=== PATIENT | female | born 1960 | race Caucasian/White ===

== ENCOUNTER 2018-06-07 20:14 | Emergency (ER) | payer SELFPAY ==
[~2018-06-07] VITALS: Ht 157.5 cm; Wt 56.7 kg
[~2018-06-07 20:14] MED LIST: BUTALB-CAFF-AC1 EACH PO; CARAFATE1 GM/10 ML PO; CODIENE PO; DARVOCET PO; DEPRESSION PILL; DONNATAL E16.2 MG/5 PO; DONNATAL PO; HYDROCODONE-AP1 EA23 PO; LIDOCAINE; MACROBID 100 M100 MG PO; NEXIUM40 MG; NORCO 10-325 T1 EACH PO; PANTOPRAZOLE SO40 MG PO; PHENERGAN25 M3 PO; PREMARIN1.25 MG PO; REGLAN10 MG PO; REQUIP5 MG PO; SOMA350 MG PO; Z PRILOSEC PO; Z.0.METOCLOPRAMIDE10 MT; Z.0.NEXIUM40 M1 PO; Z.0.ONGLYZA5 MG PO; Z.0.PROMETHAZINE HC2 MT; Z.0.SUCRALFATE1 GM PO; ZYRTEC10 MG PO
[2018-06-07] MEDS ORDERED: SODIUM CHLORIDE 0.9% 1000ML 1,000 ML IV STA (21:38)
[2018-06-07 21:44] LABS: BACTERIA,URINE FEW /HPF; BILIRUBIN,URINE NEGATIVE (NEGATIVE); CLARITY,URINE HAZY (CLEAR); COLOR,URINE YELLOW (YELLOW); EPITHELIAL CELLS,URINE FEW /LPF; KETONES,URINE NEGATIVE (NEGATIVE); LEUKOCYTE ESTERASE ,URINE NEGATIVE (NEGATIVE); NITRITE,URINE NEGATIVE (NEGATIVE); PROTEIN,URINE DIPSTICK NEGATIVE (NEGATIVE); RBC,URINE 0-5 /HPF (0-5); URINE UROBILINOGEN 0.2 mg/dL (0.2 - 1); WBC,URINE (MAN) 0-5 /HPF (0-5)
[2018-06-07] MEDS ORDERED: DICYCLOMINE HCL 20 MG/2 ML VIAL IM ONE (21:45)
[2018-06-07] MEDS ORDERED: ONDANSETRON HCL INJ 2MG/ML 2ML 2 MG/ML VIAL IV ONE (21:45)
[2018-06-07 22:29] LABS: BASOPHILS % 0.4 % (0.0-1.0); EOSINOPHILS % 0.8 % (0.0-6.0); HEMATOCRIT 37.1 % (34.2-44.1); HEMOGLOBIN 12.2 g/dL (12.0-16.0); LYMPHOCYTES # (AUTO) 1.7 (1.0-3.2); LYMPHOCYTES % 33.9 % (18.0-39.1); MEAN CORPUSCULAR HEMOGLOBIN 32.2 pg (28-32); MEAN CORPUSCULAR HGB CONC 32.9 g/dL (31-35); MEAN CORPUSCULAR VOLUME 97.9 fL (81-99); MONOCYTES # (AUTO) 0.4 (0.2-0.8); MONOCYTES % 8.4 % (4.4-11.3); NEUTROPHILS # (AUTO) 2.8 (2.1-6.9); NEUTROPHILS % 56.1 % (38.7-80.0); PLATELET COUNT 207 x10e3/uL (140-360); RED BLOOD COUNT 3.79 x10e6/uL (3.6-5.1); RED CELL DISTRIBUTION WIDTH 13.5 % (11.7-14.4)
[2018-06-07 23:00] LABS: ALANINE AMINOTRANSFERASE 13 IU/L (0-55); ALKALINE PHOSPHATASE 99 IU/L (40-150); ANION GAP 15.2 mmol/L (8-16); BLOOD UREA NITROGEN 10 mg/dL (7-26); BUN/CREATININE RATIO 11 (6-25); CALCIUM 9.6 mg/dL (8.4-10.2); CARBON DIOXIDE 23 mmol/L (22-29); CHLORIDE 99 mmol/L (98-107); CREATININE, SERUM 0.88 mg/dL (0.57-1.11); EST GLOMERULAR FILTRATION RATE > 60 ML/MIN (60-); GLUCOSE 110 mg/dL (74-118); POTASSIUM 4.2 mmol/L (3.5-5.1); SODIUM 133 mmol/L (136-145)
== END 2018-06-08 00:41 | disposition home or self-care (01) ==
LOC: ER 20:14
DX: R11.2 Nausea with vomiting, unspecified (principal)
CPT/HCPCS: 36415; 80053; 81001; 82150; 82550; 82553; 83690; 84484; 85025; 93005; 96374; 96375; 99284; J0500; J2405

== ENCOUNTER 2018-07-03 13:01 | Emergency (ER) | payer MEDICARE ==
[~2018-07-03] VITALS: Ht 157.5 cm; Wt 56.7 kg
[2018-07-03 14:19] LABS: AMPHETAMINES SCREEN,URINE NEGATIVE (NEGATIVE); BENZODIAZEPINES SCREEN,URINE POSITIVE (NEGATIVE); PHENCYCLIDINE SCREEN,URINE NEGATIVE (NEGATIVE)
[2018-07-03 14:21] LABS: CLARITY,URINE CLEAR (CLEAR); COLOR,URINE YELLOW (YELLOW); LEUKOCYTE ESTERASE ,URINE NEGATIVE (NEGATIVE); NITRITE,URINE NEGATIVE (NEGATIVE)
[2018-07-03 14:22] LABS: BILIRUBIN,URINE NEGATIVE (NEGATIVE); KETONES,URINE NEGATIVE (NEGATIVE); PROTEIN,URINE DIPSTICK TRACE (NEGATIVE); URINE UROBILINOGEN 0.2 mg/dL (0.2 - 1)
[2018-07-03 14:46] LABS: BACTERIA,URINE MANY /HPF; EPITHELIAL CELLS,URINE MANY /LPF; HYALINE CASTS 0-1 (0-1)
[2018-07-03 14:47] LABS: AMORPHOUS SEDIMENT,URINE FEW (FEW)
[2018-07-03 15:10] LABS: BASOPHILS % 0.4 % (0.0-1.0); EOSINOPHILS # (AUTO) 0.1 (0.0-0.4); EOSINOPHILS % 0.7 % (0.0-6.0); HEMATOCRIT 36.5 % (34.2-44.1); HEMOGLOBIN 12.3 g/dL (12.0-16.0); LYMPHOCYTES # (AUTO) 1.3 (1.0-3.2); LYMPHOCYTES % 16.9 % (18.0-39.1); MEAN CORPUSCULAR HEMOGLOBIN 32.6 pg (28-32); MEAN CORPUSCULAR HGB CONC 33.7 g/dL (31-35); MEAN CORPUSCULAR VOLUME 96.8 fL (81-99); MONOCYTES # (AUTO) 0.5 (0.2-0.8); MONOCYTES % 6.9 % (4.4-11.3); NEUTROPHILS # (AUTO) 5.5 (2.1-6.9); NEUTROPHILS % 74.2 % (38.7-80.0); PLATELET COUNT 215 x10e3/uL (140-360); RED BLOOD COUNT 3.77 x10e6/uL (3.6-5.1); RED CELL DISTRIBUTION WIDTH 13.1 % (11.7-14.4)
[2018-07-03] MEDS ORDERED: KETOROLAC TROMETHAMINE 30 MG/ML VIAL ONE (15:16)
[2018-07-03] MEDS ORDERED: MORPHINE SULFATE INJ 4 MG/ML INJ 1ML ONE (15:17)
[2018-07-03] MEDS ORDERED: KETOROLAC TROMETHAMINE 30 MG/ML VIAL IV STA (15:20)
[2018-07-03] MEDS ORDERED: MORPHINE SULFATE 2 MG/ML SYR 1ML IV STA (15:20)
--- NOTE | 2018-07-03 15:20 | NUR ---
PT REQUEST PAIN MEDICATION OF TORADOL AND MORPHINE MULTIPLE TIMES. MD NOTIFIED AND VERBAL ORDERS GIVEN AND PT MEDICATED. PT STATES 10 PAIN AND STATES SHE IS NOW RELIEF.
[2018-07-03 15:35] LABS: ALANINE AMINOTRANSFERASE 11 IU/L (0-55); ALBUMIN 3.5 g/dL (3.5-5.0); ALBUMIN/GLOBULIN RATIO 0.9 (0.8-2.0); ALKALINE PHOSPHATASE 132 IU/L (40-150); ANION GAP 16.1 mmol/L (8-16); BLOOD UREA NITROGEN 11 mg/dL (7-26); BUN/CREATININE RATIO 14 (6-25); CALCIUM 9.5 mg/dL (8.4-10.2); CARBON DIOXIDE 24 mmol/L (22-29); CHLORIDE 100 mmol/L (98-107); EST GLOMERULAR FILTRATION RATE > 60 ML/MIN (60-); GLUCOSE 98 mg/dL (74-118); POTASSIUM 4.1 mmol/L (3.5-5.1); SODIUM 136 mmol/L (136-145)
--- NOTE | 2018-07-03 16:30 | Diagnostic Imaging Report ---
History:Dizziness, falls Comparison studies: None Technique: Axial images were obtained from the skull base to the vertex. Coronal and sagittal images reconstructed from the axial data. Dose modulation, iterative reconstruction, and/or weight based adjustment of the mA/kV was utilized to reduce the radiation dose to as low as reasonably achievable. Intravenous contrast: None Findings: Scalp/skull: An acute right parietal scalp hematoma is not associated with subcutaneous emphysema or with hyperdense foreign bodies. No underlying fractures. Extra-axial spaces: No masses. No fluid collections. Brain sulci: Appropriate for age. Ventricles: Normal in size and configuration. No hydrocephalus. Parenchyma: No abnormal densities. No masses, hemorrhage, acute or chronic cortical vascular insults. Sellar/suprasellar region: No abnormalities. Craniocervical junction: Patent foramen magnum. No Chiari one malformation. Impression: 1. Acute right parietal scalp hematoma. No fractures. 2. No intracranial abnormalities. Signed by: Dr. John Rico M.D. on 07/03/2018 4:27 PM
[2018-07-03] MEDS ORDERED: ZOFRAN4 MG SL (16:53)
[2018-07-03] MEDS ORDERED: BACITRACIN ZINC 0.9GM TP ONE (17:16)
== END 2018-07-03 17:20 | disposition home or self-care (01) ==
LOC: ER 13:01
DX: S00.03XA Contusion of scalp, initial encounter (principal); S20.212A Contusion of left front wall of thorax, initial encounter; S80.02XA Contusion of left knee, initial encounter; S80.01XA Contusion of right knee, initial encounter; X58.XXXA Exposure to other specified factors, initial encounter; R11.2 Nausea with vomiting, unspecified; Z87.11 Personal history of peptic ulcer disease; M54.9 Dorsalgia, unspecified; G89.29 Other chronic pain; E11.9 Type 2 diabetes mellitus without complications; K74.60 Unspecified cirrhosis of liver; Z88.2 Allergy status to sulfonamides
CPT/HCPCS: 36415; 70450; 80053; 80307; 81001; 85025; 99284; J1885; J2270

== ENCOUNTER 2018-08-05 15:26 | Emergency (ER) | payer MEDICARE, OTHER ==
[~2018-08-05] VITALS: Ht 157.5 cm; Wt 54.4 kg
[~2018-08-05 15:26] MED LIST changes: +ZOFRAN4 MG SL
--- OUTSIDE RECORDS SUMMARY | 2018-08-05 15:30 | XMS REPORT ---
Author Author [facility] Address Unknown Phone Unavailable Care Team Providers Care Furniture Shampooer Name Role Phone ARMINDA Al BARBI Unavailable Unavailable Problems This patient has no known problems. Allergies, Adverse Reactions, Alerts This patient has no known allergies or adverse reactions. Medications This patient has no known medications. Results Test Description Test Time Test Comments Text Results Atomic Results Result Comments CT BRAIN WO 2018-07-03 16:25:00 [place] [id number] [place] [id number] Patient Name: CHIKA HEATON MR #: [id number] : 1960 Age/Sex: 57/F Req #: [id number] Adm Physician: Ordered by: GRACIA OSBORN SWITCH MAKER Report #: [id number] Location: ER Room/Bed: Procedure: [id number] CT/CT BRAIN WO Exam Date: 07/03/18 Exam Time: 1609 REPORT STATUS: Signed History:Dizziness, falls Comparison studies: None Technique: Axial images were obtained from the skull base to the vertex. Coronal and sagittal images reconstructed from the axial data. Dose modulation, iterative reconstruction, and/or weight based adjustment of the mA/kV was utilized to reduce the radiation dose to as low as reasonably achievable. Intravenous contrast: None Findings: Scalp/skull: An acute right parietal scalp hematoma is not associated with subcutaneous emphysema or with hyperdense foreign bodies. No underlying fractures. Extra-axial spaces: No masses. No fluid collections. Brain sulci: Appropriate for age. Ventricles: Normal in size and configuration. No hydrocephalus. Parenchyma: No abnormal densities. No masses, hemorrhage, acute or chronic cortical vascular insults. Sellar/suprasellar region: No abnormalities. Craniocervical junction: Patent foramen magnum. No Chiari one malformation. Impression: 1. Acute right parietal scalp hematoma. No fractures. 2. No intracranial abnormalities. Signed by: Dr. John Rico M.D. on 07/03/2018 4:27 PM Dictated By: JOHN DRISCOLL MD, MD [id number] Transcribed By: AILYN on 07/03/18 0362 COPY TO: GRACIA OSBORN NP
[2018-08-05] MEDS ORDERED: KETOROLAC TROMETHAMINE 60 MG/2 ML VIAL IM NR (15:45)
--- NOTE | 2018-08-05 17:45 | Diagnostic Imaging Report ---
CT BRAIN WO HISTORY: Trauma COMPARISON: Head CT 07/03/2018 Technique: Noncontrast axial scans were obtained from skull base to the vertex. Coronal and sagittal reconstructions obtained from the axial data. One or more of the following dose reduction techniques were used: Automated exposure control, adjustment of the mA and/or kV according to patient size, and/or utilization of iterative reconstruction technique. DISCUSSION: Scalp/Skull: Unremarkable. Brain sulci: Age-appropriate. Ventricles: Normal in size and configuration. Extra-axial spaces: No masses or fluid collections. Carotid siphon calcifications are present. Parenchyma: Mild bilateral deep white matter hypodensity is likely chronic microvascular ischemic change. Otherwise, no masses, hemorrhage, or large vascular territory acute infarct. Dural sinuses: No abnormal densities. Sellar/Suprasellar region: Intact. Skull base: Intact. Incidental findings: None. IMPRESSION: 1. No acute intracranial abnormalities. 2. Mild supratentorial chronic microvascular ischemic change. Signed by: Dr. Mason Ortiz M.D. on 08/05/2018 5:42 PM
--- NOTE | 2018-08-05 17:54 | Diagnostic Imaging Report ---
PELVIS X-RAY - 1 VIEW HISTORY: ^fall ^[id number] ^[id number] COMPARISON: CT abdomen and pelvis 07/31/2011 FINDINGS: Bones: No acute displaced fracture. Sclerotic lesion within the right iliac bone is unchanged since 2011 and likely representing a bone island. Osseous alignment is within normal limits. Joints: Mild to moderate degenerative changes of both hips. Mild degenerative changes of both sacroiliac joints. Soft tissues: Multiple phleboliths overlying the pelvis. IMPRESSION: No acute radiographic abnormality. Signed by: Dr. Jaquelin Michaud M.D. on 08/05/2018 5:50 PM
[2018-08-05] MEDS ORDERED: ROBAXIN-750750 MG PO (17:59)
== END 2018-08-05 18:30 | disposition home or self-care (01) ==
LOC: ER 15:26
DX: S06.0X0A Concussion without loss of consciousness, initial encounter (principal); W01.0XXA Fall on same level from slipping, tripping and stumbling without subsequent striking against object, initial encounter; Y92.238 Other place in hospital as the place of occurrence of the external cause
CPT/HCPCS: 70450; 72170; 99284; J1885

== ENCOUNTER 2018-08-30 20:35 | Emergency (ER) | payer MEDICARE ==
[~2018-08-30] VITALS: Ht 157.5 cm; Wt 54.4 kg
[~2018-08-30 20:35] MED LIST changes: +ROBAXIN-750750 MG PO
--- NOTE | 2018-08-30 21:04 | NUR ---
PATIENT IN RADILOGY DEPARTMENT
--- NOTE | 2018-08-30 21:55 | Diagnostic Imaging Report ---
History: Fall, hit the head. Head and neck pain Comparison studies:None Technique: Axial images were obtained from the brain and cervical spine. Coronal and sagittal images reconstructed from the axial data. Intravenous contrast: None Dose modulation, iterative reconstruction, and/or weight based adjustment of the mA/kV was utilized to reduce the radiation dose to as low as reasonably achievable. Findings: Head CT: Scalp/skull: No abnormalities. No fractures, blastic or lytic lesions. Brain sulci: Appropriate for age. Ventricles: Normal in size and configuration. No hydrocephalus. Extra-axial spaces: No masses. No fluid collections. Parenchyma: No abnormal densities. No masses, hemorrhage, acute or chronic cortical vascular insults. Sellar/suprasellar region: No abnormalities. Craniocervical junction: Patent foramen magnum. No Chiari one malformation. Cervical spine CT: Fractures: None. Soft tissues: No gross abnormalities. Atlantoaxial articulation: Degenerative changes without acute abnormality. Alignment: Normal lordosis. No scoliosis. Cervicomedullary junction: No abnormalities. Patent foramen magnum. Vertebrae: No infection or neoplasm. Degenerative changes: Patent canal and foramina. Incidental findings: None. Impression: Head CT: 1. Normal examination. Cervical spine CT: 1. No acute abnormalities. 2. Cannot exclude ligament, spinal cord and or vascular abnormalities on the basis of this examination. Signed by: DR Merlin Jay M.D. on 08/30/2018 9:51 PM
--- NOTE | 2018-08-30 21:55 | Diagnostic Imaging Report ---
Thoracic Spine - 3 view(s) HISTORY: Pain status post fall. COMPARISON: None FINDINGS: Superimposed structures and attenuation partially limit bone detail particularly on the swimmer's view.. The alignment is normal. No displaced fracture or compression deformity is identified. Minimal multilevel thoracic spondylosis. Cholecystectomy clips IMPRESSION: No acute compression fracture. Signed by: Dr. Ai Cabello M.D. on 08/30/2018 9:52 PM
--- NOTE | 2018-08-30 21:59 | Diagnostic Imaging Report ---
Lumbar Spine Radiographs: 3 views HISTORY: Pain COMPARISON: None available in PACS at this time. DISCUSSION: There are five non-rib bearing lumbar vertebral bodies. The alignment of the spine is within normal limits. Mild wedge deformity of the L4 vertebral body with deformity of the superior endplate suggestive of mild compression injury. Mild multilevel spondylosis. Facet arthrosis at L4-L5 and L5-S1. Sclerotic lesion in the right acetabulum may represent a bone island. Multiple phleboliths scattered throughout the pelvis. Degenerative changes of the bilateral hip and thigh joints. IMPRESSION: Findings suggestive of mild compression fracture deformity of L4. Signed by: Dr. Ai Cabello M.D. on 08/30/2018 9:55 PM
--- NOTE | 2018-08-30 22:27 | NUR ---
PATIENT STATES SHE HAS HAD TORADOL BEFORE, MD AWARE OF ASPIRIN ALLERGY, OK TO GIVE TORADOL
[2018-08-30] MEDS ORDERED: KETOROLAC TROMETHAMINE 60 MG/2 ML VIAL IM ONE (22:30)
--- NOTE | 2018-08-30 23:26 | Diagnostic Imaging Report ---
History: Fall, back pain Comparison studies: None Technique: Axial images were obtained from T12 through the sacrum. Coronal and sagittal images reconstructed from the axial data. Intravenous contrast: None Dose modulation, iterative reconstruction, and/or weight based adjustment of the mA/kV was utilized to reduce the radiation dose to as low as reasonably achievable. Findings: Number of non-rib bearing vertebral bodies: 5 Alignment: Normal lordosis. No scoliosis. Soft tissues: No paraspinal abnormalities. Small subcentimeter stones on the right collecting systems without hydronephrosis. Paraspinal muscles: Unremarkable. Vertebrae: No fractures or infection. Nondeforming hemangioma at L3 and L5 vertebral bodies. Degenerative changes: L1-L2: Patent canal and foramina L2-L3: Asymmetric left disc bulge results in mild canal stenosis and mild left foraminal narrowing L3-L4: Diffuse disc bulge and mild facet hypertrophy with patent canal and mild bilateral foraminal. L4-L5: Diffuse disc bulge, mild facet hypertrophy and ligamentum flavum thickening results in mild canal stenosis and mild bilateral foraminal narrowing L5-S1: Mild facet hypertrophy with patent canal and mild bilateral foraminal narrowing Sacroiliac joints: Mild degenerative changes without acute abnormality. IMPRESSION: 1. No acute lumbar abnormality. 2. Degenerative changes as described above. 3. Nonobstructing right nephrolithiasis. Signed by: DR Merlin Jay M.D. on 08/30/2018 11:22 PM
[2018-08-30 23:56] VITALS: BP 110/74
[2018-09-14] MEDS ORDERED: VALIUM10 MG (14:42)
[2018-09-14] MEDS ORDERED: IRON PO (14:42)
[2018-09-14] MEDS ORDERED: MECLIZINE HCL12.5 MG PO (14:42)
[2018-09-14] MEDS ORDERED: [UNRECOGNIZED DRUG - OTHER] PO (14:42)
== END 2018-08-31 00:07 | disposition home or self-care (01) ==
LOC: ER 20:35
DX: S06.0X0A Concussion without loss of consciousness, initial encounter (principal); S00.83XA Contusion of other part of head, initial encounter; S10.83XA Contusion of other specified part of neck, initial encounter; S30.0XXA Contusion of lower back and pelvis, initial encounter; W06.XXXA Fall from bed, initial encounter; Y93.84 Activity, sleeping; Y92.003 Bedroom of unspecified non-institutional (private) residence as the place of occurrence of the external cause; Z98.84 Bariatric surgery status
CPT/HCPCS: 70450; 72070; 72100; 72125; 72131; 99284; J1885

== ENCOUNTER 2018-09-05 14:12 | Emergency (ER) | payer MEDICARE ==
[~2018-09-05] VITALS: Ht 157.5 cm; Wt 54.4 kg
[2018-09-05] MEDS ORDERED: SODIUM CHLORIDE 0.9% 1000ML 1,000 ML IV STA (15:11)
[2018-09-05] MEDS ORDERED: DICYCLOMINE HCL 20 MG/2 ML VIAL IM ONE (15:15)
[2018-09-05] MEDS ORDERED: ONDANSETRON HCL INJ 2MG/ML 2ML 2 MG/ML VIAL IV ONE (15:30)
[2018-09-05 15:40] LABS: BASOPHILS % 0.2 % (0.0-1.0); EOSINOPHILS % 0.1 % (0.0-6.0); HEMOGLOBIN 9.3 g/dL (12.0-16.0); MEAN CORPUSCULAR HEMOGLOBIN 30.2 pg (28-32); MEAN CORPUSCULAR HGB CONC 34.4 g/dL (31-35); MEAN CORPUSCULAR VOLUME 87.7 fL (81-99); MONOCYTES # (AUTO) 0.6 (0.2-0.8); NEUTROPHILS # (AUTO) 6.8 (2.1-6.9); NEUTROPHILS % 79.7 % (38.7-80.0); PLATELET COUNT 244 x10e3/uL (140-360); RED BLOOD COUNT 3.08 x10e6/uL (3.6-5.1); RED CELL DISTRIBUTION WIDTH 11.9 % (11.7-14.4)
[2018-09-05 15:44] LABS: BILIRUBIN,URINE MODERATE (NEGATIVE); CLARITY,URINE SL CLOUDY (CLEAR); COLOR,URINE STRAW (YELLOW); KETONES,URINE 1+ (NEGATIVE); LEUKOCYTE ESTERASE ,URINE MODERATE (NEGATIVE); NITRITE,URINE NEGATIVE (NEGATIVE); PROTEIN,URINE DIPSTICK 2+ (NEGATIVE); URINE UROBILINOGEN 1 mg/dL (0.2 - 1)
[2018-09-05 15:47] LABS: AMPHETAMINES SCREEN,URINE NEGATIVE (NEGATIVE); BENZODIAZEPINES SCREEN,URINE POSITIVE (NEGATIVE); PHENCYCLIDINE SCREEN,URINE NEGATIVE (NEGATIVE)
[2018-09-05 16:01] LABS: BACTERIA,URINE MANY /HPF; WBC,URINE (MAN) >50 /HPF (0-5)
[2018-09-05 16:03] LABS: INR 0.96; PROTHROMBIN TIME 13.3 seconds (11.9-14.5)
[2018-09-05 16:04] LABS: PARTIAL THROMBOPLASTIN TIME 26.4 seconds (23.8-35.5)
[2018-09-05 16:04] LABS: ALANINE AMINOTRANSFERASE 25 IU/L (0-55); ALBUMIN 2.9 g/dL (3.5-5.0); ALBUMIN/GLOBULIN RATIO 0.7 (0.8-2.0); ALKALINE PHOSPHATASE 173 IU/L (40-150); ANION GAP 16.4 mmol/L (8-16); BLOOD UREA NITROGEN 11 mg/dL (7-26); BUN/CREATININE RATIO 13 (6-25); CALCIUM 9.4 mg/dL (8.4-10.2); CARBON DIOXIDE 21 mmol/L (22-29); CHLORIDE 101 mmol/L (98-107); CREATINE KINASE 15 IU/L (29-168); CREATININE, SERUM 0.85 mg/dL (0.57-1.11); EST GLOMERULAR FILTRATION RATE > 60 ML/MIN (60-); GLUCOSE 103 mg/dL (74-118); POTASSIUM 3.4 mmol/L (3.5-5.1); SODIUM 135 mmol/L (136-145)
[2018-09-05] MEDS ORDERED: CEFTRIAXONE SOD 1 GM VIAL IV ONE (16:15)
[2018-09-05] MEDS ORDERED: CEFTRIAXONE SOD 1 GM/NS 50 ML 50 ML IV ONE (16:15)
== END 2018-09-05 17:30 | disposition home or self-care (01) ==
LOC: ER 14:12
DX: R42 Dizziness and giddiness (principal); S06.0X0A Concussion without loss of consciousness, initial encounter; R51 Headache; R11.2 Nausea with vomiting, unspecified; W18.30XA Fall on same level, unspecified, initial encounter; N39.0 Urinary tract infection, site not specified; Z98.84 Bariatric surgery status
CPT/HCPCS: 36415; 80053; 80307; 81001; 82550; 82553; 84484; 85025; 85610; 85730; 87086; 87186; 93005; 99284; J0500; J0696; J2405; J7030

== ENCOUNTER → 2018-09-17 | Day surgery (SDC) | payer MEDICARE ==
[2018-09-14 16:00] LABS: BASOPHILS % 0.6 % (0.0-1.0); EOSINOPHILS # (AUTO) 0.2 (0.0-0.4); EOSINOPHILS % 3.9 % (0.0-6.0); HEMATOCRIT 27.8 % (34.2-44.1); HEMOGLOBIN 9.1 g/dL (12.0-16.0); LYMPHOCYTES # (AUTO) 1.8 (1.0-3.2); MEAN CORPUSCULAR HEMOGLOBIN 29.4 pg (28-32); MEAN CORPUSCULAR HGB CONC 32.7 g/dL (31-35); MONOCYTES # (AUTO) 0.6 (0.2-0.8); MONOCYTES % 11.2 % (4.4-11.3); NEUTROPHILS # (AUTO) 2.7 (2.1-6.9); NEUTROPHILS % 49.7 % (38.7-80.0); PLATELET COUNT 225 x10e3/uL (140-360); RED BLOOD COUNT 3.09 x10e6/uL (3.6-5.1); RED CELL DISTRIBUTION WIDTH 12.4 % (11.7-14.4)
[2018-09-14 16:10] LABS: PROTHROMBIN TIME 13.7 seconds (11.9-14.5)
[2018-09-14 16:11] LABS: PARTIAL THROMBOPLASTIN TIME 26.5 seconds (23.8-35.5)
[2018-09-14 16:20] LABS: ALANINE AMINOTRANSFERASE 13 IU/L (0-55); ALBUMIN 3.2 g/dL (3.5-5.0); ALBUMIN/GLOBULIN RATIO 0.9 (0.8-2.0); ANION GAP 12.8 mmol/L (8-16); BLOOD UREA NITROGEN 16 mg/dL (7-26); BUN/CREATININE RATIO 19 (6-25); CALCIUM 9.3 mg/dL (8.4-10.2); CARBON DIOXIDE 29 mmol/L (22-29); CHLORIDE 105 mmol/L (98-107); CREATININE, SERUM 0.84 mg/dL (0.57-1.11); EST GLOMERULAR FILTRATION RATE > 60 ML/MIN (60-); GLUCOSE 90 mg/dL (74-118); POTASSIUM 3.8 mmol/L (3.5-5.1); SODIUM 143 mmol/L (136-145)
[2018-09-14 22:54] LABS: ALKALINE PHOSPHATASE 97 IU/L (40-150)
[~2018-09-17] MED LIST changes: +IRON PO; +LIDOCAINE HCL 2% LOCAL INJ 5 ML SDV VIAL INJ ONE; +MECLIZINE HCL12.5 MG PO; +MIDAZOLAM HCL 2 MG/2 ML VIAL ONE; +ONDANSETRON HCL INJ 2MG/ML 2ML 2 MG/ML VIAL ONE; +PANTOPRAZOLE 40 MG 10ML VIAL ONE; +PROPOFOL IV EMULSION 10 MG/ML 20 ML VIAL ONE; +VALIUM10 MG; +VALIUM10 MG PO; +VANCOMYCIN HCL500 MG PO; +[UNRECOGNIZED DRUG - OTHER] PO
[2018-09-17 15:56] VITALS: BP 169/84
--- NOTE | 2018-09-17 16:04 | Operative Report ---
DATE OF PROCEDURE: 09/17/2018 SURGEON: Kyle Patrick MD PROCEDURE: Esophagogastroduodenoscopy with esophageal dilatation and biopsies. INDICATIONS FOR EGD: Dysphagia, epigastric pain, nausea. MEDICATIONS: The patient was done under MAC, please see anesthesiologist's note. PROCEDURE IN DETAIL: With the patient in left lateral decubitus position, a flexible fiberoptic Olympus gastroscope was introduced into the esophagus under direct visualization without any difficulty. There was some patchy erythema noted in the distal esophagus. There was a mild stricture noted at the GE junction that was dilated to size 52-Yemeni Bonilla. The scope was then advanced with ease into the stomach and the patient is status post Shanon-en-Y anastomosis appeared intact and the enteric loop was patent. There was no evidence of marginal ulcers. Biopsies were obtained from the gastric stump. The scope was subsequently withdrawn. The patient tolerated the procedure well. IMPRESSION: 1. Distal esophagitis, mild. 2. Mild stricture at gastroesophageal junction, dilated to size 52-Yemeni Bonilla. 3. Status post Shanon-en-Y. Anastomosis intact. Efferent loop patent. No evidence of marginal ulcers. PLAN: Follow up histology. Initiate Protonix 40 mg one p.o. q.a.m. a.c. and Carafate 1 g p.o. a.c. t.i.d. and at bedtime. Kyle Patrick MD [facility] [place]/[facility] /[id number] cc: Filemon Palacios
== END | disposition home or self-care (01) ==
LOC: OR 11:48
PROVIDERS: ATTEND Internal Medicine Gastroenterology
DX: K22.2 Esophageal obstruction (principal); K20.9 Esophagitis, unspecified; R10.10 Upper abdominal pain, unspecified; R11.2 Nausea with vomiting, unspecified; R03.0 Elevated blood-pressure reading, without diagnosis of hypertension; R42 Dizziness and giddiness; E11.9 Type 2 diabetes mellitus without complications; N20.0 Calculus of kidney; F41.9 Anxiety disorder, unspecified; Z88.6 Allergy status to analgesic agent; Z88.2 Allergy status to sulfonamides; Z01.812 Encounter for preprocedural laboratory examination; Z98.84 Bariatric surgery status; Z87.01 Personal history of pneumonia (recurrent)
CPT/HCPCS: 36415; 43239; 43450; 80053; 85025; 85610; 85730; 88305; 88312; C9113; J2001; J2250; J2405; J2704

== ENCOUNTER 2018-10-16 09:17 | Inpatient (IN) | payer MEDICARE ==
[~2018-10-16] VITALS: Ht 157.5 cm; Wt 54.4 kg
[~2018-10-16 09:17] MED LIST changes: -LIDOCAINE HCL 2% LOCAL INJ 5 ML SDV VIAL INJ ONE; -MIDAZOLAM HCL 2 MG/2 ML VIAL ONE; -ONDANSETRON HCL INJ 2MG/ML 2ML 2 MG/ML VIAL ONE; -PANTOPRAZOLE 40 MG 10ML VIAL ONE; -PROPOFOL IV EMULSION 10 MG/ML 20 ML VIAL ONE; -VALIUM10 MG PO; -VANCOMYCIN HCL500 MG PO
[2018-10-16] MEDS ORDERED: MORPHINE SULFATE INJ 4 MG/ML INJ 1ML IV STA (09:20)
[2018-10-16] MEDS ORDERED: ONDANSETRON HCL INJ 2MG/ML 2ML 2 MG/ML VIAL IV STA (09:20)
[2018-10-16] MEDS ORDERED: FAMOTIDINE 20 MG/2 ML VIAL IV STA (09:20)
[2018-10-16] MEDS ORDERED: SODIUM CHLORIDE 0.9% 1000ML 1,000 ML IV STA ×2 (09:20→10:51)
--- OUTSIDE RECORDS SUMMARY | 2018-10-16 09:21 | XMS REPORT | Continuity of Care Document ---
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 Problem 09/05/2018 [facility] Atrial fibrillation with rapid ventricular response Active 01/18/2014 Problem 09/05/2018 [facility] GI bleed Active 01/18/2014 Problem 09/05/2018 [facility] Medications Medication Details Route Status Patient Instructions Ordering Provider Order Date Source Methocarbamol (Robaxin-750) 750 Mg Tablet Three Times A Day as needed for Muscle Spasms Active Ramesh 08/05/2018 [facility] Ondansetron Hcl (Zofran*) 4 Mg Tablet Every 6 Hours as needed for Nausea Active Osborn 07/03/2018 [facility] Butalbit/Acetamin/Caff/Codeine (Ngcttg-Zwvw-Yyeepxeozqx-Codein) 1 Each Capsule, 1 Each Oral Every 6 Hours Active 09/16/2016 [facility] Carisoprodol (Soma) 350 Mg Tablet, 350 Mg Oral Four Times Daily Active 09/16/2016 [facility] Cetirizine Hcl (Zyrtec) 10 Mg Tablet, 10 Mg Oral Daily Active 09/16/2016 [facility] Metoclopramide Hcl (Reglan) 10 Mg Tablet, 10 Mg Oral Daily as needed for Nausea Active 09/16/2016 [facility] Nitrofurantoin Monohyd/M-Cryst (Macrobid 100 Mg Capsule) 100 Mg Capsule, 100 Mg Oral Twice A Day Active 09/16/2016 [facility] Sucralfate (Carafate) 1 Gm/10 Ml Oral.susp, 2 Tsp Oral Every 6 Hours as needed for Abdominal Pain Active 09/16/2016 [facility] Esomeprazole Magnesium (Nexium) 40 Mg Capsule., Active 12/29/2014 [facility] Carisoprodol (Soma) 350 Mg Tablet, 350 Mg Oral Daily Active 01/18/2014 [facility] Hydrocodone Bit/Acetaminophen (Slater 10-325 Tablet) 1 Each Tablet, Oral Every 6 Hours Active 01/18/2014 [facility] , 0.1037 Mg Oral Every 4 Hours Active 06/28/2013 [facility] Hydrocodone Bit/Acetaminophen (Hydrocodone-Apap 7.5-500 Tab) 1 Each Tablet, 17.5 - 500 Mg Oral Prn 4-6 Hr Active 06/28/2013 [facility] Lidocaine , Every 4 Hours Active 06/28/2013 [facility] Pantoprazole Sodium (Protonix) 40 Mg Tablet., 40 Mg Oral Daily Active 06/28/2013 [facility] Promethazine Hcl (Phenergan) 25 Mg Tablet, 25 Mg Oral Four Times Daily Active 06/28/2013 [facility] Sucralfate 1 Gm Tablet, 1 G Oral Before Meal Tid; Hs Active 06/28/2013 [facility] Esomeprazole Mag Trihydrate (Nexium) 40 Mg Suspdr.pkt, 40 Mg Oral Daily Active 08/02/2012 [facility] Omeprazole Magnesium (Prilosec) 10 Mg Suspdr.pkt, 10 Mg Oral Active 08/05/2010 [facility] Darvocet W/Codiene Every 6 Hours Active [facility] Depression Pill Active [facility] Estrogens, Conjugated (Premarin) 1.25 Mg Tablet Daily Active [facility] Pantoprazole Sodium (Protonix) 40 Mg Tablet. Daily Active [facility] Ropinirole Hcl (Requip) 5 Mg Tablet Bedtime Active [facility] Allergies, Adverse Reactions, Alerts Substance Category Reaction Severity Reaction type Status Date Reported Comments Source Sulfa (Sulfonamide Antibiotics) Unknown Allergy to Substance Active 09/05/2018 [facility] Codeine Unknown Allergy to Substance Active 09/05/2018 [facility] Aspirin Unknown Allergy to Substance Active 09/05/2018 [facility] Meperidine Unknown Allergy to Substance Active 09/05/2018 [facility] Hydromorphone Itching Mild Allergy to Substance Active 09/05/2018 [facility] Immunizations No Data Provided for This Section Results Order Name Results Value Reference Range Date Interpretation Comments Source Prothrombin time (PT) in platelet poor plasma by coagulation assay 13.3 11.9 - 14.5 09/05/2018 [facility] INR in Platelet poor plasma by Coagulation assay 0.96 09/05/2018 [facility] Activated partial thromboplastin time (aPTT) in platelet poor plasma bycoagulation assay 26.4 23.8 - 35.5 09/05/2018 [facility] Blood leukocytes automated count (number/volume) 8.58 4.8 - 10.8 09/05/2018 [facility] Blood erythrocytes automated count (number/volume) 3.08 3.6 - 5.1 09/05/2018 [facility] Blood hemoglobin measurement (moles/volume) 9.3 12.0 - 16.0 09/05/2018 [facility] Automated blood hematocrit (volume fraction) 27.0 34.2 - 44.1 09/05/2018 [facility] Automated erythrocyte mean corpuscular volume 87.7 81 - 99 09/05/2018 [facility] Automated erythrocyte mean corpuscular hemoglobin (mass per erythrocyte) 30.2 28 - 32 09/05/2018 [facility] Automated erythrocyte mean corpuscular hemoglobin concentration measurement (mass/volume) 34.4 31 - 35 09/05/2018 [facility] RDW BldCo-Rto 11.9 11.7 - 14.4 09/05/2018 [facility] Automated blood platelet count (count/volume) 244 140 - 360 09/05/2018 [facility] Automated blood segmented neutrophil count as percentage of total leukocytes 79.7 38.7 - 80.0 09/05/2018 [facility] Automated blood lymphocyte count as percentage ot total leukocytes 12.0 18.0 - 39.1 09/05/2018 [facility] Automated blood monocyte count as percentage of total leukocytes 7.0 4.4 - 11.3 09/05/2018 [facility] Automated blood eosinophil count as percentage of total leukocytes 0.1 0.0 - 6.0 09/05/2018 [facility] Automated blood basophil count as percentage of total leukocytes 0.2 0.0 - 1.0 09/05/2018 [facility] IM GRANULOCYTES % 1.0 0.0 - 1.0 09/05/2018 [facility] Automated blood neutrophil count 6.8 2.1 - 6.9 09/05/2018 [facility] Blood lymphocytes count (number/volume) 1.0 1.0 - 3.2 09/05/2018 [facility] Blood monocytes automated count (number/volume) 0.6 0.2 - 0.8 09/05/2018 [facility] Automated blood eosinophil count 0.0 0.0 - 0.4 09/05/2018 [facility] Automated blood basophil count (count/volume) 0.0 0.0 - 0.1 09/05/2018 [facility] Absolute Immature Granulocyte (auto 0.09 0 - 0.1 09/05/2018 [facility] Urine color determination STRAW YELLOW 09/05/2018 [facility] Urine clarity SL CLOUDY CLEAR 09/05/2018 [facility] Specific gravity of Urine by Test strip 1.025 1.010 - 1.025 09/05/2018 [facility] Urine pH measurement by automated test strip 6 5 - 7 09/05/2018 [facility] Urine leukocyte esterase detection by automated test strip MODERATE NEGATIVE 09/05/2018 [facility] Urine nitrite detection by automated test strip NEGATIVE NEGATIVE 09/05/2018 [facility] Urine protein detection by automated test strip 2+ NEGATIVE 09/05/2018 [facility] Urine glucose detection by automated test strip NEGATIVE NEGATIVE 09/05/2018 [facility] Urine ketones detection by automated test strip 1+ NEGATIVE 09/05/2018 [facility] Urine opiates screening test POSITIVE NEGATIVE 09/05/2018 [facility] Barbiturates screen, urine POSITIVE NEGATIVE 09/05/2018 [facility] Urine phencyclidine detection by screening method NEGATIVE NEGATIVE 09/05/2018 [facility] Urine amphetamines detection by screen method > 1000 ng/mL NEGATIVE NEGATIVE 09/05/2018 [facility] Urine Methamphetamines Screen NEGATIVE NEGATIVE 09/05/2018 [facility] Urine benzodiazepines detection by screening method POSITIVE NEGATIVE 09/05/2018 [facility] Urine cocaine measurement (mass/volume) NEGATIVE NEGATIVE 09/05/2018 [facility] Urine cannabinoids detection by screening method NEGATIVE NEGATIVE 09/05/2018 [facility] Urine methadone screen NEGATIVE NEGATIVE 09/05/2018 [facility] Urine urobilinogen measurement by test strip (mass/volume) 1 0.2 - 1 09/05/2018 [facility] Urine total bilirubin detection MODERATE NEGATIVE 09/05/2018 [facility] Urine erythrocytes detection 1+ NEGATIVE 09/05/2018 [facility] Automated urine sediment leukocyte count by microscopy (number/high power field) >50 0 - 5 09/05/2018 [facility] Erythrocytes detection in urine sediment by light microscopy 11-20 0 - 5 09/05/2018 [facility] Bacteria detection in urine sediment by light microscopy MANY NONE 09/05/2018 [facility] Epithelial cells detection in urine sediment by light microscopy NONE NONE 09/05/2018 [facility] Serum or plasma sodium measurement (moles/volume) 135 136 - 145 09/05/2018 [facility] Serum or plasma potassium measurement (moles/volume) 3.4 3.5 - 5.1 09/05/2018 [facility] Serum or plasma chloride measurement (moles/volume) 101 98 - 107 09/05/2018 [facility] Serum or plasma carbon dioxide, total measurement (moles/volume) 21 22 - 29 09/05/2018 [facility] Serum or plasma anion gap 16.4 8 - 16 09/05/2018 [facility] Serum or plasma urea nitrogen measurement (mass/volume) 11 7 - 26 09/05/2018 [facility] Serum or plasma creatinine measurement (mass/volume) 0.85 0.57 - 1.11 09/05/2018 [facility] Serum or plasma urea nitrogen/creatinine mass ratio 13 6 - 25 09/05/2018 [facility] Estimated glomerular filtration rate (GFR) determination > 60 60 09/05/2018 [facility] Glucose measurement 103 74 - 118 09/05/2018 [facility] Serum or plasma calcium measurement (mass/volume) 9.4 8.4 - 10.2 09/05/2018 [facility] Serum or plasma total bilirubin measurement (mass/volume) 0.6 0.2 - 1.2 09/05/2018 [facility] Aspartate Amino Transf (AST/SGOT) 39 5 - 34 09/05/2018 [facility] Serum or plasma alanine aminotransferase measurement (enzymatic activity/volume) 25 0 - 55 09/05/2018 [facility] Serum or plasma protein measurement (mass/volume) 7.3 6.5 - 8.1 09/05/2018 [facility] Serum or plasma albumin measurement (mass/volume) 2.9 3.5 - 5.0 09/05/2018 [facility] Plasma globulin measurement (mass/volume) 4.4 2.3 - 3.5 09/05/2018 [facility] Serum or plasma albumin/globulin mass ratio 0.7 0.8 - 2.0 09/05/2018 [facility] Serum or plasma alkaline phosphatase measurement (enzymatic activity/volume) 173 40 - 150 09/05/2018 [facility] Serum or plasma creatine kinase measurement (enzymatic activity/volume) 15 29 - 168 09/05/2018 [facility] Serum or plasma creatine kinase MB measurement (mass/volume) 0.60 0 - 5.0 09/05/2018 [facility] Troponin I measurement by highly sensitive enzyme immunoassay < 0.001 0 - 0.300 09/05/2018 [facility] Amorphous sediment detection in urine sediment by light microscopy FEW FEW 07/03/2018 [facility] Hyaline casts detection in urine sediment by light microscopy 0-1 0 - 1 07/03/2018 [facility] Coarse granular casts detection in urine sediment by light microscopy 1-5 0 07/03/2018 [facility] WBC casts detection in urine sediment by light microscopy 1-5 0 07/03/2018 [facility] Serum or plasma amylase measurement (enzymatic activity/volume) 67 25 - 125 06/07/2018 [facility] Serum or plasma lipase measurement (enzymatic activity/volume) 32 8 - 78 06/07/2018 [facility] Pathology Reports No Data Provided for This Section Diagnostic Reports No Data Provided for This Section Consultation Notes No Data Provided for This Section Discharge Summaries No Data Provided for This Section History and Physicals No Data Provided for This Section Vital Signs No Data Provided for This Section Encounters Location Location Details Encounter Type Encounter Number Reason For Visit Attending Provider ADM Date DC Date Status Source Departed Emergency Room [id number] YODIT PORTILLO MD 06/07/2018 06/08/2018 [facility] Departed Emergency Room [id number] BARBI HILLIARD MD 07/03/2018 07/03/2018 [facility] Departed Emergency Room [id number] YODIT PORTILLO MD 08/05/2018 08/05/2018 [facility] Departed Emergency Room [id number] RONI LARA MD 08/30/2018 08/31/2018 [facility] Departed Emergency Room [id number] BARBI HILLIARD MD 09/05/2018 09/05/2018 [facility] Procedures Procedure Code Date Perfomer Comments Source Computed tomography of brain without radiopaque contrast [id number] 08/30/2018 [facility] Computed tomography of cervical spine without contrast [id number] 08/30/2018 [facility] Computed tomography of lumbar spine without contrast [id number] 08/30/2018 [facility] Computed tomography of brain without radiopaque contrast [id number] 08/05/2018 [facility] Computed tomography of brain without radiopaque contrast [id number] 07/03/2018 [facility] Assessment and Plan No Data Provided for This Section Plan of Care Plan of Care Date Source Discharge Date 09/05/18 5:30pm Disposition HOME, SELF-CARE Condition at Discharge Stable Instructions/Education Provided Concussion/Head Injury - Adult Dizziness Urinary Tract Infection - Women Vomiting - Adult Forms Provided Work/School Excuse Prescriptions See Medication Section Referrals GERI PIEDRA Address: [address] [place] [id number] KULDEEP MATUTE MD Address: [address] [place] [id number] Additional Instructions/Education 1. follow up with your doctor / neurologist in 1-2 days without fail 2. return to ed as needed 3. tylenol and motrin as needed 4. increase oral fluids 5. bland diet 09/05/2018 [facility] Social History Social History Date Source Social History Problem Response Recorded Date/Time Onset Date Status Hx Psychiatric Problems No 12/29/2014 11:28am Not Applicable Not Applicable Hx Eating Disorder No 12/29/2014 11:28am Not Applicable Not Applicable Hx Substance Use Disorder No 12/29/2014 11:28am Not Applicable Not Applicable Hx Depression No 12/29/2014 11:28am Not Applicable Not Applicable Hx Alcohol Use No 12/29/2014 11:28am Not Applicable Not Applicable Hx Substance Use Treatment No 12/29/2014 11:28am Not Applicable Not Applicable Hx Physical Abuse No 12/29/2014 11:28am Not Applicable Not Applicable 09/05/2018 [facility] Family History No Data Provided for This Section Advance Directives Order Name Results Value Date Source Advance Directives Advance Directives Directive Response Recorded Date/Time Does the patient have an advance directive? No 12/29/14 11:28am If yes, is advance directive on file with [facility]? No 07/03/18 3:53pm If not on file with [facility] will patient provide a copy? No 07/03/18 3:53pm Do you have a Directive to Physician? No 09/05/18 2:45pm Do you have a Medical Power of Internal Security Manager? No 09/05/18 2:45pm Do you have an out of hospital Do Not Resuscitate Order? No 09/05/18 2:45pm Do you have any special needs we should be aware of? No 09/05/18 2:45pm Do you have a support person here with you today? No 09/05/18 2:45pm Did patient receive Notice of Privacy Practices? Yes 09/05/18 2:45pm Did patient receive patient rights and responsibilities? Yes 09/05/18 2:45pm 09/05/2018 [facility] Functional Status No Data Provided for This Section
[2018-10-16] MEDS ORDERED: DICYCLOMINE HCL 20 MG/2 ML VIAL IM ONE (09:30)
[2018-10-16] MEDS ORDERED: ASPIRIN 81 MG CHEW TAB PO ONE (09:30)
--- NOTE | 2018-10-16 10:03 | NUR ---
straight cath inserted via aseptic technique per md orders for ua; urine output approx 40 cc; urine collected and sent to lab
[2018-10-16 10:08] LABS: BILIRUBIN,URINE MODERATE (NEGATIVE); CLARITY,URINE CLEAR (CLEAR); COLOR,URINE ORANGE (YELLOW); LEUKOCYTE ESTERASE ,URINE TRACE (NEGATIVE); NITRITE,URINE NEGATIVE (NEGATIVE); PROTEIN,URINE DIPSTICK 1+ (NEGATIVE); URINE UROBILINOGEN 0.2 mg/dL (0.2 - 1)
[2018-10-16 10:08] LABS: BASOPHILS % 0.3 % (0.0-1.0); HEMATOCRIT 37.8 % (34.2-44.1); HEMOGLOBIN 12.5 g/dL (12.0-16.0); LYMPHOCYTES # (AUTO) 1.2 (1.0-3.2); MEAN CORPUSCULAR HEMOGLOBIN 29.3 pg (28-32); MEAN CORPUSCULAR HGB CONC 33.1 g/dL (31-35); MEAN CORPUSCULAR VOLUME 88.7 fL (81-99); MONOCYTES # (AUTO) 0.3 (0.2-0.8); MONOCYTES % 2.4 % (4.4-11.3); NEUTROPHILS % 86.7 % (38.7-80.0); PLATELET COUNT 468 x10e3/uL (140-360); RED BLOOD COUNT 4.26 x10e6/uL (3.6-5.1)
[2018-10-16 10:09] LABS: KETONES,URINE 3+ (NEGATIVE)
[2018-10-16 10:12] LABS: AMPHETAMINES SCREEN,URINE NEGATIVE (NEGATIVE); BENZODIAZEPINES SCREEN,URINE POSITIVE (NEGATIVE); PHENCYCLIDINE SCREEN,URINE NEGATIVE (NEGATIVE)
[2018-10-16 10:27] LABS: AMORPHOUS SEDIMENT,URINE FEW (FEW); BACTERIA,URINE MANY /HPF; EPITHELIAL CELLS,URINE MODERATE /LPF; RBC,URINE 0-5 /HPF (0-5)
[2018-10-16 10:30] LABS: PROTHROMBIN TIME 13.7 seconds (11.9-14.5)
[2018-10-16 10:31] LABS: PARTIAL THROMBOPLASTIN TIME 23.3 seconds (23.8-35.5)
[2018-10-16 10:38] LABS: ALANINE AMINOTRANSFERASE 50 IU/L (0-55); ALBUMIN 3.1 g/dL (3.5-5.0); ALBUMIN/GLOBULIN RATIO 0.7 (0.8-2.0); ALKALINE PHOSPHATASE 180 IU/L (40-150); ANION GAP 29.7 mmol/L (8-16); BLOOD UREA NITROGEN 8 mg/dL (7-26); BUN/CREATININE RATIO 8 (6-25); CALCIUM 9.3 mg/dL (8.4-10.2); CARBON DIOXIDE 14 mmol/L (22-29); CHLORIDE 100 mmol/L (98-107); CREATINE KINASE 45 IU/L (29-168); CREATININE, SERUM 0.99 mg/dL (0.57-1.11); EST GLOMERULAR FILTRATION RATE 57 ML/MIN (60-); GLUCOSE 180 mg/dL (74-118); LIPASE 111 U/L (8-78); SODIUM 141 mmol/L (136-145)
[2018-10-16] MEDS ORDERED: CEFTRIAXONE SOD 1 GM/NS 50 ML 50 ML IV STA (10:38)
--- NOTE | 2018-10-16 10:41 | Diagnostic Imaging Report ---
EXAMINATION: CHEST SINGLE (PORTABLE) INDICATION: Pain COMPARISON: None FINDINGS: LINES/TUBES:EKG leads overlie the chest. LUNGS:The lungs are moderately inflated. No focal consolidation or pulmonary edema. PLEURA:No pleural effusion or pneumothorax. MEDIASTINUM:The cardiomediastinal silhouette appears normal in size and shape. BONES/SOFT TISSUES:No acute osseous injury. ABDOMEN:No free air under the diaphragm. Status post cholecystectomy. IMPRESSION: No focal pneumonia or pulmonary edema. Signed by: Arthur Layton MD on 10/16/2018 10:38 AM
[2018-10-16 10:42] LABS: POTASSIUM 2.7 mmol/L (3.5-5.1)
[2018-10-16] MEDS ORDERED: POTASSIUM CHLORIDE 10MEQ/100ML 100 ML IV STA (10:42)
[2018-10-16] MEDS ORDERED: KCL 20MEQ/.9 SOD CHL 1,000 ML IV STA (10:42)
--- NOTE | 2018-10-16 10:43 | NUR ---
DR. OCASIO AND JERMAINE BYRD NOTIFIED AND AWARE OF CRITICAL LAB VALUE; K 2.7.
[2018-10-16] MEDS ORDERED: POTASSIUM CHLORIDE 10MEQ/100ML 100 ML IV ONE ×2 (10:45→12:00)
[2018-10-16 10:49] LABS: B-TYPE NATRIURETIC PEPTIDE2 51.2 pg/mL (0-100)
[2018-10-16] MEDS ORDERED: D5.45%NS/KCL 20MEQ 1,000 ML IV SCH (11:00)
[2018-10-16 11:01] LABS: ACETAMINOPHEN < 3 ug/mL (10-30); SALICYLATE < 5.0 mg/dL (0-30)
--- OUTSIDE RECORDS SUMMARY | 2018-10-16 11:09 | XMS REPORT | Continuity of Care Document ---
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 Problem 09/05/2018 [facility] Atrial fibrillation with rapid ventricular response Active 01/18/2014 Problem 09/05/2018 [facility] GI bleed Active 01/18/2014 Problem 09/05/2018 [facility] Medications Medication Details Route Status Patient Instructions Ordering Provider Order Date Source Methocarbamol (Robaxin-750) 750 Mg Tablet Three Times A Day as needed for Muscle Spasms Active Ramesh 08/05/2018 [facility] Ondansetron Hcl (Zofran*) 4 Mg Tablet Every 6 Hours as needed for Nausea Active Osborn 07/03/2018 [facility] Butalbit/Acetamin/Caff/Codeine (Tcsuii-Oedu-Aiaztojwtpv-Codein) 1 Each Capsule, 1 Each Oral Every 6 Hours Active 09/16/2016 [facility] Carisoprodol (Soma) 350 Mg Tablet, 350 Mg Oral Four Times Daily Active 09/16/2016 [facility] Cetirizine Hcl (Zyrtec) 10 Mg Tablet, 10 Mg Oral Daily Active 09/16/2016 [facility] Metoclopramide Hcl (Reglan) 10 Mg Tablet, 10 Mg Oral Daily as needed for Nausea Active 09/16/2016 [facility] Nitrofurantoin Monohyd/M-Cryst (Macrobid 100 Mg Capsule) 100 Mg Capsule, 100 Mg Oral Twice A Day Active 09/16/2016 [facility] Sucralfate (Carafate) 1 Gm/10 Ml Oral.susp, 2 Tsp Oral Every 6 Hours as needed for Abdominal Pain Active 09/16/2016 [facility] Esomeprazole Magnesium (Nexium) 40 Mg Capsule., Active 12/29/2014 [facility] Carisoprodol (Soma) 350 Mg Tablet, 350 Mg Oral Daily Active 01/18/2014 [facility] Hydrocodone Bit/Acetaminophen ([place] 10-325 Tablet) 1 Each Tablet, Oral Every 6 Hours Active 01/18/2014 [facility] , 0.1037 Mg Oral Every 4 Hours Active 06/28/2013 [facility] Hydrocodone Bit/Acetaminophen (Hydrocodone-Apap 7.5-500 Tab) 1 Each Tablet, 17.5 - 500 Mg Oral Prn 4-6 Hr Active 06/28/2013 [facility] Lidocaine , Every 4 Hours Active 06/28/2013 [facility] Pantoprazole Sodium (Protonix) 40 Mg Tablet., 40 Mg Oral Daily Active 06/28/2013 [facility] Promethazine Hcl (Phenergan) 25 Mg Tablet, 25 Mg Oral Four Times Daily Active 06/28/2013 [facility] Sucralfate 1 Gm Tablet, 1 G Oral Before Meal Tid; Hs Active 06/28/2013 [facility] Esomeprazole Mag Trihydrate (Nexium) 40 Mg Suspdr.pkt, 40 Mg Oral Daily Active 08/02/2012 [facility] Omeprazole Magnesium (Prilosec) 10 Mg Suspdr.pkt, 10 Mg Oral Active 08/05/2010 [facility] Darvocet W/Codiene Every 6 Hours Active [facility] Depression Pill Active [facility] Estrogens, Conjugated (Premarin) 1.25 Mg Tablet Daily Active [facility] Pantoprazole Sodium (Protonix) 40 Mg Tablet. Daily Active [facility] Ropinirole Hcl (Requip) 5 Mg Tablet Bedtime Active [facility] Allergies, Adverse Reactions, Alerts Substance Category Reaction Severity Reaction type Status Date Reported Comments Source Sulfa (Sulfonamide Antibiotics) Unknown Allergy to Substance Active 09/05/2018 [facility] Codeine Unknown Allergy to Substance Active 09/05/2018 [facility] Aspirin Unknown Allergy to Substance Active 09/05/2018 [facility] Meperidine Unknown Allergy to Substance Active 09/05/2018 [facility] Hydromorphone Itching Mild Allergy to Substance Active 09/05/2018 [facility] Immunizations No Data Provided for This Section Results Order Name Results Value Reference Range Date Interpretation Comments Source Prothrombin time (PT) in platelet poor plasma by coagulation assay 13.3 11.9 - 14.5 09/05/2018 [facility] INR in Platelet poor plasma by Coagulation assay 0.96 09/05/2018 [facility] Activated partial thromboplastin time (aPTT) in platelet poor plasma bycoagulation assay 26.4 23.8 - 35.5 09/05/2018 [facility] Blood leukocytes automated count (number/volume) 8.58 4.8 - 10.8 09/05/2018 [facility] Blood erythrocytes automated count (number/volume) 3.08 3.6 - 5.1 09/05/2018 [facility] Blood hemoglobin measurement (moles/volume) 9.3 12.0 - 16.0 09/05/2018 [facility] Automated blood hematocrit (volume fraction) 27.0 34.2 - 44.1 09/05/2018 [facility] Automated erythrocyte mean corpuscular volume 87.7 81 - 99 09/05/2018 [facility] Automated erythrocyte mean corpuscular hemoglobin (mass per erythrocyte) 30.2 28 - 32 09/05/2018 [facility] Automated erythrocyte mean corpuscular hemoglobin concentration measurement (mass/volume) 34.4 31 - 35 09/05/2018 [facility] RDW BldCo-Rto 11.9 11.7 - 14.4 09/05/2018 [facility] Automated blood platelet count (count/volume) 244 140 - 360 09/05/2018 [facility] Automated blood segmented neutrophil count as percentage of total leukocytes 79.7 38.7 - 80.0 09/05/2018 [facility] Automated blood lymphocyte count as percentage ot total leukocytes 12.0 18.0 - 39.1 09/05/2018 [facility] Automated blood monocyte count as percentage of total leukocytes 7.0 4.4 - 11.3 09/05/2018 [facility] Automated blood eosinophil count as percentage of total leukocytes 0.1 0.0 - 6.0 09/05/2018 [facility] Automated blood basophil count as percentage of total leukocytes 0.2 0.0 - 1.0 09/05/2018 [facility] IM GRANULOCYTES % 1.0 0.0 - 1.0 09/05/2018 [facility] Automated blood neutrophil count 6.8 2.1 - 6.9 09/05/2018 [facility] Blood lymphocytes count (number/volume) 1.0 1.0 - 3.2 09/05/2018 [facility] Blood monocytes automated count (number/volume) 0.6 0.2 - 0.8 09/05/2018 [facility] Automated blood eosinophil count 0.0 0.0 - 0.4 09/05/2018 [facility] Automated blood basophil count (count/volume) 0.0 0.0 - 0.1 09/05/2018 [facility] Absolute Immature Granulocyte (auto 0.09 0 - 0.1 09/05/2018 [facility] Urine color determination STRAW YELLOW 09/05/2018 [facility] Urine clarity SL CLOUDY CLEAR 09/05/2018 [facility] Specific gravity of Urine by Test strip 1.025 1.010 - 1.025 09/05/2018 [facility] Urine pH measurement by automated test strip 6 5 - 7 09/05/2018 [facility] Urine leukocyte esterase detection by automated test strip MODERATE NEGATIVE 09/05/2018 [facility] Urine nitrite detection by automated test strip NEGATIVE NEGATIVE 09/05/2018 [facility] Urine protein detection by automated test strip 2+ NEGATIVE 09/05/2018 [facility] Urine glucose detection by automated test strip NEGATIVE NEGATIVE 09/05/2018 [facility] Urine ketones detection by automated test strip 1+ NEGATIVE 09/05/2018 [facility] Urine opiates screening test POSITIVE NEGATIVE 09/05/2018 [facility] Barbiturates screen, urine POSITIVE NEGATIVE 09/05/2018 [facility] Urine phencyclidine detection by screening method NEGATIVE NEGATIVE 09/05/2018 [facility] Urine amphetamines detection by screen method > 1000 ng/mL NEGATIVE NEGATIVE 09/05/2018 [facility] Urine Methamphetamines Screen NEGATIVE NEGATIVE 09/05/2018 [facility] Urine benzodiazepines detection by screening method POSITIVE NEGATIVE 09/05/2018 [facility] Urine cocaine measurement (mass/volume) NEGATIVE NEGATIVE 09/05/2018 [facility] Urine cannabinoids detection by screening method NEGATIVE NEGATIVE 09/05/2018 [facility] Urine methadone screen NEGATIVE NEGATIVE 09/05/2018 [facility] Urine urobilinogen measurement by test strip (mass/volume) 1 0.2 - 1 09/05/2018 [facility] Urine total bilirubin detection MODERATE NEGATIVE 09/05/2018 [facility] Urine erythrocytes detection 1+ NEGATIVE 09/05/2018 [facility] Automated urine sediment leukocyte count by microscopy (number/high power field) >50 0 - 5 09/05/2018 [facility] Erythrocytes detection in urine sediment by light microscopy 11-20 0 - 5 09/05/2018 [facility] Bacteria detection in urine sediment by light microscopy MANY NONE 09/05/2018 [facility] Epithelial cells detection in urine sediment by light microscopy NONE NONE 09/05/2018 [facility] Serum or plasma sodium measurement (moles/volume) 135 136 - 145 09/05/2018 [facility] Serum or plasma potassium measurement (moles/volume) 3.4 3.5 - 5.1 09/05/2018 [facility] Serum or plasma chloride measurement (moles/volume) 101 98 - 107 09/05/2018 [facility] Serum or plasma carbon dioxide, total measurement (moles/volume) 21 22 - 29 09/05/2018 [facility] Serum or plasma anion gap 16.4 8 - 16 09/05/2018 [facility] Serum or plasma urea nitrogen measurement (mass/volume) 11 7 - 26 09/05/2018 [facility] Serum or plasma creatinine measurement (mass/volume) 0.85 0.57 - 1.11 09/05/2018 [facility] Serum or plasma urea nitrogen/creatinine mass ratio 13 6 - 25 09/05/2018 [facility] Estimated glomerular filtration rate (GFR) determination > 60 60 09/05/2018 [facility] Glucose measurement 103 74 - 118 09/05/2018 [facility] Serum or plasma calcium measurement (mass/volume) 9.4 8.4 - 10.2 09/05/2018 [facility] Serum or plasma total bilirubin measurement (mass/volume) 0.6 0.2 - 1.2 09/05/2018 [facility] Aspartate Amino Transf (AST/SGOT) 39 5 - 34 09/05/2018 [facility] Serum or plasma alanine aminotransferase measurement (enzymatic activity/volume) 25 0 - 55 09/05/2018 [facility] Serum or plasma protein measurement (mass/volume) 7.3 6.5 - 8.1 09/05/2018 [facility] Serum or plasma albumin measurement (mass/volume) 2.9 3.5 - 5.0 09/05/2018 [facility] Plasma globulin measurement (mass/volume) 4.4 2.3 - 3.5 09/05/2018 [facility] Serum or plasma albumin/globulin mass ratio 0.7 0.8 - 2.0 09/05/2018 [facility] Serum or plasma alkaline phosphatase measurement (enzymatic activity/volume) 173 40 - 150 09/05/2018 [facility] Serum or plasma creatine kinase measurement (enzymatic activity/volume) 15 29 - 168 09/05/2018 [facility] Serum or plasma creatine kinase MB measurement (mass/volume) 0.60 0 - 5.0 09/05/2018 [facility] Troponin I measurement by highly sensitive enzyme immunoassay < 0.001 0 - 0.300 09/05/2018 [facility] Amorphous sediment detection in urine sediment by light microscopy FEW FEW 07/03/2018 [facility] Hyaline casts detection in urine sediment by light microscopy 0-1 0 - 1 07/03/2018 [facility] Coarse granular casts detection in urine sediment by light microscopy 1-5 0 07/03/2018 [facility] WBC casts detection in urine sediment by light microscopy 1-5 0 07/03/2018 [facility] Serum or plasma amylase measurement (enzymatic activity/volume) 67 25 - 125 06/07/2018 [facility] Serum or plasma lipase measurement (enzymatic activity/volume) 32 8 - 78 06/07/2018 [facility] Pathology Reports No Data Provided for This [...] DC Date Status Source Departed Emergency Room [id number] YODIT PORTILLO MD 06/07/2018 06/08/2018 [facility] Departed Emergency Room [id number] BARBI HILLIARD MD 07/03/2018 07/03/2018 [facility] Departed Emergency Room [id number] YODIT PORTILLO MD 08/05/2018 08/05/2018 [facility] Departed Emergency Room [id number] RONI LARA MD 08/30/2018 08/31/2018 [facility] Departed Emergency Room [id number] BARBI HILLIARD MD 09/05/2018 09/05/2018 [facility] Procedures Procedure Code Date Perfomer Comments Source Computed tomography of brain without radiopaque contrast [id number] 08/30/2018 [facility] Computed tomography of cervical spine without contrast [id number] 08/30/2018 [facility] Computed tomography of lumbar spine without contrast [id number] 08/30/2018 [facility] Computed tomography of brain without radiopaque contrast [id number] 08/05/2018 [facility] Computed tomography of brain without radiopaque contrast [id number] 07/03/2018 [facility] Assessment and Plan No Data Provided for This Section Plan of Care Plan of Care Date Source Discharge Date 09/05/18 5:30pm Disposition HOME, SELF-CARE Condition at Discharge Stable Instructions/Education Provided Concussion/Head Injury - Adult Dizziness Urinary Tract Infection - Women Vomiting - Adult Forms Provided Work/School Excuse Prescriptions See Medication Section Referrals GERI PIEDRA Address: [address] [place] [id number] KULDEEP MATUTE MD Address: [address] [place] [id number] Additional Instructions/Education 1. follow up with your doctor / neurologist in 1-2 days without fail 2. return to ed as needed 3. tylenol and motrin as needed 4. increase oral fluids 5. bland diet 09/05/2018 [facility] Social History Social History Date Source Social [...] 12/29/2014 11:28am Not Applicable Not Applicable 09/05/2018 [facility] Family History No Data Provided for This Section Advance Directives Order Name Results Value Date Source Advance Directives Advance Directives Directive Response Recorded Date/Time Does the patient have an advance directive? No 12/29/14 11:28am If yes, is advance directive on file with [facility]? No 07/03/18 3:53pm If not on file with [facility] will patient provide a copy? No 07/03/18 3:53pm Do you have a Directive to Physician? No 09/05/18 2:45pm Do you have a Medical Power of Budget Record Clerk? No 09/05/18 2:45pm Do you have an [...] rights and responsibilities? Yes 09/05/18 2:45pm 09/05/2018 [facility] Functional Status No Data Provided for This Section
[2018-10-16 11:55] LABS: ABG HCO3 16 mmol/L (23-28); ABG PCO2 28 mmHg (41-51); ABG PH 7.37 (7.31-7.41); ABG PO2 107 mmHg (80-105)
--- NOTE | 2018-10-16 12:00 | Diagnostic Imaging Report ---
EXAM: CT Abdomen and Pelvis WITH intravenous contrast INDICATION: Abdominal pain, vomiting COMPARISON: CT abdomen pelvis of 07/31/2011 TECHNIQUE: Abdomen and pelvis were scanned utilizing a multidetector helical scanner from the lung base to the pubic symphysis after administration of IV contrast. Coronal and sagittal reformations were obtained. Routine protocol was performed. Scan was performed when during portal venous phase. IV CONTRAST: 100mL of Isovue 370 ORAL CONTRAST: Water COMPLICATIONS: None RADIATION DOSE: Total DLP: 237.8 mGy*cm Dose modulation, iterative reconstruction, and/or weight based adjustment of the mA/kV was utilized to reduce the radiation dose to as low as reasonably achievable. FINDINGS: LOWER THORAX: Normal. HEPATOBILIARY: Diffuse hepatic parenchymal hypoattenuation consistent with hepatic steatosis. Unchanged mildly nodular liver surface contour compatible with cirrhosis. No focal liver lesions. No biliary ductal dilatation. Status post cholecystectomy. SPLEEN: No splenomegaly. PANCREAS: No focal masses or ductal dilatation. ADRENALS: 11 mm right adrenal nodule is stable dating back to 2011 and almost certainly benign. There is thickening of the left adrenal gland without discrete nodule. KIDNEYS/URETERS: No hydronephrosis or solid mass lesions. 6 mm nonobstructing calculus in the right renal pelvis. 4 mm nonobstructing calculus at the left renal upper pole. PELVIC ORGANS/BLADDER: Status post hysterectomy. Decompressed bladder. PERITONEUM / RETROPERITONEUM: No free air or fluid. LYMPH NODES: No lymphadenopathy. VESSELS: Unremarkable. GI TRACT: There is wall thickening of the sigmoid colon. No other abnormal bowel wall thickening or evidence of obstruction. Status post gastric bypass surgery. The excluded stomach is fluid-filled and appears to contain a 1.9 cm pedunculated polyp which was not well seen on a prior abdomen and pelvis CT of 07/31/2011 BONES AND SOFT TISSUES: No acute osseous injury. Right acetabular roof sclerotic lesion likely represents a bone island. L3 and L5 vertebral body hemangiomas. Mild degenerative changes of the visualized spine. IMPRESSION: Wall thickening of the sigmoid colon can be seen in colitis. Status post gastric bypass. 1.9cm pedunculated nodule in the excluded stomach was not seen on prior studies and may represent a polyp. Hepatic steatosis and cirrhotic liver morphology. Nonobstructing bilateral renal calculi. Signed by: Arthur Layton MD on 10/16/2018 11:57 AM
[2018-10-16] MEDS: ONDANSETRON HCL INJ 2MG/ML 2ML 2 MG/ML VIAL IV PRN ×2 (12:17→21:48)
[2018-10-16] MEDS: MORPHINE SULFATE 2 MG/ML SYR 1ML IV PRN ×3 (12:17→20:51)
[2018-10-16 13:15] VITALS: BP 127/73
--- NOTE | 2018-10-16 13:30 | NUR ---
The pt. was received form the ER awake and alert. She arrived with foul odor and was found with stool on her legs. She was placed in bed and washed up. Adm procedures carried out an the pt. request's pain med and was advised that it is not time as she was medicated prior to arrival to the unit. She reports a one week history of diarrhea and nausea but no stool since arrival to the unit. There is currently and iv with potassium which is clamped and the basic fluid bag is empty. Ther are iv cath in bot arms with th fluid connected to the left ac.
[2018-10-16] MEDS ORDERED: PROMETHAZINE 12.5MG/ NACL 0.9% 12.5 MG/50 ML BAG IV PRN (14:15)
[2018-10-16] MEDS ORDERED: ACETAMINOPHEN 325 MG TAB PO PRN ×2 (14:30)
[2018-10-16] MEDS: CIPROFLOXACIN 400 MG/D5W 200ML 200 ML IV SCH (15:00)
[2018-10-16 15:30] VITALS: BP 127/73
[2018-10-16 15:43] VITALS: BP 127/73
[2018-10-16] MEDS: SUCRALFATE 1 GM/10 ML SUSP NG SCH ×2 (16:30→20:51)
[2018-10-16] MEDS: PANTOPRAZOLE 40 MG 10ML VIAL IV SCH (16:36)
[2018-10-16] MEDS ORDERED: FAMOTIDINE 20 MG/2 ML VIAL IV SCH (17:00)
--- NOTE | 2018-10-16 17:11 | History and Physical ---
CHIEF COMPLAINT: Abdominal pain, nausea, vomiting, decreased oral intake. HISTORY OF PRESENT ILLNESS: This is a 58-year-old female with past medical history of chronic dizziness in the past, who presents to the outside freestanding ER with complaints of nausea, vomiting, abdominal pain epigastric ongoing for the last one week. The patient reports she was recently here in the hospital and had a recent EGD performed by Dr. Patrick and was told that she had some gastric ulcers and was discharged to home. Her EGD did show some distal esophagitis. It showed some mild stricture at the GE junction, requiring dilatation with a 52-[place]. She does have a history of status post gastric bypass in the past. She denies any hematemesis or hemoptysis. Also reports having some diarrhea and loose watery stool. Denies any hematochezia or melena. The patient is seen and evaluated at bedside on the medical floor. She is currently doing well with no other complaints at this time. Clinically, vital signs were stable when I evaluated her. She was clinically dehydrated. REVIEW OF SYSTEMS: Pertinent positives: Abdominal pain, nausea, vomiting, decreased oral intake, dehydration. Pertinent negatives: Denies any chest pain, palpitation, dysuria, hematuria, frequency, urgency, lightheadedness, dizziness, cough, congestion, fever, or any other complaints. The rest of the 14-point review of systems have been reviewed and are negative. ALLERGIES: DARVOCET, SULFA DRUGS, ASPIRIN, CODEINE, MEPERIDINE. HOME MEDICATIONS: Meclizine, Valium, premarin, Fioricet, iron. PAST MEDICAL HISTORY: Chronic dizziness, recent diagnosis of esophagitis and distal esophageal stricture. PAST SURGICAL HISTORY: Recent EGD performed earlier this month 2019 in September. FAMILY HISTORY: Hypertension and diabetes. SOCIAL HISTORY: No drugs or alcohol. Does not smoke. Good social support. PHYSICAL EXAMINATION: VITAL SIGNS: Temperature 98.7, pulse is 108, respiratory rate 17, blood pressure is 127/73, pulse ox 98% on room air. GENERAL: Not in acute distress. Alert and oriented x3. Cooperative on examination. HEENT: Head is normocephalic and atraumatic. Eyes; pupils are equal, round, and reactive to light bilaterally. Extraocular muscles are intact bilaterally. Throat, no evidence of erythema or exudates in the posterior pharynx. Has poor dentition. NECK: Supple. Good range of motion. PULMONARY: Clear to auscultation bilaterally. No wheezing or rhonchi. No crackles appreciated. CARDIOVASCULAR: Positive S1, S2. No murmurs, rubs, or appreciated. ABDOMEN: Soft. Tender to palpation in epigastric region. Nausea, vomiting. MUSCULOSKELETAL: Strength is 5/5 throughout. No evidence of any muscle deficits on examination. No weakness appreciated. NEUROLOGICAL: Cranial nerves II through XII grossly intact. No evidence of any neurological deficits on exam. SKIN: Intact. Warm to touch. Good cap refill. PSYCHIATRIC: Normal affect and mood. EXTREMITIES: No edema. Good range of motion throughout. LAB FINDINGS: Show white count 7.5, hemoglobin 12.5, hematocrit 37, platelets of 468. Coagulation; PT 13, INR 1, PTT 23. Chemistry; sodium 141, potassium 2.7, chloride 100, bicarbonate is 14, anion gap of 29.7, BUN is 8, and creatinine is 0.99, glucose 180. Lactic acid was 30, which is normal in the hospital. Calcium 9.3, phosphorus 3.4. LFTs within normal range. Troponins were negative. Total protein 10.4, albumin is 3.1, lipase is 111. Urinalysis, 3+ ketones, 1+ protein. Toxicology screen; acetaminophen negative, salicylate negative, positive for benzos and positive for opioids. MICROBIOLOGY: Blood and urine cultures are pending. IMAGING STUDIES: Chest x-ray, no focal pneumonia, pulmonary edema. CT abdomen and pelvis shows wall thickening of the sigmoid colon, likely to be colitis. Status post gastric bypass 1.9 cm punctated nodule in the excluded stomach, which was not seen on prior studies and may represent a polyp. Hepatic steatosis . Nonobstructive bilateral renal calculi. IMPRESSION: 1. Sigmoid diverticulitis. 2. Abdominal pain with nausea, vomiting with underlying diarrhea. 3. Hypokalemia. 4. Recent diagnosis of esophagitis and distal esophageal stricture. PLAN: At this time, we will continue with IV Cipro and Flagyl. Get stool studies with C. difficile toxin. CT imaging reviewed and study. We will put her on Phenergan and Zofran for nausea. Continue with Protonix and Carafate. Repeat labs in the morning. Continue with IV fluids. We will give normal saline bolus x1 now. We are going to trend troponins as well. Consult with GI. Start on clear liquid diet. Lovenox for DVT prophylaxis. MD CARY Garcia/ROBERTA /[id number]
[2018-10-16 17:12] VITALS: BP 141/70
[2018-10-16] MEDS: METRONIDAZOLE 500MG/NS 100ML 100 ML IV SCH (18:00)
--- NOTE | 2018-10-16 19:28 | NUR ---
Patient received lying in bed. AAO x 3. Patient had no complaints of pain. Respirations even and non-labored. Fall precautions implemented. Patient instructed to call for assistance when needed. Call light within reach.
[2018-10-16 21:00] VITALS: BP 128/66
[2018-10-17] VITALS (7 sets, daily range): BP systolic 96–160; BP diastolic 53–87
[2018-10-17] MEDS: METRONIDAZOLE 500MG/NS 100ML 100 ML IV SCH ×4 (00:30→17:49)
--- NOTE | 2018-10-17 03:44 | NUR ---
Dr. Satnam Patrick here to see patient. Patient's diet advanced from Clear liquid to Full liquid diet.
[2018-10-17] MEDS: CIPROFLOXACIN 400 MG/D5W 200ML 200 ML IV SCH ×2 (03:50→14:59)
[2018-10-17 06:00] LABS: BASOPHILS % 0.2 % (0.0-1.0); EOSINOPHILS % 0.3 % (0.0-6.0); HEMATOCRIT 30.3 % (34.2-44.1); HEMOGLOBIN 10.1 g/dL (12.0-16.0); LYMPHOCYTES # (AUTO) 1.2 (1.0-3.2); LYMPHOCYTES % 10.9 % (18.0-39.1); MEAN CORPUSCULAR HEMOGLOBIN 29.9 pg (28-32); MEAN CORPUSCULAR HGB CONC 33.3 g/dL (31-35); MEAN CORPUSCULAR VOLUME 89.6 fL (81-99); MONOCYTES # (AUTO) 0.4 (0.2-0.8); MONOCYTES % 3.9 % (4.4-11.3); NEUTROPHILS # (AUTO) 9.5 (2.1-6.9); NEUTROPHILS % 83.8 % (38.7-80.0); PLATELET COUNT 226 x10e3/uL (140-360); RED BLOOD COUNT 3.38 x10e6/uL (3.6-5.1); RED CELL DISTRIBUTION WIDTH 15.2 % (11.7-14.4)
[2018-10-17 06:19] LABS: ALANINE AMINOTRANSFERASE 32 IU/L (0-55); ALBUMIN 2.5 g/dL (3.5-5.0); ALBUMIN/GLOBULIN RATIO 0.8 (0.8-2.0); ALKALINE PHOSPHATASE 131 IU/L (40-150); ANION GAP 18.2 mmol/L (8-16); BLOOD UREA NITROGEN 6 mg/dL (7-26); BUN/CREATININE RATIO 7 (6-25); CARBON DIOXIDE 19 mmol/L (22-29); CHLORIDE 103 mmol/L (98-107); CREATININE, SERUM 0.88 mg/dL (0.57-1.11); EST GLOMERULAR FILTRATION RATE > 60 ML/MIN (60-); GLUCOSE 110 mg/dL (74-118); MAGNESIUM 1.5 MG/DL (1.3-2.1); PHOSPHORUS 1.6 MG/DL (2.3-4.7); SODIUM 138 mmol/L (136-145)
[2018-10-17 06:22] LABS: POTASSIUM 2.2 mmol/L (3.5-5.1)
--- NOTE | 2018-10-17 06:29 | NUR ---
spoke to lab in regards to results. primary nurse notified.
[2018-10-17] MEDS ORDERED: POTASSIUM CHLORIDE 20 MEQ TAB CR PO NR ×2 (06:40→11:00)
--- NOTE | 2018-10-17 06:40 | NUR ---
Director Of Public Safety called with critical potassium results of 2.2. Dr. Rivera notified. New orders received.
[2018-10-17] MEDS: PANTOPRAZOLE 40 MG 10ML VIAL IV SCH ×2 (08:52→17:49)
[2018-10-17] MEDS: SUCRALFATE 1 GM/10 ML SUSP NG SCH ×4 (08:52→20:49)
[2018-10-17] MEDS: MORPHINE SULFATE 2 MG/ML SYR 1ML IV PRN (08:53)
[2018-10-17] MEDS ORDERED: POTASSIUM CHLORIDE 20 MEQ TAB CR PO SCH (09:00)
[2018-10-17] MEDS: ONDANSETRON HCL INJ 2MG/ML 2ML 2 MG/ML VIAL IV PRN ×2 (14:59→20:50)
[2018-10-17] MEDS ORDERED: POTASSIUM CHLORIDE 20 MEQ TAB CR PO ONE ×2 (15:00→21:00)
[2018-10-17] MEDS ORDERED: MORPHINE SULFATE 2 MG/ML SYR 1ML IV PRN (16:00)
--- NOTE | 2018-10-17 16:01 | NUR ---
Nutrition Screen Note RD Recommendation for Physician: -Rec advancing diet as tolerated to GI soft diet Plan of Care: RD following, monitoring for tolerance and adequacy Nutrition reason for involvement: Nutrition Risk Trigger MST Primary Diagnose(s): 1. Sigmoid diverticulitis. 2. Abdominal pain with nausea, vomiting with underlying diarrhea. 3. Hypokalemia. 4. Recent diagnosis of esophagitis and distal esophageal stricture. PMH: chronic dizziness, gastric ulcers, esophagitis, gastric bypass 10 years ago Ht: 62in Wt: 120lb BMI: 21.9kg/m2 IBW: 110lb +/- 10% RD Assessment: (10/17) Chart reviewed. Labs and meds reviewed. 58 yo F, who was admitted for complaints of nausea, vomiting and abdominal pain ongoing for a week. Visited pt in the room. Pt reported nausea and vomited after having full liquid for lunch. LBM 10/17. Pt denied any chewing or swallowing difficulty. Her weight has been stable with reported UBW ~[address] abd showed colitis, s/p gastric bypass, and 1.9cm pedunculated nodule in the excluded stomach. Pending stool culture. Pt reported not being able to tolerate acidic foods due to hx of gastric ulcers communicated with kitchen. K was repleted. Will continue to monitor and follow. Current Diet: full liquid diet Malnutrition Evaluation (10/17/2018) The patient does not meet criteria for a specified degree of malnutrition at this time. Will re-evaluate at follow-up as appropriate. Energy intake: <75% of estimated energy requirements for >7 days Weight loss: Stable Fat loss: None Muscle loss: None Supporting Evidence: Fluid accumulation: None Functional Status: no changes Diet Education Needs Assessment: Diet education not indicated. Nutrition Care Level: low Signed: Anu Martínez, MS, RD, LD
[2018-10-17] MEDS ORDERED: MORPHINE SULFATE 2 MG/ML SYR 1ML ONE (16:11)
[2018-10-17] MEDS: MORPHINE SULFATE INJ 4 MG/ML INJ 1ML IV PRN ×2 (16:34→20:50)
[2018-10-17] MEDS: PHOSPHORUS 250 MG TAB PO SCH (17:49)
[2018-10-17] MEDS: MULTIVITAMINS- 12 INJECTION 10 ML, FOLIC ACID MDV 5 MG, THIAMINE HCL INJ 100 MG in SODI... IV SCH (17:49)
[2018-10-17] MEDS: VANCOMYCIN 250MG/5ML ORAL SOLN PO SCH (18:00)
--- NOTE | 2018-10-17 19:50 | NUR ---
patient received awake, alert, lying quietly in bed. vss. no c/o pain noted. banana bag infusing at 100cc hr without difficulty. patient instructed to call for assistance when needed.
--- NOTE | 2018-10-17 20:23 | Progress Note ---
DATE: 10/17/2018 Medicine Progress Note SUBJECTIVE: The patient is doing well today, much improved. Still has diarrhea, decreased oral intake. She was positive for C difficile colitis. PHYSICAL EXAMINATION: VITAL SIGNS: She is afebrile, normotensive, and respiratory rate is good. GENERAL: In no acute distress, alert and oriented x3. Cooperative on examination. HEENT: Head is normocephalic and atraumatic. Eyes; pupils are equal, round, and reactive to light bilaterally. Extraocular movements are intact bilaterally. Throat, no evidence of erythema or exudates in the posterior pharynx. Has poor dentition. NECK: Supple. Good range of motion. PULMONARY: Clear to auscultation bilaterally. No wheezing, rales, or rhonchi. No crackles appreciated. CARDIOVASCULAR: Positive S1, S2. No murmurs, rubs, or gallops appreciated. ABDOMEN: Soft, nondistended, and nontender to palpation. Bowel sounds present. MUSCULOSKELETAL: Strength is 5/5 throughout. No evidence of muscle deficits on examination. No weakness appreciated. NEUROLOGICAL: Cranial nerves II through XII grossly intact. No evidence of neurological deficits on exam. SKIN: Intact. Warm to touch. Good cap refill. PSYCHIATRIC: Normal affect and mood. EXTREMITIES: No edema. Good range of motion throughout. LABORATORY DATA: Labs show white count 11.3, hemoglobin 10, hematocrit 30, and platelets of 326. Chemistry shows sodium 138, potassium 2.2, chloride 103, bicarbonate 19, anion gap of 18, BUN 6, creatinine is 0.88, calcium 8, and phosphorus 1.6. LFTs within normal range. Troponins were negative. Albumin 2.5, lipase 121. C difficile toxin positive. MICROBIOLOGY STUDIES: Blood and urine cultures were pending. IMPRESSION: 1. Clostridium difficile colitis. 2. Abdominal pain with nausea, vomiting, and diarrhea secondary to Clostridium difficile colitis. 3. Hypokalemia. 4. Hypophosphatemia. 5. Recent status post EGD shows esophagitis and distal esophageal stricture. PLAN: At this time, stop Cipro, add p.o. vancomycin and continue with IV Flagyl for now. She is positive for C diff. Continue with clear liquid diet, advance as tolerated. She is on Protonix and Carafate. Repeat labs in the morning. Aggressively could replace potassium. Continue with Lovenox for DVT prophylaxis. Continue with IV fluids. MD CARY Garcia/ROBERTA /[id number]
[2018-10-17] MEDS: LACTOBACILLUS ACIDOPHILUS CAPSULE PO SCH (20:49)
[2018-10-17] MEDS: CHOLESTYRAMINE 4 GM PACKET PO SCH (21:07)
[2018-10-18] VITALS (8 sets, daily range): BP systolic 126–148; BP diastolic 70–80
[2018-10-18] MEDS: VANCOMYCIN 250MG/5ML ORAL SOLN PO SCH ×5 (00:23→23:23)
[2018-10-18] MEDS: METRONIDAZOLE 500MG/NS 100ML 100 ML IV SCH ×5 (00:23→23:23)
[2018-10-18] MEDS: MORPHINE SULFATE INJ 4 MG/ML INJ 1ML IV PRN ×5 (00:39→23:34)
[2018-10-18] MEDS: MULTIVITAMINS- 12 INJECTION 10 ML, FOLIC ACID MDV 5 MG, THIAMINE HCL INJ 100 MG in SODI... IV SCH ×3 (03:44→21:32)
[2018-10-18 05:36] LABS: BASOPHILS % 0.4 % (0.0-1.0); EOSINOPHILS # (AUTO) 0.1 (0.0-0.4); EOSINOPHILS % 0.6 % (0.0-6.0); HEMATOCRIT 27.2 % (34.2-44.1); HEMOGLOBIN 9.1 g/dL (12.0-16.0); MEAN CORPUSCULAR HEMOGLOBIN 29.8 pg (28-32); MEAN CORPUSCULAR HGB CONC 33.5 g/dL (31-35); MEAN CORPUSCULAR VOLUME 89.2 fL (81-99); MONOCYTES # (AUTO) 0.5 (0.2-0.8); MONOCYTES % 6.1 % (4.4-11.3); NEUTROPHILS # (AUTO) 5.1 (2.1-6.9); NEUTROPHILS % 65.7 % (38.7-80.0); PLATELET COUNT 192 x10e3/uL (140-360); RED BLOOD COUNT 3.05 x10e6/uL (3.6-5.1); RED CELL DISTRIBUTION WIDTH 15.2 % (11.7-14.4)
[2018-10-18 05:56] LABS: ALANINE AMINOTRANSFERASE 25 IU/L (0-55); ALBUMIN 2.4 g/dL (3.5-5.0); ALBUMIN/GLOBULIN RATIO 0.8 (0.8-2.0); ALKALINE PHOSPHATASE 115 IU/L (40-150); ANION GAP 15.6 mmol/L (8-16); BLOOD UREA NITROGEN < 5 mg/dL (7-26); CALCIUM 8.1 mg/dL (8.4-10.2); CARBON DIOXIDE 19 mmol/L (22-29); CHLORIDE 104 mmol/L (98-107); CREATININE, SERUM 0.75 mg/dL (0.57-1.11); EST GLOMERULAR FILTRATION RATE > 60 ML/MIN (60-); GLUCOSE 88 mg/dL (74-118); SODIUM 135 mmol/L (136-145)
[2018-10-18 05:58] LABS: BUN/CREATININE RATIO 7 (6-25)
[2018-10-18 05:59] LABS: POTASSIUM 3.6 mmol/L (3.5-5.1)
--- NOTE | 2018-10-18 07:14 | NUR ---
The patient is awake, states the pain has decreased with the pain medication that was given to her earlier, but that she has not been able to rest as much. Denies any N/V at this time, Diarrhea continues to improve. Contact precautions for CDiff in place. Both IVs are patent. Tele in place. Bed is low, wheels are locked and call light is within reach.
[2018-10-18] MEDS: LACTOBACILLUS ACIDOPHILUS CAPSULE PO SCH ×3 (09:03→21:06)
[2018-10-18] MEDS: FOLIC ACID 1 MG TAB PO SCH (09:03)
[2018-10-18] MEDS: PHOSPHORUS 250 MG TAB PO SCH ×2 (09:03→15:56)
[2018-10-18] MEDS: PANTOPRAZOLE 40 MG 10ML VIAL IV SCH ×2 (09:03→15:55)
[2018-10-18] MEDS: SUCRALFATE 1 GM/10 ML SUSP NG SCH ×4 (09:03→21:06)
[2018-10-18] MEDS: DICYCLOMINE HCL 10 MG CAP PO SCH ×3 (09:03→21:06)
[2018-10-18] MEDS: THIAMINE HCL 100 MG TAB PO SCH (09:03)
[2018-10-18] MEDS: CHOLESTYRAMINE 4 GM PACKET PO SCH ×2 (10:20→21:06)
[2018-10-18] MEDS ORDERED: ONDANSETRON HCL 4 MG ORAL DISINTEGRATING TAB PO PRN (12:30)
--- NOTE | 2018-10-18 20:56 | Progress Note ---
DATE: 10/18/2018 Medicine Progress Note SUBJECTIVE: The patient's diarrhea is there, but has decreased and seems to have improved. No overnight events. ID was consulted. PHYSICAL EXAMINATION: VITAL SIGNS: Temperature is 97.7, pulse 114, respiratory rate is 20, blood pressure 135/76, and pulse ox 99% on room air. GENERAL: Not in acute distress. Alert and oriented x3. Cooperative on examination. HEENT: Head; normocephalic, atraumatic. Eyes; pupils are equal, round, and reactive to light bilaterally. Extraocular movements intact bilaterally. Throat; no evidence of erythema or exudates in the posterior pharynx. Has poor dentition. NECK: Supple. Good range of motion. PULMONARY: Clear to auscultation bilaterally. No wheezing, rhonchi, or crackles appreciated. CARDIOVASCULAR: Positive S1, S2. No murmurs, rubs, or gallops appreciated. ABDOMEN: Soft, nondistended, and nontender to palpation. Bowel sounds present. MUSCULOSKELETAL: Strength is 5/5 throughout. No evidence of any muscle deficits on examination. No weakness appreciated. NEUROLOGIC: Cranial nerves II through XII grossly intact. No evidence of any neurological deficits on exam. SKIN: Intact. Warm to touch. Good cap refill. PSYCHIATRIC: Normal affect and mood. EXTREMITIES: No edema. Good range of motion throughout. LABORATORY DATA: Show white count 7.7, hemoglobin 9.1, hematocrit is 27, and platelets of 192. Chemistry; sodium 135, potassium 3.6, chloride 104, bicarb 19, anion gap of 15, BUN is 5, creatinine , glucose 88, calcium is 8.1. Microbiology, urine culture shows gram-negative bacilli. Blood cultures, no growth. Stool cultures are pending. IMPRESSION: 1. Clostridium difficile colitis. 2. Abdominal pain with nausea, vomiting, and diarrhea secondary to Clostridium difficile colitis. 3. Hypokalemia, resolved. 4. Hypophosphatemia, improved. 5. Recent status post EGD did show esophagitis and did show esophageal stricture. 6. Probable urinary tract infection. PLAN: At this time, continue with Flagyl and oral vancomycin. GI is following closely. Advance diet as tolerated. We will also get Infectious Disease involved for further management and care. Continue with Protonix and Carafate. Get a.m. labs. Continue with IV fluids for now. Replace potassium accordingly. MD CARY Garcia/ROBERTA /[id number]
[2018-10-19] VITALS (7 sets, daily range): BP systolic 128–158; BP diastolic 71–94
[2018-10-19] MEDS: METRONIDAZOLE 500MG/NS 100ML 100 ML IV SCH ×3 (05:15→17:57)
[2018-10-19] MEDS: VANCOMYCIN 250MG/5ML ORAL SOLN PO SCH ×3 (05:15→17:57)
[2018-10-19] MEDS: MORPHINE SULFATE INJ 4 MG/ML INJ 1ML IV PRN ×4 (05:35→21:09)
[2018-10-19 05:42] LABS: BASOPHILS % 0.4 % (0.0-1.0); EOSINOPHILS # (AUTO) 0.1 (0.0-0.4); EOSINOPHILS % 1.2 % (0.0-6.0); HEMATOCRIT 27.9 % (34.2-44.1); HEMOGLOBIN 9.4 g/dL (12.0-16.0); LYMPHOCYTES # (AUTO) 1.4 (1.0-3.2); LYMPHOCYTES % 27.9 % (18.0-39.1); MEAN CORPUSCULAR HEMOGLOBIN 29.4 pg (28-32); MEAN CORPUSCULAR HGB CONC 33.7 g/dL (31-35); MEAN CORPUSCULAR VOLUME 87.2 fL (81-99); MONOCYTES # (AUTO) 0.4 (0.2-0.8); MONOCYTES % 7.4 % (4.4-11.3); NEUTROPHILS # (AUTO) 3.2 (2.1-6.9); NEUTROPHILS % 61.7 % (38.7-80.0); PLATELET COUNT 139 x10e3/uL (140-360); RED CELL DISTRIBUTION WIDTH 15.3 % (11.7-14.4)
[2018-10-19 06:15] LABS: ANION GAP 14.7 mmol/L (8-16); BLOOD UREA NITROGEN < 5 mg/dL (7-26); CALCIUM 7.9 mg/dL (8.4-10.2); CARBON DIOXIDE 19 mmol/L (22-29); CHLORIDE 104 mmol/L (98-107); CREATININE, SERUM 0.67 mg/dL (0.57-1.11); EST GLOMERULAR FILTRATION RATE > 60 ML/MIN (60-); GLUCOSE 96 mg/dL (74-118); SODIUM 135 mmol/L (136-145)
[2018-10-19 06:35] LABS: BUN/CREATININE RATIO 7 (6-25)
[2018-10-19 06:37] LABS: POTASSIUM 2.7 mmol/L (3.5-5.1)
--- NOTE | 2018-10-19 07:11 | NUR ---
received pt lying in bed with eyes open and TV on, Resp even and unlabored. call light within reach.
[2018-10-19] MEDS: THIAMINE HCL 100 MG TAB PO SCH (09:49)
[2018-10-19] MEDS: PHOSPHORUS 250 MG TAB PO SCH (09:49)
[2018-10-19] MEDS: CHOLESTYRAMINE 4 GM PACKET PO SCH ×2 (09:49→21:39)
[2018-10-19] MEDS: MULTIVITAMINS- 12 INJECTION 10 ML, FOLIC ACID MDV 5 MG, THIAMINE HCL INJ 100 MG in SODI... IV SCH (09:49)
[2018-10-19] MEDS: POTASSIUM CHLORIDE 20 MEQ TAB CR PO SCH ×2 (09:49→17:57)
[2018-10-19] MEDS: DICYCLOMINE HCL 10 MG CAP PO SCH ×3 (09:49→21:00)
[2018-10-19] MEDS: FOLIC ACID 1 MG TAB PO SCH (09:49)
[2018-10-19] MEDS: PANTOPRAZOLE 40 MG 10ML VIAL IV SCH ×2 (09:49→17:57)
[2018-10-19] MEDS: LACTOBACILLUS ACIDOPHILUS CAPSULE PO SCH ×3 (09:49→21:00)
[2018-10-19] MEDS: SUCRALFATE 1 GM/10 ML SUSP NG SCH ×4 (09:49→21:00)
[2018-10-19] MEDS: ARTIFICIAL TEARS (OPTH) 15 ML BTL OP SCH (17:57)
--- NOTE | 2018-10-19 19:10 | NUR ---
Patient visited in room during nursing rounds. Patient alert and oriented x3. On Contact Isolation for Clostridium difficile. Pt with intermittent abd pain and will be medicated accordingly. Receiving last dose of banana bag. On scheduled IV antibiotics. Pt ambulatory in room prn. Call frost within reach. Will monitor closely.
--- NOTE | 2018-10-19 19:21 | Consultation ---
DATE OF CONSULTATION: REASON FOR CONSULTATION: Fever and diarrhea. HISTORY OF PRESENT ILLNESS: Ms. Costa is a 58-year-old white female with history of dizziness, comes into the emergency room with nausea, vomiting, abdominal pain and diarrhea for a week. The patient was recently in the hospital, she had EGD by Dr. Patrick. She was also have a gastric ulcer. She was discharged. The patient also have esophagitis. The patient had very long history of gastric problem. She has had a gastric bypass in the past. The patient comes in with nausea, vomiting, and diarrhea and abdominal pain. The patient is being admitted. PAST MEDICAL HISTORY: Dizziness, esophagitis. PAST SURGICAL HISTORY: EGD and as above. ALLERGIES: NKA. SOCIAL HISTORY: There is no smoking, drug abuse, or alcohol abuse. FAMILY HISTORY: Noncontributory. REVIEW OF SYSTEMS: HEENT: There is no headache, visual changes or hearing changes. GI: There is still diarrhea. There is still some abdominal discomfort. LABORATORY DATA: Reviewed. Her white count is 5.12, when she first came was 11.56, hemoglobin 9.4. Her sodium 135, potassium 2.7, creatinine 0.67. Her urine was positive for opiate and benzodiazepine. Her C diff came back positive. The patient is currently on vancomycin 125 q.6h. She is on Carafate, metronidazole, Bentyl, multivitamin. PHYSICAL EXAMINATION: GENERAL: She is currently alert, oriented, does not seem to be in acute distress. VITAL SIGNS: Stable, currently afebrile. HEENT: She is normocephalic, not icteric. NECK: Supple. CHEST: Clear bilateral. HEART: S1, S2. No S3, S4 or murmur. ABDOMEN: Soft. Bowel sounds present. No tenderness. EXTREMITIES: No edema. SKIN: No rash. IMPRESSIONS: Sepsis, Clostridium difficile colitis. Continue with vancomycin and continue Pepto-Bismol. Recheck CBC and recheck Chem panel. We will follow with you clinically. Further recommendation depending on her clinical progress. MD SUSANNA Pedraza/ROBERTA /[id number]
--- NOTE | 2018-10-19 21:21 | Progress Note ---
DATE: 10/19/2018 Medicine Progress Note SUBJECTIVE: The patient reports that her diarrhea is improved tremendously. She has only had 1 bowel movement today where it was more firm. The patient is eating, tolerating diet well, eating her dinner. No nausea, no vomiting. LABORATORY DATA: White count 5.1, hemoglobin 9.4, hematocrit is 27, and platelets are 139. Chemistry reviewed; sodium 135, potassium 2.7, chloride 104, bicarbonate 19, anion gap of 14, BUN is 5, creatinine 0.67, glucose is 96, calcium is 7.9. MICROBIOLOGY: Urine culture positive for E coli. Blood cultures no growth to date. Stool culture are pending. IMAGING STUDIES: None. PHYSICAL EXAMINATION: VITAL SIGNS: Temperature is 96, pulse 87, respiratory rate is 17, blood pressure 150/94, pulse ox 95% on room air. GENERAL: Not in acute distress. Alert and oriented x3. Cooperative on examination. HEENT: Head is normocephalic, atraumatic. Eyes; pupils are equal, round, and reactive to light bilaterally. Extraocular movements intact bilaterally. NECK: Supple. Good range of motion. Throat; no evidence of erythema or exudates in the posterior pharynx. Has poor dentition. PULMONARY: Clear to auscultation bilaterally. No wheezing, rales, or rhonchi. No crackles appreciated. CARDIOVASCULAR: Positive S1, S2. No murmurs, rubs, or gallops. ABDOMEN: Soft, nondistended, and nontender to palpation. Bowel sounds present. MUSCULOSKELETAL: Strength is 5/5 throughout. No evidence of any muscle deficits on examination. No weakness appreciated. NEUROLOGIC: Cranial nerves II through XII grossly intact. No evidence of any neurological deficits on exam. SKIN: Intact. Warm to touch. Good cap refill. PSYCHIATRIC: Normal affect and mood. EXTREMITIES: No edema. Good range of motion throughout. IMPRESSION: 1. Clostridium difficile colitis, on treatment, now improving. 2. Abdominal pain, nausea, vomiting, diarrhea secondary to Clostridium difficile colitis, improved. 3. Hypokalemia, replaced. 4. Hypophosphatemia, improved. 5. Status post EGD with esophagitis and distal esophageal stricture recently performed. 6. Probable urinary tract infection. PLAN: 1. Continue with Flagyl and oral vancomycin. 2. Follow antibiotic regimen per Infectious Disease. GI is following as well. She is on regular diet now. If the patient continues to improve, we will likely discharge her home tomorrow cleared by all the consults. MD CARY Garcia/ROBERTA /[id number]
--- NOTE | 2018-10-19 21:52 | NUR ---
Called Dr. Rivera and obtained order to discontinue telemetry.
[2018-10-19] MEDS ORDERED: SODIUM CHLORIDE 0.9% 250ML 250 ML ONE (23:48)
[2018-10-20 00:16] VITALS: BP 156/92
[2018-10-20] MEDS: MORPHINE SULFATE INJ 4 MG/ML INJ 1ML IV PRN ×3 (01:41→12:41)
[2018-10-20] MEDS: VANCOMYCIN 250MG/5ML ORAL SOLN PO SCH ×3 (06:00→12:40)
[2018-10-20] MEDS: METRONIDAZOLE 500MG/NS 100ML 100 ML IV SCH ×3 (06:00→12:40)
[2018-10-20 06:21] LABS: BASOPHILS % 0.5 % (0.0-1.0); EOSINOPHILS # (AUTO) 0.1 (0.0-0.4); EOSINOPHILS % 1.6 % (0.0-6.0); HEMATOCRIT 25.6 % (34.2-44.1); HEMOGLOBIN 8.6 g/dL (12.0-16.0); LYMPHOCYTES % 32.4 % (18.0-39.1); MEAN CORPUSCULAR HEMOGLOBIN 29.6 pg (28-32); MEAN CORPUSCULAR HGB CONC 33.6 g/dL (31-35); MONOCYTES # (AUTO) 0.5 (0.2-0.8); NEUTROPHILS # (AUTO) 3.5 (2.1-6.9); NEUTROPHILS % 56.7 % (38.7-80.0); PLATELET COUNT 159 x10e3/uL (140-360); RED BLOOD COUNT 2.91 x10e6/uL (3.6-5.1); RED CELL DISTRIBUTION WIDTH 15.9 % (11.7-14.4)
[2018-10-20 06:32] LABS: ANION GAP 13.2 mmol/L (8-16); CALCIUM 7.7 mg/dL (8.4-10.2); CARBON DIOXIDE 23 mmol/L (22-29); CHLORIDE 104 mmol/L (98-107); EST GLOMERULAR FILTRATION RATE > 60 ML/MIN (60-); GLUCOSE 82 mg/dL (74-118); MAGNESIUM 1.3 MG/DL (1.3-2.1); POTASSIUM 3.2 mmol/L (3.5-5.1); SODIUM 137 mmol/L (136-145)
[2018-10-20 06:33] VITALS: BP 127/83
[2018-10-20] MEDS: SUCRALFATE 1 GM/10 ML SUSP NG SCH ×2 (06:35→13:21)
[2018-10-20 06:45] LABS: BLOOD UREA NITROGEN < 2 mg/dL (7-26); BUN/CREATININE RATIO 3 (6-25)
--- NOTE | 2018-10-20 07:08 | NUR ---
pt awake upon rounds pt alert resp even and unlabored at this time no distress noted, pt able to make needs known, call light in reach.
[2018-10-20] MEDS: ARTIFICIAL TEARS (OPTH) 15 ML BTL OP SCH (08:30)
[2018-10-20] MEDS: DICYCLOMINE HCL 10 MG CAP PO SCH (08:41)
[2018-10-20] MEDS: FOLIC ACID 1 MG TAB PO SCH (08:41)
[2018-10-20] MEDS: LACTOBACILLUS ACIDOPHILUS CAPSULE PO SCH (08:41)
[2018-10-20] MEDS: THIAMINE HCL 100 MG TAB PO SCH (08:41)
[2018-10-20] MEDS: CHOLESTYRAMINE 4 GM PACKET PO SCH (08:41)
[2018-10-20] MEDS: PANTOPRAZOLE 40 MG 10ML VIAL IV SCH (08:41)
[2018-10-20 08:56] VITALS: BP 125/72
[2018-10-20 10:00] VITALS: BP 125/72
[2018-10-20 13:32] VITALS: BP 132/79
--- NOTE | 2018-10-20 16:25 | NUR ---
Dr. Rivera here to see pt.
[2018-10-20 17:20] VITALS: BP 145/92
--- NOTE | 2018-10-20 18:40 | NUR ---
pt left AMA signed paperwork. Pt stated her landlord has evicted her while she is in the hospital, and she stated I cant stay here I have no where to stay. pt alert and oriented times 3 and showed no signs of confusion at this time, pt call her ride and left.
--- NOTE | 2018-10-20 19:50 | Progress Note ---
DATE: 10/20/2018 Medicine Progress Note SUBJECTIVE: The patient is doing well today, had no diarrhea at all. It seems she is a bit confused today as well. She was doing fine earlier in the morning, but later in the day according to the nursing staff, she seems to be more confused. She is alert and oriented. She was able to tell me the year. She knows where she is at, but she thinks that her siblings are here and that they did not want to talk to her. We are going to go ahead and consult with Psychiatry, Dr. Cerrato to comply with her. PHYSICAL EXAMINATION: VITAL SIGNS: Temperature is 96.9, pulse 100, respiratory rate is 20, blood pressure 132/79, and pulse ox 94% on room air. GENERAL: Not in acute distress. Alert and oriented x3. Cooperative on examination. HEENT: Head; normocephalic, atraumatic. Eyes; pupils are equal, round, and reactive to light bilaterally. Extraocular movements intact bilaterally. Throat; no evidence of erythema or exudates in the posterior pharynx. Has poor dentition. NECK: Supple. Good range of motion. PULMONARY: Clear to auscultation bilaterally. No wheezing, rales, rhonchi, or crackles appreciated. CARDIOVASCULAR: Positive S1 and S2. No murmurs, rubs, or gallops appreciated. ABDOMEN: Soft, nondistended, and nontender to palpation. Bowel sounds present. MUSCULOSKELETAL: Strength is 5/5 throughout. No evidence of any muscle deficits on examination. No weakness appreciated. NEUROLOGIC: Cranial nerves II through XII grossly intact. No evidence of any neurological deficits on exam. SKIN: Intact. Warm to touch. Good cap refill. PSYCHIATRIC: Normal affect and mood. EXTREMITIES: No edema. Good range of motion throughout. LABORATORY DATA: White count 6.2, hemoglobin 8.6, hematocrit 25, and platelets of 159. Chemistry; sodium 137, potassium 3.3, chloride 104, bicarbonate 23, anion gap of 13, BUN is 2, creatinine is 0.70, glucose is 82, and magnesium 1.3. IMPRESSION: 1. Clostridium difficile colitis, much improved. 2. Abdominal pain, nausea, vomiting, and diarrhea secondary to Clostridium difficile colitis. 3. Hypokalemia. 4. Hypophosphatemia, resolved. 5. Status post EGD with esophagitis and distal esophageal stricture recently performed today. 6. Probable urinary tract infection. PLAN: Continue with Flagyl and oral vancomycin and antibiotics per Infectious Disease. GI is following as well. She seemed a bit confused today on examination. I will go ahead and get a Psychiatry consultation. We are going to try and move the patient closer to the nursing station. Watch her very closely. Otherwise, we will continue the same plan of care and monitor closely. MD CARY Garcia/ROBERTA /[id number]
[2018-10-21] MEDS ORDERED: VALIUM10 MG PO (22:42)
--- NOTE | 2018-10-22 16:18 | Discharge Summary ---
FINAL DISCHARGE DIAGNOSES: 1. Clostridium difficile colitis. 2. Abdominal pain, nausea, vomiting, and diarrhea secondary to Clostridium difficile colitis. 3. Hypokalemia. 4. Hypophosphatemia, resolved. 5. Status post esophagogastroduodenoscopy with esophagitis, distal esophageal stricture recently performed about one month ago. 6. Probable urinary tract infection. 7. Left against medical advice. CONSULTANTS: We had GI and Infectious Disease. PHYSICAL EXAMINATION: VITAL SIGNS: Temperature 96.3, pulse 113, respiratory rate is 20, blood pressure 145/92, and pulse ox 97% on room air. LAB FINDINGS: Show white count 6.3, hemoglobin 8.6, hematocrit 25, and platelets of 159. Coagulation; PT 13, INR 1, and PTT 23. Chemistry; sodium 137, potassium 3.3, chloride 104, bicarbonate 23, anion gap 13, BUN is 2, creatinine is 0.7, and magnesium is 1.3. Clostridium difficile toxin was positive. MICROBIOLOGY: Blood cultures were negative. Urine cultures were positive for E coli. Stool cultures were negative. HOSPITAL COURSE: This is a 58-year-old female, who came into the ED with complaints of nausea, vomiting, and abdominal pain. CT of the abdomen and pelvis was consistent with sigmoid colon colitis and also shows a 1.9 cm punctated nodule in the excluded stomach, which was not seen on prior studies, which may represent a polyp. While here, the patient was on IV antibiotics. GI was consulted. Stool samples were consistent with C difficile colitis. ID was consulted and was treated accordingly. The patient's diarrhea improved throughout the hospital course. She was on IV fluids, pain control, and antibiotics. The patient is tolerating diet well prior to being discharged. The patient eventually left against medical advice on 10/20/2018. The patient somehow was doing well, but suddenly wanted to leave home. She signed appropriate documentation. We talked to the patient about staying longer as her diarrhea is just beginning to improve and she is beginning to eat much better now. She refused, instead left against medical advice. The patient left AMA on 10/20/2018, signed appropriate documentation and left in the chart. MEDICATIONS: Left AMA. DISPOSITION: AMA. CONDITION: AMA. In the event of any worsening symptoms, the patient was advised to come back to the ED for further evaluation. Discharge summary took greater than 35 minutes. MD CARY Garcia/ROBERTA /[id number]
== END 2018-10-20 18:40 | disposition left against medical advice (07) | DRG 372 ==
LOC: ER 09:17 → ERHOLD 10:59 → MED/SURG2 12:37
PROVIDERS: ADMIT Internal Medicine; ATTEND Internal Medicine
DX: A04.72 Enterocolitis due to Clostridium difficile, not specified as recurrent (principal); K57.92 Diverticulitis of intestine, part unspecified, without perforation or abscess without bleeding; N39.0 Urinary tract infection, site not specified; K57.32 Diverticulitis of large intestine without perforation or abscess without bleeding; E87.6 Hypokalemia; E83.39 Other disorders of phosphorus metabolism; R11.2 Nausea with vomiting, unspecified; R19.7 Diarrhea, unspecified; K20.9 Esophagitis, unspecified; Z98.84 Bariatric surgery status; K76.0 Fatty (change of) liver, not elsewhere classified
CPT/HCPCS: 36415; 36600; 71045; 74177; 80048; 80053; 80307; 80329; 81001; 82550; 82553; 82805; 82948; 83605; 83630; 83690; 83735; 83880; 84100; 84484; 85025; 85610; 85730; 87040; 87045; 87086; 87177; 87186; 87493; 93005; 96360; 99285; J0500; J0696; J2270; J2405; J2550; J3411; J3480; J7030; J7050

== ENCOUNTER 2018-10-21 09:58 | Inpatient (IN) | payer MEDICARE ==
[~2018-10-21] VITALS: Ht 309.9 cm; Wt 54.4 kg
--- OUTSIDE RECORDS SUMMARY | 2018-10-21 10:03 | XMS REPORT | Continuity of Care Document ---
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 Problem 09/05/2018 [facility] Atrial fibrillation with rapid ventricular response Active 01/18/2014 Problem 09/05/2018 [facility] GI bleed Active 01/18/2014 Problem 09/05/2018 [facility] Medications Medication Details Route Status Patient Instructions Ordering Provider Order Date Source Methocarbamol (Robaxin-750) 750 Mg Tablet Three Times A Day as needed for Muscle Spasms Active Ramesh 08/05/2018 [facility] Ondansetron Hcl (Zofran*) 4 Mg Tablet Every 6 Hours as needed for Nausea Active Osborn 07/03/2018 [facility] Butalbit/Acetamin/Caff/Codeine (Afzcjv-Wbzk-Mgvybjsptnf-Codein) 1 Each Capsule, 1 Each Oral Every 6 Hours Active 09/16/2016 [facility] Carisoprodol (Soma) 350 Mg Tablet, 350 Mg Oral Four Times Daily Active 09/16/2016 [facility] Cetirizine Hcl (Zyrtec) 10 Mg Tablet, 10 Mg Oral Daily Active 09/16/2016 [facility] Metoclopramide Hcl (Reglan) 10 Mg Tablet, 10 Mg Oral Daily as needed for Nausea Active 09/16/2016 [facility] Nitrofurantoin Monohyd/M-Cryst (Macrobid 100 Mg Capsule) 100 Mg Capsule, 100 Mg Oral Twice A Day Active 09/16/2016 [facility] Sucralfate (Carafate) 1 Gm/10 Ml Oral.susp, 2 Tsp Oral Every 6 Hours as needed for Abdominal Pain Active 09/16/2016 [facility] Esomeprazole Magnesium (Nexium) 40 Mg Capsule., Active 12/29/2014 [facility] Carisoprodol (Soma) 350 Mg Tablet, 350 Mg Oral Daily Active 01/18/2014 [facility] Hydrocodone Bit/Acetaminophen (Irons 10-325 Tablet) 1 Each Tablet, Oral Every 6 Hours Active 01/18/2014 [facility] , 0.1037 Mg Oral Every 4 Hours Active 06/28/2013 [facility] Hydrocodone Bit/Acetaminophen (Hydrocodone-Apap 7.5-500 Tab) 1 Each Tablet, 17.5 - 500 Mg Oral Prn 4-6 Hr Active 06/28/2013 [facility] Lidocaine , Every 4 Hours Active 06/28/2013 [facility] Pantoprazole Sodium (Protonix) 40 Mg Tablet., 40 Mg Oral Daily Active 06/28/2013 [facility] Promethazine Hcl (Phenergan) 25 Mg Tablet, 25 Mg Oral Four Times Daily Active 06/28/2013 [facility] Sucralfate 1 Gm Tablet, 1 G Oral Before Meal Tid; Hs Active 06/28/2013 [facility] Esomeprazole Mag Trihydrate (Nexium) 40 Mg Suspdr.pkt, 40 Mg Oral Daily Active 08/02/2012 [facility] Omeprazole Magnesium (Prilosec) 10 Mg Suspdr.pkt, 10 Mg Oral Active 08/05/2010 [facility] Darvocet W/Codiene Every 6 Hours Active [facility] Depression Pill Active [facility] Estrogens, Conjugated (Premarin) 1.25 Mg Tablet Daily Active [facility] Pantoprazole Sodium (Protonix) 40 Mg Tablet. Daily Active [facility] Ropinirole Hcl (Requip) 5 Mg Tablet Bedtime Active [facility] Allergies, Adverse Reactions, Alerts Substance Category Reaction Severity Reaction type Status Date Reported Comments Source Sulfa (Sulfonamide Antibiotics) Unknown Allergy to Substance Active 09/05/2018 [facility] Codeine Unknown Allergy to Substance Active 09/05/2018 [facility] Aspirin Unknown Allergy to Substance Active 09/05/2018 [facility] Meperidine Unknown Allergy to Substance Active 09/05/2018 [facility] Hydromorphone Itching Mild Allergy to Substance Active 09/05/2018 [facility] Immunizations No Data Provided for This Section Results Order Name Results Value Reference Range Date Interpretation Comments Source Prothrombin time (PT) in platelet poor plasma by coagulation assay 13.3 11.9 - 14.5 09/05/2018 [facility] INR in Platelet poor plasma by Coagulation assay 0.96 09/05/2018 [facility] Activated partial thromboplastin time (aPTT) in platelet poor plasma bycoagulation assay 26.4 23.8 - 35.5 09/05/2018 [facility] Blood leukocytes automated count (number/volume) 8.58 4.8 - 10.8 09/05/2018 [facility] Blood erythrocytes automated count (number/volume) 3.08 3.6 - 5.1 09/05/2018 [facility] Blood hemoglobin measurement (moles/volume) 9.3 12.0 - 16.0 09/05/2018 [facility] Automated blood hematocrit (volume fraction) 27.0 34.2 - 44.1 09/05/2018 [facility] Automated erythrocyte mean corpuscular volume 87.7 81 - 99 09/05/2018 [facility] Automated erythrocyte mean corpuscular hemoglobin (mass per erythrocyte) 30.2 28 - 32 09/05/2018 [facility] Automated erythrocyte mean corpuscular hemoglobin concentration measurement (mass/volume) 34.4 31 - 35 09/05/2018 [facility] RDW BldCo-Rto 11.9 11.7 - 14.4 09/05/2018 [facility] Automated blood platelet count (count/volume) 244 140 - 360 09/05/2018 [facility] Automated blood segmented neutrophil count as percentage of total leukocytes 79.7 38.7 - 80.0 09/05/2018 [facility] Automated blood lymphocyte count as percentage ot total leukocytes 12.0 18.0 - 39.1 09/05/2018 [facility] Automated blood monocyte count as percentage of total leukocytes 7.0 4.4 - 11.3 09/05/2018 [facility] Automated blood eosinophil count as percentage of total leukocytes 0.1 0.0 - 6.0 09/05/2018 [facility] Automated blood basophil count as percentage of total leukocytes 0.2 0.0 - 1.0 09/05/2018 [facility] IM GRANULOCYTES % 1.0 0.0 - 1.0 09/05/2018 [facility] Automated blood neutrophil count 6.8 2.1 - 6.9 09/05/2018 [facility] Blood lymphocytes count (number/volume) 1.0 1.0 - 3.2 09/05/2018 [facility] Blood monocytes automated count (number/volume) 0.6 0.2 - 0.8 09/05/2018 [facility] Automated blood eosinophil count 0.0 0.0 - 0.4 09/05/2018 [facility] Automated blood basophil count (count/volume) 0.0 0.0 - 0.1 09/05/2018 [facility] Absolute Immature Granulocyte (auto 0.09 0 - 0.1 09/05/2018 [facility] Urine color determination STRAW YELLOW 09/05/2018 [facility] Urine clarity SL CLOUDY CLEAR 09/05/2018 [facility] Specific gravity of Urine by Test strip 1.025 1.010 - 1.025 09/05/2018 [facility] Urine pH measurement by automated test strip 6 5 - 7 09/05/2018 [facility] Urine leukocyte esterase detection by automated test strip MODERATE NEGATIVE 09/05/2018 [facility] Urine nitrite detection by automated test strip NEGATIVE NEGATIVE 09/05/2018 [facility] Urine protein detection by automated test strip 2+ NEGATIVE 09/05/2018 [facility] Urine glucose detection by automated test strip NEGATIVE NEGATIVE 09/05/2018 [facility] Urine ketones detection by automated test strip 1+ NEGATIVE 09/05/2018 [facility] Urine opiates screening test POSITIVE NEGATIVE 09/05/2018 [facility] Barbiturates screen, urine POSITIVE NEGATIVE 09/05/2018 [facility] Urine phencyclidine detection by screening method NEGATIVE NEGATIVE 09/05/2018 [facility] Urine amphetamines detection by screen method > 1000 ng/mL NEGATIVE NEGATIVE 09/05/2018 [facility] Urine Methamphetamines Screen NEGATIVE NEGATIVE 09/05/2018 [facility] Urine benzodiazepines detection by screening method POSITIVE NEGATIVE 09/05/2018 [facility] Urine cocaine measurement (mass/volume) NEGATIVE NEGATIVE 09/05/2018 [facility] Urine cannabinoids detection by screening method NEGATIVE NEGATIVE 09/05/2018 [facility] Urine methadone screen NEGATIVE NEGATIVE 09/05/2018 [facility] Urine urobilinogen measurement by test strip (mass/volume) 1 0.2 - 1 09/05/2018 [facility] Urine total bilirubin detection MODERATE NEGATIVE 09/05/2018 [facility] Urine erythrocytes detection 1+ NEGATIVE 09/05/2018 [facility] Automated urine sediment leukocyte count by microscopy (number/high power field) >50 0 - 5 09/05/2018 [facility] Erythrocytes detection in urine sediment by light microscopy 11-20 0 - 5 09/05/2018 [facility] Bacteria detection in urine sediment by light microscopy MANY NONE 09/05/2018 [facility] Epithelial cells detection in urine sediment by light microscopy NONE NONE 09/05/2018 [facility] Serum or plasma sodium measurement (moles/volume) 135 136 - 145 09/05/2018 [facility] Serum or plasma potassium measurement (moles/volume) 3.4 3.5 - 5.1 09/05/2018 [facility] Serum or plasma chloride measurement (moles/volume) 101 98 - 107 09/05/2018 [facility] Serum or plasma carbon dioxide, total measurement (moles/volume) 21 22 - 29 09/05/2018 [facility] Serum or plasma anion gap 16.4 8 - 16 09/05/2018 [facility] Serum or plasma urea nitrogen measurement (mass/volume) 11 7 - 26 09/05/2018 [facility] Serum or plasma creatinine measurement (mass/volume) 0.85 0.57 - 1.11 09/05/2018 [facility] Serum or plasma urea nitrogen/creatinine mass ratio 13 6 - 25 09/05/2018 [facility] Estimated glomerular filtration rate (GFR) determination > 60 60 09/05/2018 [facility] Glucose measurement 103 74 - 118 09/05/2018 [facility] Serum or plasma calcium measurement (mass/volume) 9.4 8.4 - 10.2 09/05/2018 [facility] Serum or plasma total bilirubin measurement (mass/volume) 0.6 0.2 - 1.2 09/05/2018 [facility] Aspartate Amino Transf (AST/SGOT) 39 5 - 34 09/05/2018 [facility] Serum or plasma alanine aminotransferase measurement (enzymatic activity/volume) 25 0 - 55 09/05/2018 [facility] Serum or plasma protein measurement (mass/volume) 7.3 6.5 - 8.1 09/05/2018 [facility] Serum or plasma albumin measurement (mass/volume) 2.9 3.5 - 5.0 09/05/2018 [facility] Plasma globulin measurement (mass/volume) 4.4 2.3 - 3.5 09/05/2018 [facility] Serum or plasma albumin/globulin mass ratio 0.7 0.8 - 2.0 09/05/2018 [facility] Serum or plasma alkaline phosphatase measurement (enzymatic activity/volume) 173 40 - 150 09/05/2018 [facility] Serum or plasma creatine kinase measurement (enzymatic activity/volume) 15 29 - 168 09/05/2018 [facility] Serum or plasma creatine kinase MB measurement (mass/volume) 0.60 0 - 5.0 09/05/2018 [facility] Troponin I measurement by highly sensitive enzyme immunoassay < 0.001 0 - 0.300 09/05/2018 [facility] Amorphous sediment detection in urine sediment by light microscopy FEW FEW 07/03/2018 [facility] Hyaline casts detection in urine sediment by light microscopy 0-1 0 - 1 07/03/2018 [facility] Coarse granular casts detection in urine sediment by light microscopy 1-5 0 07/03/2018 [facility] WBC casts detection in urine sediment by light microscopy 1-5 0 07/03/2018 [facility] Serum or plasma amylase measurement (enzymatic activity/volume) 67 25 - 125 06/07/2018 [facility] Serum or plasma lipase measurement (enzymatic activity/volume) 32 8 - 78 06/07/2018 [facility] Pathology Reports No Data Provided for [...] DC Date Status Source Departed Emergency Room [id number] YODIT PORTILLO MD 06/07/2018 06/08/2018 [facility] Departed Emergency Room [id number] BARBI HILLIARD MD 07/03/2018 07/03/2018 [facility] Departed Emergency Room [id number] YODIT PORTILLO MD 08/05/2018 08/05/2018 [facility] Departed Emergency Room [id number] RONI LARA MD 08/30/2018 08/31/2018 [facility] Departed Emergency Room [id number] BARBI HILLIARD MD 09/05/2018 09/05/2018 [facility] Procedures Procedure Code Date Perfomer Comments Source Computed tomography of brain without radiopaque contrast [id number] 08/30/2018 [facility] Computed tomography of cervical spine without contrast [id number] 08/30/2018 [facility] Computed tomography of lumbar spine without contrast [id number] 08/30/2018 [facility] Computed tomography of brain without radiopaque contrast [id number] 08/05/2018 [facility] Computed tomography of brain without radiopaque contrast [id number] 07/03/2018 [facility] Assessment and Plan No Data Provided for This Section Plan of Care Plan of Care Date Source Discharge Date 09/05/18 5:30pm Disposition HOME, SELF-CARE Condition at Discharge Stable Instructions/Education Provided Concussion/Head Injury - Adult Dizziness Urinary Tract Infection - Women Vomiting - Adult Forms Provided Work/School Excuse Prescriptions See Medication Section Referrals GERI PIEDRA Address: [address] [place] [id number] KULDEEP MATUTE MD Address: [address] [place] [id number] Additional Instructions/Education 1. follow up with your doctor / neurologist in 1-2 days without fail 2. return to ed as needed 3. tylenol and motrin as needed 4. increase oral fluids 5. bland diet 09/05/2018 [facility] Social History Social History Date Source [...] 12/29/2014 11:28am Not Applicable Not Applicable 09/05/2018 [facility] Family History No Data Provided for This Section Advance Directives Order Name Results Value Date Source Advance Directives Advance Directives Directive Response Recorded Date/Time Does the patient have an advance directive? No 12/29/14 11:28am If yes, is advance directive on file with [facility]? No 07/03/18 3:53pm If not on file with [facility] will patient provide a copy? No 07/03/18 3:53pm Do you have a Directive to Physician? No 09/05/18 2:45pm Do you have a Medical Power of Repair Table Operator? No 09/05/18 2:45pm Do you have an [...] rights and responsibilities? Yes 09/05/18 2:45pm 09/05/2018 [facility] Functional Status No Data Provided for This Section
[2018-10-21] MEDS ORDERED: SODIUM CHLORIDE 0.9% 1000ML 1,000 ML IV STA (10:15)
[2018-10-21 10:52] LABS: BASOPHILS % 0.5 % (0.0-1.0); EOSINOPHILS # (AUTO) 0.1 (0.0-0.4); EOSINOPHILS % 1.1 % (0.0-6.0); HEMATOCRIT 33.3 % (34.2-44.1); HEMOGLOBIN 11.1 g/dL (12.0-16.0); LYMPHOCYTES # (AUTO) 1.1 (1.0-3.2); LYMPHOCYTES % 19.2 % (18.0-39.1); MEAN CORPUSCULAR HGB CONC 33.3 g/dL (31-35); MONOCYTES # (AUTO) 0.5 (0.2-0.8); MONOCYTES % 9.4 % (4.4-11.3); NEUTROPHILS # (AUTO) 3.9 (2.1-6.9); NEUTROPHILS % 69.4 % (38.7-80.0); PLATELET COUNT 172 x10e3/uL (140-360); RED CELL DISTRIBUTION WIDTH 16.4 % (11.7-14.4)
[2018-10-21 10:59] LABS: CLARITY,URINE HAZY (CLEAR); COLOR,URINE YELLOW (YELLOW); LEUKOCYTE ESTERASE ,URINE NEGATIVE (NEGATIVE)
[2018-10-21 11:00] LABS: BILIRUBIN,URINE NEGATIVE (NEGATIVE); KETONES,URINE NEGATIVE (NEGATIVE); NITRITE,URINE NEGATIVE (NEGATIVE); PROTEIN,URINE DIPSTICK TRACE (NEGATIVE); URINE UROBILINOGEN 0.2 mg/dL (0.2 - 1)
[2018-10-21 11:03] LABS: BACTERIA,URINE FEW /HPF; EPITHELIAL CELLS,URINE FEW /LPF; RBC,URINE 0-5 /HPF (0-5); WBC,URINE (MAN) 0-5 /HPF (0-5)
[2018-10-21 11:06] LABS: INR 0.94; PROTHROMBIN TIME 13.1 seconds (11.9-14.5)
[2018-10-21 11:07] LABS: PARTIAL THROMBOPLASTIN TIME 20.1 seconds (23.8-35.5)
[2018-10-21 11:17] LABS: ALANINE AMINOTRANSFERASE 25 IU/L (0-55); ALBUMIN 3.1 g/dL (3.5-5.0); ALBUMIN/GLOBULIN RATIO 0.9 (0.8-2.0); ALKALINE PHOSPHATASE 118 IU/L (40-150); ANION GAP 17.3 mmol/L (8-16); BLOOD UREA NITROGEN < 5 mg/dL (7-26); CALCIUM 8.7 mg/dL (8.4-10.2); CARBON DIOXIDE 22 mmol/L (22-29); CHLORIDE 104 mmol/L (98-107); CREATINE KINASE 126 IU/L (29-168); EST GLOMERULAR FILTRATION RATE > 60 ML/MIN (60-); GLUCOSE 99 mg/dL (74-118); LIPASE 227 U/L (8-78); MAGNESIUM 1.6 MG/DL (1.3-2.1); POTASSIUM 3.3 mmol/L (3.5-5.1); SODIUM 140 mmol/L (136-145)
[2018-10-21 11:27] LABS: BUN/CREATININE RATIO 6 (6-25)
--- OUTSIDE RECORDS SUMMARY | 2018-10-21 13:45 | XMS REPORT | Continuity of Care Document ---
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 Problem 09/05/2018 [facility] Atrial fibrillation with rapid ventricular response Active 01/18/2014 Problem 09/05/2018 [facility] GI bleed Active 01/18/2014 Problem 09/05/2018 [facility] Medications Medication Details Route Status Patient Instructions Ordering Provider Order Date Source Methocarbamol (Robaxin-750) 750 Mg Tablet Three Times A Day as needed for Muscle Spasms Active Ramesh 08/05/2018 [facility] Ondansetron Hcl (Zofran*) 4 Mg Tablet Every 6 Hours as needed for Nausea Active Osborn 07/03/2018 [facility] Butalbit/Acetamin/Caff/Codeine (Gnkusd-Rawg-Xqvogbfpnee-Codein) 1 Each Capsule, 1 Each Oral Every 6 Hours Active 09/16/2016 [facility] Carisoprodol (Soma) 350 Mg Tablet, 350 Mg Oral Four Times Daily Active 09/16/2016 [facility] Cetirizine Hcl (Zyrtec) 10 Mg Tablet, 10 Mg Oral Daily Active 09/16/2016 [facility] Metoclopramide Hcl (Reglan) 10 Mg Tablet, 10 Mg Oral Daily as needed for Nausea Active 09/16/2016 [facility] Nitrofurantoin Monohyd/M-Cryst (Macrobid 100 Mg Capsule) 100 Mg Capsule, 100 Mg Oral Twice A Day Active 09/16/2016 [facility] Sucralfate (Carafate) 1 Gm/10 Ml Oral.susp, 2 Tsp Oral Every 6 Hours as needed for Abdominal Pain Active 09/16/2016 [facility] Esomeprazole Magnesium (Nexium) 40 Mg Capsule., Active 12/29/2014 [facility] Carisoprodol (Soma) 350 Mg Tablet, 350 Mg Oral Daily Active 01/18/2014 [facility] Hydrocodone Bit/Acetaminophen ([place] 10-325 Tablet) 1 Each Tablet, Oral Every 6 Hours Active 01/18/2014 [facility] , 0.1037 Mg Oral Every 4 Hours Active 06/28/2013 [facility] Hydrocodone Bit/Acetaminophen (Hydrocodone-Apap 7.5-500 Tab) 1 Each Tablet, 17.5 - 500 Mg Oral Prn 4-6 Hr Active 06/28/2013 [facility] Lidocaine , Every 4 Hours Active 06/28/2013 [facility] Pantoprazole Sodium (Protonix) 40 Mg Tablet., 40 Mg Oral Daily Active 06/28/2013 [facility] Promethazine Hcl (Phenergan) 25 Mg Tablet, 25 Mg Oral Four Times Daily Active 06/28/2013 [facility] Sucralfate 1 Gm Tablet, 1 G Oral Before Meal Tid; Hs Active 06/28/2013 [facility] Esomeprazole Mag Trihydrate (Nexium) 40 Mg Suspdr.pkt, 40 Mg Oral Daily Active 08/02/2012 [facility] Omeprazole Magnesium (Prilosec) 10 Mg Suspdr.pkt, 10 Mg Oral Active 08/05/2010 [facility] Darvocet W/Codiene Every 6 Hours Active [facility] Depression Pill Active [facility] Estrogens, Conjugated (Premarin) 1.25 Mg Tablet Daily Active [facility] Pantoprazole Sodium (Protonix) 40 Mg Tablet. Daily Active [facility] Ropinirole Hcl (Requip) 5 Mg Tablet Bedtime Active [facility] Allergies, Adverse Reactions, Alerts Substance Category Reaction Severity Reaction type Status Date Reported Comments Source Sulfa (Sulfonamide Antibiotics) Unknown Allergy to Substance Active 09/05/2018 [facility] Codeine Unknown Allergy to Substance Active 09/05/2018 [facility] Aspirin Unknown Allergy to Substance Active 09/05/2018 [facility] Meperidine Unknown Allergy to Substance Active 09/05/2018 [facility] Hydromorphone Itching Mild Allergy to Substance Active 09/05/2018 [facility] Immunizations No Data Provided for This Section Results Order Name Results Value Reference Range Date Interpretation Comments Source Prothrombin time (PT) in platelet poor plasma by coagulation assay 13.3 11.9 - 14.5 09/05/2018 [facility] INR in Platelet poor plasma by Coagulation assay 0.96 09/05/2018 [facility] Activated partial thromboplastin time (aPTT) in platelet poor plasma bycoagulation assay 26.4 23.8 - 35.5 09/05/2018 [facility] Blood leukocytes automated count (number/volume) 8.58 4.8 - 10.8 09/05/2018 [facility] Blood erythrocytes automated count (number/volume) 3.08 3.6 - 5.1 09/05/2018 [facility] Blood hemoglobin measurement (moles/volume) 9.3 12.0 - 16.0 09/05/2018 [facility] Automated blood hematocrit (volume fraction) 27.0 34.2 - 44.1 09/05/2018 [facility] Automated erythrocyte mean corpuscular volume 87.7 81 - 99 09/05/2018 [facility] Automated erythrocyte mean corpuscular hemoglobin (mass per erythrocyte) 30.2 28 - 32 09/05/2018 [facility] Automated erythrocyte mean corpuscular hemoglobin concentration measurement (mass/volume) 34.4 31 - 35 09/05/2018 [facility] RDW BldCo-Rto 11.9 11.7 - 14.4 09/05/2018 [facility] Automated blood platelet count (count/volume) 244 140 - 360 09/05/2018 [facility] Automated blood segmented neutrophil count as percentage of total leukocytes 79.7 38.7 - 80.0 09/05/2018 [facility] Automated blood lymphocyte count as percentage ot total leukocytes 12.0 18.0 - 39.1 09/05/2018 [facility] Automated blood monocyte count as percentage of total leukocytes 7.0 4.4 - 11.3 09/05/2018 [facility] Automated blood eosinophil count as percentage of total leukocytes 0.1 0.0 - 6.0 09/05/2018 [facility] Automated blood basophil count as percentage of total leukocytes 0.2 0.0 - 1.0 09/05/2018 [facility] IM GRANULOCYTES % 1.0 0.0 - 1.0 09/05/2018 [facility] Automated blood neutrophil count 6.8 2.1 - 6.9 09/05/2018 [facility] Blood lymphocytes count (number/volume) 1.0 1.0 - 3.2 09/05/2018 [facility] Blood monocytes automated count (number/volume) 0.6 0.2 - 0.8 09/05/2018 [facility] Automated blood eosinophil count 0.0 0.0 - 0.4 09/05/2018 [facility] Automated blood basophil count (count/volume) 0.0 0.0 - 0.1 09/05/2018 [facility] Absolute Immature Granulocyte (auto 0.09 0 - 0.1 09/05/2018 [facility] Urine color determination STRAW YELLOW 09/05/2018 [facility] Urine clarity SL CLOUDY CLEAR 09/05/2018 [facility] Specific gravity of Urine by Test strip 1.025 1.010 - 1.025 09/05/2018 [facility] Urine pH measurement by automated test strip 6 5 - 7 09/05/2018 [facility] Urine leukocyte esterase detection by automated test strip MODERATE NEGATIVE 09/05/2018 [facility] Urine nitrite detection by automated test strip NEGATIVE NEGATIVE 09/05/2018 [facility] Urine protein detection by automated test strip 2+ NEGATIVE 09/05/2018 [facility] Urine glucose detection by automated test strip NEGATIVE NEGATIVE 09/05/2018 [facility] Urine ketones detection by automated test strip 1+ NEGATIVE 09/05/2018 [facility] Urine opiates screening test POSITIVE NEGATIVE 09/05/2018 [facility] Barbiturates screen, urine POSITIVE NEGATIVE 09/05/2018 [facility] Urine phencyclidine detection by screening method NEGATIVE NEGATIVE 09/05/2018 [facility] Urine amphetamines detection by screen method > 1000 ng/mL NEGATIVE NEGATIVE 09/05/2018 [facility] Urine Methamphetamines Screen NEGATIVE NEGATIVE 09/05/2018 [facility] Urine benzodiazepines detection by screening method POSITIVE NEGATIVE 09/05/2018 [facility] Urine cocaine measurement (mass/volume) NEGATIVE NEGATIVE 09/05/2018 [facility] Urine cannabinoids detection by screening method NEGATIVE NEGATIVE 09/05/2018 [facility] Urine methadone screen NEGATIVE NEGATIVE 09/05/2018 [facility] Urine urobilinogen measurement by test strip (mass/volume) 1 0.2 - 1 09/05/2018 [facility] Urine total bilirubin detection MODERATE NEGATIVE 09/05/2018 [facility] Urine erythrocytes detection 1+ NEGATIVE 09/05/2018 [facility] Automated urine sediment leukocyte count by microscopy (number/high power field) >50 0 - 5 09/05/2018 [facility] Erythrocytes detection in urine sediment by light microscopy 11-20 0 - 5 09/05/2018 [facility] Bacteria detection in urine sediment by light microscopy MANY NONE 09/05/2018 [facility] Epithelial cells detection in urine sediment by light microscopy NONE NONE 09/05/2018 [facility] Serum or plasma sodium measurement (moles/volume) 135 136 - 145 09/05/2018 [facility] Serum or plasma potassium measurement (moles/volume) 3.4 3.5 - 5.1 09/05/2018 [facility] Serum or plasma chloride measurement (moles/volume) 101 98 - 107 09/05/2018 [facility] Serum or plasma carbon dioxide, total measurement (moles/volume) 21 22 - 29 09/05/2018 [facility] Serum or plasma anion gap 16.4 8 - 16 09/05/2018 [facility] Serum or plasma urea nitrogen measurement (mass/volume) 11 7 - 26 09/05/2018 [facility] Serum or plasma creatinine measurement (mass/volume) 0.85 0.57 - 1.11 09/05/2018 [facility] Serum or plasma urea nitrogen/creatinine mass ratio 13 6 - 25 09/05/2018 [facility] Estimated glomerular filtration rate (GFR) determination > 60 60 09/05/2018 [facility] Glucose measurement 103 74 - 118 09/05/2018 [facility] Serum or plasma calcium measurement (mass/volume) 9.4 8.4 - 10.2 09/05/2018 [facility] Serum or plasma total bilirubin measurement (mass/volume) 0.6 0.2 - 1.2 09/05/2018 [facility] Aspartate Amino Transf (AST/SGOT) 39 5 - 34 09/05/2018 [facility] Serum or plasma alanine aminotransferase measurement (enzymatic activity/volume) 25 0 - 55 09/05/2018 [facility] Serum or plasma protein measurement (mass/volume) 7.3 6.5 - 8.1 09/05/2018 [facility] Serum or plasma albumin measurement (mass/volume) 2.9 3.5 - 5.0 09/05/2018 [facility] Plasma globulin measurement (mass/volume) 4.4 2.3 - 3.5 09/05/2018 [facility] Serum or plasma albumin/globulin mass ratio 0.7 0.8 - 2.0 09/05/2018 [facility] Serum or plasma alkaline phosphatase measurement (enzymatic activity/volume) 173 40 - 150 09/05/2018 [facility] Serum or plasma creatine kinase measurement (enzymatic activity/volume) 15 29 - 168 09/05/2018 [facility] Serum or plasma creatine kinase MB measurement (mass/volume) 0.60 0 - 5.0 09/05/2018 [facility] Troponin I measurement by highly sensitive enzyme immunoassay < 0.001 0 - 0.300 09/05/2018 [facility] Amorphous sediment detection in urine sediment by light microscopy FEW FEW 07/03/2018 [facility] Hyaline casts detection in urine sediment by light microscopy 0-1 0 - 1 07/03/2018 [facility] Coarse granular casts detection in urine sediment by light microscopy 1-5 0 07/03/2018 [facility] WBC casts detection in urine sediment by light microscopy 1-5 0 07/03/2018 [facility] Serum or plasma amylase measurement (enzymatic activity/volume) 67 25 - 125 06/07/2018 [facility] Serum or plasma lipase measurement (enzymatic activity/volume) 32 8 - 78 06/07/2018 [facility] Pathology Reports No Data Provided for [...] DC Date Status Source Departed Emergency Room [id number] YODIT PORTILLO MD 06/07/2018 06/08/2018 [facility] Departed Emergency Room [id number] BARBI HILLIARD MD 07/03/2018 07/03/2018 [facility] Departed Emergency Room [id number] YODIT PORTILLO MD 08/05/2018 08/05/2018 [facility] Departed Emergency Room [id number] RONI LARA MD 08/30/2018 08/31/2018 [facility] Departed Emergency Room [id number] BARBI HILLIARD MD 09/05/2018 09/05/2018 [facility] Procedures Procedure Code Date Perfomer Comments Source Computed tomography of brain without radiopaque contrast [id number] 08/30/2018 [facility] Computed tomography of cervical spine without contrast [id number] 08/30/2018 [facility] Computed tomography of lumbar spine without contrast [id number] 08/30/2018 [facility] Computed tomography of brain without radiopaque contrast [id number] 08/05/2018 [facility] Computed tomography of brain without radiopaque contrast [id number] 07/03/2018 [facility] Assessment and Plan No Data Provided for This Section Plan of Care Plan of Care Date Source Discharge Date 09/05/18 5:30pm Disposition HOME, SELF-CARE Condition at Discharge Stable Instructions/Education Provided Concussion/Head Injury - Adult Dizziness Urinary Tract Infection - Women Vomiting - Adult Forms Provided Work/School Excuse Prescriptions See Medication Section Referrals GERI PIEDRA Address: [address] [place] [id number] KULDEEP MATUTE MD Address: [address] [place] [id number] Additional Instructions/Education 1. follow up with your doctor / neurologist in 1-2 days without fail 2. return to ed as needed 3. tylenol and motrin as needed 4. increase oral fluids 5. bland diet 09/05/2018 [facility] Social History Social History Date Source [...] 12/29/2014 11:28am Not Applicable Not Applicable 09/05/2018 [facility] Family History No Data Provided for This Section Advance Directives Order Name Results Value Date Source Advance Directives Advance Directives Directive Response Recorded Date/Time Does the patient have an advance directive? No 12/29/14 11:28am If yes, is advance directive on file with [facility]? No 07/03/18 3:53pm If not on file with [facility] will patient provide a copy? No 07/03/18 3:53pm Do you have a Directive to Physician? No 09/05/18 2:45pm Do you have a Medical Power of Cylinder Inspector? No 09/05/18 2:45pm Do you have an [...] rights and responsibilities? Yes 09/05/18 2:45pm 09/05/2018 [facility] Functional Status No Data Provided for This Section
[2018-10-21] MEDS ORDERED: POTASSIUM PHOSPHATE 20 MM in SODIUM CHLORIDE 0.9% 250ML 250 ML IV ONE (14:00)
[2018-10-21] MEDS: VANCOMYCIN 250MG/5ML ORAL SOLN PO SCH ×3 (14:35→23:08)
[2018-10-21] MEDS: D5.45%NS/KCL 20MEQ 1,000 ML IV SCH ×2 (15:05→21:33)
[2018-10-21] MEDS: MORPHINE SULFATE INJ 4 MG/ML INJ 1ML IV PRN ×2 (15:20→21:31)
[2018-10-21] MEDS ORDERED: ACETAMINOPHEN 325 MG TAB PO PRN (17:00)
[2018-10-21] MEDS: ENOXAPARIN SOD INJ 40 MG/0.4 ML SYR SC SCH (19:15)
[2018-10-21] MEDS: LACTOBACILLUS ACIDOPHILUS CAPSULE PO SCH (21:00)
[2018-10-21 21:55] VITALS: BP 128/73
--- NOTE | 2018-10-21 21:55 | NUR ---
patient is a new admit that arrived via stretcher. patient is awake and talking. patient has been assisted into the bed. bed is in the lowest position and call frost is within reach. will continue to monitor patient.
[2018-10-21] MEDS ORDERED: VALIUM10 MG PO (22:42)
[2018-10-21] MEDS ORDERED: DIAZEPAM 5 MG TAB PO PRN (23:00)
[2018-10-22] VITALS (7 sets, daily range): BP systolic 101–133; BP diastolic 53–76
--- NOTE | 2018-10-22 00:46 | History and Physical ---
CHIEF COMPLAINT: Diarrhea. HISTORY OF PRESENT ILLNESS: This is a 58-year-old female, who was just here, treated for underlying C difficile colitis, left against medical advice on 10/20/2018, for unknown causes or reasons, presents back to the ER with complaints of diarrhea and decreased oral intake. The patient was just diagnosed with C difficile colitis and was treated accordingly. The patient left against medical advice. No prescriptions were given to the patient. She now reports with similar findings of abdominal pain, nausea, decreased oral intake, and increased diarrhea. The patient denies any chest pain, palpitation, or any fever at home. The patient is seen and evaluated at bedside on the medical floor. Currently, she is doing okay in the ER with no other issues. Vital signs were stable when I evaluated her. REVIEW OF SYSTEMS: Pertinent positives: Abdominal pain, decreased oral intake, and diarrhea. Pertinent negatives: Denies any chest pain, palpitation, nausea, vomiting, dysuria, hematuria, frequency, urgency, lightheadedness, dizziness, cough, congestion, fever, or any other complaints. The rest of 14-point review of systems have been reviewed with the patient and are negative. ALLERGIES: DARVOCET, SULFA, ASPIRIN, CODEINE, MEPERIDINE, AND PROPOXYPHENE. HOME MEDICATIONS: Meclizine 25 mg p.o. t.i.d., Valium 10 mg at bedtime, iron tablets, and Fioricet. PAST MEDICAL HISTORY: She has multiple psychiatric disorders and recent C difficile colitis diagnosis. PAST SURGICAL HISTORY: Recent EGD back in September 2018, diagnosed with esophagitis and the distal esophageal stricture. FAMILY HISTORY: Hypertension and diabetes . SOCIAL HISTORY: No drugs. No alcohol. Does not smoke. Good social support. PHYSICAL EXAMINATION: VITAL SIGNS: Temperature 97.2, pulse 87, respiratory rate is 16, blood pressure 129/93, and pulse ox 99% on room air. GENERAL: Not in acute distress. Alert and oriented x3. Cooperative on examination. HEENT: Head is normocephalic and atraumatic. Eyes; pupils are equal, round, and reactive to light bilaterally. Extraocular movements intact bilaterally. NECK: Supple. Good range of motion. Throat; no evidence of erythema or exudates in the posterior pharynx. Has poor dentition. PULMONARY: Clear to auscultation bilaterally. No wheezing, rales, or rhonchi. No crackles appreciated. CARDIOVASCULAR: Positive S1 and S2. No murmurs, rubs, or gallops appreciated. ABDOMEN soft, nontender, and nondistended to palpation. Bowel sounds present. MUSCULOSKELETAL: Strength is 5/5 throughout. No evidence of any muscle deficits on examination. No weakness appreciated. NEUROLOGICAL: Cranial nerves 2 through 12 grossly intact. No evidence of any neurological deficits on exam. SKIN: Intact. Warm to touch. Good cap refill. PSYCHIATRIC: Normal affect and mood. EXTREMITIES: No edema. Good range of motion throughout. LABORATORY FINDINGS: Show white count 5.5, hemoglobin 11, hematocrit 33, platelets 173. Coagulation; PT 13, INR 0.94, and PTT is 20. Sodium 140, potassium 3.3, chloride 104, bicarb 22, anion gap of 17, BUN 5, creatinine 0.9, glucose is 99, calcium 8.7, phosphorus is 2, and magnesium 1.6. LFTs: Total bilirubin is 0.6, AST 41, AST 25, and alkaline phosphatase 118. Troponins are negative. Albumin 3.1. Lipase is 227. Urinalysis was negative. Microbiology, urine cultures are pending. IMAGING STUDIES: None needed, just had recent imaging studies. IMPRESSION: 1. Clostridium difficile colitis with underlying diarrhea. 2. Abdominal pain with decreased oral intake. 3. Hypokalemia. 4. Recent diagnosis of esophagitis and distal esophageal stricture, status post esophagogastroduodenoscopy with dilatation. PLAN: At this time, continue with oral vancomycin for C difficile colitis. The patient left against medical advice on yesterday. She is now being readmitted for similar findings. We will continue with IV fluids. Consult with GI in which she was taking care of her while she was here. We will also put on Carafate and Protonix. Replace potassium accordingly. Continue with IV fluids, regular diet for now. Lovenox for DVT prophylaxis. MD CARY Garcia/ROBERTA /[id number]
[2018-10-22] MEDS: MORPHINE SULFATE INJ 4 MG/ML INJ 1ML IV PRN ×5 (02:35→20:27)
[2018-10-22] MEDS: ONDANSETRON HCL INJ 2MG/ML 2ML 2 MG/ML VIAL IV PRN ×4 (02:35→20:27)
[2018-10-22] MEDS: D5.45%NS/KCL 20MEQ 1,000 ML IV SCH ×3 (05:33→21:33)
[2018-10-22 05:42] LABS: BASOPHILS % 0.5 % (0.0-1.0); EOSINOPHILS # (AUTO) 0.1 (0.0-0.4); EOSINOPHILS % 1.6 % (0.0-6.0); HEMATOCRIT 29.9 % (34.2-44.1); HEMOGLOBIN 9.6 g/dL (12.0-16.0); LYMPHOCYTES # (AUTO) 2.6 (1.0-3.2); LYMPHOCYTES % 41.5 % (18.0-39.1); MEAN CORPUSCULAR HEMOGLOBIN 29.5 pg (28-32); MEAN CORPUSCULAR HGB CONC 32.1 g/dL (31-35); MONOCYTES # (AUTO) 0.8 (0.2-0.8); MONOCYTES % 12.9 % (4.4-11.3); NEUTROPHILS # (AUTO) 2.7 (2.1-6.9); NEUTROPHILS % 42.9 % (38.7-80.0); PLATELET COUNT 181 x10e3/uL (140-360); RED BLOOD COUNT 3.25 x10e6/uL (3.6-5.1); RED CELL DISTRIBUTION WIDTH 16.8 % (11.7-14.4)
[2018-10-22 06:02] LABS: ALANINE AMINOTRANSFERASE 22 IU/L (0-55); ALBUMIN 2.7 g/dL (3.5-5.0); ALBUMIN/GLOBULIN RATIO 0.8 (0.8-2.0); ALKALINE PHOSPHATASE 97 IU/L (40-150); ANION GAP 13.6 mmol/L (8-16); BLOOD UREA NITROGEN < 5 mg/dL (7-26); CALCIUM 8.1 mg/dL (8.4-10.2); CARBON DIOXIDE 25 mmol/L (22-29); CHLORIDE 106 mmol/L (98-107); CREATININE, SERUM 0.78 mg/dL (0.57-1.11); EST GLOMERULAR FILTRATION RATE > 60 ML/MIN (60-); GLUCOSE 91 mg/dL (74-118); LIPASE 113 U/L (8-78); POTASSIUM 3.6 mmol/L (3.5-5.1); SODIUM 141 mmol/L (136-145)
[2018-10-22 06:04] LABS: BUN/CREATININE RATIO 6 (6-25)
[2018-10-22] MEDS: VANCOMYCIN 250MG/5ML ORAL SOLN PO SCH ×3 (06:15→17:55)
--- NOTE | 2018-10-22 07:00 | NUR ---
BEDSIDE SHIFT REPORT RECEIVED FROM NIGHT RN. PT DENIES NEEDS AT THIS TIME.
--- NOTE | 2018-10-22 07:02 | NUR ---
report given to morning nurse. patient is resting comfortably in bed. bed is in lowest position and call frost is within reach.
[2018-10-22] MEDS: PANTOPRAZOLE 40 MG 10ML VIAL IV SCH (09:29)
[2018-10-22] MEDS: LACTOBACILLUS ACIDOPHILUS CAPSULE PO SCH ×3 (09:29→21:31)
[2018-10-22] MEDS: ENOXAPARIN SOD INJ 40 MG/0.4 ML SYR SC SCH (16:15)
[2018-10-22] MEDS ORDERED: SIMETHICONE 80 MG CHEW PO PRN (17:15)
--- NOTE | 2018-10-22 20:20 | Progress Note ---
DATE: 10/22/2018 Medicine Progress Note SUBJECTIVE: The patient is doing well today with no complaints. The patient is tolerating diet well with no complaints. OBJECTIVE: VITAL SIGNS: Temperature is 97.3, pulse 73, respiratory rate is 18, blood pressure 132/73, and pulse ox 99% on room air. GENERAL: Not in acute distress. Alert and oriented x3. Cooperative on examination. HEENT: Head; normocephalic and atraumatic. Eyes; pupils are equal, round, and reactive to light bilaterally. Extraocular movements intact bilaterally. Throat; no evidence of erythema or exudate in the posterior pharynx. Has poor dentition. NECK: Supple. Good range of motion. PULMONARY: Clear to auscultation bilaterally. No wheezing, rales, or rhonchi. No crackles appreciated. CARDIOVASCULAR: Positive S1 and S2. No murmurs, rubs, or gallops appreciated. ABDOMEN: Soft, nondistended, and nontender to palpation. Bowel sounds present. MUSCULOSKELETAL: Strength is 5/5 throughout. No evidence of any muscle deficits on examination. No weakness appreciated. NEUROLOGIC: Cranial nerve II through XII grossly intact. No evidence of any neurological deficits on exam. SKIN: Intact. Warm to touch. Good cap refill. PSYCHIATRIC: Normal affect and mood. EXTREMITIES: No edema. Good range of motion throughout. LAB FINDINGS: Show white count 6.3, hemoglobin 9.6, hematocrit is 29, and platelets of 181. Coagulation; PT 13, INR 0.94, and PTT 20. Chemistry; sodium 141, potassium 3.6, chloride 106, bicarb 25, anion gap of 13, BUN 5, creatinine 0.78, glucose 91, and calcium is 8.1. LFTs within normal range. Lipase is 113. Total protein 5.9 and albumin 2.7. Urinalysis negative. Microbiology, no growth to date. IMAGING STUDIES: None. IMPRESSION: 1. Recent diagnosis of Clostridium difficile colitis with underlying diarrhea, improving. 2. Abdominal pain with decreased oral intake, improving. 3. Hypokalemia, resolved. 4. Status post recent esophagogastroduodenoscopy with esophagitis and distal esophageal stricture with underlying dilatation performed last month. PLAN: At this time, we are going to go ahead and continue with oral vancomycin for C difficile colitis. Her labs are stable. Repeat labs in the morning. Continue with Carafate and Protonix as well. She is tolerating diet well and she only had one bowel movement that was more soft in nature, not liquidy. At this time, we will get a.m. labs. I discussed with her that she could be possibly discharged tomorrow and she has already warning me that she does not want to leave tomorrow despite she is improving tremendously. At this time, I will talk with her again tomorrow, I will talk with the nursing staff as well and possibly discharge home tomorrow. MD CARY Garcia/MODL /[id number]
[2018-10-23] MEDS: VANCOMYCIN 250MG/5ML ORAL SOLN PO SCH ×5 (01:00→23:51)
[2018-10-23] MEDS: ONDANSETRON HCL INJ 2MG/ML 2ML 2 MG/ML VIAL IV PRN ×2 (01:00→23:51)
[2018-10-23] MEDS: MORPHINE SULFATE INJ 4 MG/ML INJ 1ML IV PRN ×6 (01:00→23:51)
[2018-10-23] MEDS: D5.45%NS/KCL 20MEQ 1,000 ML IV SCH (05:17)
[2018-10-23 05:46] LABS: BASOPHILS % 0.3 % (0.0-1.0); EOSINOPHILS # (AUTO) 0.1 (0.0-0.4); EOSINOPHILS % 1.8 % (0.0-6.0); HEMATOCRIT 25.7 % (34.2-44.1); HEMOGLOBIN 8.2 g/dL (12.0-16.0); LYMPHOCYTES # (AUTO) 1.3 (1.0-3.2); LYMPHOCYTES % 32.1 % (18.0-39.1); MEAN CORPUSCULAR HEMOGLOBIN 29.6 pg (28-32); MEAN CORPUSCULAR HGB CONC 31.9 g/dL (31-35); MEAN CORPUSCULAR VOLUME 92.8 fL (81-99); MONOCYTES # (AUTO) 0.6 (0.2-0.8); MONOCYTES % 14.8 % (4.4-11.3); NEUTROPHILS % 50.7 % (38.7-80.0); PLATELET COUNT 119 x10e3/uL (140-360); RED BLOOD COUNT 2.77 x10e6/uL (3.6-5.1); RED CELL DISTRIBUTION WIDTH 16.8 % (11.7-14.4)
[2018-10-23 06:09] LABS: ALANINE AMINOTRANSFERASE 15 IU/L (0-55); ALBUMIN 2.3 g/dL (3.5-5.0); ALBUMIN/GLOBULIN RATIO 0.9 (0.8-2.0); ALKALINE PHOSPHATASE 74 IU/L (40-150); ANION GAP 11.6 mmol/L (8-16); CARBON DIOXIDE 25 mmol/L (22-29); CHLORIDE 109 mmol/L (98-107); CREATININE, SERUM 0.79 mg/dL (0.57-1.11); EST GLOMERULAR FILTRATION RATE > 60 ML/MIN (60-); GLUCOSE 100 mg/dL (74-118); POTASSIUM 3.6 mmol/L (3.5-5.1); SODIUM 142 mmol/L (136-145)
[2018-10-23 06:25] LABS: % IRON SATURATION 17 % (15-50); IRON 33 ug/dL (50-170); TOTAL IRON BINDING CAPACITY 195 ug/dL (261-478); TRANSFERRIN 139 mg/dL (180-382)
[2018-10-23 06:29] LABS: BLOOD UREA NITROGEN < 2 mg/dL (7-26); BUN/CREATININE RATIO 3 (6-25)
[2018-10-23 06:46] LABS: FOLATE 5.3 ng/mL (7.0-15.4)
--- NOTE | 2018-10-23 07:00 | NUR ---
BEDSIDE SHIFT REPORT RECEIVED FROM NIGHT RN. PT DENIES NEEDS AT THIS TIME.
[2018-10-23 08:16] VITALS: BP 141/64
[2018-10-23 09:00] VITALS: BP 141/64
[2018-10-23] MEDS: PANTOPRAZOLE 40 MG 10ML VIAL IV SCH (09:08)
[2018-10-23] MEDS: LACTOBACILLUS ACIDOPHILUS CAPSULE PO SCH ×3 (09:08→21:18)
[2018-10-23 12:00] VITALS: BP 120/60
--- NOTE | 2018-10-23 13:04 | Progress Note ---
DATE: 10/23/2018 Medicine Progress Note SUBJECTIVE: The patient is doing well today with no complaints. I did notice her hemoglobin dropped to 8.2 compared to admission, I want to monitor her overnight. PHYSICAL EXAMINATION: VITAL SIGNS: Temperature is 97.5, pulse 78, respiratory rate 17, blood pressure 141/64, pulse ox 99% on room air. GENERAL: Not in acute distress. Alert and oriented x3. Cooperative on examination. HEENT: Head; normocephalic and atraumatic. Eyes; pupils are equal, round, and reactive to light bilaterally. Extraocular movements are intact bilaterally. Throat; no evidence of erythema or exudate in the posterior pharynx. Has poor dentition. NECK: Supple. Good range of motion. PULMONARY: Clear to auscultation bilaterally. No wheezing, rales, or rhonchi. No crackles appreciated. CARDIOVASCULAR: Positive S1 and S2. No murmurs, rubs, or gallops appreciated. ABDOMEN: Soft, nondistended, and nontender to palpation. Bowel sounds present. MUSCULOSKELETAL: Strength is 5/5 throughout. No evidence of any muscle deficits on examination. No weakness appreciated. NEUROLOGIC: Cranial nerve II through XII grossly intact. No evidence of any neurological deficits on exam. SKIN: Intact. Warm to touch. Good cap refill. PSYCHIATRIC: Normal affect and mood. EXTREMITIES: No edema. Good range of motion throughout. LABORATORY DATA: Lab findings show CBC; pertinent positive with hemoglobin of 8.2, on admission 11.1. Chemistries reviewed and stable. IMPRESSION: 1. Recent diagnosis of Clostridium difficile colitis with underlying diarrhea. 2. Abdominal pain with decreased oral intake, improved. 3. Hypokalemia. 4. Anemia with recent status post esophagogastroduodenoscopy with esophagitis and distal esophageal stricture status post dilatation performed in September 2018. PLAN: At this time, she was in the process of being discharged today. Her hemoglobin dropped to 8.1. At this time, I would like to monitor her hemoglobin overnight and see if the hemoglobin drops further, which I will have to see if GI wants to repeat an EGD. She will continue with Carafate and Protonix for now. She is on a regular diet. She is tolerating it well. Her diarrhea resolved. She will continue with oral vancomycin. She will also go home with 2 weeks of vancomycin as well. . Discussed case with nursing staff. MD CARY Garcia/ROBERTA /[id number]
[2018-10-23 16:00] VITALS: BP 133/69
[2018-10-23] MEDS: ENOXAPARIN SOD INJ 40 MG/0.4 ML SYR SC SCH (18:10)
[2018-10-23 20:34] VITALS: BP 128/78
[2018-10-23 21:00] VITALS: BP 128/78
[2018-10-24 00:08] VITALS: BP 102/64
[2018-10-24] MEDS: ONDANSETRON HCL INJ 2MG/ML 2ML 2 MG/ML VIAL IV PRN ×2 (04:00→08:20)
[2018-10-24] MEDS: MORPHINE SULFATE INJ 4 MG/ML INJ 1ML IV PRN ×2 (04:00→08:20)
[2018-10-24 04:32] VITALS: BP 104/64
[2018-10-24] MEDS: VANCOMYCIN 250MG/5ML ORAL SOLN PO SCH ×2 (05:36→12:42)
[2018-10-24 05:41] LABS: BASOPHILS % 0.2 % (0.0-1.0); EOSINOPHILS # (AUTO) 0.1 (0.0-0.4); EOSINOPHILS % 1.6 % (0.0-6.0); HEMATOCRIT 25.3 % (34.2-44.1); HEMOGLOBIN 8.1 g/dL (12.0-16.0); LYMPHOCYTES # (AUTO) 1.4 (1.0-3.2); LYMPHOCYTES % 29.2 % (18.0-39.1); MEAN CORPUSCULAR HEMOGLOBIN 29.5 pg (28-32); MONOCYTES # (AUTO) 0.6 (0.2-0.8); MONOCYTES % 11.3 % (4.4-11.3); NEUTROPHILS # (AUTO) 2.8 (2.1-6.9); NEUTROPHILS % 57.3 % (38.7-80.0); PLATELET COUNT 106 x10e3/uL (140-360); RED BLOOD COUNT 2.75 x10e6/uL (3.6-5.1); RED CELL DISTRIBUTION WIDTH 16.9 % (11.7-14.4)
[2018-10-24 06:07] LABS: ANION GAP 13.6 mmol/L (8-16); BLOOD UREA NITROGEN < 5 mg/dL (7-26); BUN/CREATININE RATIO 6 (6-25); CALCIUM 8.2 mg/dL (8.4-10.2); CARBON DIOXIDE 25 mmol/L (22-29); CHLORIDE 106 mmol/L (98-107); CREATININE, SERUM 0.84 mg/dL (0.57-1.11); EST GLOMERULAR FILTRATION RATE > 60 ML/MIN (60-); GLUCOSE 122 mg/dL (74-118); POTASSIUM 3.6 mmol/L (3.5-5.1); SODIUM 141 mmol/L (136-145)
[2018-10-24] MEDS ORDERED: IRON SUCROSE 100 MG in SODIUM CHLORIDE 0.9% 100 ML 100 ML IV SCH (07:00)
[2018-10-24 07:21] VITALS: BP 119/77
--- NOTE | 2018-10-24 07:31 | NUR ---
Report given to oncoming nurse,walking round done.
[2018-10-24] MEDS: PANTOPRAZOLE 40 MG 10ML VIAL IV SCH (08:17)
[2018-10-24] MEDS: LACTOBACILLUS ACIDOPHILUS CAPSULE PO SCH (08:19)
[2018-10-24 08:33] VITALS: BP 119/77
[2018-10-24] MEDS ORDERED: FOLIC ACID 1 MG TAB PO SCH (09:00)
[2018-10-24 11:22] VITALS: BP 125/76
[2018-10-24] MEDS ORDERED: CODEINE SULFATE 15 MG TAB PO PRN ×2 (11:45→12:15)
[2018-10-24] MEDS ORDERED: ACETAMIN/BUTALBITAL/CAFFEINE TAB PO PRN (11:45)
[2018-10-24] MEDS ORDERED: VANCOMYCIN HCL500 MG PO (11:49)
[2018-10-24] MEDS ORDERED: CODEINE SULFATE 30 MG TAB PO PRN (12:30)
--- NOTE | 2018-10-25 02:17 | Discharge Summary ---
FINAL DISCHARGE DIAGNOSES: 1. Clostridium difficile colitis. 2. Abdominal pain with decreased oral intake, resolved. 3. Hypokalemia, resolved. 4. Anemia, status post EGD with esophagitis and distal esophageal stricture, status post dilatation performed in September 2018. CONSULTANTS: None. VITAL SIGNS: Temperature is 98.4, pulse 91, respiratory rate 19, blood pressure , pulse ox 98% on room air. LABORATORY FINDINGS: Show white count 4.8, hemoglobin 8.1, hematocrit 25, and platelets of 106. Coagulation; PT 13, INR 0.94, PTT 20. Sodium 141, potassium 3.6, chloride 106, bicarb 25, anion gap of 13, BUN is 5, creatinine 0.84, calcium is 8.2. Iron saturation 23%. Troponins were all negative. Lipase was 79. Vitamin B12 is 89, folic acid 5.3. Urinalysis was negative. MICROBIOLOGY: Urine cultures were negative. IMAGING STUDIES: None. HOSPITAL COURSE: This is a 58-year-old female, who was recently diagnosed with C diff colitis, in which she left against medical advice, presented back to the ER for readmission and to reach here back for C diff colitis. While here, her lipase was slightly elevated, but improved with IV fluid hydration. Her abdominal pain and decreased oral intake resolved. She was restarted back on oral vancomycin. She also continued on Carafate and Protonix. The patient did well with no complaints. She improved throughout the hospital course. She had a recent EGD back in September 2018, that showed esophagitis and distal esophageal stricture and she had a dilatation at that time. Her hemoglobin is stable with no other issues. Electrolytes were replaced accordingly. On discharge, she was tolerating diet well with no complaints. On the day of discharge, vital signs stable, labs reviewed and stable. The patient is seen, evaluated, examined thoroughly on the day of discharge. No other complaints. The patient verbalized understanding and agreed with plan of care to follow up accordingly as an outpatient with primary care physician in 1 week and GI in 2 weeks' time. MEDICATIONS: See med reconciliation form including oral vancomycin for 10 days. DISPOSITION: Home. CONDITION: Stable. DIET: Heart healthy. In the event of any worsening symptoms, the patient was advised to come back to the ED for further evaluation. Discharge summary took greater than 35 minutes. MD CARY Garcia/ROBERTA /[id number]
== END 2018-10-24 13:20 | disposition home or self-care (01) | DRG 371 ==
LOC: ER 09:58 → ERHOLD 13:33 → IMCU 21:57 → OBSVTOIN 10-23 12:33
PROVIDERS: ADMIT Internal Medicine; ATTEND Internal Medicine
DX: A04.72 Enterocolitis due to Clostridium difficile, not specified as recurrent (principal); K85.00 Idiopathic acute pancreatitis without necrosis or infection; E87.6 Hypokalemia; D64.9 Anemia, unspecified; K20.9 Esophagitis, unspecified
CPT/HCPCS: 36415; 80048; 80053; 81001; 82550; 82553; 82607; 82746; 83540; 83690; 83735; 84100; 84466; 84484; 85025; 85045; 85610; 85730; 87086; 99284; G0378; J1650; J1756; J2270; J2405; J7030; J7050

== ENCOUNTER 2018-11-28 16:10 | Emergency (ER) | payer MEDICARE ==
[~2018-11-28] VITALS: Ht 157.5 cm; Wt 54.4 kg
[~2018-11-28 16:10] MED LIST changes: +VALIUM10 MG PO; +VANCOMYCIN HCL500 MG PO
--- OUTSIDE RECORDS SUMMARY | 2018-11-28 16:15 | XMS REPORT | Continuity of Care Document ---
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 Problem 09/05/2018 [facility] Atrial fibrillation with rapid ventricular response Active 01/18/2014 Problem 09/05/2018 [facility] GI bleed Active 01/18/2014 Problem 09/05/2018 [facility] Medications Medication Details Route Status Patient Instructions Ordering Provider Order Date Source Methocarbamol (Robaxin-750) 750 Mg Tablet Three Times A Day as needed for Muscle Spasms Active Ramesh 08/05/2018 [facility] Ondansetron Hcl (Zofran*) 4 Mg Tablet Every 6 Hours as needed for Nausea Active Montiel 07/03/2018 [facility] Butalbit/Acetamin/Caff/Codeine (Kytdyb-Dxbv-Vawledvxiat-Codein) 1 Each Capsule, 1 Each Oral Every 6 Hours Active 09/16/2016 [facility] Carisoprodol (Soma) 350 Mg Tablet, 350 Mg Oral Four Times Daily Active 09/16/2016 [facility] Cetirizine Hcl (Zyrtec) 10 Mg Tablet, 10 Mg Oral Daily Active 09/16/2016 [facility] Metoclopramide Hcl (Reglan) 10 Mg Tablet, 10 Mg Oral Daily as needed for Nausea Active 09/16/2016 [facility] Nitrofurantoin Monohyd/M-Cryst (Macrobid 100 Mg Capsule) 100 Mg Capsule, 100 Mg Oral Twice A Day Active 09/16/2016 [facility] Sucralfate (Carafate) 1 Gm/10 Ml Oral.susp, 2 Tsp Oral Every 6 Hours as needed for Abdominal Pain Active 09/16/2016 [facility] Esomeprazole Magnesium (Nexium) 40 Mg Capsule., Active 12/29/2014 [facility] Carisoprodol (Soma) 350 Mg Tablet, 350 Mg Oral Daily Active 01/18/2014 [facility] Hydrocodone Bit/Acetaminophen (Spurger 10-325 Tablet) 1 Each Tablet, Oral Every 6 Hours Active 01/18/2014 [facility] , 0.1037 Mg Oral Every 4 Hours Active 06/28/2013 [facility] Hydrocodone Bit/Acetaminophen (Hydrocodone-Apap 7.5-500 Tab) 1 Each Tablet, 17.5 - 500 Mg Oral Prn 4-6 Hr Active 06/28/2013 [facility] Lidocaine , Every 4 Hours Active 06/28/2013 [facility] Pantoprazole Sodium (Protonix) 40 Mg Tablet., 40 Mg Oral Daily Active 06/28/2013 [facility] Promethazine Hcl (Phenergan) 25 Mg Tablet, 25 Mg Oral Four Times Daily Active 06/28/2013 [facility] Sucralfate 1 Gm Tablet, 1 G Oral Before Meal Tid; Hs Active 06/28/2013 [facility] Esomeprazole Mag Trihydrate (Nexium) 40 Mg Suspdr.pkt, 40 Mg Oral Daily Active 08/02/2012 [facility] Omeprazole Magnesium (Prilosec) 10 Mg Suspdr.pkt, 10 Mg Oral Active 08/05/2010 [facility] Darvocet W/Codiene Every 6 Hours Active [facility] Depression Pill Active [facility] Estrogens, Conjugated (Premarin) 1.25 Mg Tablet Daily Active [facility] Pantoprazole Sodium (Protonix) 40 Mg Tablet. Daily Active [facility] Ropinirole Hcl (Requip) 5 Mg Tablet Bedtime Active [facility] Allergies, Adverse Reactions, Alerts Substance Category Reaction Severity Reaction type Status Date Reported Comments Source Sulfa (Sulfonamide Antibiotics) Unknown Allergy to Substance Active 09/05/2018 [facility] Codeine Unknown Allergy to Substance Active 09/05/2018 [facility] Aspirin Unknown Allergy to Substance Active 09/05/2018 [facility] Meperidine Unknown Allergy to Substance Active 09/05/2018 [facility] Hydromorphone Itching Mild Allergy to Substance Active 09/05/2018 [facility] Immunizations No Data Provided for This Section Results Order Name Results Value Reference Range Date Interpretation Comments Source Prothrombin time (PT) in platelet poor plasma by coagulation assay 13.3 11.9 - 14.5 09/05/2018 [facility] INR in Platelet poor plasma by Coagulation assay 0.96 09/05/2018 [facility] Activated partial thromboplastin time (aPTT) in platelet poor plasma bycoagulation assay 26.4 23.8 - 35.5 09/05/2018 [facility] Blood leukocytes automated count (number/volume) 8.58 4.8 - 10.8 09/05/2018 [facility] Blood erythrocytes automated count (number/volume) 3.08 3.6 - 5.1 09/05/2018 [facility] Blood hemoglobin measurement (moles/volume) 9.3 12.0 - 16.0 09/05/2018 [facility] Automated blood hematocrit (volume fraction) 27.0 34.2 - 44.1 09/05/2018 [facility] Automated erythrocyte mean corpuscular volume 87.7 81 - 99 09/05/2018 [facility] Automated erythrocyte mean corpuscular hemoglobin (mass per erythrocyte) 30.2 28 - 32 09/05/2018 [facility] Automated erythrocyte mean corpuscular hemoglobin concentration measurement (mass/volume) 34.4 31 - 35 09/05/2018 [facility] RDW BldCo-Rto 11.9 11.7 - 14.4 09/05/2018 [facility] Automated blood platelet count (count/volume) 244 140 - 360 09/05/2018 [facility] Automated blood segmented neutrophil count as percentage of total leukocytes 79.7 38.7 - 80.0 09/05/2018 [facility] Automated blood lymphocyte count as percentage ot total leukocytes 12.0 18.0 - 39.1 09/05/2018 [facility] Automated blood monocyte count as percentage of total leukocytes 7.0 4.4 - 11.3 09/05/2018 [facility] Automated blood eosinophil count as percentage of total leukocytes 0.1 0.0 - 6.0 09/05/2018 [facility] Automated blood basophil count as percentage of total leukocytes 0.2 0.0 - 1.0 09/05/2018 [facility] IM GRANULOCYTES % 1.0 0.0 - 1.0 09/05/2018 [facility] Automated blood neutrophil count 6.8 2.1 - 6.9 09/05/2018 [facility] Blood lymphocytes count (number/volume) 1.0 1.0 - 3.2 09/05/2018 [facility] Blood monocytes automated count (number/volume) 0.6 0.2 - 0.8 09/05/2018 [facility] Automated blood eosinophil count 0.0 0.0 - 0.4 09/05/2018 [facility] Automated blood basophil count (count/volume) 0.0 0.0 - 0.1 09/05/2018 [facility] Absolute Immature Granulocyte (auto 0.09 0 - 0.1 09/05/2018 [facility] Urine color determination STRAW YELLOW 09/05/2018 [facility] Urine clarity SL CLOUDY CLEAR 09/05/2018 [facility] Specific gravity of Urine by Test strip 1.025 1.010 - 1.025 09/05/2018 [facility] Urine pH measurement by automated test strip 6 5 - 7 09/05/2018 [facility] Urine leukocyte esterase detection by automated test strip MODERATE NEGATIVE 09/05/2018 [facility] Urine nitrite detection by automated test strip NEGATIVE NEGATIVE 09/05/2018 [facility] Urine protein detection by automated test strip 2+ NEGATIVE 09/05/2018 [facility] Urine glucose detection by automated test strip NEGATIVE NEGATIVE 09/05/2018 [facility] Urine ketones detection by automated test strip 1+ NEGATIVE 09/05/2018 [facility] Urine opiates screening test POSITIVE NEGATIVE 09/05/2018 [facility] Barbiturates screen, urine POSITIVE NEGATIVE 09/05/2018 [facility] Urine phencyclidine detection by screening method NEGATIVE NEGATIVE 09/05/2018 [facility] Urine amphetamines detection by screen method > 1000 ng/mL NEGATIVE NEGATIVE 09/05/2018 [facility] Urine Methamphetamines Screen NEGATIVE NEGATIVE 09/05/2018 [facility] Urine benzodiazepines detection by screening method POSITIVE NEGATIVE 09/05/2018 [facility] Urine cocaine measurement (mass/volume) NEGATIVE NEGATIVE 09/05/2018 [facility] Urine cannabinoids detection by screening method NEGATIVE NEGATIVE 09/05/2018 [facility] Urine methadone screen NEGATIVE NEGATIVE 09/05/2018 [facility] Urine urobilinogen measurement by test strip (mass/volume) 1 0.2 - 1 09/05/2018 [facility] Urine total bilirubin detection MODERATE NEGATIVE 09/05/2018 [facility] Urine erythrocytes detection 1+ NEGATIVE 09/05/2018 [facility] Automated urine sediment leukocyte count by microscopy (number/high power field) >50 0 - 5 09/05/2018 [facility] Erythrocytes detection in urine sediment by light microscopy 11-20 0 - 5 09/05/2018 [facility] Bacteria detection in urine sediment by light microscopy MANY NONE 09/05/2018 [facility] Epithelial cells detection in urine sediment by light microscopy NONE NONE 09/05/2018 [facility] Serum or plasma sodium measurement (moles/volume) 135 136 - 145 09/05/2018 [facility] Serum or plasma potassium measurement (moles/volume) 3.4 3.5 - 5.1 09/05/2018 [facility] Serum or plasma chloride measurement (moles/volume) 101 98 - 107 09/05/2018 [facility] Serum or plasma carbon dioxide, total measurement (moles/volume) 21 22 - 29 09/05/2018 [facility] Serum or plasma anion gap 16.4 8 - 16 09/05/2018 [facility] Serum or plasma urea nitrogen measurement (mass/volume) 11 7 - 26 09/05/2018 [facility] Serum or plasma creatinine measurement (mass/volume) 0.85 0.57 - 1.11 09/05/2018 [facility] Serum or plasma urea nitrogen/creatinine mass ratio 13 6 - 25 09/05/2018 [facility] Estimated glomerular filtration rate (GFR) determination > 60 60 09/05/2018 [facility] Glucose measurement 103 74 - 118 09/05/2018 [facility] Serum or plasma calcium measurement (mass/volume) 9.4 8.4 - 10.2 09/05/2018 [facility] Serum or plasma total bilirubin measurement (mass/volume) 0.6 0.2 - 1.2 09/05/2018 [facility] Aspartate Amino Transf (AST/SGOT) 39 5 - 34 09/05/2018 [facility] Serum or plasma alanine aminotransferase measurement (enzymatic activity/volume) 25 0 - 55 09/05/2018 [facility] Serum or plasma protein measurement (mass/volume) 7.3 6.5 - 8.1 09/05/2018 [facility] Serum or plasma albumin measurement (mass/volume) 2.9 3.5 - 5.0 09/05/2018 [facility] Plasma globulin measurement (mass/volume) 4.4 2.3 - 3.5 09/05/2018 [facility] Serum or plasma albumin/globulin mass ratio 0.7 0.8 - 2.0 09/05/2018 [facility] Serum or plasma alkaline phosphatase measurement (enzymatic activity/volume) 173 40 - 150 09/05/2018 [facility] Serum or plasma creatine kinase measurement (enzymatic activity/volume) 15 29 - 168 09/05/2018 [facility] Serum or plasma creatine kinase MB measurement (mass/volume) 0.60 0 - 5.0 09/05/2018 [facility] Troponin I measurement by highly sensitive enzyme immunoassay < 0.001 0 - 0.300 09/05/2018 [facility] Amorphous sediment detection in urine sediment by light microscopy FEW FEW 07/03/2018 [facility] Hyaline casts detection in urine sediment by light microscopy 0-1 0 - 1 07/03/2018 [facility] Coarse granular casts detection in urine sediment by light microscopy 1-5 0 07/03/2018 [facility] WBC casts detection in urine sediment by light microscopy 1-5 0 07/03/2018 [facility] Serum or plasma amylase measurement (enzymatic activity/volume) 67 25 - 125 06/07/2018 [facility] Serum or plasma lipase measurement (enzymatic activity/volume) 32 8 - 78 06/07/2018 [facility] Pathology Reports No Data Provided for This [...] DC Date Status Source Departed Emergency Room [id number] YODIT PORTILLO MD 06/07/2018 06/08/2018 [facility] Departed Emergency Room [id number] BARBI HILLIARD MD 07/03/2018 07/03/2018 [facility] Departed Emergency Room [id number] YODIT PORTILLO MD 08/05/2018 08/05/2018 [facility] Departed Emergency Room [id number] RONI LARA MD 08/30/2018 08/31/2018 [facility] Departed Emergency Room [id number] BARBI HILLIARD MD 09/05/2018 09/05/2018 [facility] Procedures Procedure Code Date Perfomer Comments Source Computed tomography of brain without radiopaque contrast [id number] 08/30/2018 [facility] Computed tomography of cervical spine without contrast [id number] 08/30/2018 [facility] Computed tomography of lumbar spine without contrast [id number] 08/30/2018 [facility] Assessment and Plan No Data Provided for This Section Plan of Care Plan of Care Date Source Discharge Date 09/05/18 5:30pm Disposition HOME, SELF-CARE Condition at Discharge Stable Instructions/Education Provided Concussion/Head Injury - Adult Dizziness Urinary Tract Infection - Women Vomiting - Adult Forms Provided Work/School Excuse Prescriptions See Medication Section Referrals GERI PIEDRA Address: [address] [address] KULDEEP MATUTE MD Address: [address] [place] [id number] Additional Instructions/Education 1. follow up with your doctor / neurologist in 1-2 days without fail 2. return to ed as needed 3. tylenol and motrin as needed 4. increase oral fluids 5. bland diet 09/05/2018 [facility] Social History Social History Date Source Social [...] 12/29/2014 11:28am Not Applicable Not Applicable 09/05/2018 [facility] Family History No Data Provided for This Section Advance Directives Order Name Results Value Date Source Advance Directives Advance Directives Directive Response Recorded Date/Time Does the patient have an advance directive? No 12/29/14 11:28am If yes, is advance directive on file with [facility]? No 07/03/18 3:53pm If not on file with [facility] will patient provide a copy? No 07/03/18 3:53pm Do you have a Directive to Physician? No 09/05/18 2:45pm Do you have a Medical Power of Tank Wagon [employer]? No 09/05/18 2:45pm Do you have an [...] rights and responsibilities? Yes 09/05/18 2:45pm 09/05/2018 [facility] Functional Status No Data Provided for This Section
--- NOTE | 2018-11-28 17:46 | Diagnostic Imaging Report ---
EXAMINATION: HUMERUS RIGHT 2+VIEWS INDICATION: Trauma COMPARISON: None FINDINGS: AP and lateral views of the right humerus demonstrate no acute fracture or dislocation. Alignment is anatomic. No substantial degenerative changes. The partially visualized right lung is clear. IMPRESSION: No acute osseous injury. Signed by: Arthur Layton MD on 11/28/2018 5:43 PM
--- NOTE | 2018-11-28 17:47 | Diagnostic Imaging Report ---
EXAMINATION: ELBOW RIGHT COMPLETE INDICATION: Trauma COMPARISON: None FINDINGS: 3 views of the right elbow demonstrate no acute fracture or dislocation. No substantial joint effusion. Alignment is anatomic. The soft tissues appear unremarkable. IMPRESSION: No acute osseous injury. Signed by: Arthur Layton MD on 11/28/2018 5:44 PM
--- NOTE | 2018-11-28 17:50 | Diagnostic Imaging Report ---
EXAMINATION: RIBS UNILAT W/CXR INDICATION: Trauma COMPARISON: None FINDINGS: LINES/TUBES:None LUNGS:The lungs are well-inflated. No focal consolidation or pulmonary edema. PLEURA:No pleural effusion or pneumothorax. MEDIASTINUM:The cardiomediastinal silhouette appears normal in size and shape. BONES/SOFT TISSUES:No displaced rib fractures. ABDOMEN:No free air under the diaphragm. Status post cholecystectomy. IMPRESSION: No displaced rib fractures. No acute cardiopulmonary process. Signed by: Arthur Layton MD on 11/28/2018 5:46 PM
[2018-11-28] MEDS ORDERED: TRAMADOL HCL 50 MG TAB PO ONE (18:30)
== END 2018-11-28 19:21 | disposition home or self-care (01) ==
LOC: ER 16:10
DX: S50.01XA Contusion of right elbow, initial encounter (principal); Z88.5 Allergy status to narcotic agent; Z88.2 Allergy status to sulfonamides; Z88.8 Allergy status to other drugs, medicaments and biological substances; R53.1 Weakness; M54.9 Dorsalgia, unspecified; W06.XXXA Fall from bed, initial encounter; R07.81 Pleurodynia; Z86.73 Personal history of transient ischemic attack (TIA), and cerebral infarction without residual deficits; I10 Essential (primary) hypertension; Z87.442 Personal history of urinary calculi; K21.9 Gastro-esophageal reflux disease without esophagitis; Z98.84 Bariatric surgery status
CPT/HCPCS: 71101; 99283

== ENCOUNTER 2019-02-04 17:56 | Emergency (ER) | payer MEDICARE ==
[~2019-02-04] VITALS: Ht 157.5 cm; Wt 54.4 kg
[2019-02-04] MEDS ORDERED: SODIUM CHLORIDE 0.9% 1000ML 1,000 ML IV STA (19:04)
[2019-02-04] MEDS ORDERED: PROMETHAZINE 25MG/SOD CHL 0.9% 50 ML IV ONE (19:15)
[2019-02-04] MEDS ORDERED: FAMOTIDINE 20 MG/2 ML VIAL IV ONE (19:15)
[2019-02-04] MEDS ORDERED: PROMETHAZINE 25MG/ NS 50ML (IV) IV ONE (19:15)
[2019-02-04 20:11] LABS: BASOPHILS % 0.4 % (0.0-1.0); EOSINOPHILS # (AUTO) 0.2 (0.0-0.4); EOSINOPHILS % 2.4 % (0.0-6.0); HEMATOCRIT 35.3 % (34.2-44.1); HEMOGLOBIN 12.1 g/dL (12.0-16.0); LYMPHOCYTES % 28.1 % (18.0-39.1); MEAN CORPUSCULAR HEMOGLOBIN 31.4 pg (28-32); MEAN CORPUSCULAR HGB CONC 34.3 g/dL (31-35); MEAN CORPUSCULAR VOLUME 91.7 fL (81-99); MONOCYTES # (AUTO) 0.6 (0.2-0.8); MONOCYTES % 8.5 % (4.4-11.3); NEUTROPHILS # (AUTO) 4.2 (2.1-6.9); NEUTROPHILS % 59.7 % (38.7-80.0); PLATELET COUNT 201 x10e3/uL (140-360); RED BLOOD COUNT 3.85 x10e6/uL (3.6-5.1); RED CELL DISTRIBUTION WIDTH 12.3 % (11.7-14.4)
[2019-02-04 20:30] LABS: ALANINE AMINOTRANSFERASE 17 IU/L (0-55); ALBUMIN 3.4 g/dL (3.5-5.0); ALKALINE PHOSPHATASE 146 IU/L (40-150); ANION GAP 14.7 mmol/L (8-16); BLOOD UREA NITROGEN 9 mg/dL (7-26); BUN/CREATININE RATIO 13 (6-25); CALCIUM 9.2 mg/dL (8.4-10.2); CARBON DIOXIDE 23 mmol/L (22-29); CHLORIDE 100 mmol/L (98-107); CREATININE, SERUM 0.68 mg/dL (0.57-1.11); EST GLOMERULAR FILTRATION RATE > 60 ML/MIN (60-); GLUCOSE 100 mg/dL (74-118); POTASSIUM 3.7 mmol/L (3.5-5.1); SODIUM 134 mmol/L (136-145)
[2019-02-04 20:31] LABS: LIPASE 23 U/L (8-78)
[2019-02-04 20:36] LABS: BILIRUBIN,URINE NEGATIVE (NEGATIVE); CLARITY,URINE SL CLOUDY (CLEAR); COLOR,URINE YELLOW (YELLOW); LEUKOCYTE ESTERASE ,URINE SMALL (NEGATIVE); NITRITE,URINE NEGATIVE (NEGATIVE); PROTEIN,URINE DIPSTICK NEGATIVE (NEGATIVE); URINE UROBILINOGEN 0.2 mg/dL (0.2 - 1)
[2019-02-04 20:37] LABS: KETONES,URINE 1+ (NEGATIVE)
[2019-02-04 20:48] LABS: BACTERIA,URINE MODERATE /HPF; EPITHELIAL CELLS,URINE FEW /LPF
[2019-02-04 20:49] LABS: HYALINE CASTS 0-1 (0-1)
--- NOTE | 2019-02-04 22:04 | Diagnostic Imaging Report ---
EXAM: Abdomen Radiograph 1 View INDICATION: ^Epigastric pain COMPARISON: None FINDINGS: No abnormalities in the lower chest. No lines or tubes. Normal volume of stool in the colon. No dilated loops of small bowel. Pelvic phleboliths. No abnormal soft tissue masses. No pneumoperitoneum. No acute osseous abnormality. Mild degenerative changes in the lumbar spine and pelvis. Surgical clips project in the upper mid abdomen and right upper quadrant. There appears to be sutures in the upper mid abdomen. IMPRESSION: No acute abdominal radiographic abnormality. There is probably suture material in the area of the stomach, correlate with surgical history. Signed by: Alfonso Villegas DO on 02/04/2019 10:00 PM
[2019-02-04] MEDS ORDERED: ONDANSETRON HCL INJ 2MG/ML 2ML 2 MG/ML VIAL IV STA (22:19)
[2019-02-04] MEDS ORDERED: MORPHINE SULFATE 5 MG/ML VIAL IV ONE (22:30)
--- NOTE | 2019-02-04 22:35 | NUR ---
RT AC PIV DISCONTINUED AT THIS TIME, CATH INTACT, SITE WITHOUT COMPLICATIONS. DISCHARGE PAPER WORK GIVEN WITH RX. PT EDUCATED ON IMPORTANCE OF FOLLOW UP, VERBALIZED UNDERSTANDING. PT TAKEN OUT TO PRIVATE AUTO VIA WC, SPOUSE IN TOW. NO S/S DISTRESS NOTED.
[2019-02-04] MEDS ORDERED: MORPHINE SULFATE INJ 4 MG/ML INJ 1ML ONE (22:41)
[2019-02-04 23:20] VITALS: BP 129/79
== END 2019-02-04 22:50 | disposition home or self-care (01) ==
LOC: ER 17:56
DX: R10.13 Epigastric pain (principal); R11.0 Nausea; K29.00 Acute gastritis without bleeding; I10 Essential (primary) hypertension; Z98.84 Bariatric surgery status
CPT/HCPCS: 36415; 74018; 80053; 81001; 82150; 83690; 84484; 85025; 96374; 96375; 96376; 99284; J2270 ×2; J2405; J2550; J7030

== ENCOUNTER → 2019-10-28 | Outpatient (CLI) | payer MEDICARE ==
[~2019-10-28] MED LIST changes: +IOPAMIDOL 370 MG/ML 200 ML INFUS..BTL INJ ONE; +SODIUM CHLORIDE 0.9% 500ML 500 ML ONE; +SODIUM CHLORIDE 0.9% 50ML 50 ML ONE
[2019-10-28 08:33] LABS: CREATININE, SERUM 1.19 mg/dL (0.57-1.11)
--- NOTE | 2019-10-28 10:30 | Diagnostic Imaging Report ---
EXAM: CT Abdomen and Pelvis WITH intravenous contrast INDICATION: Abdominal pain COMPARISON: CT abdomen and pelvis of 10/16/2018 TECHNIQUE: Abdomen and pelvis were scanned utilizing a multidetector helical scanner from the lung base to the pubic symphysis after administration of IV contrast. Coronal and sagittal reformations were obtained. Routine protocol was performed. Scan was performed during portal venous phase. IV CONTRAST: 100mL of Isovue 370 ORAL CONTRAST: Water RADIATION DOSE: Total DLP: 449 mGy*cm Dose modulation, iterative reconstruction, and/or weight based adjustment of the mA/kV was utilized to reduce the radiation dose to as low as reasonably achievable. FINDINGS: LOWER THORAX: Normal. HEPATOBILIARY: Mild diffuse hepatic steatosis. No focal liver lesion. Mildly nodular liver surface contour compatible with early cirrhosis. Status post cholecystectomy. SPLEEN: No splenomegaly. PANCREAS: No focal masses or ductal dilatation. ADRENALS: No adrenal nodules. KIDNEYS/URETERS: 2 mm nonobstructive left upper pole renal calculus. No hydronephrosis or solid mass lesion. PELVIC ORGANS/BLADDER: Unremarkable. PERITONEUM / RETROPERITONEUM: No free air or fluid. LYMPH NODES: No lymphadenopathy. VESSELS: Mild scattered atherosclerotic calcifications. GI TRACT: Postoperative findings of gastric bypass. No abnormal bowel thickening. No bowel obstruction. BONES AND SOFT TISSUES: No acute osseous injury. L5 vertebral body hemangioma. L3 vertebral body lucent lesion is less specific but also likely represents a hemangioma. IMPRESSION: Diffuse hepatic steatosis and mildly nodular liver surface contour compatible with early cirrhosis. 2 mm nonobstructive left upper pole renal calculus. Signed by: Arthur Layton MD on 10/28/2019 10:27 AM
== END ==
LOC: CT 07:45
PROVIDERS: ATTEND Internal Medicine Gastroenterology
DX: R10.9 Unspecified abdominal pain (principal); N20.0 Calculus of kidney; K76.0 Fatty (change of) liver, not elsewhere classified
CPT/HCPCS: 36415; 74177; 82565; 84520; 96360; J7040; Q9967

== ENCOUNTER → 2019-11-06 | Day surgery (SDC) | payer MEDICARE, OTHER ==
[2019-11-01 14:00] LABS: BASOPHILS % 0.4 % (0.0-1.0); EOSINOPHILS # (AUTO) 0.1 (0.0-0.4); EOSINOPHILS % 1.1 % (0.0-6.0); HEMOGLOBIN 12.6 g/dL (12.0-16.0); LYMPHOCYTES # (AUTO) 1.8 (1.0-3.2); LYMPHOCYTES % 25.8 % (18.0-39.1); MEAN CORPUSCULAR HEMOGLOBIN 31.4 pg (28-32); MEAN CORPUSCULAR HGB CONC 32.3 g/dL (31-35); MEAN CORPUSCULAR VOLUME 97.3 fL (81-99); MONOCYTES # (AUTO) 0.7 (0.2-0.8); MONOCYTES % 9.6 % (4.4-11.3); NEUTROPHILS # (AUTO) 4.4 (2.1-6.9); NEUTROPHILS % 62.4 % (38.7-80.0); PLATELET COUNT 170 x10e3/uL (140-360); RED BLOOD COUNT 4.01 x10e6/uL (3.6-5.1); RED CELL DISTRIBUTION WIDTH 12.5 % (11.7-14.4)
[2019-11-01 14:11] LABS: INR 0.98; PARTIAL THROMBOPLASTIN TIME 24.9 seconds (23.8-35.5); PROTHROMBIN TIME 13.5 seconds (11.9-14.5)
[2019-11-01 14:18] LABS: ALBUMIN 4.1 g/dL (3.5-5.0); ANION GAP 16.4 mmol/L (8-16); CREATININE, SERUM 1.3 mg/dL (0.57-1.11); POTASSIUM 5.4 mmol/L (3.5-5.1)
[~2019-11-06] MED LIST changes: +DEXMEDETOMIDINE HCL 2 ML ONE; +EPHEDRINE SULFATE INJ 50 MG/ML VIAL ONE; +FENTANYL CITRATE/PF 100MCG/2 ML INJ ONE; -IOPAMIDOL 370 MG/ML 200 ML INFUS..BTL INJ ONE; +LIDOCAINE HCL 2% LOCAL INJ 5 ML SDV VIAL INJ ONE; +MIDAZOLAM HCL 2 MG/2 ML VIAL ONE; +PROPOFOL IV EMULSION 10 MG/ML 20 ML VIAL ONE; +PROTONIX20 MG PO; +ROPINIROLE HC0.25 MG PO; -SODIUM CHLORIDE 0.9% 500ML 500 ML ONE
--- NOTE | 2019-11-06 07:20 | NUR ---
SPIRITUAL CARE - Pre-Surgery Assessment: Pt in bed. Pt's son at bedside. Pt reported supportive attention from family and friends. Intervention: Poker In provided pastoral presence, hospitality, and sympathetic listening. Acquainted pt with availability of protective services officer while hospitalized. Outcome: Pt expressed appreciation for visit. No need for follow up indicated at this time. [facility] Department O: [phone]
--- NOTE | 2019-11-06 09:04 | Operative Report ---
DATE OF PROCEDURE: 11/06/2019 SURGEON: Kyle Patrick MD PROCEDURE: EGD with esophageal dilatation and biopsies. INDICATIONS FOR EGD: Dysphagia, upper abdominal pain, bloating. MEDICATIONS: The patient was done under MAC, please see anesthesiologist's note. PROCEDURE IN DETAIL: With the patient in the left lateral decubitus position, a flexible fiberoptic Olympus gastroscope was introduced into the esophagus under direct visualization without any difficulty. There was some mild stenosis noted in distal esophagus, which was dilated to size 52-Norwegian Bonilla. The scope was then advanced with ease into the stomach and the patient is status post Shanon-en-Y. Anastomosis was intact. It was somewhat nodular. Biopsies were obtained. Also, biopsies were obtained from the gastric stump. The enteric loop was patent. The scope was then retroflexed into the gastric stump and cardia was within normal limits. The scope was then straightened out, it was subsequently withdrawn, and the patient tolerated the procedure well. IMPRESSION: 1. Esophagus dilated to size 52-Norwegian Bonilla. 2. Status post Shanon-en-Y. Anastomosis intact and patent. Anastomosis somewhat nodular, biopsied. Gastric stump biopsied. PLAN: Follow up histology. Increase Protonix to 40 mg one p.o. before meals b.i.d. Kyle Patrick MD [facility] [place] /[id number] cc: Filemon Palacios
[2019-11-06 09:15] VITALS: BP 110/63
== END | disposition home or self-care (01) ==
LOC: OR 05:51
PROVIDERS: ATTEND Internal Medicine Gastroenterology
DX: R10.10 Upper abdominal pain, unspecified (principal); K22.2 Esophageal obstruction; Z98.84 Bariatric surgery status; K31.89 Other diseases of stomach and duodenum; K21.9 Gastro-esophageal reflux disease without esophagitis; K74.60 Unspecified cirrhosis of liver; R11.0 Nausea; F41.9 Anxiety disorder, unspecified; Z88.6 Allergy status to analgesic agent; Z88.2 Allergy status to sulfonamides; Z01.810 Encounter for preprocedural cardiovascular examination; Z01.812 Encounter for preprocedural laboratory examination; Z11.59 Encounter for screening for other viral diseases; Z68.26 Body mass index [BMI] 26.0-26.9, adult; Z86.73 Personal history of transient ischemic attack (TIA), and cerebral infarction without residual deficits; Z87.19 Personal history of other diseases of the digestive system
CPT/HCPCS: 36415; 43239; 80053; 84132; 85025; 85610; 85730; 88305; 88312; 93005; J2001; J2250; J3010; U0002

== ENCOUNTER → 2019-11-26 | Day surgery (SDC) | payer MEDICARE, OTHER ==
[~2019-11-26] MED LIST changes: -DEXMEDETOMIDINE HCL 2 ML ONE; -EPHEDRINE SULFATE INJ 50 MG/ML VIAL ONE; +HYOSCYAMINE 0.125 MG TAB ONE; +LIBRAX CAPSULE1 EACH PO; -SODIUM CHLORIDE 0.9% 50ML 50 ML ONE
[2019-11-26 13:16] VITALS: BP 146/76
--- NOTE | 2019-11-26 14:15 | Operative Report ---
DATE OF PROCEDURE: 11/26/2019 SURGEON: Kyle Patrick MD PROCEDURE: Colonoscopy with biopsies. INDICATIONS FOR COLONOSCOPY: Colorectal cancer screening. MEDICATIONS: The patient was done under MAC, please see anesthesiologist's note. PROCEDURE IN DETAIL: With the patient in left lateral decubitus position, a flexible fiberoptic Olympus colonoscope was inserted into the rectum with ease and advanced all the way to the cecum. The cecum as well as the proximal ascending colon were suboptimally visualized due to sharp angulation probably from pelvic adhesions. The rest of the ascending, transverse appeared to be within normal limits. Some patchy mild inflammatory changes were noted in the descending sigmoid and rectum, and random biopsies were obtained. The scope was then retroflexed into the distal rectum and the area around the dentate line appeared to be within normal limits. The scope was then straightened out, it was subsequently withdrawn. The patient tolerated the procedure well. IMPRESSION: 1. Cecum, proximal ascending colon suboptimally visualized due to sharp angulation possibly from pelvic adhesions. 2. Mild patchy inflammatory changes, left colon, biopsied. 3. Proctitis, mild, biopsied. PLAN: 1. Follow up histology. 2. Initiate align one p.o. b.i.d. 3. The patient might benefit electively later from an air-contrast barium enema. Kyle Patrick MD [facility] [place] /[id number] cc: Filemon Palacios
== END | disposition home or self-care (01) ==
LOC: OR 09:43
PROVIDERS: ATTEND Internal Medicine Gastroenterology
DX: K52.9 Noninfective gastroenteritis and colitis, unspecified (principal); K59.00 Constipation, unspecified; R14.0 Abdominal distension (gaseous); R10.10 Upper abdominal pain, unspecified; R11.0 Nausea; K76.0 Fatty (change of) liver, not elsewhere classified; Z68.26 Body mass index [BMI] 26.0-26.9, adult; R03.0 Elevated blood-pressure reading, without diagnosis of hypertension; Z88.5 Allergy status to narcotic agent; Z88.2 Allergy status to sulfonamides; Z88.8 Allergy status to other drugs, medicaments and biological substances; K62.89 Other specified diseases of anus and rectum; Z01.812 Encounter for preprocedural laboratory examination; Z11.59 Encounter for screening for other viral diseases
CPT/HCPCS: 45380; J2001; J2250; J2704; J3010; U0002; 45378

== ENCOUNTER 2020-02-12 18:39 | Emergency (ER) | payer MEDICARE ==
[~2020-02-12] VITALS: Ht 157.5 cm; Wt 59.4 kg
[~2020-02-12 18:39] MED LIST changes: -FENTANYL CITRATE/PF 100MCG/2 ML INJ ONE; -HYOSCYAMINE 0.125 MG TAB ONE; -LIDOCAINE HCL 2% LOCAL INJ 5 ML SDV VIAL INJ ONE; -MIDAZOLAM HCL 2 MG/2 ML VIAL ONE; -PROPOFOL IV EMULSION 10 MG/ML 20 ML VIAL ONE
[2020-02-12] MEDS ORDERED: HYDROCODONE/APAP 7.5MG-325MG 1 EA TAB PO ONE (19:00)
--- OUTSIDE RECORDS SUMMARY | 2020-02-12 19:15 | XMS REPORT | Continuity of Care Document ---
Author Author [facility] [employer]em profect[employer] health researchCHIKA [facility] [employer] Address Unknown Phone Unavailable Care Team Providers Care Otc Clerk Name Role Phone [facility] [employer] Unavailable Un available Problems Problem Status Onset Date Classification Date Reported Comments Source Unspecified injury of head, initial encounter 09/22/2018 09/24/2018 [facility] FALL Active 09/22/2018 [facility] RECURRENT MARGINAL ULCER,[id number] Active 08/22/2012 [facility] DRHYDRATION Active 09/09/2011 [facility] ACUTE DEHYDRATION/UTI/INTRACTABLE ABDOMINAL PAIN Active 09/09/[address] [facility] [address] STONE Active 06/06/2011 [facility] LEFT HIP SPRAIN Active 03/20/2011 [facility] Gastric bypass operation Active 01/12/2010 Problem 09/20/2012 [facility] y Esophagogastrostomy, antesternal or ante thoracic (procedure) Active 01/12/2010 Problem 10/04/2019 [facility], [place]OLEON Garcia,[facility] theast Anxiety Active 03/20/2009 Problem 09/20/2012 [facility] y Nausea Active 03/20/2009 Problem 09/20/2012 [facility] y Anxiety (finding) Active 03/20/2009 Problem 10/04/2019 [facility], [place]OLEON Garcia,[facility] Nausea (finding) Active 03/20/2009 Problem 10/04/2019 [facility], [place],[facility] Abdominal pain Active Problem 09/20/2012 [facility] y DM - Diabetes mellitus Active Problem 09/20/2012 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 rOPINIRole 0.5 mg oral tablet 0.5 mg = 1 tab, PO, TID, 0 Refill(s) Active 10/01/2019 [facility] Fioricet with Codeine PO, Q4H, 0 Refill(s) Active 10/01/2019 [facility] Ondansetron Notes: (Same as: Dwight senior) MEDICATION WASTE Product Size: 4 mg Product Wasted: ___ mg Inactive 09/23/2018 [facility] Morphine Notes: (Same as:MORPh ine Sulfate) Inactive 09/23/2018 [facility] Lortab 500 mg-7.5 mg/15 mL oral elixir 15 ml, PO, Q4H, PRN, 200 mL, for pain, Substitution Allowed, Maintenance, ELIX PO Active Aubrey 09/18/2012 [facility] ketorolac 30 mg/mL injectable solution 30 mg, 1 mL, Route: IVP, Drug form: INJ, Q6H, Start date: 09/18/12 12:00:00, Duration: 4 day, Stop date: 09/22/12 6:00:00 IVP No Longer Active Uriel 09/18/2012 [facility] acetaminophen-hydrocodone 15 m L, Route: PO, Drug Form: SOLN, Q4H, PRN Pain, Start date: 09/18/12 10:09:00, Duration: 30 day, Stop date: 10/18/12 10:08:00 PO No Longer Active Uriel 09/18/2012 [facility] Tylenol 650 mg, 20.3 mL, Route : PO, Drug form: LIQ, Q4H, PRN Pain Score 1-3, Start date: 09/18/12 10:09:00, Duration: 30 day, Stop date: 10/18/12 10:08:00 PO No Longer Active Uriel 09/18/2012 [facility] Lactated Ringers Injection IV 1,000 mL 1,000 mL, Rate: 80 ml/hr, Infuse over: 12.5 hr, Route: IV, Dosing Weight 62.273 kg, Total Volume: 1,000, Start date: 09/18/12 10:06:00, Duration: 30 day, Stop date: 10/18/12 10:05:00 IV No Longer Active Uriel 09/18/2012 [facility] Pepcid 20 mg, 2 mL, Route: IVP , Drug form: INJ, Q12H, Start date: 09/17/12 21:00:00, Duration: 30 day, Stop date: 10/17/12 9:00:00 IVP No Longer Active Uriel 09/18 [facility] ketorolac 30 mg/mL injectable solution 30 mg, 1 mL, Route: IV, Drug form: INJ, Q6H, Start date: 09/17/12 18:00:00, Duration: 4 day, Stop date: 09/21/12 12:00:00 IV No Longer Active Uriel 09/17/2012 [facility] Zofran 4 mg, 2 mL, Route: IVP, Drug form: INJ, Q8H, PRN Nausea & Vomiting, Start date: 09/17/12 14:18:00, Duration: 30 day, Stop date: 10/17/12 14:17:00 IVP No Longer Active Uriel 09/17/2012 [facility] Phenergan 25 mg, 1 mL, Route: IM, Drug form: INJ, Q4H, PRN Nausea, Start date: 09/17/12 14:16:00, Duration: 30 day, Stop date: 10/17/12 14:15:00 IM No Longer Active Uriel 09/17/2012 [facility] Vasotec 1.25 mg, 1 mL, Route: IV, Drug form: INJ, Q6H, PRN Elevated BP, Start date: 09/17/12 14:15:00, Duration: 30 day, Stop date: 10/17/12 14:14:00 IV No Longer Active Uriel 09/17/2012 [facility] Lactated Ringers Injection IV 1,000 mL 1,000 mL, Rate: 80 ml/hr, Infuse over: 12.5 hr, Route: IV, Dosing Weight 62.273 kg, Total Volume: 1,000, Start date: 09/17/12 14:15:00, Stop date: 10/17/12 14:14:00 IV No Longer Active Uriel 09/17 [facility] naloxone 0.2 mg, 0.5 mL, Route : IVP, Drug form: INJ, Q5Min, PRN Narcotic Reversal, Start date: 09/17/12 13:28:00, Duration: 30 day, Stop date: 10/17/12 13:27:00 IVP No Longer Active Uriel 09/17/2012 [facility] Benadryl 25 mg, 0.5 mL, Route: IV, Drug form: INJ, Q6H, PRN Itching, Start date: 09/17/12 13:28:00, Duration: 30 day, Stop date: 10/17/12 13:27:00 IV No Longer Active Uriel 09/17/2012 [facility] morphine Sulfate 30 mg IV, Sta rt date: 09/17/12 12:40:00, Duration: 30, 30 ml, 62.273 IV No Longer Active Uriel 09/17/2012 [facility] midazolam 2 mg, 2 mL, Route: I [employer] SPECIALIST, Drug form: INJ, Q5Min, Dosing Weight 62.273, kg, PRN Anxiety, Start date: 09/17/12 11:05:00, Duration: 2 doses or times, Stop date: Limited # of times IVP No Longer Active [facility] 09/17/2012 [facility] esmolol IV Push 10 mg, 1 mL, R oute: IVP, Drug form: INJ, Q5Min, Dosing Weight 62.273, kg, PRN Elevated BP, Start date: 09/17/12 11:05:00, Duration: 5 doses or times, Stop date: Limited # of times IVP No Longer Active [facility] 09/17/2012 [facility] ephedrine 5 mg, 0.1 mL, Route: IVP, Drug form: INJ, Q5Min, Dosing Weight 62.273, kg, PRN Low Blood Pressure, Start date: 09/17/12 11:05:00, Duration: 30 day, Stop date: 10/17/12 11:04:00 IVP No Longer Active [facility] 09/17/2012 [facility] naloxone 0.04 mg, 0.1 mL, Rout e: IVP, Drug form: INJ, Q2MIN, Dosing Weight 62.273, kg, PRN Narcotic Reversal, Start date: 09/17/12 11:05:00, Duration: 8 doses or times, Stop date: Limited # of times IVP No Longer Active [facility] 09/17/2012 [facility] diphenhydrAMINE 12.5 mg, 0.25 mL, Route: IVP, Drug form: INJ, PRN, Dosing Weight 62.273, kg, PRN Itching, Start date: 09/17/12 11:05:00, Duration: 30 day, Stop date: 10/17/12 11:04:00 IVP No Longer Active [facility] 09/17/2012 [facility] ondansetron 4 mg, 2 mL, Route: IVP, Drug form: INJ, ONCE, Dosing Weight 62.273, kg, PRN Nausea & Vomiting, Start date: 09/17/12 11:05:00 IVP No Longer Active [facility] 09/17/2012 [facility] labetalol 5 mg, 1 mL, Route: I [employer] SPECIALIST, Drug form: INJ, Q5Min, Dosing Weight 62.273, kg, PRN Elevated BP, Start date: 09/17/12 11:05:00, Duration: 5 doses or times, Stop date: Limited # of times IVP No Longer Active [facility] 09/17/2012 [facility] hydrALAZINE 5 mg, 0.25 mL, Rou te: IVP, Drug form: INJ, Q5Min, Dosing Weight 62.273, kg, PRN Elevated BP, Start date: 09/17/12 11:05:00, Duration: 4 doses or times, Stop date: Limited # of times IVP No Longer Active [facility] 09/17/2012 [facility] hydromorphone 0.5 mg, 0.5 mL, Route: IVP, Drug form: INJ, Q15Min, Dosing Weight 62.273, kg, PRN Pain Score 4-6, Start date: 09/17/12 11:05:00, Duration: 5 doses or times, Stop date: Limited # of times IVP No Longer Active [facility] 09/17/2012 [facility] morphine Sulfate 2 mg, 1 mL, R oute: IVP, Drug form: INJ, Q5Min, Dosing Weight 62.273, kg, PRN Pain Score 7-10, Start date: 09/17/12 11:05:00, Duration: 8 doses or times, Stop date: Limited # of times IVP No Longer Active [facility] 09/17/2012 [facility] flumazenil 0.2 mg, 2 mL, Route : IVP, Drug form: INJ, PRN, Dosing Weight 62.273, kg, PRN Benzodiazepine Reversal, Initial dose, Start date: 09/17/12 11:05:00, Duration: 30 day, Stop date: 10/17/12 11:04:00 IVP No Longer Active [facility] 09/17/2012 [facility] Lactated Ringers Injection IV 1,000 mL 1,000 mL, Rate: 50 ml/hr, Infuse over: 20 hr, Route: IV, Dosing Weight 62.273 kg, Total Volume: 1,000, Start date: 09/17/12 11:05:00, Duration: 30 day, Stop date: 10/17/12 11:04:00 IV No Longer Active [facility] 09/17/2012 [facility] Lactated Ringers Injection IV 1,000 mL 1,000 mL, Rate: 25 ml/hr, Infuse over: 40 hr, Route: IV, Dosing Weight 62.273 kg, Total Volume: 1,000, Start date: 09/17/12 8:46:00, Duration: 30 day, Stop date: 10/17/12 8:45:00 IV No Longer Active [facility] 09/17/2012 [facility] Protonix 40 mg oral enteric coated tablet 40 mg, 1 tab, PO, Daily, 30 tab, Substitution Allowed, ECTAB PO Active 09/10/2012 [facility] Carafate 1 g oral tablet 1 gm, 1 tab, PO, QID-Before Meals, 120 tab, Substitution Allowed PO Active 09/10/2012 [facility] Nexium 40 mg oral delayed release capsule 40 mg, 1 cap, PO, Daily, 30 cap, Substitution Allowed, DRC PO Active [place] 09/11/2011 [facility] Carafate 1 g/10 mL oral suspension 1 gm, 10 mL, PO, Before Meals & Bedtime, 560 mL, Substitution Allowed, SUSP PO Active Kiko 09/11/2011 [facility] Zofran ODT 4 mg oral tablet, disintegrating 4 mg, 1 tab, PO, Q6H, PRN, 25 tab, Nausea and Vomiting, Substitution Allowed, Dissolve tab under tongueDissolve tab under tongue PO Active [facility] 09/11/2011 [facility] Al hydroxide/Mg hydroxide/simethicone 15 mL, Route: PO, Drug Form: SUSP, Q6H, Start date: 09/10/11 18:00:00, Duration: 30 day, Stop date: 10/10/11 12:00:00 PO No Longer Active [facility] 09/10/2011 [facility] 5 mL, Route: PO, Drug Form: ELIX, Q6H, Start date: 09/10/11 18:00:00, Duration: 30 day, Stop date: 10/10/11 12:00:00 PO No Longer Active [facility] 1 tsp., PO, Q6H, Subs titution Allowed, Maintenance, mix with 1 tbsp. of antacid, ELIXmix with 1 tbsp. of antacid PO Active 09/10/2011 [facility] Carafate 1 g/10 mL oral suspension 1 gm, 10 ml, PO, Before Meals & Bedtime, 200 ml, Substitution Allowed PO No Longer Active [facility] 09/10/2011 [facility] Tylenol 650 mg, 2 tab, Route: PO, Drug form: TAB, Q6H, PRN Pain, Start date: 09/10/11 10:39:00, Duration: 30 day, Stop date: 10/10/11 10:38:00 PO No Longer Active [facility] 09/10/2011 [facility] [place] 5/325 oral tablet 1 tab, Route: PO, Drug Form: TAB, Q6H, PRN Pain, Start date: 09/10/11 10:39:00, Duration: 30 day, Stop date: 10/10/11 10:38:00 PO No Longer Active [facility] 09/10/2011 [facility] Pepcid 20 mg, 2 mL, Route: IVP , Drug form: INJ, Q12H, Start date: 09/09/11 21:00:00, Duration: 30 day, Stop date: 10/09/11 9:00:00 IVP No Longer Active [place] 012 [facility] Carafate 1 g/10 mL oral suspension 1 gm, 10 mL, Route: PO, Drug form: SUSP, QID, Start date: 09/09/11 21:00:00, Duration: 30 day, Stop date: 10/09/11 16:30:00 PO No Longer Active Geovannafrouni 09/10/2011 [facility] Protonix 40 mg, Route: IVP, Dr ug form: INJ, Before Dinner, Start date: 09/09/11 16:30:00, Duration: 30 day, Stop date: 10/08/11 16:30:00 IVP No Longer Active [facility] 09/09/2011 [facility] NS + KCL 20mEq/L 1000ml (Premix) 1,000 mL 1,000 mL, Rate: 125 ml/hr, Infuse over: 8 hr, Route: IV, Dosing Weight 55 kg, Total Volume: 1,000, Start date: 09/09/11 14:54:00, Duration: 30 day, Stop date: 10/09/11 14:53:00 IV No Longer Active [facility] 09/09/2011 [facility] morphine Sulfate 4 mg, 2 mL, R oute: IVP, Drug form: INJ, Q4H, PRN Pain, Start date: 09/09/11 13:18:00, Duration: 30 day, Stop date: 10/09/11 13:17:00 IVP No Longer Active [facility] 09/09/2011 [facility] Zofran 4 mg, 2 mL, Route: IV, Drug form: INJ, Q6H, PRN Nausea, Start date: 09/09/11 13:18:00, Duration: 30 day, Stop date: 10/09/11 13:17:00 IV No Longer Active [facility] 09/09/2011 [facility] Lactated Ringers Injection IV 1,000 mL 1,000 mL, Rate: 125 ml/hr, Infuse over: 8 hr, Route: IV, Dosing Weight 55 kg, Total Volume: 1,000, Start date: 09/09/11 13:00:00, Duration: 30 day, Stop date: 10/09/11 12:59:00 IV No Longer Active [place] 09/09/2011 [facility] Rocephin 1 gm, Route: IVPB, AB [id number], Start date: 09/09/11 12:00:00, Duration: 30 day, Stop date: 10/08/11 12:00:00 IVPB No Longer Active [place] 09/09/2011 [facility] Lactated Ringers Injection IV IV, 1000 ml/hr, ONCE, Start date: 09/09/11 11:54:00, 1,000 ml IV No Longer Active [place] 09/09/2011 [facility] hydromorphone 0.5 mg, 0.5 mL, Route: IVP, Drug form: SOLN, Q5Min, PRN Pain Score 4-6, Start date: 06/20/11 14:10:00, Duration: 5 doses or times, Stop date: Limited # of times IVP No Longer Active [place] 06/20/2011 [facility] fentanyl 25 microgram, 0.5 mL, Route: IVP, Drug form: INJ, Q5Min, PRN Pain Score 4-6, Start date: 06/20/11 14:10:00, Duration: 4 doses or times, Stop date: Limited # of times IVP No Longer Active [place] 06/20/2011 [facility] flumazenil 0.2 mg, 2 mL, Route : IVP, Drug form: INJ, PRN, PRN Benzodiazepine Reversal, Initial dose, Start date: 06/20/11 14:10:00, Duration: 30 day, Stop date: 07/20/11 14:09:00 IVP No Longer Active [place] 06/20/2011 [facility] ondansetron 4 mg, 2 mL, Route: IVP, Drug form: INJ, ONCE, PRN Nausea & Vomiting, Start date: 06/20/11 14:10:00 IVP No Longer Active [place] 06/20/2011 [facility] acetaminophen-hydrocodone 325 mg-5 mg oral tablet 2 tab, Route: PO, Drug Form: TAB, Q4H, PRN Pain Score 4-6, Start date: 06/20/11 14:10:00, Duration: 30 day, Stop date: 07/20/11 14:09:00 PO No Longer Active [place] 06/20/2011 [facility] naloxone 0.04 mg, 0.1 mL, Rout e: IVP, Drug form: INJ, Q2MIN, PRN Narcotic Reversal, Start date: 06/20/11 14:10:00, Duration: 8 doses or times, Stop date: Limited # of times IVP No Longer Active [place] 06/20/2011 [facility] lidocaine 1% 0.5 mL, Route: ECHEVERRIA B-Q, ONCALL, Start date: 06/20/11 10:00:00, Duration: 1 doses or times SUB-Q No Longer Active [place] 06/20/2011 [facility] Rocephin 1 gm, Route: IVPB, Dr irvin form: PDR/INJ, ONCE, Start date: 06/20/11 9:32:00, Stop date: 06/20/11 9:32:00 IVPB Active [place] 06/20/2011 [facility] gentamicin 120 mg, Route: IVPB , ONCE, Start date: 06/20/11 9:32:00, Stop date: 06/20/11 9:32:00 IVPB No Longer Active [place] 06/20/2011 [facility] Lactated Ringers Injection IV 1,000 mL 1,000 mL, Rate: 25 ml/hr, Infuse over: 40 hr, Route: IV, Dosing Weight 55.9 kg, Total Volume: 1,000, Start date: 06/20/11 9:31:00, Duration: 30 day, Stop date: 07/20/11 9:30:00 IV No Longer Active [place] 06/20/2011 [facility] asthma inhaler asthma inhaler, Substitution Allowed Active 06/17/2011 [facility] ampicillin 500 mg oral capsule Substitution Allowed Active 06/17/2011 [facility] [place] 7.5/325 oral tablet 1 ta b, PO, Q4H, PRN, for pain, Substitution Allowed, Maintenance, TAB PO Active 06/17/2011 [facility] Nexium 40 mg oral delayed release capsule 40 mg, 1 cap, PO, Daily, 90 cap, Substitution Allowed PO Active 06/17/2011 [facility] pneumococcal 23-valent vaccine 0.5 ml, Route: IM, Drug Form: INJ, ONCALL, Start date: 01/12/10 18:02:05, Stop date: 02/11/10 17:57:05 IM No Longer Active [facility] 12/19 [facility] Allergies, Adverse Reactions, Alerts Substance Category Reaction Severity Reaction type Status Date Reported Comments Source sulfa drugs Assertion rash Drug allergy Active [facility] codeine Assertion rash Drug allergy Active [facility] aspirin Assertion GI upset Drug allergy Active [facility] Demerol HCl Assertion hallucinations Drug allergy Active [facility] NKFA Assertion Food allergy Active [facility] Immunizations Immunization Date Given Site Status Last Updated Comments Source pneumococcal 23-valent vaccine 01/13/2010 completed Al macias [facility] y pneumococcal 23-valent vaccine 01/13/2010 Left deltoid completed Wisdom [facility], NAPOLEON Garcia,[facility] Results Order Name Results Value Reference Range Date Interpretation Comments Source CHEMISTRY AGAP 12.0 10.0 - 20.0 09/18/2012 Normal [facility] CHEMISTRY B/C Ratio 16 6 - 25 09/18/2012 Normal [facility] CHEMISTRY A/G Ratio 1.1 0.7 - 1.6 09/18/2012 Normal [facility] CHEMISTRY Globulin 2.5 2.0 - 4.0 09/18/2012 Normal [facility] CHEMISTRY CO2 28 24 - 32 09/18/2012 Normal [facility] CHEMISTRY Chloride Lvl 107 95 - 109 09/18/2012 Normal [facility] CHEMISTRY Albumin Lvl 2.7 3.5 - 5.0 09/18/2012 LOW [facility] CHEMISTRY Calcium Lvl 8.0 8.5 - 10.5 09/18/2012 LOW [facility] CHEMISTRY eGFR 65 09/18/2012 NA <sup>1</sup>Result Comment: The eGFR is calculated using the CKD-EPI formula. In most young, healthy individuals the eGFR will be >90 mL/min/1.73m2. The eGFR declines with age. An eGFR of 60-89 may be normal in some populations, particularly the elderly, for whom the CKD-EPI formula has not been extensively validated. Use of the eGFR is not recommended in the following populations:& lt;br/>
Individuals with unstable creatinine concentrations, including patients and those with serious co-morbid conditions.

Patients with extremes in muscle mass or diet.

The data above are obtained from the National Kidney Disease Education Program (NKDEP) which additionally recommends that when the eGFR is used in patients with extremes of body mass index for purposes of drug dosing, the eGFR should be multiplied by the estimated BMI. [facility] CHEMISTRY Creatinine Lvl 1.0 0.5 - 1.4 09/18/2012 Normal [facility] CHEMISTRY Sodium Lvl 143 135 - 145 09/18/2012 Normal [facility] CHEMISTRY Potassium Lvl 4.0 3.5 - 5.1 09/18/2012 Normal [facility] CHEMISTRY Glucose Lvl 103 70 - 99 09/18/2012 [place] <sup>2</sup>Interpretive Data: Adult ref erence range values reflect the clinical guidelines
of the [place] [employer]. [facility] CHEMISTRY BUN 16 7 - 22 09/18/2012 Normal [facility] CHEMISTRY Bili Total 0.6 0.2 - 1.3 09/18/2012 Normal [facility] CHEMISTRY AST 22 0 - 37 09/18/2012 [facility] CHEMISTRY Alk Phos 71 39 - 136 09/18/2012 [facility] CHEMISTRY ALT 19 0 - 65 09/18/2012 [facility] CHEMISTRY Total Protein 5.2 6.4 - 8.4 09/18/2012 [facility] HEMATOLOGY MPV 8.4 7.4 - 10.4 09/18/2012 [facility] HEMATOLOGY RDW 13.0 11.5 - 14.5 09/18/2012 [facility] HEMATOLOGY MCV 95.8 81.0 - 99.0 09/18/2012 [facility] HEMATOLOGY MCH 31.8 27.0 - 31.0 09/18/2012 [facility] HEMATOLOGY Hgb 10.7 12.0 - 16.0 09/18/2012 [facility] HEMATOLOGY Hct 32.4 36.0 - 48.0 09/18/2012 [facility] HEMATOLOGY WBC 10.3 3.7 - 10.4 09/18/2012 [facility] HEMATOLOGY RBC 3.38 4.20 - 5.40 09/18/2012 [facility] HEMATOLOGY Platelet 116 133 - 450 09/18/2012 [facility] HEMATOLOGY MCHC 33.1 32.0 - 36.0 09/18/2012 [facility] HEMATOLOGY Monocytes # 1.0 0.0 - 0.8 09/18/2012 [facility] HEMATOLOGY Lymphocytes # 1.5 1.0 - 5.5 09/18/2012 [facility] HEMATOLOGY Macrocyte 1+ *ABN* (09/18/2012 03:45:00) None S een 09/18/2012 ABN [facility] HEMATOLOGY Eosinophils # 0.1 0.0 - 0.5 09/18/2012 [facility] HEMATOLOGY Basophils # 0.0 0.0 - 0.2 09/18/2012 Normal [facility] HEMATOLOGY Lymphocytes 14.9 20.0 - 40.0 09/18/2012 LOW [facility] HEMATOLOGY Segs 74.7 45.0 - 75.0 09/18/2012 Normal [facility] HEMATOLOGY Segs-Bands # 7.7 1.5 - 8.1 09/18/2012 Normal [facility] HEMATOLOGY Monocytes 9.6 2.0 - 12.0 09/18/2012 Normal [facility] HEMATOLOGY Basophils 0.3 0.0 - 1.0 09/18/2012 Normal [facility] HEMATOLOGY Eosinophils 0.5 0.0 - 4.0 09/18/2012 Normal [facility] HEMATOLOGY Hgb 13.2 12.0 - 16.0 09/10/2012 Normal [facility] HEMATOLOGY Hct 39.2 36.0 - 48.0 09/10/2012 Normal [facility] CHEMISTRY AGAP 10.8 10.0 - 20.0 09/11/2011 Normal [facility] CHEMISTRY Potassium Lvl 3.8 3.5 - 5.1 09/11/2011 Normal [facility] CHEMISTRY Chloride Lvl 106 95 - 109 09/11/2011 Normal [facility] CHEMISTRY Sodium Lvl 137 135 - 145 09/11/2011 Normal [facility] CHEMISTRY Creatinine Lvl 0.7 0.5 - 1.4 09/11/2011 Normal [facility] CHEMISTRY CO2 24 24 - 32 09/11/2011 Normal [facility] CHEMISTRY Calcium Lvl 8.0 8.5 - 10.5 09/11/2011 LOW [facility] CHEMISTRY Glucose Lvl 101 70 - 99 09/11/2011 [place] <sup>1</sup>Interpretive Data: Adult ref erence range values reflect the clinical guidelines of the [place] [employer]. [facility] CHEMISTRY BUN 7 7 - 22 09/11/2011 Normal [facility] HEMATOLOGY MCHC 34.4 32.0 - 36.0 09/11/2011 Normal [facility] HEMATOLOGY RDW 13.1 11.5 - 14.5 09/11/2011 Normal [facility] HEMATOLOGY Platelet 153 133 - 450 09/11/2011 Normal [facility] HEMATOLOGY MPV 7.6 7.4 - 10.4 09/11/2011 Normal [facility] HEMATOLOGY WBC 6.7 3.7 - 10.4 09/11/2011 Normal [facility] HEMATOLOGY MCH 32.8 27.0 - 31.0 09/11/2011 [place] [facility] HEMATOLOGY Hct 26.0 36.0 - 48.0 09/11/2011 LOW [facility] HEMATOLOGY RBC 2.72 4.20 - 5.40 09/11/2011 LOW [facility] HEMATOLOGY Hgb 8.9 12.0 - 16.0 09/11/2011 LOW [facility] HEMATOLOGY MCV 95.5 81.0 - 99.0 09/11/2011 Normal [facility] HEMATOLOGY Segs 47.7 45.0 - 75.0 09/11/2011 Normal [facility] HEMATOLOGY Basophils 0.3 0.0 - 1.0 09/11/2011 Normal [facility] HEMATOLOGY Eosinophils 3.2 0.0 - 4.0 09/11/2011 Normal [facility] HEMATOLOGY Segs-Bands # 3.2 1.5 - 8.1 09/11/2011 Normal [facility] HEMATOLOGY Eosinophils # 0.2 0.0 - 0.5 09/11/2011 Normal [facility] HEMATOLOGY Basophils # 0.0 0.0 - 0.2 09/11/2011 Normal [facility] HEMATOLOGY Monocytes 10.7 2.0 - 12.0 09/11/2011 Normal [facility] HEMATOLOGY Lymphocytes 38.1 20.0 - 40.0 09/11/2011 Normal [facility] HEMATOLOGY Monocytes # 0.7 0.0 - 0.8 09/11/2011 Normal [facility] HEMATOLOGY Lymphocytes # 2.5 1.0 - 5.5 09/11/2011 Normal [facility] CHEMISTRY AGAP 16.6 10.0 - 20.0 09/10/2011 Normal [facility] CHEMISTRY BUN 10 7 - 22 09/10/2011 Normal [facility] CHEMISTRY CO2 22 24 - 32 09/10/2011 LOW [facility] CHEMISTRY Glucose Lvl 116 70 - 99 09/10/2011 HI <sup>2</sup>Interpretive Data: Adult ref erence range values reflect the clinical guidelines of the [place] [employer]. [facility] CHEMISTRY Calcium Lvl 8.1 8.5 - 10.5 09/10/2011 LOW [facility] CHEMISTRY Creatinine Lvl 0.8 0.5 - 1.4 09/10/2011 Normal [facility] CHEMISTRY Chloride Lvl 105 95 - 109 09/10/2011 Normal [facility] CHEMISTRY Sodium Lvl 140 135 - 145 09/10/2011 Normal [facility] CHEMISTRY Potassium Lvl 3.6 3.5 - 5.1 09/10/2011 Normal [facility] HEMATOLOGY Segs 68.1 45.0 - 75.0 09/10/2011 Normal [facility] HEMATOLOGY Lymphocytes 21.0 20.0 - 40.0 09/10/2011 Normal [facility] HEMATOLOGY Monocytes 10.7 2.0 - 12.0 09/10/2011 Normal [facility] HEMATOLOGY Basophils 0.1 0.0 - 1.0 09/10/2011 Normal [facility] HEMATOLOGY Segs-Bands # 6.1 1.5 - 8.1 09/10/2011 Normal [facility] HEMATOLOGY Eosinophils 0.1 0.0 - 4.0 09/10/2011 Normal [facility] HEMATOLOGY Basophils # 0.0 0.0 - 0.2 09/10/2011 Normal [facility] HEMATOLOGY Monocytes # 1.0 0.0 - 0.8 09/10/2011 HI [facility] HEMATOLOGY Eosinophils # 0.0 0.0 - 0.5 09/10/2011 Normal [facility] HEMATOLOGY Lymphocytes # 1.9 1.0 - 5.5 09/10/2011 Normal [facility] HEMATOLOGY WBC 8.9 3.7 - 10.4 09/10/2011 Normal [facility] HEMATOLOGY RBC 2.90 4.20 - 5.40 09/10/2011 LOW [facility] HEMATOLOGY MPV 7.6 7.4 - 10.4 09/10/2011 Normal [facility] HEMATOLOGY MCHC 33.8 32.0 - 36.0 09/10/2011 Normal [facility] HEMATOLOGY Platelet 177 133 - 450 09/10/2011 Normal [facility] HEMATOLOGY RDW 13.3 11.5 - 14.5 09/10/2011 Normal [facility] HEMATOLOGY Hgb 9.4 12.0 - 16.0 09/10/2011 LOW [facility] HEMATOLOGY MCV 96.1 81.0 - 99.0 09/10/2011 Normal [facility] HEMATOLOGY Hct 27.9 36.0 - 48.0 09/10/2011 LOW [facility] HEMATOLOGY MCH 32.5 27.0 - 31.0 09/10/2011 [facility] URINALYSIS UA Urobilinogen 0.1 - 1.0 09/09/2011 NA [facility] URINALYSIS UA WBC 40 0 - 5 09/09/2011 [facility] URINALYSIS UA Bacteria Occas ional /HPF *NA* (09/09/2011 14:00:00) None S een 09/09/2011 [facility] URINALYSIS UA Mucus Few / LPF *NA* (09/09/2011 14:00:00) None S een 09/09/2011 NA [facility] URINALYSIS UA RBC 104 0 - 2 09/09/2011 HI [facility] URINALYSIS UA Nitrite Negat juan josé (09/09/2011 14:00:00) Negati ve 09/09/2011 Normal [facility] URINALYSIS UA Blood Large *ABN* (09/09/2011 14:00:00) Negati ve 09/09/2011 ABN [facility] URINALYSIS UA Sq Epi Occas ional /LPF *NA* (09/09/2011 14:00:00) Few 09/09/2011 NA [facility] URINALYSIS UA Leuk Est Trace *ABN* (09/09/2011 14:00:00) Negati ve 09/09/2011 ABN [facility] URINALYSIS UA Turbidity Marke d *ABN* (09/09/2011 14:00:00) Clear 09/09/2011 ABN [facility] URINALYSIS UA pH 6.0 5.0 - 8.0 09/09/2011 Normal [facility] URINALYSIS UA Bili Negat juan josé *NA* (09/09/2011 14:00:00) Negati ve 09/09/2011 NA [facility] URINALYSIS UA Spec Grav 1.019 <=1.030 09/09/2011 Normal [facility] URINALYSIS UA Glucose Negat juan josé mg/dL *NA* (09/09/2011 14:00:00) Negati ve 09/09/2011 NA [facility] URINALYSIS UA Ketones 20 mg /dL *ABN* (09/09/2011 14:00:00) Negati ve 09/09/2011 ABN [facility] URINALYSIS UA Protein 100 m g/dL *ABN* (09/09/2011 14:00:00) Negati ve 09/09/2011 ABN [facility] URINALYSIS UA Color Yello w *NA* (09/09/2011 14:00:00) Yellow 09/09/2011 [facility] Microbiology Culture: Urine 09/09/2011 [facility] CHEMISTRY Lipase Lvl 120 73 - 393 09/09/2011 Normal [facility] CHEMISTRY A/G Ratio 1.0 0.7 - 1.6 09/09/2011 Normal [facility] CHEMISTRY AGAP 16.4 10.0 - 20.0 09/09/2011 Normal [facility] CHEMISTRY B/C Ratio 15 6 - 25 09/09/2011 Normal [facility] CHEMISTRY Globulin 3.6 2.0 - 4.0 09/09/2011 Normal [facility] CHEMISTRY AST 17 0 - 37 09/09/2011 Normal [facility] CHEMISTRY Calcium Lvl 8.8 8.5 - 10.5 09/09/2011 Normal [facility] CHEMISTRY Bili Total 0.8 0.2 - 1.3 09/09/2011 Normal [facility] CHEMISTRY Total Protein 7.2 6.4 - 8.4 09/09/2011 Normal [facility] CHEMISTRY Albumin Lvl 3.6 3.5 - 5.0 09/09/2011 Normal [facility] CHEMISTRY ALT 21 0 - 65 09/09/2011 Normal [facility] CHEMISTRY Alk Phos 77 39 - 136 09/09/2011 Normal [facility] CHEMISTRY Glucose Lvl 147 70 - 99 09/09/2011 HI <sup>3</sup>Interpretive Data: Adult ref erence range values reflect the clinical guidelines of the [place] [employer]. [facility] CHEMISTRY BUN 12 7 - 22 09/09/2011 Normal [facility] CHEMISTRY Creatinine Lvl 0.8 0.5 - 1.4 09/09/2011 Normal [facility] CHEMISTRY CO2 24 24 - 32 09/09/2011 Normal [facility] CHEMISTRY Sodium Lvl 140 135 - 145 09/09/2011 Normal [facility] CHEMISTRY Chloride Lvl 103 95 - 109 09/09/2011 Normal [facility] CHEMISTRY Potassium Lvl 3.4 3.5 - 5.1 09/09/2011 LOW [facility] HEMATOLOGY Eosinophils # 0.0 0.0 - 0.5 09/09/2011 Normal [facility] HEMATOLOGY Monocytes # 0.6 0.0 - 0.8 09/09/2011 Normal [facility] HEMATOLOGY Basophils # 0.0 0.0 - 0.2 09/09/2011 Normal [facility] HEMATOLOGY Segs-Bands # 7.3 1.5 - 8.1 09/09/2011 Normal [facility] HEMATOLOGY Lymphocytes # 1.0 1.0 - 5.5 09/09/2011 Normal [facility] HEMATOLOGY Basophils 0.3 0.0 - 1.0 09/09/2011 Normal [facility] HEMATOLOGY Eosinophils 0.0 0.0 - 4.0 09/09/2011 Normal [facility] HEMATOLOGY Lymphocytes 11.5 20.0 - 40.0 09/09/2011 LOW [facility] HEMATOLOGY Monocytes 6.5 2.0 - 12.0 09/09/2011 Normal [facility] HEMATOLOGY Segs 81.7 45.0 - 75.0 09/09/2011 HI [facility] HEMATOLOGY Hct 29.2 36.0 - 48.0 09/09/2011 LOW [facility] HEMATOLOGY MCH 32.6 27.0 - 31.0 09/09/2011 HI [facility] HEMATOLOGY MCHC 34.0 32.0 - 36.0 09/09/2011 Normal [facility] HEMATOLOGY MCV 96.0 81.0 - 99.0 09/09/2011 Normal [facility] HEMATOLOGY RDW 13.4 11.5 - 14.5 09/09/2011 Normal [facility] HEMATOLOGY Platelet 203 133 - 450 09/09/2011 Normal [facility] HEMATOLOGY MPV 7.4 7.4 - 10.4 09/09/2011 Normal [facility] HEMATOLOGY WBC 8.9 3.7 - 10.4 09/09/2011 Normal [facility] HEMATOLOGY RBC 3.04 4.20 - 5.40 09/09/2011 LOW [facility] HEMATOLOGY Hgb 9.9 12.0 - 16.0 09/09/2011 LOW [facility] CHEMISTRY Calcium Lvl 9.2 8.5 - 10.5 06/17/2011 Normal [facility] CHEMISTRY CO2 28 24 - 32 06/17/2011 Normal [facility] CHEMISTRY Chloride Lvl 109 95 - 109 06/17/2011 Normal [facility] CHEMISTRY Potassium Lvl 4.7 3.5 - 5.1 06/17/2011 Normal [facility] CHEMISTRY Sodium Lvl 144 135 - 145 06/17/2011 Normal [facility] CHEMISTRY Creatinine Lvl 0.9 0.5 - 1.4 06/17/2011 Normal [facility] CHEMISTRY BUN 12 7 - 22 06/17/2011 Normal [facility] CHEMISTRY Glucose Lvl 175 70 - 99 06/17/2011 HI <sup>2</sup>Interpretive Data: Adult ref erence range values reflect the clinical guidelines of the [place] [employer]. [facility] CHEMISTRY AGAP 11.7 10.0 - 20.0 06/17/2011 Normal [facility] HEMATOLOGY PTT 27.5 22.9 - 35.8 06/17/2011 Normal <sup>4</sup>Interpretive Data: Heparin T herapeutic Range: 57 - 92 Seconds [facility] HEMATOLOGY PT 15.2 12.0 - 14.7 06/17/2011 HI [facility] HEMATOLOGY INR 1.20 0.85 - 1.17 06/17/2011 HI <sup>3</sup>Interpretive Data: RECOMMEND ED RANGES FOR PROTIME INR: 2.0- 3.0 for most medical and surgical thromboembolic states. 2.5-3.5 for artificial heart valves and recurrent embolism. INR SHOULD BE USED ONLY FOR PATIENTS ON STABLE ANTICOAGULANT THERAPY. [facility] HEMATOLOGY WBC 7.1 3.7 - 10.4 06/17/2011 Normal [facility] HEMATOLOGY RBC 3.62 4.20 - 5.40 06/17/2011 LOW [facility] HEMATOLOGY MCV 93.6 81.0 - 99.0 06/17/2011 Normal [facility] HEMATOLOGY Hgb 11.3 12.0 - 16.0 06/17/2011 LOW [facility] HEMATOLOGY Hct 33.9 36.0 - 48.0 06/17/2011 LOW [facility] HEMATOLOGY MCHC 33.3 32.0 - 36.0 06/17/2011 Normal [facility] HEMATOLOGY MCH 31.2 27.0 - 31.0 06/17/2011 [facility] HEMATOLOGY Platelet 185 133 - 450 06/17/2011 Normal [facility] HEMATOLOGY RDW 13.5 11.5 - 14.5 06/17/2011 Normal [facility] HEMATOLOGY MPV 7.6 7.4 - 10.4 06/17/2011 Normal [facility] HEMATOLOGY Lymphocytes 25.5 20.0 - 40.0 06/17/2011 Normal [facility] HEMATOLOGY Segs 59.1 45.0 - 75.0 06/17/2011 Normal [facility] HEMATOLOGY Eosinophils 8.7 0.0 - 4.0 06/17/2011 [facility] HEMATOLOGY Monocytes 6.4 2.0 - 12.0 06/17/2011 Normal [facility] HEMATOLOGY Segs-Bands # 4.2 1.5 - 8.1 06/17/2011 Normal [facility] HEMATOLOGY Basophils 0.3 0.0 - 1.0 06/17/2011 Normal [facility] HEMATOLOGY Monocytes # 0.5 0.0 - 0.8 06/17/2011 Normal [facility] HEMATOLOGY Eosinophils # 0.6 0.0 - 0.5 06/17/2011 [facility] HEMATOLOGY Basophils # 0.0 0.0 - 0.2 06/17/2011 Normal [facility] HEMATOLOGY Lymphocytes # 1.8 1.0 - 5.5 06/17/2011 Normal [facility] URINALYSIS UA Bacteria Occas ional /HPF (06/17/2011 11:10:00) None S een 06/17/2011 Normal [facility] URINALYSIS UA RBC 6-10 /HPF *ABN* (06/17/2011 11:10:00) 0 - 2 06/17/2011 ABN [facility] URINALYSIS UA WBC 11-20 /HPF *ABN* (06/17/2011 11:10:00) None S een 06/17/2011 ABN [facility] URINALYSIS UA Sq Epi Occas ional /LPF (06/17/2011 11:10:00) Few 06/17/2011 Normal [facility] URINALYSIS Micro? Perfo rmed (06/17/2011 11:10:00) 06/17/2011 Normal [facility] URINALYSIS UA Leuk Est Moder ate *ABN* (06/17/2011 11:10:00) Negati ve 06/17/2011 ABN [facility] URINALYSIS UA Spec Grav 1.025 <=1.030 06/17/2011 Normal [facility] URINALYSIS UA Turbidity Sligh t Cloudy (06/17/2011 11:10:00) Clear 06/17/2011 Normal [facility] URINALYSIS UA Blood Large *ABN* (06/17/2011 11:10:00) Negati ve 06/17/2011 ABN [facility] URINALYSIS UA Nitrite Negat juan josé (06/17/2011 11:10:00) Negati ve 06/17/2011 Normal [facility] URINALYSIS UA Urobilinogen 0.2 0.1 - 1.0 06/17/2011 Normal [facility] URINALYSIS UA Bili Negat juan josé 1 (06/17/2011 11:10:00) Negati ve 06/17/2011 Normal <sup>1</sup>Result Comment: Confirmed by [employer]. [facility] URINALYSIS UA Ketones 15 mg /dL *ABN* (06/17/2011 11:10:00) Negati ve 06/17/2011 ABN [facility] URINALYSIS UA Glucose Negat juan josé (06/17/2011 11:10:00) Negati ve 06/17/2011 Normal [facility] URINALYSIS UA Protein >=300 mg/dL *ABN* (06/17/2011 11:10:00) Negati ve 06/17/2011 ABN [facility] URINALYSIS UA pH 6.0 5.0 - 8.0 06/17/2011 Normal [facility] URINALYSIS UA Color Yello w *NA* (06/17/2011 11:10:00) Yellow 06/17/2011 NA [facility] Microbiology Culture: Urine 06/17/2011 [facility] Pathology Reports No Data Provided for This Section Diagnostic Reports Report Value Date Source Spine cervical wo contrast CT Procedure: CT Cervical Spine. Clinical Indication: Status post fall backwards, hit head, laceration. Comparison: None. Technique: Multi-detector CT imaging of the cervical spine is performed. Coronal and sagittal reconstructions were obtained. CT imaging performed at this location utilizes radiation dose optimization techniques which include one or more of the following: -Automated exposure control -Adjustment of the mA and/or kV accordin g to patient size -Use of iterative reconstruction techniq ue CT Radiation Dose DLP 467 mGy-cm FINDINGS: ALIGNMENT AND GENERAL ASSESSMENT: There is normal alignment of the cervical spine. There are no fractures or subluxations. The craniocervical junction is normal. The atlanto-dental alignment appears unremarkable. The posterior elements and spinous processes are unremarkable. The facet joint, spinolaminar and spinous process alignment are normal. DISK SPACES AND SOFT TISSUES: The prevertebral soft tissues are normal. C2-C3 to C7-T1 disc space levels show no definite disc protrusions on CT. There is no central or foraminal stenosis. VISUALIZED LUNG APICES: Unremarkable. IMPRESSION: 1. No fractures or subluxations of the c ervical spine. SL:[id number] 09/22/2018 [facility] Brain wo contrast CT Clinical Indication: - head injury, hx ICH Comparison: None available. TECHNIQUE: CT images were obtained from the foramen magnum to the vertex without the use of intravenous contrast on a multidetector CT. Coronal and sagittal reconstructions were obtained. CT imaging performed at this location utilizes radiation dose optimization techniques which include one or more of the following: -Automated exposure control -Adjustment of the mA and/or kV accordin g to patient size -Use of iterative reconstruction techniq ue CT Radiation Dose DLP 982.82 mGy-cm FINDINGS: BRAIN PARENCHYMA and VENTRICLES: There are no intra-axial or extra-axial fluid collections, intraventricular or intraparenchymal hemorrhage. There are no focal mass lesions on this noncontrast head CT. There is no mass effect, midline shift or edema. Tiny chronic appearing lacunar infarct involving the right caudate body. Nonspecific periventricular hypodensities likely represent mild chronic small vessel ischemic changes. The wu-white matter differentiation is preserved. The lateral ventricles, third and fourth ventricles appear unremarkable. The basilar cisterns are normal. Partially empty sella, a nonspecific finding. Atherosclerotic arterial calcifications are noted. ORBITS, MASTOIDS AND PARANASAL SINUSES: The visualized orbits are unremarkable. The visualized paranasal sinuses and mastoid air cells are clear. SKULL: No acute calvarial fracture or focal suspicious osseous lesions are identified. If there is further concern for intracranial pathology or acute stroke, MRI of the brain may be performed for complete assessment. IMPRESSION: No evidence of acute intracranial abnormality or calvarial fracture. ----- SL: PRIMO 09/22/2018 [facility] Spine lumbar w/wo contrast MRI MRI LUMBAR SPINE WITHOUT AND WITH CONTRAST TECHNIQUE: Sagittal T1, sagittal T2 with fat saturation, axial T1 and axial T2 images were obtained. Intravenous gadolinium was given. COMPARISON: No prior exam. FINDINGS: The paravertebral soft tissues are normal. The conus medullaris terminates at the L1 level. Mild dextrocurvature of the lower lumbar spine is present. T12-L1: Broad-based left paracentral disc protrusion is present with minimal superior migration, with a disc protrusion measuring 4.7 mm. There is mild to moderate central canal stenosis. No mass effect on the lower thoracic cord is present. No foraminal stenosis. L1-L2: Minimal left asymmetric disc bulge is seen without significant central canal or foraminal stenosis. L2-L3: Disc desiccation is present with minimal disc bulge. Minimal central canal stenosis is seen. Moderate left foraminal stenosis is present due to left foraminal disc osteophyte complex with mass effect on the left L2 exiting nerve root. Mild right foraminal stenosis present. L3-L4: Scattered annular fissures are seen with minimal disc bulge. No significant central canal stenosis. Mild bilateral foraminal stenosis is present. L4-L5: Minimal disc bulge without central canal or foraminal stenosis. L5-S1: Minimal disc bulge present without thecal sac stenosis. Mild bilateral foraminal stenosis is present. L3 and L5 centrum osseous hemangiomas are present. No abnormal enhancement is seen. The dilated common bile duct is seen on 09/09/[address] IMPRESSION: 1. Multilevel disc degenerative disease and spondylosis. 2. T12-L1 disc protrusion with superior migration, with mild to moderate central canal stenosis. 3. L2-L3 moderate left foraminal stenosi s due to disc osteophyte complexes above. 4. Other levels of mild degenerative isacc nges are present. 06/30/2014 NAPOLEON Garcia Stomach UGI (water soluble contrast) HISTORY: Abdominal fullness, gastric bypass revision. COMPARISON: January 16, 2010. FINDINGS: oral contrast was administered by mouth and fluoroscopy of the abdomen was done . static images were obtained for the patient's record. A delayed 20 minute KUB was also obtained. There is normal passage of contrast from the esophagus, into a small gastric pouch, and into the small bowel. There are no signs of leak. The delayed image shows contrast into the distal small bowel which is nondilated. IMPRESSION: Patent gastric bypass. No signs of leak. No signs of bowel dilation. Fluoro time 0.2 minutes 09/18/2012 [facility] Chest 2 views Two view chest. INDICATION: Cough. COMPARISON: July 07, 2010. FINDINGS: Cardiac silhouette and aortic contour within normal limits. Symmetric beatris. No pneumothorax, lobar consolidation, or pleural effusion. Surgical clips right upper quadrant abdomen. Unremarkable osseous structures IMPRESSION: No acute process. 09/10/2012 [facility] Consultation Notes No Data Provided for This Section Discharge Summaries No Data Provided for This Section History and Physicals No Data Provided for This Section Vital Signs Vital Sign Value Date Comments Source Height 157.48 cm 10/01/2019 [facility] Weight 64.545 10/01/2019 [facility] BMI Calculated 26.03 10/01/2019 [facility] Systolic (mm Hg) 136 09/23/2018 [facility] Diastolic (mm Hg) 77 09/23/2018 [facility] Heart Rate 79 09/23/2018 [facility] Systolic (mm Hg) 131 09/23/2018 [facility] Diastolic (mm Hg) 89 09/23/2018 [facility] Heart Rate 84 09/23/2018 [facility] Systolic (mm Hg) 137 09/23/2018 [facility] Diastolic (mm Hg) 83 09/23/2018 [facility] Respitory Rate 18 09/23/2018 [facility] Heart Rate 84 09/23/2018 [facility] Weight 56.364 09/22/2018 [facility] BMI Calculated 22.73 09/22/2018 [facility] Respitory Rate 18 09/22/2018 [facility] Height 157.48 cm 09/22/2018 [facility] Temperature Oral (F) 98.3 F 09/22/2018 [facility] Temperature Oral (F) 98.8 F 09/18/2012 [facility] Diastolic (mm Hg) 61 09/18/2012 [facility] Systolic (mm Hg) 100 09/18/2012 [facility] Respitory Rate 16 09/18/2012 [facility] Heart Rate 76 09/18/2012 [facility] Heart Rate 71 09/18/2012 [facility] Temperature Oral (F) 98.9 F 09/18/2012 [facility] Respitory Rate 16 09/18/2012 [facility] Systolic (mm Hg) 92 09/18/2012 [facility] Diastolic (mm Hg) 52 09/18/2012 [facility] Systolic (mm Hg) 93 09/18/2012 [facility] Diastolic (mm Hg) 59 09/18/2012 [facility] Respitory Rate 16 09/18/2012 [facility] Heart Rate 82 09/18/2012 [facility] Temperature Oral (F) 98.5 F 09/18/2012 [facility] Height 157.48 cm 09/10/2012 [facility] Weight 62.273 09/10/2012 [facility] Temperature Oral (F) 98.4 F 09/11/2011 [facility] Heart Rate 76 09/11/2011 [facility] Diastolic (mm Hg) 74 09/11/2011 [facility] Systolic (mm Hg) 115 09/11/2011 [facility] Respitory Rate 16 09/11/2011 [facility] Temperature Oral (F) 98.1 F 09/11/2011 [facility] Heart Rate 73 09/11/2011 [facility] Respitory Rate 16 09/11/2011 [facility] Diastolic (mm Hg) 64 09/11/2011 [facility] Systolic (mm Hg) 99 09/11/2011 [facility] Temperature Oral (F) 98.3 F 09/11/2011 [facility] Diastolic (mm Hg) 64 09/11/2011 [facility] Systolic (mm Hg) 102 09/11/2011 [facility] Heart Rate 72 09/11/2011 [facility] Respitory Rate 16 09/11/2011 [facility] Height 157.48 cm 09/09/2011 [facility] Weight 55.000 09/09/2011 [facility] Weight 55.000 09/09/2011 [facility] Height 157.48 cm 09/09/2011 [facility] Diastolic (mm Hg) 72 06/20/2011 [facility] Systolic (mm Hg) 133 06/20/2011 [facility] Diastolic (mm Hg) 65 06/20/2011 [facility] Systolic (mm Hg) 136 06/20/2011 [facility] Respitory Rate 12 06/20/2011 [facility] Respitory Rate 12 06/20/2011 [facility] Heart Rate 62 06/20/2011 [facility] Temperature Oral (F) 98.1 F 06/17/2011 [facility] Heart Rate 72 06/17/2011 [facility] Weight 55.909 06/17/2011 [facility] Height 157.48 cm 06/17/2011 [facility] Encounters Location Location Details Encounter Type Encounter Number Reason For Visit Attending Provider ADM Date DC Date Status Source [facility] DS [id number] MARTITA CHEUNG 06/20/2011 06/20/2011 Discharged [facility] Inpatient [id number] ACUTE DEHYDRATION/UTI/INTRACTABLE ABDOMINAL PAIN NICOLASACURTIS VASQUEZ 09/10/2011 09/11/2011 Active [facility] Inpatient [id number] EMERSON PEREZ 09/17/2012 09/18/2012 Discharged [facility] [place] [facility] [id number] 00 Filemon Palacios 06/30/2014 07/01/2014 NAPOLEON Garcia [facility] Emergency [id number] Cat Bueno 09/22/2018 09/23/2018 [facility] Outpatient [id number] Gordo Nguyen 10/01/2019 Active [facility] B[facility] Outpatient [id number] Gordo Nguyen 10/01/2019 10/02/2019 [facility] Outpatient [id number] [employer] VISIT 10/16/2019 Active [facility] [id number] LEFT HIP SPRAIN DON HOLLI Cancel [facility] Procedures Procedure Code Date Perfomer Comments Source 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 laparospocally [id number] 09/17/2012 Uriel [facility] 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 laparospocally [id number] 09/17/2012 [facility] [id number] [facility] Endoscopic excision of lesion of stomach [id number] [facility] Gastric bypass [id number] [facility] Hysterectomy [id number] [facility] Procedure on knee [id number] [facility] Cholecystectomy [id number] [facility], NAPOLEON Garcia,[facility] Endoscopic excision of lesion of stomach [id number] [facility], NAPOLEON Garcia,[facility] theast Gastric bypass [id number] Medical [facility], NAPOLEON Garcia,[facility] Hysterectomy [id number] [facility], NAPOLEON Garcia,[facility] Procedure on knee [id number] [facility], NAPOLEON Garcia,[facility] Assessment and Plan No Data Provided for This Section Plan of Care No Data Provided for This Section Social History Social History Date Source Social History TypeResponse Smoking Status Never smoker; Exposure to Tobacco Smoke None; Cigarette Smoking Last 365 Days No; Reg Smoking Cessation Counseling No entered on: 10/01/19 10/01/2019 [facility] Social History TypeResponse Smoking Status Never smoker; Exposure to Tobacco Smoke None; Cigarette Smoking Last 365 Days No; Reg Smoking Cessation Counseling No entered on: 09/22/18 09/23/2018 [facility] Social History TypeResponse 07/01/2014 [facility] Garcia Family History No Data Provided for This Section Advance Directives No Data Provided for This Section Functional Status No Data Provided for This Section
--- OUTSIDE RECORDS SUMMARY | 2020-02-12 19:16 | XMS REPORT | Continuity of Care Document ---
Author Author [facility] t Organization [facility] Address [address] [place] [address] Phone Unavailable Care Team Providers Care Mix House Operator Name Role Phone Noa PALACIOS PCP JOCLEYNE BLOOD Attphys Unavailable Gordo Nguyen Attphys Al DANIEL Attphys Unavailable BOLIVAR HOLDEN Attphys Unavailable DAHU, S JIRIES Attphys Unavailable Kendra Estrada Cat Attphys Guy LARA Attphys Unavailable Anu PORTILLO Attphys Unavailable Al HILLIARD Attphys Unavailable Kamron Palacios Attphys DAHU, S JIRIES Admphys Unavailable Payers Payer Name Policy Type Policy Number Effective Date Expiration Date Anu Aguilera Medicare Advantage [id number] 2018 00:00:00 [facility] Self Pay NA [facility] Problems Condition Name Condition Details Condition Category Status Onset Date Resolution Date Last Treatment Date Treating Clinician Comments Source fall Active 09/22/2018 [facility] Active 2018-09-22 00:00:00 2018-09-22 20:59:00 [facility] Cirrhosis Cirrhosis Problem Active 2014-12-29 00:00:00 [facility] Stomach neoplasm Gastric tumor Problem Active 2014-12-29 00:00:00 [facility] Atrial fibrillation with rapid ventricular response At [facility] fibrillation with rapid ventricular response Problem Active 2014-01-18 00:00:00 [facility] Gastrointestinal hemorrhage GI bleed Problem Active 2014-01-18 00:00:00 [facility] RECURRENT MARGINAL ULCER,[id number] RECURRENT MARGINAL ULCER,[id number] Active 08/22/2012 [facility] Diagnosis Active 2012-08-22 00:00:00 2012-09-17 13:57:00 [facility] DRHYDRATION DRHY DRATION Active 09/09/2011 [facility] Diagnosis Active 2011-09-09 00:00:00 2011-09-09 17:05:00 [facility] ACUTE DEHYDRATION/UTI/INTRACTABLE ABDOMINAL PAIN ACUTE DEHYDRATION/UTI/INTRACTABLE ABDOMINAL PAIN Active 09/09/2011 [facility] Diagnosis Active 2011-09-09 00:00:00 2011-09-12 11:02:00 [facility] STONE STON E Active 06/06/2011 [facility] Diagnosis Active 2011-06-06 00:00:00 2011-06-20 06:53:00 [facility] LEFT HIP SPRAIN LEFT HIP SPRAIN Active 03/20/2011 [facility] Diagnosis Active 2011-03-20 08:00:00 2012-05-16 21:05:00 [facility] Gastric bypass operation Izzy kirk bypass operation Active 01/12/2010 Problem 09/20/2012 [facility] Problem Ac tive 2010-01-12 00:00:00 2012-09-20 20:29:28 [facility] Esophagogastrostomy, antesternal or antethoracic (proc edure) Esophagogastrostomy, antesternal or antethoracic (procedure) Active 01/12/2010 [facility] 10/04/2019 [facility] Active 2010-01-12 00:00:00 2019-10-04 01:17:24 [facility] Anxiety Anxi ety Active 03/20/2009 Problem 09/20/2012 [facility] Problem Active 2009-03-20 00:00:00 2012-09-20 20:29:28 [facility] Nausea Naus ea Active 03/20/2009 Problem 09/20/2012 [facility] Problem Active 2009-03-20 00:00:00 2012-09-20 20:29:28 [facility] Anxiety (finding) Anxi ety (finding) Active 03/20/2009 Problem 10/04/2019 [facility] Active 2009-03-20 00:00:00 2019-10-04 01:17:24 [facility] Nausea (finding) Naus ea (finding) Active 03/20/2009 Problem 10/04/2019 [facility] Active 2009-03-20 00:00:00 2019-10-04 01:17:24 [facility] Dehydration Dehydration Problem Active [facility] Hypokalemia Hypokalemia Problem Active [facility] Urinary tract infection UTI (urinary tract infection) Problem Active [facility] Vomiting Vomiting Problem Active [facility] Colitis due to Clostridium difficile C. difficile colitis Problem Active [facility] Hypophosphatemia Hypophosphatemia Problem Active [facility] Pancreatitis Pancreatitis Problem Active [facility] Vomiting and diarrhea Vomiting and diarrhea Problem Active [facility] Abdominal pain Abdo walker pain Active Problem 09/20/2012 [facility] Problem Active 2012-09-20 20: 29:28 [facility] DM - Diabetes mellitus DM - Diabetes mellitus Active Problem 09/20/2012 [facility] Problem Active 2012-09-20 20:29:28 [facility] ulcer ulce r Active Problem 09/20/2012 [facility] Problem Active 2012-09-20 20:29:28 [facility] Abdominal pain (finding) Abdo walker pain (finding) Active Problem 10/04/2019 [facility] Active 2019-10-04 01:17:24 [facility] Diabetes mellitus (disorder) D iabetes mellitus (disorder) Active Problem 10/04/2019 [facility] Active 2019-10-04 01:17:24 Helder gena [place] DEHYDRATION DEHY DRATION Active [facility] Diagnosis Active 2011-09-12 11:02:00 Merline Parish Datatype(DG1.4)- Data type(DG1.4)- Active [facility] Diagnosis Active 2012-05-16 21:05:00 [facility] ADMINISTRTVE ENCOUNT NOS ADMI NISTRTVE ENCOUNT NOS Active [facility] Diagnosis Active 2012-09-17 13:57:00 [facility] Unspecified injury of head, initial encounter Unspecified injury of head, initial encounter 09/22/2018 09/24/2018 [facility] Problem 2018-09-22 17:00:00 2018-09-24 22:10:05 2018-09-24 22:10:05 [facility] Allergies, Adverse Reactions, Alerts Allergy Name Allergy Type Status Severity Reaction(s) Onset Date Inacti ve Date Treating Clinician Comments Source Sulfa (Sulfonamide Antibiotics) Allergy to Substance Active 2019-02-04 00:00:00 [facility] Propoxyphene Allergy to Substance Active 2019-02-04 00:00:0 0 [facility] DARVOCET Allergy to Substance Active 2018-09-14 00:00:00 [facility] sulfa drugs sulfa drugs Active [facility] codeine codeine Active [facility] aspirin aspirin Active [facility] Demerol HCl Demerol HCl Active [facility] NKFA NKFA Active [facility] Social History Smoking Status Start Date Stop Date Source Social History [facility] Medications Ordered Medication Name Filled Medication Name Start Date Stop Da te Current Medication? Ordering Clinician Indication Dosage Frequency Signature (SIG) Comments Components Source multivitamin 2019-10-01 19:44:00 Yes Daily, 0 Refill(s) [facility] Calcium Citrate 2019-10-01 19:44:00 Yes PO, BID, 0 Refill(s) [facility] Vitamin D3 2019-10-01 19:44:00 Yes Daily, 0 Refill(s) [facility] rOPINIRole 0.5 mg oral tablet 2019-10-01 19:41:00 Yes 0.5 mg = 1 tab, PO, TID, 0 Refill(s) [facility] nn Fioricet with Codeine 2019-10-01 19:41:00 Yes PO, Q4H, 0 Refill(s) [facility] Ondansetron 2018-09-23 01:49:00 No Notes: (Same as: Cherry) MEDICATION WASTE Product Size: 4 mg Product Wasted: ___ mg [facility] Morphine 2018-09-23 01:49:00 No Not es: (Same as:MORPhine Sulfate) [facility] Methocarbamol (Robaxin-750) 750 Mg Tablet, 750 Mg Oral Methocarbamol (Robaxin- 750) 750 Mg Tablet, 750 Mg Oral 2018-08-05 00:00:00 2018-09-14 00:00:00 No Ambmariluz Sepulvedar Do 750 Three Times A Day as needed for Muscle Spasms [facility] Ondansetron Hcl (Zofran*) 4 Mg Tablet Ondansetron Hcl (Zofra n*) 4 Mg Tablet 2018-07-03 00:00:00 Yes Soto Montiel 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 Reporter 4 Every 6 Hours as needed for Nausea [facility] Lortab 500 mg-7.5 mg/15 mL oral elixir 2012-09-18 17:34:10 Yes Garth P Uriel 15 ml, PO, Q4H, PRN, 200 mL, for pain, Substitution Allowed, Maintenance, ELIX [facility] ketorolac 30 mg/mL injectable solution 2012-09-18 17:00:00 No Isidroth P Uriel 30 mg, 1 mL, Route: IVP, Drug form: INJ, Q6H, Start date: 09/18/12 12:00:00, Duration: 4 day, Stop date: 09/22/12 6:00:00 [facility] acetaminophen-hydrocodone 2012-09-18 15:09:00 No Garth P Uriel 15 mL, Route: PO, Drug Form: SOLN, Q4H, PRN Pain, Start date: 09/18/12 10:09:00, Duration: 30 day, Stop date: 10/18/12 10:08:00 [facility] Tylenol 2012-09-18 15:09:00 No Isidroth P Uriel 650 mg, 20.3 mL, Route: PO, Drug form: LIQ, Q4H, PRN Pain Score 1-3, Start date: 09/18/12 10:09:00, Duration: 30 day, Stop date: 10/18/12 10:08:00 [facility] Lactated Ringers Injection IV 1,000 mL 2012-09-18 15:06:00 No Garth P Uriel 1,000 mL, Rate: 80 m l/hr, Infuse over: 12.5 hr, Route: IV, Dosing Weight 62.273 kg, Total Volume: 1,000, Start date: 09/18/12 10:06:00, Duration: 30 day, Stop date: 10/18/12 10:05:00 [facility] 2012-09-18 02:00:00 No Garth P Uriel 20 mg, 2 mL, Route: IVP, Drug form: INJ, Q12H, Start date: 09/17/12 21:00:00, Duration: 30 day, Stop date: 10/17/12 9:00:00 [facility] ketorolac 30 mg/mL injectable solution 2012-09-17 23:00:00 No Garth P Uriel 30 mg, 1 mL, Route: IV, Drug form: INJ, Q6H, Start date: 09/17/12 18:00:00, Duration: 4 day, Stop date: 09/21/12 12:00:00 [facility] Zofran 2012-09-17 19:18:00 No Garth P Uriel 4 mg, 2 mL, Route: IVP, Drug form: INJ, Q8H, PRN Nausea & Vomiting, Start date: 09/17/12 14:18:00, Duration: 30 day, Stop date: 10/17/12 14:17:00 [facility] Phenergan 2012-09-17 19:16:00 No Garth P Uriel 25 mg, 1 mL, Route: IM, Drug form: INJ, Q4H, PRN Nausea, Start date: 09/17/12 14:16:00, Duration: 30 day, Stop date: 10/17/12 14:15:00 Marino Yan Vasotec 2012-09-17 19:15:00 No Garth P Uriel 1.25 mg, 1 mL, Route: IV, Drug form: INJ, Q6H, PRN Elevated BP, Start date: 09/17/12 14:15:00, Duration: 30 day, Stop date: 10/17/12 14:14:00 [facility] [place] Lactated Ringers Injection IV 1,000 mL 2012-09-17 19:15:00 No Garth P Uriel 1,000 mL, Rate: 80 m l/hr, Infuse over: 12.5 hr, Route: IV, Dosing Weight 62.273 kg, Total Volume: 1,000, Start date: 09/17/12 14:15:00, Stop date: 10/17/12 14:14:00 [facility] naloxone 2012-09-17 18:28:00 No Garth P Uriel 0.2 mg, 0.5 mL, Route: IVP, Drug form: INJ, Q5Min, PRN Narcotic Reversal, Start date: 09/17/12 13:28:00, Duration: 30 day, Stop date: 10/17/12 13:27:00 [facility] Benadryl 2012-09-17 18:28:00 No Garth P Uriel 25 mg, 0.5 mL, Route: IV, Drug form: INJ, Q6H, PRN Itching, Start date: 09/17/12 13:28:00, Duration: 30 day, Stop date: 10/17/12 13:27:00 [facility] morphine Sulfate 30 mg 2012-09-17 17:40:00 No Ward Dong D radha IV, Start date: 09/17/12 12:40:00, Duration: 30, 30 ml, 62.273 [facility] midazolam 2012-09-17 16:05:00 No Delia Christiano Clement-Cormi er 2 mg, 2 mL, Route: IVP, Drug form: INJ, Q5Min, Dosing Weight 62.273, kg, PRN Anxiety, Start date: 09/17/12 11:05:00, Duration: 2 doses or times, Stop date: Limited # of times [facility] esmolol IV Push 2012-09-17 16:05:00 No Delia Christiano Clement -Joaquin 10 mg, 1 mL, Route: IVP, Drug form: INJ, Q5Min, Dosing Weight 62.273, kg, PRN Elevated BP, Start date: 09/17/12 11:05:00, Duration: 5 doses or times, Stop date: Limited # of times [facility] ephedrine 2012-09-17 16:05:00 No Delia C Clement-Cormi er 5 mg, 0.1 mL, Route: IVP, Drug form: INJ, Q5Min, Dosing Weight 62.273, kg, PRN Low Blood Pressure, Start date: 09/17/12 11:05:00, Duration: 30 day, Stop date: 10/17/12 11:04:00 [facility] naloxone 2012-09-17 16:05:00 No Delia Alvarado Clement-Cormie r 0.04 mg, 0.1 mL, Route: IVP, Drug form: INJ, Q2MIN, Dosing Weight 62.273, kg, PRN Narcotic Reversal, Start date: 09/17/12 11:05:00, Duration: 8 doses or times, Stop date: Limited # of times [facility] diphenhydrAMINE 2012-09-17 16:05:00 No Delia Wintersment -Joaquin 12.5 mg, 0.25 mL, Route: IVP, Drug form: INJ, PRN, Dosing Weight 62.273, kg, PRN Itching, Start date: 09/17/12 11:05:00, Duration: 30 day, Stop date: 10/17/12 11:04:00 [facility] ondansetron 2012-09-17 16:05:00 No Delia Alvarado Clement-Cor jose antonio 4 mg, 2 mL, Route: IVP, Drug form: INJ, ONCE, Dosing Weight 62.273, kg, PRN Nausea & Vomiting, Start date: 09/17/12 11:05:00 [facility] labetalol 2012-09-17 16:05:00 No Delia Alvarado Clement-Cormi er 5 mg, 1 mL, Route: IVP, Drug form: INJ, Q5Min, Dosing Weight 62.273, kg, PRN Elevated BP, Start date: 09/17/12 11:05:00, Duration: 5 doses or times, Stop date: Limited # of times [facility] hydrALAZINE 2012-09-17 16:05:00 No Delia lAvarado Clement-Cor jose antonio 5 mg, 0.25 mL, Route: IVP, Drug form: INJ, Q5Min, Dosing Weight 62.273, kg, PRN Elevated BP, Start date: 09/17/12 11:05:00, Duration: 4 doses or times, Stop date: Limited # of times [facility] hydromorphone 2012-09-17 16:05:00 No Delia Wintersment-C ormier 0.5 mg, 0.5 mL, Route: IVP, Drug form: INJ, Q15Min, Dosing Weight 62.273, kg, PRN Pain Score 4-6, Start date: 09/17/12 11:05:00, Duration: 5 doses or times, Stop date: Limited # of times [place] morphine Sulfate 2012-09-17 16:05:00 No Delia Wintersmen t-Joaquin 2 mg, 1 mL, Route: IVP, Drug form: INJ, Q5Min, Dosing Weight 62.273, kg, PRN Pain Score 7-10, Start date: 09/17/12 11:05:00, Duration: 8 doses or times, Stop date: Limited # of times [place] flumazenil 2012-09-17 16:05:00 No Delia Wintersment-Corm ier 0.2 mg, 2 mL, Route: IVP, Drug form: INJ, PRN, Dosing Weight 62.273, kg, PRN Benzodiazepine Reversal, Initial dose, Start date: 09/17/12 11:05:00, Duration: 30 day, Stop date: 10/17/12 11:04:00 [facility] Jem Lactated Ringers Injection IV 1,000 mL 2012-09-17 16:05:00 No Delia Alvarado Clement-Joaquin 1,000 mL, Rate: 50 ml/hr, Infuse over: 20 hr, Route: IV, Dosing Weight 62.273 kg, Total Volume: 1,000, Start date: 09/17/12 11:05:00, Duration: 30 day, Stop date: 10/17/12 11:04:00 [facility] Jem Lactated Ringers Injection IV 1,000 mL 2012-09-17 13:46:00 No Delia Alvarado Clement-Joaquin 1,000 mL, Rate: 25 ml/hr, Infuse over: 40 hr, Route: IV, Dosing Weight 62.273 kg, Total Volume: 1,000, Start date: 09/17/12 8:46:00, Duration: 30 day, Stop date: 10/17/12 8:45:00 [facility] Jem Protonix 40 mg oral enteric coated tablet 2012-09-10 21:38:28 Yes 40 mg, 1 tab, PO, Daily, 30 tab, Substitution Allowed, ECTAB [facility] Carafate 1 g oral tablet 2012-09-10 21:38:20 Yes 1 gm, 1 tab, PO, QID-Before Meals, 120 tab, Substitution Allowed [place] Aguayoann Nexium 40 mg oral delayed release capsule 2011-09-11 18:36 :53 Yes Collin Jose Angel Kkio 40 mg, 1 cap, PO, Daily, 30 cap, James bstitution Allowed, DRC [facility] Carafate 1 g/10 mL oral suspension 2011-09-11 18:36:23 Yes Collin Jose Angel Kiko 1 gm, 10 mL, PO, Bef ore Meals & Bedtime, 560 mL, Substitution Allowed, SUSP [place] Zofran ODT 4 mg oral tablet, disintegrating 2011-09-11 18: 35:25 Yes Collin Jose Angel Kiko 4 mg, 1 tab, PO, Q6H, PRN, 25 tab, Nausea and Vomiting, Substitution Allowed, Dissolve tab under tongueDissolve tab under tongue [place] Al hydroxide/Mg hydroxide/simethicone 2011-09-10 23:00:00 No Parmjit I Kafrouni 15 mL, Route: PO , Drug Form: SUSP, Q6H, Start date: 09/10/11 18:00:00, Duration: 30 day, Stop date: 10/10/11 12:00:00 [facility] Bu[facility] 2011-09-10 23:00:00 No Parmjit Sanchez Kafrouni 5 mL, Route: PO, Drug Form: ELIX, Q6H, Start date: 09/10/11 18:00:00, Duration: 30 day, Stop date: 10/10/11 12:00:00 [facility] 2011-09-10 16:31:27 Yes 1 tsp., PO, Q6H, Substitution Allowed, Maintenance, mix with 1 tbsp. of antacid, ELIXmix with 1 tbsp. of antacid [facility] Jem Carafate 1 g/10 mL oral suspension 2011-09-10 16:30:32 No Collin Jose Angel Kiko 1 gm, 10 ml, PO, Before Meals & Bedtime, 200 ml , Substitution Allowed [facility] Jem Tylenol 2011-09-10 15:39:00 No Collin Jose Angel Kiko 650 mg, 2 tab, Route: PO, Drug form: TAB, Q6H, PRN Pain, Start date: 09/10/11 10:39:00, Duration: 30 day, Stop date: 10/10/11 10:38:00 [facility] [place] [facility]325 oral tablet 2011-09-10 15:39:00 No Collin Enr ique Kiko 1 tab, Route: PO, Drug Form: TAB, Q6H, PRN Pain, Start date: 09/10/11 10:39:00, Duration: 30 day, Stop date: 10/10/11 10:38:00 [facility] Pepcid 2011-09-10 02:00:00 No Jerry Brennan Velasquez 20 mg, 2 mL, Route: IVP, Drug form: INJ, Q12H, Start date: 09/09/11 21:00:00, Duration: 30 day, Stop date: 10/09/11 9:00:00 [facility] Carafate 1 g/10 mL oral suspension 2011-09-10 02:00:00 No Parmjit Austinbouchrai 1 gm, 10 mL, Route: PO, Drug form: SUSP, QID, Start date: 09/09/11 21:00:00, Duration: 30 day, Stop date: 10/09/11 16:30:00 [facility] Protonix 2011-09-09 21:30:00 No Collin Jose Angel Kiko 40 mg, Route: IVP, Drug form: INJ, Before Dinner, Start date: 09/09/11 16:30:00, Duration: 30 day, Stop date: 10/08/11 16:30:00 [facility] NS + KCL 20mEq/L 1000ml (Premix) 1,000 mL 2011-09-09 19:54 :00 No Collin Jose Angel Kiko 1,000 mL, Rate: 125 ml/hr, Infuse over: 8 hr, Route: IV, Dosing Weight 55 kg, Total Volume: 1,000, Start date: 09/09/11 14:54:00, Duration: 30 day, Stop date: 10/09/11 14:53:00 [facility] morphine Sulfate 2011-09-09 18:18:00 No Collin Jose Angel Mo k 4 mg, 2 mL, Route: IVP, Drug form: INJ, Q4H, PRN Pain, Start date: 09/09/11 13:18:00, Duration: 30 day, Stop date: 10/09/11 13:17:00 [facility] Zoan 2011-09-09 18:18:00 No Collin Dowlingrirenetta Santak 4 mg, 2 mL, Route: IV, Drug form: INJ, Q6H, PRN Nausea, Start date: 09/09/11 13:18:00, Duration: 30 day, Stop date: 10/09/11 13:17:00 Gayathriori [facility] Lactated Ringers Injection IV 1,000 mL 2011-09-09 18:00:00 No Jerry Brennan Velasquez 1,000 mL, Rate: 125 ml/hr, Infuse over: 8 hr, Route: IV, Dosing Weight 55 kg, Total Volume: 1,000, Start date: 09/09/11 13:00:00, Duration: 30 day, Stop date: 10/09/11 12:59:00 [facility] Rocephin 2011-09-09 17:00:00 No Jerry Brennan Velasquez 1 gm, Route: IVPB, [id number], Start date: 09/09/11 12:00:00, Duration: 30 day, Stop date: 10/08/11 12:00:00 [facility] Lactated Ringers Injection IV 2011-09-09 16:54:00 No Do uglas S Velasquez IV, 1000 ml/hr, ONCE, Start date: 09/09/11 11:54:00, 1,000 ml [facility] hydromorphone 2011-06-20 19:10:00 No Dylan Saeed 0.5 mg, 0.5 mL, Route: IVP, Drug form: SOLN, Q5Min, PRN Pain Score 4-6, Start date: 06/20/11 14:10:00, Duration: 5 doses or times, Stop date: Limited # of times [facility] fentanyl 2011-06-20 19:10:00 No Dylan Saeed 25 microgram, 0.5 mL, Route: IVP, Drug form: INJ, Q5Min, PRN Pain Score 4-6, Start date: 06/20/11 14:10:00, Duration: 4 doses or times, Stop date: Limited # of times [facility] flumazenil 2011-06-20 19:10:00 No Dylan Saeed 0.2 mg, 2 mL, Route: IVP, Drug form: INJ, PRN, PRN Benzodiazepine Reversal, Initial dose, Start date: 06/20/11 14:10:00, Duration: 30 day, Stop date: 07/20/11 14:09:00 [facility] ondansetron 2011-06-20 19:10:00 No Dylan Saeed 4 mg, 2 mL, Route: IVP, Drug form: INJ, ONCE, PRN Nausea & Vomiting, Start date: 06/20/11 14:10:00 [facility] acetaminophen-hydrocodone 325 mg-5 mg oral tablet 19:10:00 No Dylan Saeed 2 tab, Route: PO , Drug Form: TAB, Q4H, PRN Pain Score 4-6, Start date: 06/20/11 14:10:00, Duration: 30 day, Stop date: 07/20/11 14:09:00 [facility] naloxone 2011-06-20 19:10:00 No Dylan Saeed 0.04 mg, 0.1 mL, Route: IVP, Drug form: INJ, Q2MIN, PRN Narcotic Reversal, Start date: 06/20/11 14:10:00, Duration: 8 doses or times, Stop date: Limited # of times [facility] lidocaine 1% 2011-06-20 15:00:00 No Prajapati Vu Grady 0.5 mL, Route: SUB- Q, ONCALL, Start date: 06/20/11 10:00:00, Duration: 1 doses or times [facility] Rocephin 2011-06-20 14:32:00 Yes Jerry Brennan Velasquez 1 gm, Route: IVPB, Drug form: PDR/INJ, ONCE, Start date: 06/20/11 9:32:00, Stop date: 06/20/11 9:32:00 [facility] gentamicin 2011-06-20 14:32:00 No Jerry Brennan Velasquez 120 mg, Route: IVPB, ONCE, Start date: 06/20/11 9:32:00, Stop date: 06/20/11 9:32:00 [facility] Lactated Ringers Injection IV 1,000 mL 2011-06-20 14:31:00 No Paulie Bradshawen 1,000 mL, Rate: 25 ml/hr, Infuse over: 40 hr, Route: IV, Dosing Weight 55.9 kg, Total Volume: 1,000, Start date: 06/20/11 9:31:00, Duration: 30 day, Stop date: 07/20/11 9:30:00 [place] asthma inhaler 2011-06-17 15:57:03 Yes asthma inhaler, Substitution Allowed [facility] Jem ampicillin 500 mg oral capsule 2011-06-17 15:56:52 Yes Substitution Allowed [facility] [place] 7.5/325 oral tablet 2011-06-17 15:56:23 Yes 1 tab, PO, Q4H, PRN, for pain, Substitution Allowed, Maintenance, TAB [facility] Nexium 40 mg oral delayed release capsule 2011-06-17 15:56:05 Yes 40 mg, 1 cap, PO, Daily, 90 cap, Substitution Allowed [facility] pneumococcal 23-valent vaccine 2010-01-12 23:02:05 No S YSTEM SYSTEM 0.5 ml, Route: IM, Drug Form: INJ, ONCALL, Start date: 01/12/10 18:02:05, Stop date: 02/11/10 17:57:05 [facility] Diazepam (Valium) 10 Mg Tablet Diazepam (Valium) 10 Mg Tablet Yes Bedtime [facility] Diazepam (Valium) 10 Mg Tablet Diazepam (Valium) 10 Mg Tablet Yes 10 Bedtime [facility] Estrogens, Conjugated (Premarin) 1.25 Mg Tablet Estrog ens, Conjugated (Premarin) 1.25 Mg Tablet Yes 1.25 Daily [facility] Fiorcet With Codeine Fiorcet With Codeine Yes 1 As Needed [facility] Iron Iron Yes 1 Daily [facility] Meclizine Hcl 12.5 Mg Tablet Meclizine Hcl 12.5 Mg Tablet Y es 25 Three Times A Day [facility] Vancomycin Hcl 500 Mg Vial Vancomycin Hcl 500 Mg Vial Yes 125 Every 6 Hours [facility] Darvocet W/Codiene , 1 Tab Oral Darvocet W/Codiene , 1 Tab Oral 2018-09-14 00:00:00 No 1 Every 6 Hours [facility] Depression Pill , Depression Pill , 2018-09-14 00:00:00 No [facility] Pantoprazole Sodium (Protonix) 40 Mg Tablet.dr, 40 Mg Oral Pantoprazole Sodium (Protonix) 40 Mg Tablet.dr, 40 Mg Oral 2018-09-14 00:00:00 No 40 Daily [facility] Ropinirole Hcl (Requip) 5 Mg Tablet, 1 Tab Oral Ropini role Hcl (Requip) 5 Mg Tablet, 1 Tab Oral 2018-09-14 00:00:00 No 1 Bedti me [facility] Butalbit/Acetamin/Caff/Codeine (Butalb-C pwg-Ozwkhxofpoe-Ykjqtx) 1 Each Capsule, 1 Each Oral Butalbit/Acetamin/Caff/Codeine (Butalb-C hzf-Sojckxtvejd-Yikhby) 1 Each Capsule, 1 Each Oral 2016-09-16 00:00:00 No 1 Every 6 Hours [facility] Carisoprodol (Soma) 350 Mg Tablet, 350 Mg Oral Carisop rodol (Soma) 350 Mg Tablet, 350 Mg Oral 2016-09-16 00:00:00 No 350 Four Times Daily [facility] Cetirizine Hcl (Zyrtec) 10 Mg Tablet, 10 Mg Oral Cetir izine Hcl (Zyrtec) 10 Mg Tablet, 10 Mg Oral 2016-09-16 00:00:00 No 10 Daily [facility] Metoclopramide Hcl (Reglan) 10 Mg Tablet, 10 Mg Oral M etoclopramide Hcl (Reglan) 10 Mg Tablet, 10 Mg Oral 2016-09-16 00:00:00 No 10 Daily as needed for Nausea [facility] Nitrofurantoin Monohyd/M-Cryst (Macrobid 100 Mg Capsule) 100 Mg Capsule, 100 Mg Oral Nitrofurantoin Monohyd/M-Cryst (Macrobid 100 Mg Capsule) 100 Mg Capsule, 100 Mg Oral 2016-09-16 00:00:00 No 100 Twice A Day [facility] Sucralfate (Carafate) 1 Gm/10 Ml Oral.susp, 2 Tsp Oral Sucralfate (Carafate) 1 Gm/10 Ml Oral.susp, 2 Tsp Oral 2016-09-16 00:00:00 No 2 Every 6 Hours as needed for Abdominal Pain [facility] Esomeprazole Magnesium (Nexium) 40 Mg Capsule., Esom eprazole Magnesium (Nexium) 40 Mg Capsule., 2014-12-29 00:00:00 No [facility] Carisoprodol (Soma) 350 Mg Tablet, 350 Mg Oral Carisop rodol (Soma) 350 Mg Tablet, 350 Mg Oral 2014-01-18 00:00:00 No 350 Lina y [facility] Hydrocodone Bit/Acetaminophen ([place] 10-325 Tablet) 1 Each Tablet, Oral Hydrocodone Bit/Acetaminophen ([place] 10-325 Tablet) 1 Each Tablet, Oral 2014-01-18 00:00:00 No Every 6 Hours [facility] , 0.1037 Mg Oral , 0.1037 Mg Oral 00:00:00 No .1037 Every 4 Hours [facility] Hydrocodone Bit/Acetaminophen (Hydrocodo ne-Apap 7.5-500 Tab) 1 Each Tablet, 17.5 - 500 Mg Oral Hydrocodone Bit/Acetaminophen (Hydrocodo ne-Apap 7.5-500 Tab) 1 Each Tablet, 17.5 - 500 Mg Oral 2013-06-28 00:00:00 No Prn 4-6 Hr [facility] Lidocaine , Lidocaine , 2013-06-28 00:00:00 No E very 4 Hours [facility] Pantoprazole Sodium (Protonix) 40 Mg Tablet., 40 Mg Oral Pantoprazole Sodium (Protonix) 40 Mg Tablet., 40 Mg Oral 2013-06-28 00:00:00 No 40 Daily [facility] Promethazine Hcl (Phenergan) 25 Mg Tablet, 25 Mg Oral Promethazine Hcl (Phenergan) 25 Mg Tablet, 25 Mg Oral 2013-06-28 00:00:00 No 25 Four Times Daily [facility] Sucralfate 1 Gm Tablet, 1 G Oral Sucralfate 1 Gm Tablet, 1 G Ora l 2013-06-28 00:00:00 No 1 Before Meal Tid; Hs [facility] Esomeprazole Mag Trihydrate (Nexium) 40 Mg Suspdr.pkt, 40 Mg Oral Esomeprazole Mag Trihydrate (Nexium) 40 Mg Suspdr.pkt, 40 Mg Oral 2012-08-02 00: 00:00 No 40 Daily [facility] Omeprazole Magnesium (Prilosec) 10 Mg Suspdr.pkt, 10 M g Oral Omeprazole Magnesium (Prilosec) 10 Mg Suspdr.pkt, 10 Mg Oral 2010-08-05 00:00:00 No 10 [facility] Vital Signs Vital Name Observation Time Observation Value Comments Source Height 2019-10-01 19:31:00 157.48 cm [facility] Weight 2019-10-01 19:31:00 [facility] BMI Calculated 2019-10-01 19:31:00 [facility] Systolic (mm Hg) 2018-09-23 03:16:00 [facility] Diastolic (mm Hg) 2018-09-23 03:16:00 [facility] Heart Rate 2018-09-23 03:16:00 [facility] [place] Systolic (mm Hg) 2018-09-23 01:58:00 [facility] [place] Diastolic (mm Hg) 2018-09-23 01:58:00 [facility] [place] Heart Rate 2018-09-23 01:58:00 [facility] Systolic (mm Hg) 2018-09-23 00:22:00 [facility] Diastolic (mm Hg) 2018-09-23 00:22:00 [facility] Respitory Rate 2018-09-23 00:22:00 [facility] Heart Rate 2018-09-23 00:22:00 [facility] Weight 2018-09-22 23:45:00 [facility] BMI Calculated 2018-09-22 23:45:00 [facility] [place] Respitory Rate 2018-09-22 23:45:00 [facility] Height 2018-09-22 23:45:00 157.48 cm [facility] Temperature Oral (F) 2018-09-22 23:45:00 98.3 F [facility] [place] Temperature Oral (F) 2012-09-18 16:50:00 98.8 F [facility] Diastolic (mm Hg) 2012-09-18 16:50:00 [facility] [place] Systolic (mm Hg) 2012-09-18 16:50:00 [facility] [place] Respitory Rate 2012-09-18 16:50:00 [facility] Heart Rate 2012-09-18 16:50:00 [facility] [place] Heart Rate 2012-09-18 12:59:00 [facility] Temperature Oral (F) 2012-09-18 12:59:00 98.9 F [facility] Respitory Rate 2012-09-18 12:59:00 [facility] Systolic (mm Hg) 2012-09-18 12:59:00 [facility] [place] Diastolic (mm Hg) 2012-09-18 12:59:00 [facility] Systolic (mm Hg) 2012-09-18 11:30:00 [facility] [place] Diastolic (mm Hg) 2012-09-18 11:30:00 [facility] [place] Respitory Rate 2012-09-18 05:00:00 [facility] Heart Rate 2012-09-18 05:00:00 [facility] Temperature Oral (F) 2012-09-18 05:00:00 98.5 F [facility] Height 2012-09-10 21:35:00 157.48 cm [facility] Weight 2012-09-10 21:35:00 [facility] Temperature Oral (F) 2011-09-11 21:00:00 98.4 F [facility] Heart Rate 2011-09-11 21:00:00 [facility] [place] Diastolic (mm Hg) 2011-09-11 21:00:00 [facility] Systolic (mm Hg) 2011-09-11 21:00:00 [facility] Respitory Rate 2011-09-11 21:00:00 [facility] Temperature Oral (F) 2011-09-11 17:00:00 98.1 F [facility] Heart Rate 2011-09-11 17:00:00 [facility] [place] Respitory Rate 2011-09-11 17:00:00 [facility] [place] Diastolic (mm Hg) 2011-09-11 17:00:00 [facility] Systolic (mm Hg) 2011-09-11 17:00:00 [facility] [place] Temperature Oral (F) 2011-09-11 13:00:00 98.3 F [facility] Diastolic (mm Hg) 2011-09-11 13:00:00 [facility] [place] Systolic (mm Hg) 2011-09-11 13:00:00 [facility] Heart Rate 2011-09-11 13:00:00 [facility] Respitory Rate 2011-09-11 13:00:00 [facility] [place] Height 2011-09-09 16:55:00 157.48 cm [facility] Weight 2011-09-09 16:55:00 [facility] Weight 2011-09-09 16:49:00 [facility] [place] Height 2011-09-09 16:49:00 157.48 cm [facility] [place] Diastolic (mm Hg) 2011-06-20 19:30:00 [facility] [place] Systolic (mm Hg) 2011-06-20 19:30:00 [facility] [place] Diastolic (mm Hg) 2011-06-20 18:45:00 [facility] Systolic (mm Hg) 2011-06-20 18:45:00 [facility] [place] Respitory Rate 2011-06-20 18:45:00 [facility] Respitory Rate 2011-06-20 18:30:00 [facility] [place] Heart Rate 2011-06-20 14:35:00 [facility] Temperature Oral (F) 2011-06-17 15:41:00 98.1 F [facility] Heart Rate 2011-06-17 15:41:00 [facility] [place] Weight 2011-06-17 15:21:00 [facility] Height 2011-06-17 15:21:00 157.48 cm [facility] Procedures Procedure Date / Time Performed Performing Clinician [facility] Computed tomography of abdomen and pelvis with contrast 2018 00:00:00 GERI ORR [facility] EGD BIOPSY SINGLE/MULTIPLE 2018-09-17 00:00:00 JOCELYNE BLOOD [facility] DILATE ESOPHAGUS 1/MULT PASS 2018-09-17 00:00:00 JOCELYNE BLOOD [facility] Computed tomography of brain without radiopaque contrast 201 11-23-12 00:00:00 RONI LARA [facility] Computed tomography of cervical spine without contrast 08-30 00:00:00 RONI LARA [facility] Computed tomography of lumbar spine without contrast 2018-08 00:00:00 RONI LARA [facility] Computed tomography of brain without radiopaque contrast 201 11-22-18 00:00:00 YODIT DEL TORO [facility] Computed tomography of brain without radiopaque contrast 201 11-22-15 00:00:00 SOTO MONTIEL [facility] Revision of the gstrojejonostomy with anastomosis [facility] 2012-09-17 05:00:00 Ward Trevino [facility] Revision of the gstrojejonostomy with anastomosis [facility] 2012-09-17 05:00:00 [facility] [place] Cholecyst[facility] [place] Endoscopic excision of lesion of stomach [facility] Gastric bypass [facility] [place] Hysterectomy [facility] [place] Procedure on knee [facility] Cholecyst[facility] Endoscopic excision of lesion of stomach [facility] [place] Gastric bypass [facility] [place] Hyste[facility] [place] Procedure on knee [facility] Encounters Start Date/Time End Date/Time Encounter Type Admission Type [facility] Care Department Encounter ID Source 2019-10-01 15:00:00 2019-10-01 23:59:59 Outpatient Gordo Nguyen [facility] [id number] 2019-02-04 17:56:00 2019-02-04 22:50:00 Departed Emergency Room 1 KENDRA DANIEL [facility] [id number] [facility] 2018-11-28 16:10:00 2018-11-28 19:21:00 Departed Emergency Room 1 BOLIVAR HOLDEN [facility] [id number] [facility] 2018-10-23 12:33:00 2018-10-24 13:20:00 Discharged Inpatient [facility] [id number] [facility] 2018-10-16 10:59:00 2018-10-20 18:40:00 Discharged Inpatient 1 ANDREA ANGULO [facility] [id number] [facility] 2018-09-22 18:44:41 2018-09-22 22:38:00 Outpatient Prema Bueno V inh [facility] [id number] 2018-09-22 18:44:00 2018-09-22 18:44:00 Emergency E [id number] 2018-09-17 11:48:00 2018-09-17 11:48:00 Registered Surgical Day Care [facility] [id number] [facility] 2018-09-05 14:12:00 2018-09-05 17:30:00 Departed Emergency Room [facility] [id number] [facility] 2018-08-30 20:35:00 2018-08-31 00:07:00 Departed Emergency Room 1 RONI LARA [facility] [id number] [facility] 2018-08-05 15:26:00 2018-08-05 18:30:00 Departed Emergency Room 1 YODIT PORTILLO [facility] [id number] [facility] 2018-07-03 13:01:00 2018-07-03 17:20:00 Departed Emergency Room 1 BARBI HILLIARD [facility] [id number] [facility] 2018-06-07 20:14:00 2018-06-08 00:41:00 Departed Emergency Room [facility] [id number] [facility] 2014-06-30 14:35:00 2014-06-30 23:59:00 Outpatient Prisca Palacios [id number] Results Test Description Test Time Test Comments Results Result Comments Source CT ABDOMEN/PELVIS W 2019-10-28 10:18:00 [place] [id number] Patient Name: CHIKA HEATON MR #: [id number] : 1960 Age/Sex: 59/F Req #: [id number] [facility] Physician: Ordered by: JOCELYNE BLOOD MD Report #: [id number] Location: CT Room/Bed: Procedure: [id number] CT/CT ABDOMEN/PELVIS W Exam Date: 10/28/19 Exam Time: 1115 REPORT STATUS: Signed EXAM: CT Abdomen and Pelvis WITH intravenous contrast INDICATION: Abdominal pain COMPARISON: CT abdomen and pelvis of 10/16/2018 TECHNIQUE: Abdomen and pelvis were scanned utilizing a multidetector helical scanner from the lung base to the pubic sym physis after administration of IV contrast. Coronal and sagittal reformations were obtained. Routine protocol was performed. Scan was performed during portal venous phase. IV CONTRAST: 100mL of Isovue 370 ORAL CONTRAST: Water RADIATION DOSE: Total DLP: 449 mGy*cm Dose modulation, iterative reconstruction, and/or weight based adjustment of the mA/kV was utilized to reduce the radiation dose to as low as reasonably achievable. FINDINGS: LOWER THORAX: Normal. HEPATOBILIARY: Mild diffuse hepatic steatosis. No focal liver lesion. Mildly nodular liver surface contour compatible with early cirrhosis. Status post cholecystectomy. SPLEEN: No splenomegaly. PANCREAS: No focal masses or ductal dilatation. ADRENALS: No adrenal nodules. KIDNEYS/URETERS: 2 mm nonobstructive left upper pole renal calculus. No hydronephrosis or solid mass lesion. PELVIC ORGANS/BLADDER: Unremarkable. PERITONEUM / RETROPERITONEUM: No free air or fluid. LYMPH NODES: No lymphadenopathy. VESSELS: Mild scattered atherosclerotic calcifications. GI TRACT: Postoperative findings of gastric bypass. No abnormal bowel thickening. No bowel obstruction. BONES AND SOFT TISSUES: No acute osseous injury. L5 vertebral body hemangioma. L3 vertebral body lucent lesion is less specific but also likely represents a hemangioma. IMPRESSION: Diffuse hepatic steatosis and mildly nodular liver surface contour compatible with early cirrhosis. 2 mm nonobstructive left upper pole renal calculus. Signed by: Guzman Long MD on 10/28/2019 10:27 AM Dictated By: GUZMAN LONG MD 102 Transcribed By: AILYN on 10/28/19 1027 COPY TO: JOCELYNE BLOOD MD ABDOMEN-1VIEW (KUB) 2019-02-04 21:58:00 [place] [address] Patient Name: CHIKA HEATON MR #: [id number] : 1960 Age/Sex: 58/F Req #: [id number] Adm Physician: Ordered by: LEE MARCUM MD Report #: [id number] Location: ER Room/Bed: Procedure: [id number] DX/ABDOMEN-1VIEW (KU) Exam Date: 02/04/19 Exam Time: 2032 REPORT STATUS: Signed EXAM: Abdomen Radiograph 1 View INDICATION: Epigastric pain COMPARISON: None FINDINGS: No abnormalities in the lower chest. No lines or tubes. Normal volume of stool in the colon. No dilated loops of small bowel. Pelvic phleboliths. No abnormal soft tissue masses. No pneumoperitoneum. No acute osseous abnormality. Mild degenerative changes in the lumbar spine and pelvis. Surgical clips project in the upper mid abdomen and right upper quadrant. There appears to be sutures in the upper mid abdomen. IMPRESSION: No acute abdominal radiographic abnormality. There is probably suture material in the area of the stomach, correlate with surgical history. Signed by: Alfonso Guevara DO on 02/04/2019 10:00 PM Dictated By: ALFONSO GUEVARA DO 99 Transcribed By: AILYN on 02/04/192199 COPY TO: LEE MARCUM MD Urine WBC 2019-02-04 20:49:00 Test Item Urine WBC (test code = 5821-4) 6-10 0-5 H [facility] [id number] 20:49:00* Test Item Value Reference Range Interpretation Comments Urine RBC (test code = 58667-6) NONE 0-5 [facility] Ixgktifw0435-91-13 20:49:00* Test Item Value Reference Range Interpretation Comments Urine Bacteria (test code = 26008-1) MODERATE NONE H [facility] Center[facility] Epithelial Ouoec0968-63-83 20:49:00 * Test Item Value Reference Range Interpretation Comments Urine Epithelial Cells (test code = 59089-4) FEW NONE [facility] Hyaline Zovws9005-35-30 20:49:00* Test Item Value Reference Range Interpretation Comments Urine Hyaline Casts (test code = 67980-9) 0-1 0-1 [facility] Gbccn5262-69-28 20:37:00* Test Item Value Reference Range Interpretation Comments Urine Color (test code = 5778-6) YELLOW YELLOW [facility] CenterU[facility] Icpiqhj5156-63-10 20:37:00* Test Item Value Reference Range Interpretation Comments Urine Clarity (test code = 77673-2) SL CLOUDY CLEAR [facility] CenterU[facility] Specific Xscbxog8088-85-90 20:37:00 * Test Item Value Reference Range Interpretation Comments Urine Specific [place] (test code = 5811-5) 1.015 1.010-1.02 5 [facility] Center[facility] [id number] 20:37:00* Test Item Value Reference Range Interpretation Comments Urine pH (test code = 16770-1) 7 5-7 [facility] Leukocyte Hozprogs5893-65-62 20:37:00* Test Item Value Reference Range Interpretation Comments Urine Leukocyte Esterase (test code = 06941-1) SMALL NEGATIV E [facility] CenterU[facility] Cwpqbne4139-56-24 20:37:00* Test Item Value Reference Range Interpretation Comments Urine Nitrite (test code = 52240-0) NEGATIVE NEGATIVE [facility] Center[facility] Ztwmbda2781-30-69 20:37:00* Test Item Value Reference Range Interpretation Comments Urine Protein (test code = 67116-2) NEGATIVE NEGATIVE [facility] Center[facility] Glucose (UA)2019-02-04 20:37:00* Test Item Value Reference Range Interpretation Comments Urine Glucose (UA) (test code = 88278-4) NEGATIVE NEGATIVE [facility] Center[facility] Lhxozpc9086-32-32 20:37:00* Test Item Value Reference Range Interpretation Comments Urine Ketones (test code = 46717-9) 1+ NEGATIVE H [facility] Rpznempljtlc9800-22-04 20:37:00* Test Item Value Reference Range Interpretation Comments Urine Urobilinogen (test code = 40898-8) 0.2 0.2-1 [facility] CenterU[facility] Heaxiairj1672-74-40 20:37:00* Test Item Value Reference Range Interpretation Comments Urine Bilirubin (test code = 1977-8) NEGATIVE NEGATIVE [facility] Fpggo6387-21-95 20:37:00* Test Item Value Reference Range Interpretation Comments Urine Blood (test code = 49291-3) NEGATIVE NEGATIVE [facility] CenterTroponin [id number] 20:37:00* Test Item Value Reference Range Interpretation Comments Troponin I (test code = VBM8476) < 0.001 0-0.300 [facility] CenterLipase2019-11-18 20:37:00* Test Item Value Reference Range Interpretation Comments Lipase (test code = 3040-3) 23 8-78 [facility] Zlhpw4888-47-39 20:30:00* Test Item Value Reference Range Interpretation Comments Sodium Level (test code = 2951-2) 134 136-145 L [facility] CenterPotassium Figpf8231-75-67 20:30:00* Test Item Value Reference Range Interpretation Comments Potassium Level (test code = 2823-3) 3.7 3.5-5.1 [facility] CenterChloride Wxemg4607-45-55 20:30:00* Test Item Value Reference Range Interpretation Comments Chloride Level (test code = 2075-0) 100 98-107 [facility] CenterCarbon Dioxide Dgzbe8635-27-62 20:30:00* Test Item Value Reference Range Interpretation Comments Carbon Dioxide Level (test code = 2028-9) 23 22-29 [facility] CenterAnion Fus2897-29-55 20:30:00* Test Item Value Reference Range Interpretation Comments Anion Gap (test code = 79136-3) 14.7 8-16 [facility] CenterBlood Urea Uplmjjmp3540-13-80 20:30:00* Test Item Value Reference Range Interpretation Comments Blood Urea Nitrogen (test code = 3094-0) 9 7-26 [facility] CenterCreatinine2019-11-18 20:30:00* Test Item Value Reference Range Interpretation Comments Creatinine (test code = 2160-0) 0.68 0.57-1.11 [facility] CenterBUN/Creatinine Wtjgo1386-75-82 20:30:00* Test Item Value Reference Range Interpretation Comments BUN/Creatinine Ratio (test code = 3097-3) 13 6-25 [facility] CenterEstimat Glomerular Filtration Rate 2019-02-04 20:30:00* Test Item Value Reference Range Interpretation Comments Estimat Glomerular Filtration Rate (test code = 348842224) > 60 >60 Ranges were taken from the National Kidney Disease Education Program and the [facility], 1928[facility]1983 Kidney Foundation literature.Reference ranges:60 or greater: Dbqges44-17 ( for 3 consecutive months): Chronic kidney disease 15 or less: Kidney failureThe [facility] CenterGlucose Lgqli9488-06-79 20:30:00* Test Item Value Reference Range Interpretation Comments Glucose Level (test code = HDD9373) 100 74-118 [facility] CenterCalcium Glsnr0220-91-00 20:30:00* Test Item Value Reference Range Interpretation Comments Calcium Level (test code = 36759-2) 9.2 8.4-10.2 [facility] CenterTotal Pztgtrkne3082-05-95 20:30:00* Test Item Value Reference Range Interpretation Comments Total Bilirubin (test code = 1975-2) 0.4 0.2-1.2 [facility] CenterAspartate Amino Transf (AST/SGOT) 2019-02-04 20:30:00* Test Item Value Reference Range Interpretation Comments Aspartate Amino Transf (AST/SGOT) (test code = Aspartate Amino Transf (AST/SGOT)) 15 5-34 [facility] CenterAlanine Aminotransferase (ALT/SGPT) 2019-02-04 20:30:00* Test Item Value Reference Range Interpretation Comments Alanine Aminotransferase (ALT/SGPT) (test code = 1742-6) 17 0-55 [facility] CenterTotal Vyiheof9943-31-64 20:30:00* Test Item Value Reference Range Interpretation Comments Total Protein (test code = 2885-2) 6.9 6.5-8.1 [facility] CenterAlbumin2019-11-18 20:30:00* Test Item Value Reference Range Interpretation Comments Albumin (test code = 1751-7) 3.4 3.5-5.0 L [facility] CenterGlobulin2019-11-18 20:30:00* Test Item Value Reference Range Interpretation Comments Globulin (test code = 13778-9) 3.5 2.3-3.5 [facility] CenterAlbumin/Globulin Fymoh8765-52-83 20:30:00 * Test Item Value Reference Range Interpretation Comments Albumin/Globulin Ratio (test code = 1759-0) 1.0 0.8-2.0 [facility] CenterAlkaline Qbympmtildc5446-84-72 20:30:00* Test Item Value Reference Range Interpretation Comments Alkaline Phosphatase (test code = 6768-6) 146 40-150 [facility] CenterAmylase Ozdlk8544-64-54 20:21:00* Test Item Value Reference Range Interpretation Comments Amylase Level (test code = 1798-8) 58 25-125 [facility] CenterWhite Blood Wygnu1365-81-89 20:11:00* Test Item Value Reference Range Interpretation Comments White Blood Count (test code = 6690-2) 6.95 4.8-10.8 [facility] CenterRed Blood Yqjcs6182-19-21 20:11:00* Test Item Value Reference Range Interpretation Comments Red Blood Count (test code = 789-8) 3.85 3.6-5.1 [facility] CenterHemoglobin2019-11-18 20:11:00* Test Item Value Reference Range Interpretation Comments Hemoglobin (test code = 90870-9) 12.1 12.0-16.0 [facility] CenterHematocrit2019-11-18 20:11:00* Test Item Value Reference Range Interpretation Comments Hematocrit (test code = 4544-3) 35.3 34.2-44.1 [facility] CenterMean Corpuscular Qbbatm4090-00-10 20:11:00* Test Item Value Reference Range Interpretation Comments Mean Corpuscular Volume (test code = 787-2) 91.7 81-99 [facility] CenterMean Corpuscular Fabvlghzef1048-52-75 20:11:00* Test Item Value Reference Range Interpretation Comments Mean Corpuscular Hemoglobin (test code = 785-6) 31.4 28-32 [facility] Hospitalan Corpuscular Hemoglobin Concent 2019-02-04 20:11:00* Test Item Value Reference Range Interpretation Comments Mean Corpuscular Hemoglobin Concent (test code = 786-4) 34.3 31-35 [facility] CenterRed Cell Distribution Fbzow2499-78-60 20:11:00* Test Item Value Reference Range Interpretation Comments Red Cell Distribution Width (test code = 32306-7) 12.3 11.7 -14.4 [facility] CenterPlatelet Uyxsl9527-06-16 20:11:00* Test Item Value Reference Range Interpretation Comments Platelet Count (test code = 777-3) 201 140-360 [facility] CenterNeutrophils (%) (Auto)2019-02-04 20:11:00 * Test Item Value Reference Range Interpretation Comments Neutrophils (%) (Auto) (test code = 54505-9) 59.7 38.7-80.0 [facility] CenterLymphocytes (%) (Auto)2019-02-04 20:11:00 * Test Item Value Reference Range Interpretation Comments Lymphocytes (%) (Auto) (test code = 736-9) 28.1 18.0-39.1 [facility] CenterMonocytes (%) (Auto)2019-02-04 20:11:00* Test Item Value Reference Range Interpretation Comments Monocytes (%) (Auto) (test code = 5905-5) 8.5 4.4-11.3 [facility] CenterEosinophils (%) (Auto)2019-02-04 20:11:00 * Test Item Value Reference Range Interpretation Comments Eosinophils (%) (Auto) (test code = 713-8) 2.4 0.0-6.0 [facility] CenterBasophils (%) (Auto)2019-02-04 20:11:00* Test Item Value Reference Range Interpretation Comments Basophils (%) (Auto) (test code = 706-2) 0.4 0.0-1.0 [facility] CenterIM GRANULOCYTES %2019-02-04 20:11:00* Test Item Value Reference Range Interpretation Comments IM GRANULOCYTES % (test code = IM GRANULOCYTES %) 0.9 0.0- 1.0 [facility] CenterNeutrophils # (Auto)2019-02-04 20:11:00* Test Item Value Reference Range Interpretation Comments Neutrophils # (Auto) (test code = 751-8) 4.2 2.1-6.9 [facility] CenterLymphocytes # (Auto)2019-02-04 20:11:00* Test Item Value Reference Range Interpretation Comments Lymphocytes # (Auto) (test code = 30968-0) 2.0 1.0-3.2 [facility] CenterMonocytes # (Auto)2019-02-04 20:11:00* Test Item Value Reference Range Interpretation Comments Monocytes # (Auto) (test code = 742-7) 0.6 0.2-0.8 [facility] CenterEosinophils # (Auto)2019-02-04 20:11:00* Test Item Value Reference Range Interpretation Comments Eosinophils # (Auto) (test code = 711-2) 0.2 0.0-0.4 [facility] CenterBasophils # (Auto)2019-02-04 20:11:00* Test Item Value Reference Range Interpretation Comments Basophils # (Auto) (test code = 704-7) 0.0 0.0-0.1 [facility] CenterAbsolute Immature Granulocyte (auto 2019-02-04 20:11:00* Test Item Value Reference Range Interpretation Comments Absolute Immature Granulocyte (auto (jose t code = Absolute Immature Granulocyte (auto) 0.06 0-0.1 [facility] CenterRIBS UNILAT W/EOE1269-75-10 17:44:00 [place] [address] Patient Name: CHIKA HEATON MR #: [id number] : 1960 Age/Sex: 58/F Req #: [id number] Adm Physician: Ordered by: BOLIVAR HOLDEN MD Report #: [id number] Location: ER Room/Bed: Procedure: [id number] DX /RIBS UNILAT W/CXR Exam Date: 11/28/18 Exam Time: REPORT STATUS: Signed EXAMINA TION: RIBS UNILAT W/CXR INDICATION: Trauma COMPARISON: None FINDINGS: LINES/TUBES:None LUNGS:The lungs are well-inflated. No focal consolidation or pulmonary edema. PLEURA:No pleural effusion or pneum othorax. MEDIASTINUM:The cardiomediastinal silhouette appears normal in siz e and shape. BONES/SOFT TISSUES:No displaced rib fractures. ABDOMEN:No free air under the diaphragm. Status post cholecystectomy. IMPRESSION: No displaced rib fractures. No acute cardiopulmonary process. Signed by: Guzman Long MD on 11/28/2018 5:46 PM Dictated By: GUZMAN LONG MD Elec tronically Signed By: GUZMAN LONG MD on 11/28/181745 Transcribed By: AILYN on 11/28/181745 COPY TO: BOLIVAR HOLDEN MD ELBOW RIGHT COMPLETE 2018-11-28 17:43:00 [place] [address] Patient Name: CHIKA HEATON MR #: [id number] : 1960 Age/Sex: 58/F Req #: [id number] Adm Physician: Ordered by: BOLIVAR HOLDEN MD Report #: [id number] Location: ER Room/Bed: Procedure: [id number] DX /ELBOW RIGHT COMPLETE Exam Date: 11/28/18 Exam Time: 1720 REPORT STATUS: Signed EXAM INATION: ELBOW RIGHT COMPLETE INDICATION: Trauma COMPARISON: None FINDINGS: 3 views of the right elbow demonstrate no acute fractu re or dislocation. No substantial joint effusion. Alignment is anatomic. The s oft tissues appear unremarkable. IMPRESSION: No acute osseous injury. Signed by: Guzman Long MD on 11/28/2018 5:44 PM Dictated By: GUZMAN LONG MD 43 Transcribed By: AILYN on 11/28/181743 COPY TO: BOLIVAR HOLDEN MD HUMERUS RIGHT 2+FHUEW7595-64-71 17:42:00 [facility] [address] [place] [address] Patient Name: CHIKA HEATON MR #: [id number] : 1960 Age/Sex: 58/F Req #: [id number] Adm Physician: Ordered by: BOLIVAR HOLDEN MD Report #: [id number] Location: ER Room/Bed: Procedure: [id number] DX /HUMERUS RIGHT 2+VIEWS Exam Date: 11/28/18 Exam Time : 1720 REPORT STATUS: Signed EXA MINATION: HUMERUS RIGHT 2+VIEWS INDICATION: Trauma COMPARISON: No ne FINDINGS: AP and lateral views of the right humerus demonstrat e no acute fracture or dislocation. Alignment is anatomic. No substantial dege nerative changes. The partially visualized right lung is clear. IMPRESSIO N: No acute osseous injury. Signed by: Guzman Long MD on 11/28/2018 5:43 PM Dictated By: GUZMAN LONG MD 42 Transcribed By: AILYN on 11/28/181742 COPY TO: BOLIVAR LEE MD Sodium Gjpjy8349-74-13 06:07:00* Test Item Value Reference Range Interpretation Comments Sodium Level (test code = 2951-2) 141 136-145 [facility] CenterPotassium Inixm7043-40-63 06:07:00* Test Item Value Reference Range Interpretation Comments Potassium Level (test code = 2823-3) 3.6 3.5-5.1 [facility] CenterChloride Ihssb6039-15-05 06:07:00* Test Item Value Reference Range Interpretation Comments Chloride Level (test code = 2075-0) 106 98-107 [facility] CenterCarbon Dioxide Qmetd7931-76-44 06:07:00* Test Item Value Reference Range Interpretation Comments Carbon Dioxide Level (test code = 2028-9) 25 22-29 [facility] CenterAnion Ggh6729-90-34 06:07:00* Test Item Value Reference Range Interpretation Comments Anion Gap (test code = 84396-6) 13.6 8-16 [facility] CenterBlood Urea Rvrqlovo8452-12-76 06:07:00* Test Item Value Reference Range Interpretation Comments Blood Urea Nitrogen (test code = 3094-0) < 5 7-26 L [facility] CenterCreatinine2019-08-07 06:07:00* Test Item Value Reference Range Interpretation Comments Creatinine (test code = 2160-0) 0.84 0.57-1.11 [facility] CenterBUN/Creatinine Qpzpi0167-57-69 06:07:00* Test Item Value Reference Range Interpretation Comments BUN/Creatinine Ratio (test code = 3097-3) 6 6-25 [facility] CenterEstimat Glomerular Filtration Rate 2018-10-24 06:07:00* Test Item Value Reference Range Interpretation Comments Estimat Glomerular Filtration Rate (test code = 469670179) > 60 >60 Ranges were taken from the National Kidney Disease Education Program and the [facility] system[facility] Kidney Foundation literature.Reference ranges:60 or greater: Ocwdma43-51 ( for 3 consecutive months): Chronic kidney disease 15 or less: Kidney failureThe [facility] of [facility]. Anderson Cancer CenterGlucose Bilxb8594-16-51 06:07:00* Test Item Value Reference Range Interpretation Comments Glucose Level (test code = MOU1125) 122 74-118 H [facility] CenterCalcium Mohzs1849-33-83 06:07:00* Test Item Value Reference Range Interpretation Comments Calcium Level (test code = 35162-1) 8.2 8.4-10.2 L [facility] Bsdjk8223-33-96 06:07:00* Test Item Value Reference Range Interpretation Comments Sodium Level (test code = 2951-2) 141 136-145 [facility] CenterPotassium Agliy0148-55-42 06:07:00* Test Item Value Reference Range Interpretation Comments Potassium Level (test code = 2823-3) 3.6 3.5-5.1 [facility] CenterChloride Gyups2016-35-83 06:07:00* Test Item Value Reference Range Interpretation Comments Chloride Level (test code = 2075-0) 106 98-107 [facility] CenterCarbon Dioxide Schuh8922-64-00 06:07:00* Test Item Value Reference Range Interpretation Comments Carbon Dioxide Level (test code = 2028-9) 25 22-29 [facility] CenterAnion Ayf7937-41-90 06:07:00* Test Item Value Reference Range Interpretation Comments Anion Gap (test code = 70022-5) 13.6 8-16 [facility] CenterBlood Urea Eezjvzwr0288-71-57 06:07:00* Test Item Value Reference Range Interpretation Comments Blood Urea Nitrogen (test code = 3094-0) < 5 7-26 L [facility] CenterCreatinine2019-08-07 06:07:00* Test Item Value Reference Range Interpretation Comments Creatinine (test code = 2160-0) 0.84 0.57-1.11 [facility] CenterBUN/Creatinine Rwsev8327-35-50 06:07:00* Test Item Value Reference Range Interpretation Comments BUN/Creatinine Ratio (test code = 3097-3) 6 6-25 [facility] CenterEstimat Glomerular Filtration Rate 2018-10-24 06:07:00* Test Item Value Reference Range Interpretation Comments Estimat Glomerular Filtration Rate (test code = 589441492) > 60 >60 Ranges were taken from the National Kidney Disease Education Program and the [facility] system[facility] Kidney Foundation literature.Reference ranges:60 or greater: Jfnkbz22-31 ( for 3 consecutive months): Chronic kidney disease 15 or less: Kidney failureThe [facility] of [facility]. Anderson Cancer CenterGlucose Keoza6174-45-91 06:07:00* Test Item Value Reference Range Interpretation Comments Glucose Level (test code = LMU9146) 122 74-118 H [facility] CenterCalcium Lbopm9687-74-67 06:07:00* Test Item Value Reference Range Interpretation Comments Calcium Level (test code = 66799-8) 8.2 8.4-10.2 L [facility] CenterWhite Blood Xoolj2810-56-16 05:56:00* Test Item Value Reference Range Interpretation Comments White Blood Count (test code = 6690-2) 4.86 4.8-10.8 [facility] CenterRed Blood Hozyv9909-75-94 05:56:00* Test Item Value Reference Range Interpretation Comments Red Blood Count (test code = 789-8) 2.75 3.6-5.1 L [facility] CenterHemoglobin2019-08-07 05:56:00* Test Item Value Reference Range Interpretation Comments Hemoglobin (test code = 11547-6) 8.1 12.0-16.0 L [facility] CenterHematocrit2019-08-07 05:56:00* Test Item Value Reference Range Interpretation Comments Hematocrit (test code = 4544-3) 25.3 34.2-44.1 L [facility] CenterMean Corpuscular Efnicb6598-33-46 05:56:00* Test Item Value Reference Range Interpretation Comments Mean Corpuscular Volume (test code = 787-2) 92.0 81-99 [facility] CenterMean Corpuscular Iszpmlyffh0891-20-27 05:56:00* Test Item Value Reference Range Interpretation Comments Mean Corpuscular Hemoglobin (test code = 785-6) 29.5 28-32 [facility] CenterMean Corpuscular Hemoglobin Concent 2018-10-24 05:56:00* Test Item Value Reference Range Interpretation Comments Mean Corpuscular Hemoglobin Concent (test code = 786-4) 32.0 31-35 [facility] CenterRed Cell Distribution Uojal1809-70-63 05:56:00* Test Item Value Reference Range Interpretation Comments Red Cell Distribution Width (test code = 94159-5) 16.9 11.7 -14.4 H [facility] CenterPlatelet Bgohs2681-25-16 05:56:00* Test Item Value Reference Range Interpretation Comments Platelet Count (test code = 777-3) 106 140-360 L [facility] CenterNeutrophils (%) (Auto)2018-10-24 05:56:00 * Test Item Value Reference Range Interpretation Comments Neutrophils (%) (Auto) (test code = 14917-6) 57.3 38.7-80.0 [facility] CenterLymphocytes (%) (Auto)2018-10-24 05:56:00 * Test Item Value Reference Range Interpretation Comments Lymphocytes (%) (Auto) (test code = 736-9) 29.2 18.0-39.1 [facility] CenterMonocytes (%) (Auto)2018-10-24 05:56:00* Test Item Value Reference Range Interpretation Comments Monocytes (%) (Auto) (test code = 5905-5) 11.3 4.4-11.3 [facility] CenterEosinophils (%) (Auto)2018-10-24 05:56:00 * Test Item Value Reference Range Interpretation Comments Eosinophils (%) (Auto) (test code = 713-8) 1.6 0.0-6.0 [facility] CenterBasophils (%) (Auto)2018-10-24 05:56:00* Test Item Value Reference Range Interpretation Comments Basophils (%) (Auto) (test code = 706-2) 0.2 0.0-1.0 [facility] CenterIM GRANULOCYTES %2018-10-24 05:56:00* Test Item Value Reference Range Interpretation Comments IM GRANULOCYTES % (test code = IM GRANULOCYTES %) 0.4 0.0- 1.0 [facility] CenterNeutrophils # (Auto)2018-10-24 05:56:00* Test Item Value Reference Range Interpretation Comments Neutrophils # (Auto) (test code = 751-8) 2.8 2.1-6.9 [facility] CenterLymphocytes # (Auto)2018-10-24 05:56:00* Test Item Value Reference Range Interpretation Comments Lymphocytes # (Auto) (test code = 62608-5) 1.4 1.0-3.2 [facility] CenterMonocytes # (Auto)2018-10-24 05:56:00* Test Item Value Reference Range Interpretation Comments Monocytes # (Auto) (test code = 742-7) 0.6 0.2-0.8 [facility] CenterEosinophils # (Auto)2018-10-24 05:56:00* Test Item Value Reference Range Interpretation Comments Eosinophils # (Auto) (test code = 711-2) 0.1 0.0-0.4 [facility] CenterBasophils # (Auto)2018-10-24 05:56:00* Test Item Value Reference Range Interpretation Comments Basophils # (Auto) (test code = 704-7) 0.0 0.0-0.1 [facility] CenterAbsolute Immature Granulocyte (auto 2018-10-24 05:56:00* Test Item Value Reference Range Interpretation Comments Absolute Immature Granulocyte (auto (jose t code = Absolute Immature Granulocyte (auto) 0.02 0-0.1 [facility] CenterWhite Blood Qvznu8562-89-66 05:56:00* Test Item Value Reference Range Interpretation Comments White Blood Count (test code = 6690-2) 4.86 4.8-10.8 [facility] CenterRed Blood Wqeva9310-78-82 05:56:00* Test Item Value Reference Range Interpretation Comments Red Blood Count (test code = 789-8) 2.75 3.6-5.1 L [facility] CenterHemoglobin2019-08-07 05:56:00* Test Item Value Reference Range Interpretation Comments Hemoglobin (test code = 49452-0) 8.1 12.0-16.0 L [facility] CenterHematocrit2019-08-07 05:56:00* Test Item Value Reference Range Interpretation Comments Hematocrit (test code = 4544-3) 25.3 34.2-44.1 L [facility] CenterMean Corpuscular Txiaqz3234-40-98 05:56:00* Test Item Value Reference Range Interpretation Comments Mean Corpuscular Volume (test code = 787-2) 92.0 81-99 [facility] CenterMean Corpuscular Vjjpflzcrn2657-51-34 05:56:00* Test Item Value Reference Range Interpretation Comments Mean Corpuscular Hemoglobin (test code = 785-6) 29.5 28-32 [facility] CenterMean Corpuscular Hemoglobin Concent 2018-10-24 05:56:00* Test Item Value Reference Range Interpretation Comments Mean Corpuscular Hemoglobin Concent (test code = 786-4) 32.0 31-35 [facility] CenterRed Cell Distribution Akizo5416-68-34 05:56:00* Test Item Value Reference Range Interpretation Comments Red Cell Distribution Width (test code = 25969-2) 16.9 11.7 -14.4 H [facility] CenterPlatelet Wvqpt8077-75-39 05:56:00* Test Item Value Reference Range Interpretation Comments Platelet Count (test code = 777-3) 106 140-360 L [facility] CenterNeutrophils (%) (Auto)2018-10-24 05:56:00 * Test Item Value Reference Range Interpretation Comments Neutrophils (%) (Auto) (test code = 15871-7) 57.3 38.7-80.0 [facility] CenterLymphocytes (%) (Auto)2018-10-24 05:56:00 * Test Item Value Reference Range Interpretation Comments Lymphocytes (%) (Auto) (test code = 736-9) 29.2 18.0-39.1 [facility] CenterMonocytes (%) (Auto)2018-10-24 05:56:00* Test Item Value Reference Range Interpretation Comments Monocytes (%) (Auto) (test code = 5905-5) 11.3 4.4-11.3 [facility] CenterEosinophils (%) (Auto)2018-10-24 05:56:00 * Test Item Value Reference Range Interpretation Comments Eosinophils (%) (Auto) (test code = 713-8) 1.6 0.0-6.0 [facility] CenterBasophils (%) (Auto)2018-10-24 05:56:00* Test Item Value Reference Range Interpretation Comments Basophils (%) (Auto) (test code = 706-2) 0.2 0.0-1.0 [facility] CenterIM GRANULOCYTES %2018-10-24 05:56:00* Test Item Value Reference Range Interpretation Comments IM GRANULOCYTES % (test code = IM GRANULOCYTES %) 0.4 0.0- 1.0 [facility] CenterNeutrophils # (Auto)2018-10-24 05:56:00* Test Item Value Reference Range Interpretation Comments Neutrophils # (Auto) (test code = 751-8) 2.8 2.1-6.9 [facility] CenterLymphocytes # (Auto)2018-10-24 05:56:00* Test Item Value Reference Range Interpretation Comments Lymphocytes # (Auto) (test code = 47631-9) 1.4 1.0-3.2 [facility] CenterMonocytes # (Auto)2018-10-24 05:56:00* Test Item Value Reference Range Interpretation Comments Monocytes # (Auto) (test code = 742-7) 0.6 0.2-0.8 [facility] CenterEosinophils # (Auto)2018-10-24 05:56:00* Test Item Value Reference Range Interpretation Comments Eosinophils # (Auto) (test code = 711-2) 0.1 0.0-0.4 [facility] CenterBasophils # (Auto)2018-10-24 05:56:00* Test Item Value Reference Range Interpretation Comments Basophils # (Auto) (test code = 704-7) 0.0 0.0-0.1 [facility] CenterAbsolute Immature Granulocyte (auto 2018-10-24 05:56:00* Test Item Value Reference Range Interpretation Comments Absolute Immature Granulocyte (auto (jose t code = Absolute Immature Granulocyte (auto) 0.02 0-0.1 [facility] CenterVitamin B12 Gkdab7690-79-32 06:53:00* Test Item Value Reference Range Interpretation Comments Vitamin B12 Level (test code = 87195-6) 890 213-816 H [facility] CenterFolate2019-08-06 06:53:00* Test Item Value Reference Range Interpretation Comments Folate (test code = 2284-8) 5.3 7.0-15.4 L [facility] CenterVitamin B12 Wnief5943-82-28 06:53:00* Test Item Value Reference Range Interpretation Comments Vitamin B12 Level (test code = 74879-1) 890 213-816 H [facility] CenterFolate2019-08-06 06:53:00* Test Item Value Reference Range Interpretation Comments Folate (test code = 2284-8) 5.3 7.0-15.4 L [facility] CenterVitamin B12 Mbktr0844-72-10 06:53:00* Test Item Value Reference Range Interpretation Comments Vitamin B12 Level (test code = 28127-0) 890 213-816 H [facility] CenterFolate2019-08-06 06:53:00* Test Item Value Reference Range Interpretation Comments Folate (test code = 2284-8) 5.3 7.0-15.4 L [facility] CenterIron Hidpj8422-02-93 06:30:00* Test Item Value Reference Range Interpretation Comments Iron Level (test code = 2498-4) 33 50-170 L [facility] CenterTotal Iron Binding Pozwsang8513-86-64 06:30:00* Test Item Value Reference Range Interpretation Comments Total Iron Binding Capacity (test code = 2500-7) 195 261-4 78 L [facility] CenterPercent Iron Vmpvrcxvwh7078-16-08 06:30:00* Test Item Value Reference Range Interpretation Comments Percent Iron Saturation (test code = 2502-3) 17 15-50 [facility] CenterTransferrin2019-08-06 06:30:00* Test Item Value Reference Range Interpretation Comments Transferrin (test code = 3034-6) 139 180-382 L [facility] CenterTotal Rkeyulbkc4668-55-00 06:30:00* Test Item Value Reference Range Interpretation Comments Total Bilirubin (test code = 1975-2) 0.3 0.2-1.2 [facility] CenterAspartate Amino Transf (AST/SGOT) 2018-10-23 06:30:00* Test Item Value Reference Range Interpretation Comments Aspartate Amino Transf (AST/SGOT) (test code = Aspartate Amino Transf (AST/SGOT)) 20 5-34 [facility] CenterAlanine Aminotransferase (ALT/SGPT) 2018-10-23 06:30:00* Test Item Value Reference Range Interpretation Comments Alanine Aminotransferase (ALT/SGPT) (test code = 1742-6) 15 0-55 [facility] CenterTotal Boivqgs0599-31-15 06:30:00* Test Item Value Reference Range Interpretation Comments Total Protein (test code = 2885-2) 4.8 6.5-8.1 L [facility] CenterAlbumin2019-08-06 06:30:00* Test Item Value Reference Range Interpretation Comments Albumin (test code = 1751-7) 2.3 3.5-5.0 L [facility] CenterGlobulin2019-08-06 06:30:00* Test Item Value Reference Range Interpretation Comments Globulin (test code = 64985-8) 2.5 2.3-3.5 [facility] CenterAlbumin/Globulin Wqwfg4284-72-99 06:30:00 * Test Item Value Reference Range Interpretation Comments Albumin/Globulin Ratio (test code = 1759-0) 0.9 0.8-2.0 [facility] CenterAlkaline Rgljjkxezgi3658-48-71 06:30:00* Test Item Value Reference Range Interpretation Comments Alkaline Phosphatase (test code = 6768-6) 74 40-150 [facility] CenterIron Vzcpx2427-22-21 06:30:00* Test Item Value Reference Range Interpretation Comments Iron Level (test code = 2498-4) 33 50-170 L [facility] CenterTotal Iron Binding Glhersak6560-31-52 06:30:00* Test Item Value Reference Range Interpretation Comments Total Iron Binding Capacity (test code = 2500-7) 195 261-4 78 L [facility] CenterPercent Iron Biqcncbdss2956-36-81 06:30:00* Test Item Value Reference Range Interpretation Comments Percent Iron Saturation (test code = 2502-3) 17 15-50 [facility] CenterTransferrin2019-08-06 06:30:00* Test Item Value Reference Range Interpretation Comments Transferrin (test code = 3034-6) 139 180-382 L [facility] CenterTotal Vofakzgfb2522-27-55 06:30:00* Test Item Value Reference Range Interpretation Comments Total Bilirubin (test code = 1975-2) 0.3 0.2-1.2 [facility] CenterAspartate Amino Transf (AST/SGOT) 2018-10-23 06:30:00* Test Item Value Reference Range Interpretation Comments Aspartate Amino Transf (AST/SGOT) (test code = Aspartate Amino Transf (AST/SGOT)) 20 5-34 [facility] CenterAlanine Aminotransferase (ALT/SGPT) 2018-10-23 06:30:00* Test Item Value Reference Range Interpretation Comments Alanine Aminotransferase (ALT/SGPT) (test code = 1742-6) 15 0-55 [facility] CenterTotal Rikssdg0845-87-61 06:30:00* Test Item Value Reference Range Interpretation Comments Total Protein (test code = 2885-2) 4.8 6.5-8.1 L [facility] CenterAlbumin2019-08-06 06:30:00* Test Item Value Reference Range Interpretation Comments Albumin (test code = 1751-7) 2.3 3.5-5.0 L [facility] CenterGlobulin2019-08-06 06:30:00* Test Item Value Reference Range Interpretation Comments Globulin (test code = 40270-0) 2.5 2.3-3.5 [facility] CenterAlbumin/Globulin Mnhaq0543-61-63 06:30:00 * Test Item Value Reference Range Interpretation Comments Albumin/Globulin Ratio (test code = 1759-0) 0.9 0.8-2.0 [facility] CenterAlkaline Tqjjjczafnj5739-34-53 06:30:00* Test Item Value Reference Range Interpretation Comments Alkaline Phosphatase (test code = 6768-6) 74 40-150 [facility] CenterIron Taniy5029-35-27 06:30:00* Test Item Value Reference Range Interpretation Comments Iron Level (test code = 2498-4) 33 50-170 L [facility] CenterTotal Iron Binding Ngtxhgde7834-96-11 06:30:00* Test Item Value Reference Range Interpretation Comments Total Iron Binding Capacity (test code = 2500-7) 195 261-4 78 L [facility] CenterPer[facility] Iron Jeqaahhkch3620-62-59 06:30:00* Test Item Value Reference Range Interpretation Comments Percent Iron Saturation (test code = 2502-3) 17 15-50 [facility] CenterTransferrin2019-08-06 06:30:00* Test Item Value Reference Range Interpretation Comments Transferrin (test code = 3034-6) 139 180-382 L [facility] CenterLipase2019-08-06 06:27:00* Test Item Value Reference Range Interpretation Comments Lipase (test code = 3040-3) 79 8-78 H [facility] CenterLipase2019-08-06 06:27:00* Test Item Value Reference Range Interpretation Comments Lipase (test code = 3040-3) 79 8-78 H [facility] CenterPerket[facility] Reticulocyte Vouhx6147-69-72 05:57:00* Test Item Value Reference Range Interpretation Comments Percent Reticulocyte Count (test code = 60718-5) 2.2 0.8-2 .2 [facility] Reticulocyte Wmejh2225-51-70 05:57:00* Test Item Value Reference Range Interpretation Comments Percent Reticulocyte Count (test code = 01562-3) 2.2 0.8-2 .2 [facility] Reticulocyte Ypqic7761-64-18 05:57:00* Test Item Value Reference Range Interpretation Comments Percent Reticulocyte Count (test code = 21711-5) 2.2 0.8-2 .2 [facility] CenterTroponin F8474-63-23 11:55:00* Test Item Value Reference Range Interpretation Comments Troponin I (test code = 17675-2) < 0.05 0.0-0.40 [facility] S1849-72-18 11:55:00* Test Item Value Reference Range Interpretation Comments Troponin I (test code = 52066-2) < 0.05 0.0-0.40 [facility] CenterPhosphorus Rldrb3737-96-05 11:44:00* Test Item Value Reference Range Interpretation Comments Phosphorus Level (test code = WFM7686) 2.0 2.3-4.7 L [facility] CenterPhosphorus Sjiuy9141-42-89 11:44:00* Test Item Value Reference Range Interpretation Comments Phosphorus Level (test code = NOL4238) 2.0 2.3-4.7 L [facility] CenterPhosphorus Rcsnm7936-97-99 11:44:00* Test Item Value Reference Range Interpretation Comments Phosphorus Level (test code = SEX3738) 2.0 2.3-4.7 L [facility] CenterCreatine Kinase OY8689-74-43 11:28:00* Test Item Value Reference Range Interpretation Comments Creatine Kinase MB (test code = 17787-1) 1.60 0-5.0 [facility] CenterCreatine Kinase CN4050-14-20 11:28:00* Test Item Value Reference Range Interpretation Comments Creatine Kinase MB (test code = 52700-4) 1.60 0-5.0 [facility] CenterCreatine Kinase SY0410-18-27 11:28:00* Test Item Value Reference Range Interpretation Comments Creatine Kinase MB (test code = 15783-9) 1.60 0-5.0 [facility]2019-08-04 11:27:00* Test Item Value Reference Range Interpretation Comments Magnesium Level (test code = 29203-0) 1.6 1.3-2.1 [facility] CenterCreatine Uveamq9310-22-02 11:27:00* Test Item Value Reference Range Interpretation Comments Creatine Kinase (test code = 2157-6) 126 29-168 [facility]2019-08-04 11:27:00* Test Item Value Reference Range Interpretation Comments Magnesium Level (test code = 15623-8) 1.6 1.3-2.1 [facility] CenterCreatine Pzfnmm2810-49-40 11:27:00* Test Item Value Reference Range Interpretation Comments Creatine Kinase (test code = 2157-6) 126 29-168 [facility] CenterMagnesium Yfbfn3824-52-04 11:27:00* Test Item Value Reference Range Interpretation Comments Magnesium Level (test code = 00128-8) 1.6 1.3-2.1 [facility] CenterCretuc[facility] Vwzedz0303-21-21 11:27:00* Test Item Value Reference Range Interpretation Comments Creatine Kinase (test code = 2157-6) 126 29-168 [facility] CenterProthrombin Jskm0380-71-98 11:09:00* Test Item Value Reference Range Interpretation Comments Prothrombin Time (test code = 5902-2) 13.1 11.9-14.5 [facility] CenterProthromb Time International Ratio 2018-10-21 11:09:00* Test Item Value Reference Range Interpretation Comments Prothromb Time International Ratio (test code = 6301-6) 0.94 Oral Anticoagulant Therapy INR Values:1. Low Intensity Therapy 1.5 - 2.02 . Moderate Intensity Therapy 2.0 - 3.03. High Intensity Therapy(1) 2.5 - 3. 54. High Intensity Therapy(2) 3.0 - 4.05. Panic Value INR > 5.0 [facility] CenterActivated Partial Thromboplast Time 2018-10-21 11:09:00* Test Item Value Reference Range Interpretation Comments Activated Partial Thromboplast Time (test code = 89485-9) 20.1 23.8-35.5 L [facility] CenterProthrombin Kvem4437-88-49 11:09:00* Test Item Value Reference Range Interpretation Comments Prothrombin Time (test code = 5902-2) 13.1 11.9-14.5 [facility] CenterProthromb Time International Ratio 2018-10-21 11:09:00* Test Item Value Reference Range Interpretation Comments Prothromb Time International Ratio (test code = 6301-6) 0.94 Oral Anticoagulant Therapy INR Values:1. Low Intensity Therapy 1.5 - 2.02 . Moderate Intensity Therapy 2.0 - 3.03. High Intensity Therapy(1) 2.5 - 3. 54. High Intensity Therapy(2) 3.0 - 4.05. Panic Value INR > 5.0 [facility] CenterActivated Partial Thromboplast Time 2018-10-21 11:09:00* Test Item Value Reference Range Interpretation Comments Activated Partial Thromboplast Time (test code = 56845-6) 20.1 23.8-35.5 L [facility] CenterProthrombin Qbea3104-10-33 11:09:00* Test Item Value Reference Range Interpretation Comments Prothrombin Time (test code = 5902-2) 13.1 11.9-14.5 [facility] CenterProthromb Time International Ratio 2018-10-21 11:09:00* Test Item Value Reference Range Interpretation Comments Prothromb Time International Ratio (test code = 6301-6) 0.94 Oral Anticoagulant Therapy INR Values:1. Low Intensity Therapy 1.5 - 2.02 . Moderate Intensity Therapy 2.0 - 3.03. High Intensity Therapy(1) 2.5 - 3. 54. High Intensity Therapy(2) 3.0 - 4.05. Panic Value INR > 5.0 [facility] CenterActivated Partial Thromboplast Time 2018-10-21 11:09:00* Test Item Value Reference Range Interpretation Comments Activated Partial Thromboplast Time (test code = 72522-7) 20.1 23.8-35.5 L [facility] CenterUrine OIL6812-43-19 11:03:00* Test Item Value Reference Range Interpretation Comments Urine WBC (test code = 5821-4) 0-5 0-5 [facility] CenterUrine JOF1904-77-30 11:03:00* Test Item Value Reference Range Interpretation Comments Urine RBC (test code = 63012-3) 0-5 0-5 [facility] CenterUrine Kjqmjbtw0100-62-87 11:03:00* Test Item Value Reference Range Interpretation Comments Urine Bacteria (test code = 73686-6) FEW NONE [facility] CenterUrine Epithelial Nkzmn7605-33-62 11:03:00 * Test Item Value Reference Range Interpretation Comments Urine Epithelial Cells (test code = 02582-4) FEW NONE [facility] CenterUrine TBV6969-61-30 11:03:00* Test Item Value Reference Range Interpretation Comments Urine WBC (test code = 5821-4) 0-5 0-5 [facility] CenterUrine XXU1649-48-09 11:03:00* Test Item Value Reference Range Interpretation Comments Urine RBC (test code = 30707-6) 0-5 0-5 [facility] CenterUrine Ynftygnx4093-72-35 11:03:00* Test Item Value Reference Range Interpretation Comments Urine Bacteria (test code = 42690-8) FEW NONE [facility] CenterUrine Epithelial Fblgu7611-71-83 11:03:00 * Test Item Value Reference Range Interpretation Comments Urine Epithelial Cells (test code = 22682-2) FEW NONE [facility] CenterUrine Qyfys0837-06-26 11:00:00* Test Item Value Reference Range Interpretation Comments Urine Color (test code = 5778-6) YELLOW YELLOW [facility] CenterUrine Oadyhpk3968-08-81 11:00:00* Test Item Value Reference Range Interpretation Comments Urine Clarity (test code = 64657-1) HAZY CLEAR [facility] CenterUrine Specific Vbnzlqq2690-84-02 11:00:00 * Test Item Value Reference Range Interpretation Comments Urine Specific [place] (test code = 5811-5) 1.010 1.010-1.02 5 [facility] CenterUrine nD9717-74-33 11:00:00* Test Item Value Reference Range Interpretation Comments Urine pH (test code = 86139-0) 6.5 5-7 [facility] CenterUrine Leukocyte Dcvgzggx0225-51-30 11:00:00* Test Item Value Reference Range Interpretation Comments Urine Leukocyte Esterase (test code = 5799-2) NEGATIVE NEGATIVE [facility] CenterUrine Bydctxk2142-21-77 11:00:00* Test Item Value Reference Range Interpretation Comments Urine Nitrite (test code = 05197-9) NEGATIVE NEGATIVE [facility] CenterUrine Rpleffd1586-91-81 11:00:00* Test Item Value Reference Range Interpretation Comments Urine Protein (test code = 5804-0) TRACE NEGATIVE H [facility] CenterUrine Glucose (UA)2018-10-21 11:00:00* Test Item Value Reference Range Interpretation Comments Urine Glucose (UA) (test code = 2349-9) NEGATIVE NEGATIVE [facility] CenterUrine Tlvdusl0777-44-32 11:00:00* Test Item Value Reference Range Interpretation Comments Urine Ketones (test code = 99444-4) NEGATIVE NEGATIVE [facility] CenterUrine Rrodgvjivzfx0264-97-85 11:00:00* Test Item Value Reference Range Interpretation Comments Urine Urobilinogen (test code = 94593-9) 0.2 0.2-1 [facility] CenterUrine Fgjivbioe4717-09-12 11:00:00* Test Item Value Reference Range Interpretation Comments Urine Bilirubin (test code = 1978-6) NEGATIVE NEGATIVE [facility] Fxtpy6174-96-49 11:00:00* Test Item Value Reference Range Interpretation Comments Urine Blood (test code = 41774-8) NEGATIVE NEGATIVE [facility] CenterUrine Pzjls7013-87-57 11:00:00* Test Item Value Reference Range Interpretation Comments Urine Color (test code = 5778-6) YELLOW YELLOW [facility] CenterUrine Rfcgdhs2833-08-42 11:00:00* Test Item Value Reference Range Interpretation Comments Urine Clarity (test code = 49290-9) HAZY CLEAR [facility] CenterUrine Specific Ptdxffh5061-79-34 11:00:00 * Test Item Value Reference Range Interpretation Comments Urine Specific [place] (test code = 5811-5) 1.010 1.010-1.02 5 [facility] CenterUrine nN6371-67-65 11:00:00* Test Item Value Reference Range Interpretation Comments Urine pH (test code = 33906-2) 6.5 5-7 [facility] CenterUrine Leukocyte Ftcdxqdh6511-08-91 11:00:00* Test Item Value Reference Range Interpretation Comments Urine Leukocyte Esterase (test code = 5799-2) NEGATIVE NEGATIVE [facility] CenterUrine Sclchny2648-21-88 11:00:00* Test Item Value Reference Range Interpretation Comments Urine Nitrite (test code = 31665-2) NEGATIVE NEGATIVE [facility] CenterUrine Sxwbsld9573-55-68 11:00:00* Test Item Value Reference Range Interpretation Comments Urine Protein (test code = 5804-0) TRACE NEGATIVE H [facility] CenterUrine Glucose (UA)2018-10-21 11:00:00* Test Item Value Reference Range Interpretation Comments Urine Glucose (UA) (test code = 2349-9) NEGATIVE NEGATIVE [facility] Imuxtfw9834-43-34 11:00:00* Test Item Value Reference Range Interpretation Comments Urine Ketones (test code = 37931-7) NEGATIVE NEGATIVE [facility] Tsgxhqkowspc5508-33-06 11:00:00* Test Item Value Reference Range Interpretation Comments Urine Urobilinogen (test code = 16687-4) 0.2 0.2-1 [facility] Jjnfelzlh1842-17-99 11:00:00* Test Item Value Reference Range Interpretation Comments Urine Bilirubin (test code = 1978-6) NEGATIVE NEGATIVE [facility] Clnlq1957-25-13 11:00:00* Test Item Value Reference Range Interpretation Comments Urine Blood (test code = 28529-6) NEGATIVE [facility]GATIVE [facility] Pwlnlnw3653-33-86 09:57:00* Test Item Value Reference Range Interpretation Comments Blood Culture (test code = 80962697) NO GROWTH AFTER 5 DAYS, FINAL REPORT [facility] Troujqi8151-16-13 09:57:00* Test Item Value Reference Range Interpretation Comments Blood Culture (test code = 05307451) NO GROWTH AFTER 5 DAYS, FINAL REPORT [facility] Atapyzs5309-60-66 09:57:00* Test Item Value Reference Range Interpretation Comments Blood Culture (test code = 96407965) NO GROWTH AFTER 5 DAYS, [facility] Ssctg9840-36-43 06:45:00* Test Item Value Reference Range Interpretation Comments Sodium Level (test code = 2951-2) 137 136-145 [facility] CenterPotassium Gnrer6450-79-71 06:45:00* Test Item Value Reference Range Interpretation Comments Potassium Level (test code = 2823-3) 3.2 3.5-5.1 L [facility] CenterChloride Mqgad1643-68-14 06:45:00* Test Item Value Reference Range Interpretation Comments Chloride Level (test code = 2075-0) 104 98-107 [facility] CenterCarbon Dioxide Sdzpd7596-44-18 06:45:00* Test Item Value Reference Range Interpretation Comments Carbon Dioxide Level (test code = 2028-9) 23 22-29 [facility] CenterAnion Bzn8012-64-44 06:45:00* Test Item Value Reference Range Interpretation Comments Anion Gap (test code = 83293-7) 13.2 8-16 [facility] CenterBlood Urea Woqhkiai9770-01-74 06:45:00* Test Item Value Reference Range Interpretation Comments Blood Urea Nitrogen (test code = 3094-0) < 2 7-26 L [facility] CenterCreatinine2019-08-03 06:45:00* Test Item Value Reference Range Interpretation Comments Creatinine (test code = 2160-0) 0.70 0.57-1.11 [facility] CenterBUN/Creatinine Vmwqg7644-77-25 06:45:00* Test Item Value Reference Range Interpretation Comments BUN/Creatinine Ratio (test code = 3097-3) 3 6-25 L [facility] CenterEstimat Glomerular Filtration Rate 2018-10-20 06:45:00* Test Item Value Reference Range Interpretation Comments Estimat Glomerular Filtration Rate (test code = 963861648) > 60 >60 Ranges were taken from the National Kidney Disease Education Program and the [facility] system[facility] Kidney Foundation literature.Reference ranges:60 or greater: Zhntje03-92 ( for 3 consecutive months): Chronic kidney disease 15 or less: Kidney failureThe [facility] of [facility]. [facility] Cancer CenterGlucose Zkwzc8750-82-55 06:45:00* Test Item Value Reference Range Interpretation Comments Glucose Level (test code = SGI4727) 82 74-118 [facility] CenterCalcium Jfwdh9977-05-38 06:45:00* Test Item Value Reference Range Interpretation Comments Calcium Level (test code = 65924-0) 7.7 8.4-10.2 L [facility] CenterMagnesium Tukfy3095-52-30 06:45:00* Test Item Value Reference Range Interpretation Comments Magnesium Level (test code = 56302-6) 1.3 1.3-2.1 [facility] CenterWhite Blood Pfust5032-31-74 06:28:00* Test Item Value Reference Range Interpretation Comments White Blood Count (test code = 6690-2) 6.24 4.8-10.8 [facility] CenterRed Blood Hxrmj1692-83-17 06:28:00* Test Item Value Reference Range Interpretation Comments Red Blood Count (test code = 789-8) 2.91 3.6-5.1 L [facility] CenterHemoglobin2019-08-03 06:28:00* Test Item Value Reference Range Interpretation Comments Hemoglobin (test code = 22197-4) 8.6 12.0-16.0 L [facility] CenterHematocrit2019-08-03 06:28:00* Test Item Value Reference Range Interpretation Comments Hematocrit (test code = 4544-3) 25.6 34.2-44.1 L [facility] CenterMean Corpuscular Qidwvq7646-45-73 06:28:00* Test Item Value Reference Range Interpretation Comments Mean Corpuscular Volume (test code = 787-2) 88.0 81-99 [facility] CenterMean Corpuscular Nqniiyrzmx5987-04-27 06:28:00* Test Item Value Reference Range Interpretation Comments Mean Corpuscular Hemoglobin (test code = 785-6) 29.6 28-32 [facility] CenterMean Corpuscular Hemoglobin Concent 2018-10-20 06:28:00* Test Item Value Reference Range Interpretation Comments Mean Corpuscular Hemoglobin Concent (test code = 786-4) 33.6 31-35 [facility] CenterRed Cell Distribution Ottds7204-20-29 06:28:00* Test Item Value Reference Range Interpretation Comments Red Cell Distribution Width (test code = 28267-0) 15.9 11.7 -14.4 H [facility] CenterPlatelet Mhqcv6653-80-03 06:28:00* Test Item Value Reference Range Interpretation Comments Platelet Count (test code = 777-3) 159 140-360 [facility] CenterNeutrophils (%) (Auto)2018-10-20 06:28:00 * Test Item Value Reference Range Interpretation Comments Neutrophils (%) (Auto) (test code = 23795-8) 56.7 38.7-80.0 [facility] CenterLymphocytes (%) (Auto)2018-10-20 06:28:00 * Test Item Value Reference Range Interpretation Comments Lymphocytes (%) (Auto) (test code = 736-9) 32.4 18.0-39.1 [facility] CenterMonocytes (%) (Auto)2018-10-20 06:28:00* Test Item Value Reference Range Interpretation Comments Monocytes (%) (Auto) (test code = 5905-5) 8.0 4.4-11.3 [facility] CenterEosinophils (%) (Auto)2018-10-20 06:28:00 * Test Item Value Reference Range Interpretation Comments Eosinophils (%) (Auto) (test code = 713-8) 1.6 0.0-6.0 [facility] CenterBasophils (%) (Auto)2018-10-20 06:28:00* Test Item Value Reference Range Interpretation Comments Basophils (%) (Auto) (test code = 706-2) 0.5 0.0-1.0 [facility] CenterIM GRANULOCYTES %2018-10-20 06:28:00* Test Item Value Reference Range Interpretation Comments IM GRANULOCYTES % (test code = IM GRANULOCYTES %) 0.8 0.0- 1.0 [facility] CenterNeutrophils # (Auto)2018-10-20 06:28:00* Test Item Value Reference Range Interpretation Comments Neutrophils # (Auto) (test code = 751-8) 3.5 2.1-6.9 [facility] CenterLymphocytes # (Auto)2018-10-20 06:28:00* Test Item Value Reference Range Interpretation Comments Lymphocytes # (Auto) (test code = 28351-0) 2.0 1.0-3.2 [facility] CenterMonocytes # (Auto)2018-10-20 06:28:00* Test Item Value Reference Range Interpretation Comments Monocytes # (Auto) (test code = 742-7) 0.5 0.2-0.8 [facility] CenterEosinophils # (Auto)2018-10-20 06:28:00* Test Item Value Reference Range Interpretation Comments Eosinophils # (Auto) (test code = 711-2) 0.1 0.0-0.4 [facility] CenterBasophils # (Auto)2018-10-20 06:28:00* Test Item Value Reference Range Interpretation Comments Basophils # (Auto) (test code = 704-7) 0.0 0.0-0.1 [facility] CenterAbsolute Immature Granulocyte (auto 2018-10-20 06:28:00* Test Item Value Reference Range Interpretation Comments Absolute Immature Granulocyte (auto (jose t code = Absolute Immature Granulocyte (auto) 0.05 0-0.1 [facility] CenterUrine Kirafrp9487-22-62 11:24:00* Test Item Value Reference Range Interpretation Comments Urine Culture (test code = 630-4) Organism: ESCHERICHIA COLI [facility] CenterUrine Ympbkeb3326-91-31 11:24:00* Test Item Value Reference Range Interpretation Comments Urine Culture (test code = 630-4) Organism: ESCHERICHIA COLI [facility] CenterUrine Toccdcy7197-04-71 11:24:00* Test Item Value Reference Range Interpretation Comments Urine Culture (test code = 630-4) Organism: ESCHERICHIA COLI [facility] CenterUrine Zgthptu8196-46-06 11:24:00* Test Item Value Reference Range Interpretation Comments Urine Culture (test code = 630-4) No Result Data Provided [facility] CenterBlood Gyfasib6379-82-13 09:57:00* Test Item Value Reference Range Interpretation Comments Blood Culture (test code = 58766490) NO GROWTH AFTER 72 HOURS [facility] CenterLipase2019-08-01 06:23:00* Test Item Value Reference Range Interpretation Comments Lipase (test code = 3040-3) 116 8-78 H [facility] CenterTotal Nmhjeyiqx4211-99-93 05:59:00* Test Item Value Reference Range Interpretation Comments Total Bilirubin (test code = 1975-2) 0.3 0.2-1.2 [facility] CenterAspartate Amino Transf (AST/SGOT) 2018-10-18 05:59:00* Test Item Value Reference Range Interpretation Comments Aspartate Amino Transf (AST/SGOT) (test code = Aspartate Amino Transf (AST/SGOT)) 21 5-34 [facility] CenterAlanine Aminotransferase (ALT/SGPT) 2018-10-18 05:59:00* Test Item Value Reference Range Interpretation Comments Alanine Aminotransferase (ALT/SGPT) (test code = 1742-6) 25 0-55 [facility] CenterTotal Xapdzxf4847-69-40 05:59:00* Test Item Value Reference Range Interpretation Comments Total Protein (test code = 2885-2) 5.6 6.5-8.1 L [facility] CenterAlbumin2019-08-01 05:59:00* Test Item Value Reference Range Interpretation Comments Albumin (test code = 1751-7) 2.4 3.5-5.0 L [facility] CenterGlobulin2019-08-01 05:59:00* Test Item Value Reference Range Interpretation Comments Globulin (test code = 93226-2) 3.2 2.3-3.5 [facility] CenterAlbumin/Globulin Muuth8515-09-83 05:59:00 * Test Item Value Reference Range Interpretation Comments Albumin/Globulin Ratio (test code = 1759-0) 0.8 0.8-2.0 [facility] CenterAlkaline Jvmwmyjzfhe4704-00-94 05:59:00* Test Item Value Reference Range Interpretation Comments Alkaline Phosphatase (test code = 6768-6) 115 40-150 [facility] CenterBedside Vfcnsbg0646-13-15 16:15:00* Test Item Value Reference Range Interpretation Comments Bedside Glucose (test code = 44325-9) 115 70-120 Meter ID: [id number] [facility] Glucose 2018-10-17 16:15:00* Test Item Value Reference Range Interpretation Comments Bedside Glucose (test code = 10971-8) 115 70-120 Meter ID: [id number] [facility] Glucose 2018-10-17 16:15:00* Test Item Value Reference Range Interpretation Comments Bedside Glucose (test code = 82024-8) 115 70-120 Meter ID: [id number] [facility] Glucose 2018-10-17 16:15:00* Test Item Value Reference Range Interpretation Comments Bedside Glucose (test code = 56904-8) 115 70-120 Meter ID: [id number] [facility] BrownwoodClostridium Difficile Toxin A & [id number] 14:36:00* Test Item Value Reference Range Interpretation Comments Clostridium Difficile Toxin A & B (test code = 589104379) POSI TIVE NEGATIVE H Results called [facility] at 1435 on 10/17/18 by Meenu Cardenas. RB [place] .Results PRINTed to DONNY IRVING in infection control at 1435 on 10/17/18 by Yunior Cardenas.Testing on stool aspirate specimens is outside vacation guide claims si nce specimen type not validated on this assay.[facility] CenterClostridium Difficile Toxin A & [id number] 14:36:00* Test Item Value Reference Range Interpretation Comments Clostridium Difficile Toxin A & B (test code = 363790651) POSI TIVE NEGATIVE H Results called [facility] at 1435 on 10/17/18 by Meenu Cardenas. RB [place] .Results PRINTed to DONNY IRVING in infection control at 1435 on 10/17/18 by Yunior Cardenas.Testing on stool aspirate specimens is outside vacation guide claims si nce specimen type not validated on this assay.[facility] CenterClostridium Difficile Toxin A & [id number] 14:36:00* Test Item Value Reference Range Interpretation Comments Clostridium Difficile Toxin A & B (test code = 150463475) POSI TIVE NEGATIVE H Results called to HOSSEIN DEVILLES at 1435 on 10/17/18 by Meenu Cardenas. RB [place] .Results PRINTed to DONNY IRVING in infection control at 1435 on 10/17/18 by Yunior Cardenas.Testing on stool aspirate specimens is outside vacation guide claims si nce specimen type not validated on this assay.[facility] CenterClostridium Difficile Toxin A & B1913-45-35 14:36:00* Test Item Value Reference Range Interpretation Comments Clostridium Difficile Toxin A & B (test code = 005981833) POSI TIVE NEGATIVE H Results called to HOSSEIN DEVILLES at 1435 on 10/17/18 by Meenu Cardenas. RB [place] .Results PRINTed to DONNY IRVING in infection control at 1435 on 10/17/18 by Yunior Cardenas.Testing on stool aspirate specimens is outside vacation guide claims si nce specimen type not validated on this assay.[facility] Lactoferrin (LAB)2018-10-17 13:38:00* Test Item Value Reference Range Interpretation Comments Stool Lactoferrin (LAB) (test code = 18902-8) POSITIVE NEGATIVE H Testing on stool aspirate specimens is outside vacation guide claims since specime n type not validated on this assay.[facility] Lactoferrin (LAB)2018-10-17 13:38:00* Test Item Value Reference Range Interpretation Comments Stool Lactoferrin (LAB) (test code = 35973-1) POSITIVE NEGATIVE H Testing on stool aspirate specimens is outside vacation guide claims since specime n type not validated on this assay.[facility] Lactoferrin (LAB)2018-10-17 13:38:00* Test Item Value Reference Range Interpretation Comments Stool Lactoferrin (LAB) (test code = 97089-0) POSITIVE NEGATIVE H Testing on stool aspirate specimens is outside vacation guide claims since specime n type not validated on this assay.[facility] Lactoferrin (LAB)2018-10-17 13:38:00* Test Item Value Reference Range Interpretation Comments Stool Lactoferrin (LAB) (test code = 76023-6) POSITIVE NEGATIVE H Testing on stool aspirate specimens is outside vacation guide claims since specime n type not validated on this assay.[facility] Phosphorus Jmgde1425-52-87 06:22:00* Test Item Value Reference Range Interpretation Comments Phosphorus Level (test code = OUC7929) 1.6 2.3-4.7 L [facility] CenterTroponin D0092-08-28 18:44:00* Test Item Value Reference Range Interpretation Comments Troponin I (test code = UDB3586) 0.042 0-0.300 [facility] CenterArterial Blood eZ5564-80-89 11:56:00* Test Item Value Reference Range Interpretation Comments Arterial Blood pH (test code = 2744-1) 7.37 7.31-7.41 [facility] CenterArterial Blood Partial Pressure CO2 2018-10-16 11:56:00* Test Item Value Reference Range Interpretation Comments Arterial Blood Partial Pressure CO2 (test code = 2018-) 28 41-51 L [facility] CenterArterial Blood Partial Pressure O2 2018-10-16 11:56:00* Test Item Value Reference Range Interpretation Comments Arterial Blood Partial Pressure O2 (test code = 2018-10) 107 80-105 H [facility] CenterArterial Blood [id number] 11:56:00* Test Item Value Reference Range Interpretation Comments Arterial Blood HCO3 (test code = 1960-4) 16 23-28 L [facility] CenterArterial Blood Base Avwfkk3745-10-61 11:56:00* Test Item Value Reference Range Interpretation Comments Arterial Blood Base Excess (test code = 1925-7) -9.0 -2-3 L [facility] CenterArterial Blood Oxygen Saturation 2018-10-16 11:56:00* Test Item Value Reference Range Interpretation Comments Arterial Blood Oxygen Saturation (test code = 2708-6) 98.0 95-98 [facility] CenterFiO22019-07-30 11:56:00* Test Item Value Reference Range Interpretation Comments FiO2 (test code = FiO2) 21 PT ON ROOM AIR,RESULT HANDED TO DR OCASIO AT 1155AM.CRITICAL VALUES WILL READ BACK AND VERIFIED WITH PHYSICIAN.[facility] CenterArterial Blood [id number] 11:56:00* Test Item Value Reference Range Interpretation Comments Arterial Blood pH (test code = 2744-1) 7.37 7.31-7.41 [facility] CenterArterial Blood Partial Pressure CO2 2018-10-16 11:56:00* Test Item Value Reference Range Interpretation Comments Arterial Blood Partial Pressure CO2 (test code = 2018-10) 28 41-51 L [facility] CenterArterial Blood Partial Pressure O2 2018-10-16 11:56:00* Test Item Value Reference Range Interpretation Comments Arterial Blood Partial Pressure O2 (test code = 2018-10) 107 80-105 H [facility] CenterArtertrinity health system Blood [id number] 11:56:00* Test Item Value Reference Range Interpretation Comments Arterial Blood HCO3 (test code = 1960-4) 16 23-28 L [facility] CenterArterial Blood Base Wbjgro7906-89-20 11:56:00* Test Item Value Reference Range Interpretation Comments Arterial Blood Base Excess (test code = 1925-7) -9.0 -2-3 L [facility] CenterArterial Blood Oxygen Saturation 2018-10-16 11:56:00* Test Item Value Reference Range Interpretation Comments Arterial Blood Oxygen Saturation (test code = 2708-6) 98.0 95-98 [facility] CenterFiO22019-07-30 11:56:00* Test Item Value Reference Range Interpretation Comments FiO2 (test code = FiO2) 21 PT ON ROOM AIR,RESULT HANDED TO DR OCASIO AT 1155AM.CRITICAL VALUES WILL READ BACK AND VERIFIED WITH PHYSICIAN.[facility] CenterArterial Blood gB0746-23-47 11:56:00* Test Item Value Reference Range Interpretation Comments Arterial Blood pH (test code = 2744-1) 7.37 7.31-7.41 [facility] CenterArterial Blood Partial Pressure CO2 2018-10-16 11:56:00* Test Item Value Reference Range Interpretation Comments Arterial Blood Partial Pressure CO2 (test code = 8) 28 41-51 L [facility] CenterArterial Blood Partial Pressure O2 2018-10-16 11:56:00* Test Item Value Reference Range Interpretation Comments Arterial Blood Partial Pressure O2 (test code = 2018-8) 107 80-105 H [facility] CenterArterial Blood VSW71574-61-40 11:56:00* Test Item Value Reference Range Interpretation Comments Arterial Blood HCO3 (test code = 1960-4) 16 23-28 L [facility] CenterArterial Blood Base Qnlfns4833-86-90 11:56:00* Test Item Value Reference Range Interpretation Comments Arterial Blood Base Excess (test code = 1925-7) -9.0 -2-3 L [facility] CenterArterial Blood Oxygen Saturation 2018-10-16 11:56:00* Test Item Value Reference Range Interpretation Comments Arterial Blood Oxygen Saturation (test code = 2708-6) 98.0 95-98 [facility] CenterFiO22019-07-30 11:56:00* Test Item Value Reference Range Interpretation Comments FiO2 (test code = FiO2) 21 PT ON ROOM AIR,RESULT HANDED TO DR OCASIO AT 1155AM.CRITICAL VALUES WILL READ BACK AND VERIFIED WITH PHYSICIAN.[facility] CenterArterial Blood [id number] 11:56:00* Test Item Value Reference Range Interpretation Comments Arterial Blood pH (test code = 2744-1) 7.37 7.31-7.41 [facility] CenterArterial Blood Partial Pressure CO2 2018-10-16 11:56:00* Test Item Value Reference Range Interpretation Comments Arterial Blood Partial Pressure CO2 (test code = 2018-10) 28 41-51 L [facility] CenterArterial Blood Partial Pressure O2 2018-10-16 11:56:00* Test Item Value Reference Range Interpretation Comments Arterial Blood Partial Pressure O2 (test code = 2018-8) 107 80-105 H [facility] CenterArterial Blood [id number] 11:56:00* Test Item Value Reference Range Interpretation Comments Arterial Blood HCO3 (test code = 1960-4) 16 23-28 L [facility] CenterArterial Blood Base Nowouv7394-45-53 11:56:00* Test Item Value Reference Range Interpretation Comments Arterial Blood Base Excess (test code = 1925-7) -9.0 -2-3 L [facility] CenterArterial Blood Oxygen Saturation 2018-10-16 11:56:00* Test Item Value Reference Range Interpretation Comments Arterial Blood Oxygen Saturation (test code = 2708-6) 98.0 95-98 [facility] CenterFiO22019-07-30 11:56:00* Test Item Value Reference Range Interpretation Comments FiO2 (test code = FiO2) 21 PT ON ROOM AIR,RESULT HANDED TO DR OCASIO AT 1155AM.CRITICAL VALUES WILL READ BACK AND VERIFIED WITH PHYSICIAN.[facility] CenterCT ABDOMEN/PELVIS [id number] 11:41:00 [facility] [address] [address] Patient Name: CHIKA HEATON MR #: [id number] : 1960 Age/Sex: 58/F Req #: [id number] Adm Physician: ANDREA ANGULO MD Ordered by: GERI ORR EMBEDDED DEVELOPER Report #: [id number] Location: [facility] Room/Bed: [place] [address] Procedure: [id number] C T/CT ABDOMEN/PELVIS W Exam Date: 10/16/18 Exam Time: 1110 REPORT STATUS: Signed EXAM: CT Abdomen and Pelvis WITH intravenous contrast INDICATION: Abdominal p ain, vomiting COMPARISON: CT abdomen pelvis of 07/31/2011 TECHNIQUE: Ab domen and pelvis were scanned utilizing a multidetector helical scanner from t he lung base to the pubic symphysis after administration of IV contrast. Coron al and sagittal reformations were obtained. Routine protocol was performed. Sc an was performed when during portal venous phase. IV CONTRAST: 100 mL of Isovue 370 ORAL CONTRAST: Water COMPLICATIONS: None RADIATION DOSE: Total DLP: 237.8 mGy*cm Dose modulation, iterative rec onstruction, and/or weight based adjustment of the mA/kV was utilized to reduc e the radiation dose to as low as reasonably achievable. FINDINGS: LOW ER THORAX: Normal. HEPATOBILIARY: Diffuse hepatic parenchymal hypoattenuati on consistent with hepatic steatosis. Unchanged mildly nodular liver surface c ontour compatible with cirrhosis. No focal liver lesions. No biliary ductal di latation. Status post cholecystectomy. SPLEEN: No splenomegaly. PANC REAS: No focal masses or ductal dilatation. ADRENALS: 11 mm right adrenal n odule is stable dating back to 2011 and almost certainly benign. There is thic kening of the left adrenal gland without discrete nodule. KIDNEYS/URETERS: N o hydronephrosis or solid mass lesions. 6 mm nonobstructing calculus in the ri ght renal pelvis. 4 mm nonobstructing calculus at the left renal upper pole. PELVIC ORGANS/BLADDER: Status post hysterectomy. Decompressed bladder. PER ITONEUM / RETROPERITONEUM: No free air or fluid. LYMPH NODES: No lymphadenopat hy. VESSELS: Unremarkable. GI TRACT: There is wall thickening of the sigm oid colon. No other abnormal bowel wall thickening or evidence of obstruction. Status post gastric bypass surgery. The excluded stomach is fluid-filled and appears to contain a 1.9 cm pedunculated polyp which was not well seen on a pr ior abdomen and pelvis CT of 07/31/2011 BONES AND SOFT TISSUES: No acute o sseous injury. Right acetabular roof sclerotic lesion likely represents a bone island. L3 and L5 vertebral body hemangiomas. Mild degenerative changes of the visualized spine. IMPRESSION: Wall thickening of the sigmoid colon can be seen in colitis. Status post gastric bypass. 1.9cm pedunculated nodule in the excluded stomach was not seen on prior studies and may represent a poly p. Hepatic steatosis and cirrhotic liver morphology. Nonobstructing bi lateral renal calculi. Signed by: Guzman Long MD on 10/16/2018 11:57 AM Dictated By: GUZMAN LONG MD 4695 COPY TO: WANDA ORR NP Acetaminophen Tzjfk6709-26-75 11:01:00* Test Item Value Reference Range Interpretation Comments Acetaminophen Level (test code = 47431-7) < 3 10-30 L [facility]2019-07-30 11:01:00* Test Item Value Reference Range Interpretation Comments Salicylates Level (test code = 4024-6) < 5.0 0-30 [facility] CenterAcetaminophen Fcoob3447-70-89 11:01:00* Test Item Value Reference Range Interpretation Comments Acetaminophen Level (test code = 55916-3) < 3 10-30 L [facility]2019-07-30 11:01:00* Test Item Value Reference Range Interpretation Comments Salicylates Level (test code = 4024-6) < 5.0 0-30 [facility] CenterAcetaminophen Ghtra3768-49-49 11:01:00* Test Item Value Reference Range Interpretation Comments Acetaminophen Level (test code = 14229-0) < 3 10-30 L [facility]2019-07-30 11:01:00* Test Item Value Reference Range Interpretation Comments Salicylates Level (test code = 4024-6) < 5.0 0-30 [facility] CenterAcetaminophen Sctkv1672-76-04 11:01:00* Test Item Value Reference Range Interpretation Comments Acetaminophen Level (test code = 92895-6) < 3 10-30 L [facility]2019-07-30 11:01:00* Test Item Value Reference Range Interpretation Comments Salicylates Level (test code = 4024-6) < 5.0 0-30 [facility] CenterB-Type Natriuretic Arifzqi5173-14-54 10:56:00* Test Item Value Reference Range Interpretation Comments B-Type Natriuretic Peptide (test code = 67799-2) 51.2 0-100 [facility] CenterB-Type Natriuretic Lhqagiv3532-63-96 10:56:00* Test Item Value Reference Range Interpretation Comments B-Type Natriuretic Peptide (test code = 99769-7) 51.2 0-100 [facility] CenterB-Type Natriuretic Espkcrz6351-39-73 10:56:00* Test Item Value Reference Range Interpretation Comments B-Type Natriuretic Peptide (test code = 10521-5) 51.2 0-100 [facility] CenterB-Type Natriuretic Aeynjbd6775-33-04 10:56:00* Test Item Value Reference Range Interpretation Comments B-Type Natriuretic Peptide (test code = 46462-1) 51.2 0-100 [facility] CenterCreatine Kinase UV8208-75-11 10:55:00* Test Item Value Reference Range Interpretation Comments Creatine Kinase MB (test code = 92432-1) 1.30 0-5.0 [facility] CenterCreatine Ygixff6399-08-53 10:42:00* Test Item Value Reference Range Interpretation Comments Creatine Kinase (test code = 2157-6) 45 29-168 [facility] CenterCHEST SINGLE (PORTABLE)2018-10-16 10:37:00 [facility] [address] [place] [address] Patient Name: CHIKA HEATON MR #: [id number] : 1960 Age/Sex: 58/F Req #: [id number] Adm Physician: Ordered by: GERI ORR NP Report #: [id number] Location: ER Room/Bed: Procedure: [id number] DX /CHEST SINGLE (PORTABLE) Exam Date: 10/16/18 Exam Ti me: 1014 REPORT STATUS: Signed E XAMINATION: CHEST SINGLE (PORTABLE) INDICATION: Pain COMPARISON: None FINDINGS: LINES/TUBES:EKG leads overlie the chest. LUNG S:The lungs are moderately inflated. No focal consolidation or pulmonary edema . PLEURA:No pleural effusion or pneumothorax. MEDIASTINUM:The cardiome diastinal silhouette appears normal in size and shape. BONES/SOFT TISSUES:N o acute osseous injury. ABDOMEN:No free air under the diaphragm. Status pos t cholecystectomy. IMPRESSION: No focal pneumonia or pulmonary edema. Signed by: Guzman Long MD on 10/16/2018 10:38 AM Dictated By: GUZMAN LONG MD 1038 Transcribed By: AILYN on 10/16/18 1038 COPY TO: GERI ORR NP Prothrombin Sppr5985-18-78 10:36:00* Test Item Value Reference Range Interpretation Comments Prothrombin Time (test code = 5902-2) 13.7 11.9-14.5 [facility] CenterProthromb Time International Ratio 2018-10-16 10:36:00* Test Item Value Reference Range Interpretation Comments Prothromb Time International Ratio (test code = 6301-6) 1.00 Oral Anticoagulant Therapy INR Values:1. Low Intensity Therapy 1.5 - 2.02 . Moderate Intensity Therapy 2.0 - 3.03. High Intensity Therapy(1) 2.5 - 3. 54. High Intensity Therapy(2) 3.0 - 4.05. Panic Value INR > 5.0 [facility] Cancer CenterActivated Partial Thromboplast Time 2018-10-16 10:36:00* Test Item Value Reference Range Interpretation Comments Activated Partial Thromboplast Time (test code = 44362-7) 23.3 23.8-35.5 L [facility] CenterLactic Acid Xoxwe5906-30-17 10:35:00* Test Item Value Reference Range Interpretation Comments Lactic Acid Level (test code = Lactic Acid Level) 13.1 4.5- 19.8 [facility] CenterLactic Acid Lknql9755-16-99 10:35:00* Test Item Value Reference Range Interpretation Comments Lactic Acid Level (test code = Lactic Acid Level) 13.1 4.5- 19.8 [facility] CenterLactic Acid Afwsd1563-19-77 10:35:00* Test Item Value Reference Range Interpretation Comments Lactic Acid Level (test code = Lactic Acid Level) 13.1 4.5- 19.8 [facility] CenterLactic Acid Ghmkl6871-09-74 10:35:00* Test Item Value Reference Range Interpretation Comments Lactic Acid Level (test code = Lactic Acid Level) 13.1 4.5- 19.8 [facility] CenterUrine [id number] 10:27:00* Test Item Value Reference Range Interpretation Comments Urine WBC (test code = 5821-4) 6-10 0-5 H [facility] CenterUrine PIF5258-10-12 10:27:00* Test Item Value Reference Range Interpretation Comments Urine RBC (test code = 23311-8) 0-5 0-5 [facility] Lzywbwqe1050-64-28 10:27:00* Test Item Value Reference Range Interpretation Comments Urine Bacteria (test code = 85853-1) MANY NONE H [facility] CenterUrine Epithelial Mgobm1186-44-53 10:27:00 * Test Item Value Reference Range Interpretation Comments Urine Epithelial Cells (test code = 76529-0) MODERATE NONE [facility] CenterUrine Amorphous Zzjbdlyy5983-49-07 10:27:00* Test Item Value Reference Range Interpretation Comments Urine Amorphous Sediment (test code = 8246-1) FEW FEW [facility] Amorphous Vqecnhdr2936-09-22 10:27:00* Test Item Value Reference Range Interpretation Comments Urine Amorphous Sediment (test code = 8246-1) FEW FEW [facility] Amorphous Foxvjyvy6019-21-85 10:27:00* Test Item Value Reference Range Interpretation Comments Urine Amorphous Sediment (test code = 8246-1) FEW FEW [facility] Amorphous Lltgfceh9038-64-53 10:27:00* Test Item Value Reference Range Interpretation Comments Urine Amorphous Sediment (test code = 8246-1) FEW FEW [facility] Opiates Dydoam7853-41-31 10:13:00* Test Item Value Reference Range Interpretation Comments Urine Opiates Screen (test code = 80948-8) POSITIVE NEGATIVE H This test provides only a screen. Positive results should be repeated by a confi rmatory test.[facility] Barbiturates Screen 2018-10-16 10:13:00* Test Item Value Reference Range Interpretation Comments Urine Barbiturates Screen (test code = 087040564) NEGATIVE NEGA TIVE [facility] CenterUrine Phencyclidine Bmqnbf5403-73-06 10:13:00* Test Item Value Reference Range Interpretation Comments Urine Phencyclidine Screen (test code = 87506-3) NEGATIVE NEGAT CAROLEE [facility] CenterUrine Amphetamines Lvdzgi7297-25-84 10:13:00* Test Item Value Reference Range Interpretation Comments Urine Amphetamines Screen (test code = 40175-1) NEGATIVE NEGATI VE [facility] CenterUrine Methamphetamines Ckrbun0330-80-34 10:13:00* Test Item Value Reference Range Interpretation Comments Urine Methamphetamines Screen (test code = Urine Metha mphetamines Screen) NEGATIVE NEGATIVE [facility] CenterUrine Benzodiazepines Ycybgg6513-85-06 10:13:00* Test Item Value Reference Range Interpretation Comments Urine Benzodiazepines Screen (test code = 00450-8) POSITIVE NEG ATIVE H This test provides only a screen. Positive results should be repeated by a confi rmatory test.[facility] CenterUrine Cocaine Screen 2018-10-16 10:13:00* Test Item Value Reference Range Interpretation Comments Urine Cocaine Screen (test code = 3398-5) NEGATIVE NEGATIVE [facility] CenterUrine Cannabinoids Luwmfv9060-79-84 10:13:00* Test Item Value Reference Range Interpretation Comments Urine Cannabinoids Screen (test code = 76469-4) NEGATIVE NEGATI VE THESE RESULTS ARE FOR MEDICAL TREATMENT ONLYTHIS REPORT CONTAINS UNCONFIR MED SCREENING RESULTS*POSITIVE RESULTS WILL BE CONFIRMED BY REFERENCE LAB UPON R EQUEST CUT-OFFDRUG CLASS CONCENTRATION ng/mLAmphetamines 1000Methamphetamines 1000Cocaine 300Opiate 300Phencyc lidine 25Cannabinoid 50Barbiturates 300Benzodiazepine 300Methadone 300[facility] BrownwoodUrine Methadone Mxhazm7332-35-50 10:13:00* Test Item Value Reference Range Interpretation Comments Urine Methadone Screen (test code = 00709-7) NEGATIVE NEGATIVE THESE RESULTS ARE FOR MEDICAL TREATMENT ONLYTHIS REPORT CONTAINS UNCONFIR MED SCREENING RESULTS*POSITIVE RESULTS WILL BE CONFIRMED BY REFERENCE LAB UPON R EQUEST CUT-OFFDRUG CLASS CONCENTRATION ng/mLAmphetamines 1000Methamphetamines 1000Cocaine Metabolite 300Opiate 300Phencyc lidine 25Cannabinoid 50Barbiturates 300Benzodiazepine 300Methadone 300[facility] BrownwoodUrine Opiates Gylzil3698-86-98 10:13:00* Test Item Value Reference Range Interpretation Comments Urine Opiates Screen (test code = 91605-7) POSITIVE NEGATIVE H This test provides only a screen. Positive results should be repeated by a confi rmatory test.[facility] CenterUrine Barbiturates Screen 2018-10-16 10:13:00* Test Item Value Reference Range Interpretation Comments Urine Barbiturates Screen (test code = 581894265) NEGATIVE NEGA TIVE [facility] CenterUrine Phencyclidine Itvhpd8056-22-87 10:13:00* Test Item Value Reference Range Interpretation Comments Urine Phencyclidine Screen (test code = 11503-7) NEGATIVE NEGAT CAROLEE [facility] CenterUrine Amphetamines Cxsyic9425-42-40 10:13:00* Test Item Value Reference Range Interpretation Comments Urine Amphetamines Screen (test code = 54818-8) NEGATIVE NEGATI VE [facility] CenterUrine Methamphetamines Cnofyg6730-09-03 10:13:00* Test Item Value Reference Range Interpretation Comments Urine Methamphetamines Screen (test code = Urine Metha mphetamines Screen) NEGATIVE NEGATIVE [facility] CenterU[facility] Benzodiazepines Hxmrgs1166-03-57 10:13:00* Test Item Value Reference Range Interpretation Comments Urine Benzodiazepines Screen (test code = 23312-2) POSITIVE NEG ATIVE H This test provides only a screen. Positive results should be repeated by a confi rmatory test.[facility] CenterUrine Cocaine Screen 2018-10-16 10:13:00* Test Item Value Reference Range Interpretation Comments Urine Cocaine Screen (test code = 3398-5) NEGATIVE NEGATIVE [facility] CenterUrine Cannabinoids Xiywam0085-97-43 10:13:00* Test Item Value Reference Range Interpretation Comments Urine Cannabinoids Screen (test code = 55183-8) NEGATIVE NEGATI VE THESE RESULTS ARE FOR MEDICAL TREATMENT ONLYTHIS REPORT CONTAINS UNCONFIR MED SCREENING RESULTS*POSITIVE RESULTS WILL BE CONFIRMED BY REFERENCE LAB UPON R EQUEST CUT-OFFDRUG CLASS CONCENTRATION ng/mLAmphetamines 1000Methamphetamines 1000Cocaine 300Opiate 300Phencyc lidine 25Cannabinoid 50Barbiturates 300Benzodiazepine 300Methadone 300[facility] CenterUrine Methadone Lkxtls7890-02-41 10:13:00* Test Item Value Reference Range Interpretation Comments Urine Methadone Screen (test code = 63985-3) NEGATIVE NEGATIVE THESE RESULTS ARE FOR MEDICAL TREATMENT ONLYTHIS REPORT CONTAINS UNCONFIR MED SCREENING RESULTS*POSITIVE RESULTS WILL BE CONFIRMED BY REFERENCE LAB UPON R EQUEST CUT-OFFDRUG CLASS CONCENTRATION ng/mLAmphetamines 1000Methamphetamines 1000Cocaine Metabolite 300Opiate 300Phencyc lidine 25Cannabinoid 50Barbiturates 300Benzodiazepine 300Methadone 300[facility] CenterUrine Opiates Lwyrot8489-42-35 10:13:00* Test Item Value Reference Range Interpretation Comments Urine Opiates Screen (test code = 45133-2) POSITIVE NEGATIVE H This test provides only a screen. Positive results should be repeated by a confi rmatory test.[facility] CenterUrine Barbiturates Screen 2018-10-16 10:13:00* Test Item Value Reference Range Interpretation Comments Urine Barbiturates Screen (test code = 696381889) NEGATIVE NEGA TIVE [facility] CenterUrine Phencyclidine Nyrnws7599-86-19 10:13:00* Test Item Value Reference Range Interpretation Comments Urine Phencyclidine Screen (test code = 86975-0) NEGATIVE NEGAT CAROLEE [facility] CenterUrine Amphetamines Kmhkkd7316-31-30 10:13:00* Test Item Value Reference Range Interpretation Comments Urine Amphetamines Screen (test code = 07100-1) NEGATIVE NEGATI VE [facility] CenterUrine Methamphetamines Yewcoe9377-29-51 10:13:00* Test Item Value Reference Range Interpretation Comments Urine Methamphetamines Screen (test code = Urine Metha mphetamines Screen) NEGATIVE NEGATIVE [facility] CenterUrine Benzodiazepines Dlievx3098-78-13 10:13:00* Test Item Value Reference Range Interpretation Comments Urine Benzodiazepines Screen (test code = 08406-1) POSITIVE NEG ATIVE H This test provides only a screen. Positive results should be repeated by a confi rmatory test.[facility] CenterUrine Cocaine Screen 2018-10-16 10:13:00* Test Item Value Reference Range Interpretation Comments Urine Cocaine Screen (test code = 3398-5) NEGATIVE NEGATIVE [facility] CenterUrine Cannabinoids Nafckd4626-28-32 10:13:00* Test Item Value Reference Range Interpretation Comments Urine Cannabinoids Screen (test code = 16456-3) NEGATIVE NEGATI VE THESE RESULTS ARE FOR MEDICAL TREATMENT ONLYTHIS REPORT CONTAINS UNCONFIR MED SCREENING RESULTS*POSITIVE RESULTS WILL BE CONFIRMED BY REFERENCE LAB UPON R EQUEST CUT-OFFDRUG CLASS CONCENTRATION ng/mLAmphetamines 1000Methamphetamines 1000Cocaine 300Opiate 300Phencyc lidine 25Cannabinoid 50Barbiturates 300Benzodiazepine 300Methadone 300[facility] CenterUrine Methadone Dortkq1398-74-72 10:13:00* Test Item Value Reference Range Interpretation Comments Urine Methadone Screen (test code = 14646-9) NEGATIVE NEGATIVE THESE RESULTS ARE FOR MEDICAL TREATMENT ONLYTHIS REPORT CONTAINS UNCONFIR MED SCREENING RESULTS*POSITIVE RESULTS WILL BE CONFIRMED BY REFERENCE LAB UPON R EQUEST CUT-OFFDRUG CLASS CONCENTRATION ng/mLAmphetamines 1000Methamphetamines 1000Cocaine Metabolite 300Opiate 300Phencyc lidine 25Cannabinoid 50Barbiturates 300Benzodiazepine 300Methadone 300[facility] CenterUrine Opiates Adnlta9787-46-88 10:13:00* Test Item Value Reference Range Interpretation Comments Urine Opiates Screen (test code = 60360-0) POSITIVE NEGATIVE H This test provides only a screen. Positive results should be repeated by a confi rmatory test.[facility] CenterUrine Barbiturates Screen 2018-10-16 10:13:00* Test Item Value Reference Range Interpretation Comments Urine Barbiturates Screen (test code = 267619976) NEGATIVE NEGA TIVE [facility] CenterUrine Phencyclidine Heqitb4994-36-90 10:13:00* Test Item Value Reference Range Interpretation Comments Urine Phencyclidine Screen (test code = 84224-5) NEGATIVE NEGAT CAROLEE [facility] CenterUrine Amphetamines Hioxkc0335-30-07 10:13:00* Test Item Value Reference Range Interpretation Comments Urine Amphetamines Screen (test code = 26944-6) NEGATIVE NEGATI VE [facility] Methamphetamines Kdeqcp2926-34-22 10:13:00* Test Item Value Reference Range Interpretation Comments Urine Methamphetamines Screen (test code = Urine Metha mphetamines Screen) NEGATIVE NEGATIVE [facility] CenterUrine Benzodiazepines Lnbvrj0473-46-22 10:13:00* Test Item Value Reference Range Interpretation Comments Urine Benzodiazepines Screen (test code = 30832-3) POSITIVE NEG ATIVE H This test provides only a screen. Positive results should be repeated by a confi rmatory test.[facility] CenterUrine Cocaine Screen 2018-10-16 10:13:00* Test Item Value Reference Range Interpretation Comments Urine Cocaine Screen (test code = 3398-5) NEGATIVE NEGATIVE [facility] Cannabinoids Yokhug5692-56-62 10:13:00* Test Item Value Reference Range Interpretation Comments Urine Cannabinoids Screen (test code = 31680-8) NEGATIVE NEGATI VE THESE RESULTS ARE FOR MEDICAL TREATMENT ONLYTHIS REPORT CONTAINS UNCONFIR MED SCREENING RESULTS*POSITIVE RESULTS WILL BE CONFIRMED BY REFERENCE LAB UPON R EQUEST CUT-OFFDRUG CLASS CONCENTRATION ng/mLAmphetamines 1000Methamphetamines 1000Cocaine 300Opiate 300Phencyc lidine 25Cannabinoid 50Barbiturates 300Benzodiazepine 300Methadone 300[facility] CenterUrine Methadone Mhvjnq6294-24-65 10:13:00* Test Item Value Reference Range Interpretation Comments Urine Methadone Screen (test code = 58439-1) NEGATIVE NEGATIVE THESE RESULTS ARE FOR MEDICAL TREATMENT ONLYTHIS REPORT CONTAINS UNCONFIR MED SCREENING RESULTS*POSITIVE RESULTS WILL BE CONFIRMED BY REFERENCE LAB UPON R EQUEST CUT-OFFDRUG CLASS CONCENTRATION ng/mLAmphetamines 1000Methamphetamines 1000Cocaine Metabolite 300Opiate 300Phencyc lidine 25Cannabinoid 50Barbiturates 300Benzodiazepine 300Methadone 300[facility] CenterUrine Ahyvg5386-19-60 10:09:00* Test Item Value Reference Range Interpretation Comments Urine Color (test code = 5778-6) ORANGE YELLOW H [facility] CenterUrine Hzkyolo0936-79-68 10:09:00* Test Item Value Reference Range Interpretation Comments Urine Clarity (test code = 18320-8) CLEAR CLEAR [facility] CenterUrine Specific Iwmdozc8959-00-75 10:09:00 * Test Item Value Reference Range Interpretation Comments Urine Specific [place] (test code = 5811-5) 1.025 1.010-1.02 5 [facility] CenterUrine yG5582-70-75 10:09:00* Test Item Value Reference Range Interpretation Comments Urine pH (test code = 67805-6) 6 5-7 [facility] CenterU[facility] Leukocyte Knjlfffc0777-76-63 10:09:00* Test Item Value Reference Range Interpretation Comments Urine Leukocyte Esterase (test code = 84554-1) TRACE NEGATIV E H [facility] CenterUrine Wwlxhwp0233-12-95 10:09:00* Test Item Value Reference Range Interpretation Comments Urine Nitrite (test code = 14739-3) NEGATIVE NEGATIVE [facility] CenterUrine Ituhofh4323-56-59 10:09:00* Test Item Value Reference Range Interpretation Comments Urine Protein (test code = 89169-5) 1+ NEGATIVE H [facility] CenterUrine Glucose (UA)2018-10-16 10:09:00* Test Item Value Reference Range Interpretation Comments Urine Glucose (UA) (test code = 21203-3) NEGATIVE NEGATIVE [facility] CenterUrine Adfoxqv9389-41-28 10:09:00* Test Item Value Reference Range Interpretation Comments Urine Ketones (test code = 99022-6) 3+ NEGATIVE H [facility] CenterUrine Uqcilzjzndwo7524-10-62 10:09:00* Test Item Value Reference Range Interpretation Comments Urine Urobilinogen (test code = 49309-4) 0.2 0.2-1 [facility] CenterUrine Llfgvoxsq4596-51-06 10:09:00* Test Item Value Reference Range Interpretation Comments Urine Bilirubin (test code = 1977-8) MODERATE NEGATIVE [facility] CenterUrine Brjtu9004-92-60 10:09:00* Test Item Value Reference Range Interpretation Comments Urine Blood (test code = 16263-8) NEGATIVE NEGATIVE [facility] CenterCreatine Kinase [id number] 16:14:00* Test Item Value Reference Range Interpretation Comments Creatine Kinase MB (test code = 57810-3) 0.60 0-5.0 [facility] CenterTroponin R5893-56-77 16:14:00* Test Item Value Reference Range Interpretation Comments Troponin I (test code = GHR9489) < 0.001 0-0.300 [facility] CenterProthrombin Hojf9969-21-96 16:05:00* Test Item Value Reference Range Interpretation Comments Prothrombin Time (test code = 5902-2) 13.3 11.9-14.5 [facility] CenterProthromb Time International Ratio 2018-09-05 16:05:00* Test Item Value Reference Range Interpretation Comments Prothromb Time International Ratio (test code = 6301-6) 0.96 Oral Anticoagulant Therapy INR Values:1. Low Intensity Therapy 1.5 - 2.02 . Moderate Intensity Therapy 2.0 - 3.03. High Intensity Therapy(1) 2.5 - 3. 54. High Intensity Therapy(2) 3.0 - 4.05. Panic Value INR > 5.0 [facility] CenterActivated Partial Thromboplast Time 2018-09-05 16:05:00* Test Item Value Reference Range Interpretation Comments Activated Partial Thromboplast Time (test code = 35725-2) 26.4 23.8-35.5 [facility] Lveee2981-96-97 16:05:00* Test Item Value Reference Range Interpretation Comments Sodium Level (test code = 2951-2) 135 136-145 L [facility] CenterPotassium Gjrmk7392-90-16 16:05:00* Test Item Value Reference Range Interpretation Comments Potassium Level (test code = 2823-3) 3.4 3.5-5.1 L [facility] CenterChloride Yvkdr3702-53-46 16:05:00* Test Item Value Reference Range Interpretation Comments Chloride Level (test code = 2075-0) 101 98-107 [facility] CenterCarbon Dioxide Avbcg2275-00-32 16:05:00* Test Item Value Reference Range Interpretation Comments Carbon Dioxide Level (test code = 2028-9) 21 22-29 L [facility] CenterAnion Gqd5395-63-59 16:05:00* Test Item Value Reference Range Interpretation Comments Anion Gap (test code = 73983-2) 16.4 8-16 H [facility] CenterBlood Urea Lnoqqcpz3234-24-38 16:05:00* Test Item Value Reference Range Interpretation Comments Blood Urea Nitrogen (test code = 3094-0) 11 7-26 [facility] CenterCreatinine2019-06-19 16:05:00* Test Item Value Reference Range Interpretation Comments Creatinine (test code = 2160-0) 0.85 0.57-1.11 [facility] CenterBUN/Creatinine Opecl8006-74-83 16:05:00* Test Item Value Reference Range Interpretation Comments BUN/Creatinine Ratio (test code = 3097-3) 13 6-25 [facility] CenterEstimat Glomerular Filtration Rate 2018-09-05 16:05:00* Test Item Value Reference Range Interpretation Comments Estimat Glomerular Filtration Rate (test code = 364952440) > 60 >60 Ranges were taken from the National Kidney Disease Education Program and the [facility] Kidney Foundation literature.Reference ranges:60 or greater: Nferhp16-49 ( for 3 consecutive months): Chronic kidney disease 15 or less: Kidney failureThe [facility] of [facility]. [facility] Cancer CenterGlucose Opyjy6652-18-39 16:05:00* Test Item Value Reference Range Interpretation Comments Glucose Level (test code = PJS7741) 103 74-118 [facility] CenterCalcium Rjjhv0545-00-78 16:05:00* Test Item Value Reference Range Interpretation Comments Calcium Level (test code = 03530-5) 9.4 8.4-10.2 [facility] CenterTotal Dvvdctuij7386-31-28 16:05:00* Test Item Value Reference Range Interpretation Comments Total Bilirubin (test code = 1975-2) 0.6 0.2-1.2 [facility] CenterAspartate Amino Transf (AST/SGOT) 2018-09-05 16:05:00* Test Item Value Reference Range Interpretation Comments Aspartate Amino Transf (AST/SGOT) (test code = Aspartate Amino Transf (AST/SGOT)) 39 5-34 H [facility] CenterAlanine Aminotransferase (ALT/SGPT) 2018-09-05 16:05:00* Test Item Value Reference Range Interpretation Comments Alanine Aminotransferase (ALT/SGPT) (test code = 1742-6) 25 0-55 [facility] CenterTotal Fcznlkb7157-62-74 16:05:00* Test Item Value Reference Range Interpretation Comments Total Protein (test code = 2885-2) 7.3 6.5-8.1 [facility] CenterAlbumin2019-06-19 16:05:00* Test Item Value Reference Range Interpretation Comments Albumin (test code = 1751-7) 2.9 3.5-5.0 L [facility] CenterGlobulin2019-06-19 16:05:00* Test Item Value Reference Range Interpretation Comments Globulin (test code = 33301-4) 4.4 2.3-3.5 H [facility] CenterAlbumin/Globulin Sfsnk1732-80-64 16:05:00 * Test Item Value Reference Range Interpretation Comments Albumin/Globulin Ratio (test code = 1759-0) 0.7 0.8-2.0 L [facility] CenterAlkaline Rkhcxyxifka1026-60-39 16:05:00* Test Item Value Reference Range Interpretation Comments Alkaline Phosphatase (test code = 6768-6) 173 40-150 H [facility] CenterCreatine Bmvuyc1681-78-81 16:05:00* Test Item Value Reference Range Interpretation Comments Creatine Kinase (test code = 2157-6) 15 29-168 L [facility] CenterUrine BKU6384-82-42 16:01:00* Test Item Value Reference Range Interpretation Comments Urine WBC (test code = 5821-4) >50 0-5 H [facility] CenterUrine FTC3999-39-70 16:01:00* Test Item Value Reference Range Interpretation Comments Urine RBC (test code = 88015-1) 11-20 0-5 H [facility] CenterUrine Cplckens1465-43-78 16:01:00* Test Item Value Reference Range Interpretation Comments Urine Bacteria (test code = 27041-3) MANY NONE H [facility] CenterUrine Epithelial Xqxni8558-12-13 16:01:00 * Test Item Value Reference Range Interpretation Comments Urine Epithelial Cells (test code = 45921-1) NONE NONE [facility] CenterUrine Opiates Cnyzgk5731-03-90 15:47:00* Test Item Value Reference Range Interpretation Comments Urine Opiates Screen (test code = 76112-3) POSITIVE NEGATIVE H ALL TESTS PERFORMED MANUALLY ON Skout TOX/SEE TEST This test provides only a sc reen. Positive results should be repeated by a confirmatory test.[facility] CenterUrine Barbiturates Hzusuh6484-94-89 15:47:00* Test Item Value Reference Range Interpretation Comments Urine Barbiturates Screen (test code = 363341643) POSITIVE NEGA TIVE H This test provides only a screen. Positive results should be repeated by a confi rmatory test.[facility] CenterUrine Phencyclidine Screen 2018-09-05 15:47:00* Test Item Value Reference Range Interpretation Comments Urine Phencyclidine Screen (test code = 21754-0) NEGATIVE NEGAT CAROLEE [facility] CenterUrine Amphetamines Qwgdie7524-35-79 15:47:00* Test Item Value Reference Range Interpretation Comments Urine Amphetamines Screen (test code = 34386-1) NEGATIVE NEGATI VE [facility] CenterUrine Methamphetamines Heperg2668-13-40 15:47:00* Test Item Value Reference Range Interpretation Comments Urine Methamphetamines Screen (test code = Urine Metha mphetamines Screen) NEGATIVE NEGATIVE [facility] CenterUrine Benzodiazepines Dnznvr4512-74-48 15:47:00* Test Item Value Reference Range Interpretation Comments Urine Benzodiazepines Screen (test code = 67685-6) POSITIVE NEG ATIVE H This test provides only a screen. Positive results should be repeated by a confi rmatory test.[facility] CenterUrine Cocaine Screen 2018-09-05 15:47:00* Test Item Value Reference Range Interpretation Comments Urine Cocaine Screen (test code = 3398-5) NEGATIVE NEGATIVE [facility] CenterUrine Cannabinoids Rheigb0534-83-48 15:47:00* Test Item Value Reference Range Interpretation Comments Urine Cannabinoids Screen (test code = 61497-8) NEGATIVE NEGATI VE THESE RESULTS ARE FOR MEDICAL TREATMENT ONLYTHIS REPORT CONTAINS UNCONFIR MED SCREENING RESULTS*POSITIVE RESULTS WILL BE CONFIRMED BY REFERENCE LAB UPON R EQUEST CUT-OFFDRUG CLASS CONCENTRATION ng/mLAmphetamines 1000Methamphetamines 1000Cocaine 300Opiate 300Phencyc lidine 25Cannabinoid 50Barbiturates 300Benzodiazepine 300Methadone 300[facility] BrownwoodUrine Methadone Bjagbn6470-65-17 15:47:00* Test Item Value Reference Range Interpretation Comments Urine Methadone Screen (test code = 97821-3) NEGATIVE NEGATIVE THESE RESULTS ARE FOR MEDICAL TREATMENT ONLYTHIS REPORT CONTAINS UNCONFIR MED SCREENING RESULTS*POSITIVE RESULTS WILL BE CONFIRMED BY REFERENCE LAB UPON R EQUEST CUT-OFFDRUG CLASS CONCENTRATION ng/mLAmphetamines 1000Methamphetamines 1000Cocaine Metabolite 300Opiate 300Phencyc lidine 25Cannabinoid 50Barbiturates 300Benzodiazepine 300Methadone 300[facility] BrownwoodWhite Blood Axemw8253-94-71 15:45:00* Test Item Value Reference Range Interpretation Comments White Blood Count (test code = 6690-2) 8.58 4.8-10.8 [facility] CenterRed Blood Pxrfm4056-62-89 15:45:00* Test Item Value Reference Range Interpretation Comments Red Blood Count (test code = 789-8) 3.08 3.6-5.1 L [facility] CenterHemoglobin2019-06-19 15:45:00* Test Item Value Reference Range Interpretation Comments Hemoglobin (test code = 19806-5) 9.3 12.0-16.0 L [facility] CenterHematocrit2019-06-19 15:45:00* Test Item Value Reference Range Interpretation Comments Hematocrit (test code = 4544-3) 27.0 34.2-44.1 L [facility] CenterMean Corpuscular Yxsayg1425-64-45 15:45:00* Test Item Value Reference Range Interpretation Comments Mean Corpuscular Volume (test code = 787-2) 87.7 81-99 [facility] CenterMean Corpuscular Qxagitggmw1816-13-87 15:45:00* Test Item Value Reference Range Interpretation Comments Mean Corpuscular Hemoglobin (test code = 785-6) 30.2 28-32 [facility] CenterMean Corpuscular Hemoglobin Concent 2018-09-05 15:45:00* Test Item Value Reference Range Interpretation Comments Mean Corpuscular Hemoglobin Concent (test code = 786-4) 34.4 31-35 [facility] CenterRed Cell Distribution Wtoag5257-55-94 15:45:00* Test Item Value Reference Range Interpretation Comments Red Cell Distribution Width (test code = 69927-2) 11.9 11.7 -14.4 [facility] CenterPlatelet Egzpy6385-38-29 15:45:00* Test Item Value Reference Range Interpretation Comments Platelet Count (test code = 777-3) 244 140-360 [facility] CenterNeutrophils (%) (Auto)2018-09-05 15:45:00 * Test Item Value Reference Range Interpretation Comments Neutrophils (%) (Auto) (test code = 47777-4) 79.7 38.7-80.0 [facility] CenterLymphocytes (%) (Auto)2018-09-05 15:45:00 * Test Item Value Reference Range Interpretation Comments Lymphocytes (%) (Auto) (test code = 736-9) 12.0 18.0-39.1 L [facility] CenterMonocytes (%) (Auto)2018-09-05 15:45:00* Test Item Value Reference Range Interpretation Comments Monocytes (%) (Auto) (test code = 5905-5) 7.0 4.4-11.3 [facility] CenterEosinophils (%) (Auto)2018-09-05 15:45:00 * Test Item Value Reference Range Interpretation Comments Eosinophils (%) (Auto) (test code = 713-8) 0.1 0.0-6.0 [facility] CenterBasophils (%) (Auto)2018-09-05 15:45:00* Test Item Value Reference Range Interpretation Comments Basophils (%) (Auto) (test code = 706-2) 0.2 0.0-1.0 [facility] CenterIM GRANULOCYTES %2018-09-05 15:45:00* Test Item Value Reference Range Interpretation Comments IM GRANULOCYTES % (test code = IM GRANULOCYTES %) 1.0 0.0- 1.0 [facility] CenterNeutrophils # (Auto)2018-09-05 15:45:00* Test Item Value Reference Range Interpretation Comments Neutrophils # (Auto) (test code = 751-8) 6.8 2.1-6.9 [facility] CenterLymphocytes # (Auto)2018-09-05 15:45:00* Test Item Value Reference Range Interpretation Comments Lymphocytes # (Auto) (test code = 35511-1) 1.0 1.0-3.2 [facility] CenterMonocytes # (Auto)2018-09-05 15:45:00* Test Item Value Reference Range Interpretation Comments Monocytes # (Auto) (test code = 742-7) 0.6 0.2-0.8 [facility] CenterEosinophils # (Auto)2018-09-05 15:45:00* Test Item Value Reference Range Interpretation Comments Eosinophils # (Auto) (test code = 711-2) 0.0 0.0-0.4 [facility] CenterBasophils # (Auto)2018-09-05 15:45:00* Test Item Value Reference Range Interpretation Comments Basophils # (Auto) (test code = 704-7) 0.0 0.0-0.1 [facility] CenterAbsolute Immature Granulocyte (auto 2018-09-05 15:45:00* Test Item Value Reference Range Interpretation Comments Absolute Immature Granulocyte (auto (jose t code = Absolute Immature Granulocyte (auto) 0.09 0-0.1 [facility] CenterUrine Kypqi3973-34-81 15:44:00* Test Item Value Reference Range Interpretation Comments Urine Color (test code = 5778-6) STRAW YELLOW [facility] CenterUrine Cxbaibd9493-72-09 15:44:00* Test Item Value Reference Range Interpretation Comments Urine Clarity (test code = 14048-2) SL CLOUDY CLEAR [facility] Specific Bpsabpg9942-80-61 15:44:00 * Test Item Value Reference Range Interpretation Comments Urine Specific [place] (test code = 5811-5) 1.025 1.010-1.02 5 [facility] CenterUrine dM9650-79-27 15:44:00* Test Item Value Reference Range Interpretation Comments Urine pH (test code = 24960-4) 6 5-7 [facility] Leukocyte Adwcpvib6029-69-43 15:44:00* Test Item Value Reference Range Interpretation Comments Urine Leukocyte Esterase (test code = 91417-7) MODERATE NEGATIV E [facility] Agrtibn1129-57-58 15:44:00* Test Item Value Reference Range Interpretation Comments Urine Nitrite (test code = 69608-3) NEGATIVE NEGATIVE [facility] Hgijdmb5118-71-62 15:44:00* Test Item Value Reference Range Interpretation Comments Urine Protein (test code = 85437-5) 2+ NEGATIVE H [facility] CenterU[facility] Glucose (UA)2018-09-05 15:44:00* Test Item Value Reference Range Interpretation Comments Urine Glucose (UA) (test code = 62508-9) NEGATIVE NEGATIVE [facility] CenterU[facility] Vmqwvvb3084-60-85 15:44:00* Test Item Value Reference Range Interpretation Comments Urine Ketones (test code = 98875-6) 1+ NEGATIVE H [facility] Center[facility] Xydudlfnojnr8727-22-14 15:44:00* Test Item Value Reference Range Interpretation Comments Urine Urobilinogen (test code = 66694-9) 1 0.2-1 [facility] CenterUrine Ttciygwgs5999-32-96 15:44:00* Test Item Value Reference Range Interpretation Comments Urine Bilirubin (test code = 1977-8) MODERATE NEGATIVE [facility] Ofqcb9214-82-28 15:44:00* Test Item Value Reference Range Interpretation Comments Urine Blood (test code = 75511-4) 1+ NEGATIVE [facility] L[facility] QA9566-24-79 23:13:00 [facility] [address] [address] Patient Name: CHIKA HEATON MR #: [id number] : 1960 Age/Sex: 57/F Req #: [id number] Adm Physician: Ordered by: RONI LARA MD Report #: [id number] Location: ER Room/Bed: Procedure: CT/CT LUMBAR SPINE WO Exam Date: 08/30/18 Exam Ti me: 2240 REPORT STATUS: Signed H istory: Fall, back pain Comparison studies: None Technique: Axial imag es were obtained from T12 through the sacrum. Coronal and sagittal images jaron nstructed from the axial data. Intravenous contrast: None Dose modulation , iterative reconstruction, and/or weight based adjustment of the mA/kV was ut ilized to reduce the radiation dose to as low as reasonably achievable. F indings: Number of non-rib bearing vertebral bodies: 5 Alignment: Norm al lordosis. No scoliosis. Soft tissues: No paraspinal abnormalities. Small s ubcentimeter stones on the right collecting systems without hydronephrosis. Paraspinal muscles: Unremarkable. Vertebrae: No fractures or infection. Nondeforming hemangioma at L3 and L5 vertebral bodies. Degenerative isacc nges: L1-L2: Patent canal and foramina L2-L3: Asymmetric left dis c bulge results in mild canal stenosis and mild left foraminal narrowing L3-L4: Diffuse disc bulge and mild facet hypertrophy with patent canal and mil d bilateral foraminal. L4-L5: Diffuse disc bulge, mild facet hypertroph y and ligamentum flavum thickening results in mild canal stenosis and mild skylar ateral foraminal narrowing L5-S1: Mild facet hypertrophy with patent ann-marie l and mild bilateral foraminal narrowing Sacroiliac joints: Mild degener ative changes without acute abnormality. IMPRESSION: 1. No acute lumb ar abnormality. 2. Degenerative changes as described above. 3. Nonob structing right nephrolithiasis. Signed by: Satnam Garcia on 08/30/2018 11:22 PM Dictated By: MERLIN PARRA MD Electronical ly Signed By: MERLIN PARRA MD on 08/30/182321 Transcribed By: AILYN on 08/30/182321 COPY TO: RONI LARA MD LUMBAR 3 VIEW 2018-08-30 21:52:[address] [address] Patient Name: CHIKA HEATON MR #: [id number] : 1960 Age/Sex: 57/F Req #: [id number] Adm Physician: Ordered by: RONI LARA MD Report #: [id number] Location: ER Room/Bed: Procedure: 53 DX/LUMBAR 3 VIEW Exam Date: Exam Time: REPORT STATUS: Signed Lumbar Spine Radio graphs: 3 views HISTORY: Pain COMPARISON: None available in PACS at this time. DISCUSSION: There are five non-rib bearing lumbar vertebral b odies. The alignment of the spine is within normal limits. Mild wedge def ormity of the L4 vertebral body with deformity of the superior endplate sugges tive of mild compression injury. Mild multilevel spondylosis. Facet arthros is at L4-L5 and L5-S1. Sclerotic lesion in the right acetabulum may represe nt a bone island. Multiple phleboliths scattered throughout the pelvis. Degene rative changes of the bilateral hip and thigh joints. IMPRESSION: Fi ndings suggestive of mild compression fracture deformity of L4. Signed by: Dr. Ai Walker M.D. on 08/30/2018 9:55 PM Dictated By: JUNE ZAIDI MD, MD 54 T ranscribed By: AILYN on 08/30/182154 COPY TO: RONI LARA MD THORACIC SPINE [id number] 21:50:00 [address] [address] Patient Name: CHIKA HEATON MR #: [id number] : 1960 Age/Sex: 57/F Req #: [id number] Adm Physician: Ordered by: RONI LARA MD Report #: [id number] Location: ER Room/Bed: Procedure: 54 DX/THORACIC SPINE 2VW Exam Date: Exam Time: REPORT STATUS: Signed Thoracic Spine - 3 view(s) HISTORY: Pain status post fall. COMPARISON: None FINDINGS: Superimposed structures and attenuation partially limit bone deta il particularly on the swimmer's view.. The alignment is normal. No di splaced fracture or compression deformity is identified. Minimal multilevel thoracic spondylosis. Cholecystectomy clips IMPRESSION: No acute co mpression fracture. Signed by: Dr. Ai Walker M.D. on 08/30/2018 9:52 PM Dictated By: JUNE WALKER MD, MD 51 Transcribed By: AILYN on 08/30/182151 COPY TO: RONI LARA MD CT CERVICAL SPINE [id number] 21:46:00 [address] [address] Patient Name: CHIKA HEATON MR #: [id number] : 1960 Age/Sex: 57/F Req #: [id number] Adm Physician: Ordered by: RONI LARA MD Report #: [id number] Location: ER Room/Bed: Procedure: CT/CT CERVICAL SPINE WO Exam Date: Exam Time: REPORT STATUS: Signed History: Fa ll, hit the head. Head and neck pain Comparison studies:None Technique: Axial images were obtained from the brain and cervical spine. Coronal and sag ittal images reconstructed from the axial data. Intravenous contrast: None D ose modulation, iterative reconstruction, and/or weight based adjustment of th e mA/kV was utilized to reduce the radiation dose to as low as reasonably achi evable. Findings: Head CT: Scalp/skull: No abnormalities. No f ractures, blastic or lytic lesions. Brain sulci: Appropriate for age. Juni tricles: Normal in size and configuration. No hydrocephalus. Extra-axial sp aces: No masses. No fluid collections. Parenchyma: No abnormal densi ties. No masses, hemorrhage, acute or chronic cortical vascular insults. Sellar/suprasellar region: No abnormalities. Craniocervical junction: Patent foramen magnum. No Chiari one malformation. Cervical spine CT: Fractu res: None. Soft tissues: No gross abnormalities. Atlantoaxial articulatio n: Degenerative changes without acute abnormality. Alignment: Normal lordosis. No scoliosis. Cervicomedullary junction: No abnormalities. Patent foramen mag num. Vertebrae: No infection or neoplasm. Degenerative changes: Patent canal and foramina. Incidental findings: None. Impression: Head CT: 1. Normal examination. Cervical spine CT: 1. No acute abnormalities. 2. Cannot exclude ligament, spinal cord and or vascular abnorm alities on the basis of this examination. Signed by: DR Merlin johnson M.D. on 08/30/2018 9:51 PM Dictated By: MERLIN PARRA MD Electr onically Signed By: MERLIN PARRA MD on 08/30/182150 Transcribed By: EVELINA CORDERO on 08/30/182150 COPY TO: RONI LARA MD CT BRAIN [id number] 21:46:00 [address] [place] [address] Patient Name: CHIKA HEATON MR #: [id number] : 1960 Age/Sex: 57/F Req #: [id number] Adm Physician: Ordered by: RONI LARA MD Report #: [id number] Location: ER Room/Bed: Procedure: CT/CT BRAIN WO Exam Date: Exam Time: REPORT STATUS: Signed History: Fall, hit t he head. Head and neck pain Comparison studies:None Technique: Axial im ages were obtained from the brain and cervical spine. Coronal and sagittal viktor ges reconstructed from the axial data. Intravenous contrast: None Dose modul ation, iterative reconstruction, and/or weight based adjustment of the mA/kV w as utilized to reduce the radiation dose to as low as reasonably achievable. Findings: Head CT: Scalp/skull: No abnormalities. No fractures, blastic or lytic lesions. Brain sulci: Appropriate for age. Ventricles: Normal in size and configuration. No hydrocephalus. Extra-axial spaces: No masses. No fluid collections. Parenchyma: No abnormal densities. No masses, hemorrhage, acute or chronic cortical vascular insults. Sellar/s uprasellar region: No abnormalities. Craniocervical junction: Patent foramen m agnum. No Chiari one malformation. Cervical spine CT: Fractures: None . Soft tissues: No gross abnormalities. Atlantoaxial articulation: Degene rative changes without acute abnormality. Alignment: Normal lordosis. No scoli osis. Cervicomedullary junction: No abnormalities. Patent foramen magnum. Vertebrae: No infection or neoplasm. Degenerative changes: Patent ca nal and foramina. Incidental findings: None. Impression: Head C T: 1. Normal examination. Cervical spine CT: 1. No acute abnormali ties. 2. Cannot exclude ligament, spinal cord and or vascular abnormalities o n the basis of this examination. Signed by: DR Merlin Jay M.D. on 08/30/2018 9:51 PM Dictated By: MERLIN PARRA MD 50 Transcribed By: AILYN on 2150 COPY TO: RONI LARA MD PELVIS AP 1-2 VIEWS 2018-08-05 17:49:00 [address] [address] Patient Name: CHIKA HEATON MR #: [id number] : 1960 Age/Sex: 57/F Req #: [id number] Adm Physician: Ordered by: YODIT PORTILLO MD Report #: [id number] Location: ER Room/Bed: Procedure: DX/P ALMAS AP 1-2 VIEWS Exam Date: 08/05/18 Exam Time: 16 45 REPORT STATUS: Signed PELVIS X-RAY - 1 VIEW HISTORY: fall [id number] COMPAR BALAJI: CT abdomen and pelvis 07/31/2011 FINDINGS: Bones: No acute di splaced fracture. Sclerotic lesion within the right iliac bone is unchanged since 2011 and likely representing a bone island. Osseous alignment is within normal limits. Joints: Mild to moderate degenerative changes of both hips . Mild degenerative changes of both sacroiliac joints. Soft tissues: Mu ltiple phleboliths overlying the pelvis. IMPRESSION: No acute radiogr aphic abnormality. Signed by: Dr. Jaquelin Michaud M.D. on 5:50 PM Dictated By: JAQUELIN MICHAUD MD 49 Transcribed By: AILYN on 07/18 COPY TO: YODIT PORTILLO MD CT BRAIN [id number] 17:38:00 [address] [place] [address] Patient Name: CHIKA HEATON MR #: [id number] : 1960 Age/Sex: 57/F Req #: [id number] Adm Physician: Ordered by: YODIT PORTILLO MD Report #: [id number] Location: ER Room/Bed: Procedure: CT/C T BRAIN WO Exam Date: 08/05/18 Exam Time: 1640 REPORT STATUS: Signed CT BRAIN WO HISTORY: Trauma COMPARISON: Head CT 07/03/2018 Technique: Noncont rast axial scans were obtained from skull base to the vertex. Coronal and sag ittal reconstructions obtained from the axial data. One or more of the follow ing dose reduction techniques were used: Automated exposure control, adjustmen t of the mA and/or kV according to patient size, and/or utilization of iterati ve reconstruction technique. DISCUSSION: Scalp/Skull: Unremarkable. Brain sulci: Age-appropriate. Ventricles: Normal in size and configuration. Extra-axial spaces: No masses or fluid collections. Carotid siphon calcificati ons are present. Parenchyma: Mild bilateral deep white matter hypodensit y is likely chronic microvascular ischemic change. Otherwise, no masses, he morrhage, or large vascular territory acute infarct. Dural sinuses: No abn ormal densities. Sellar/Suprasellar region: Intact. Skull base: Intact. In cidental findings: None. IMPRESSION: 1. No acute intracranial abnormalit ies. 2. Mild supratentorial chronic microvascular ischemic change. Si gned by: Dr. Mason Ortiz M.D. on 08/05/2018 5:42 PM Dictated By: CRICKET ORTIZ MD 41 Transcribed By: AILYN on 08/05/181741 COPY TO: YODIT PORTILLO MD CT BRAIN [id number] 16:25:00 [address] [place] [address] Patient Name: CHIKA HEATON MR #: [id number] : 1960 Age/Sex: 57/F Req #: [id number] Adm Physician: Ordered by: SOTO MONTIEL EMBEDDED DEVELOPER Report #: [id number] Location: ER Room/Bed: Procedure: [id number] CT/ CT BRAIN WO Exam Date: 07/03/18 Exam Time: 1609 REPORT STATUS: Signed History:Dizzin ess, falls Comparison studies: None Technique: Axial images were o btained from the skull base to the vertex. Coronal and sagittal images reconst ructed from the axial data. Dose modulation, iterative reconstruction, and/or weight based adjustment of the mA/kV was utilized to reduce the radiation dos e to as low as reasonably achievable. Intravenous contrast: None Fi ndings: Scalp/skull: An acute right parietal scalp hematoma is not assoc iated with subcutaneous emphysema or with hyperdense foreign bodies. No underl manolo fractures. Extra-axial spaces: No masses. No fluid collections. Brain sulci: Appropriate for age. Ventricles: Normal in size and configura tion. No hydrocephalus. Parenchyma: No abnormal densities. No masses, hemorrhage, acute or chronic cortical vascular insults. Sellar/suprasellar region: No abnormalities. Craniocervical junction: Patent foramen magnum. No Chiari one malformation. Impression: 1. Acute right parietal scalp h ematoma. No fractures. 2. No intracranial abnormalities. Signed by: Dr. Krista Tracy M.D. on 07/03/2018 4:27 PM Dictated By: KRISTA HERRERA MD, MD 1 627 Transcribed By: AILYN on 07/03/18 3355 COPY TO: SOTO MONTIEL NP Sodium Okmgq8031-11-31 15:36:00* Test Item Value Reference Range Interpretation Comments Sodium Level (test code = 2951-2) 136 136-145 [facility] CenterPotassium Sqjcs8432-36-36 15:36:00* Test Item Value Reference Range Interpretation Comments Potassium Level (test code = 2823-3) 4.1 3.5-5.1 [facility] CenterChloride Wurnm7117-99-33 15:36:00* Test Item Value Reference Range Interpretation Comments Chloride Level (test code = 2075-0) 100 98-107 [facility] CenterCarbon Dioxide Tqnlx0146-06-12 15:36:00* Test Item Value Reference Range Interpretation Comments Carbon Dioxide Level (test code = 2028-9) 24 22-29 [facility] CenterAnion Mvj2025-42-26 15:36:00* Test Item Value Reference Range Interpretation Comments Anion Gap (test code = 20560-0) 16.1 8-16 H [facility] CenterBlood Urea Gaugwaqz1782-86-45 15:36:00* Test Item Value Reference Range Interpretation Comments Blood Urea Nitrogen (test code = 3094-0) 11 7-26 [facility] CenterCreatinine2019-04-16 15:36:00* Test Item Value Reference Range Interpretation Comments Creatinine (test code = 2160-0) 0.80 0.57-1.11 [facility] CenterBUN/Creatinine Gjblx9973-25-79 15:36:00* Test Item Value Reference Range Interpretation Comments BUN/Creatinine Ratio (test code = 3097-3) 14 6- [facility] CenterEstimat Glomerular Filtration Rate 2018-07-03 15:36:00* Test Item Value Reference Range Interpretation Comments Estimat Glomerular Filtration Rate (test code = 704147613) > 60 >60 Ranges were taken from the National Kidney Disease Education Program and the [facility] Kidney Foundation literature.Reference ranges:60 or greater: Gnpygn15-46 ( for 3 consecutive months): Chronic kidney disease 15 or less: Kidney failureThe [facility] of [facility] M.[facility]. Anderson Cancer CenterGlucose Vmeiv7825-12-17 15:36:00* Test Item Value Reference Range Interpretation Comments Glucose Level (test code = GNU8106) 98 74-118 [facility] CenterCalcium Upcrc1105-73-12 15:36:00* Test Item Value Reference Range Interpretation Comments Calcium Level (test code = 71472-7) 9.5 8.4-10.2 [facility] CenterTotal Ijllxbupy9232-70-25 15:36:00* Test Item Value Reference Range Interpretation Comments Total Bilirubin (test code = 1975-2) 0.8 0.2-1.2 [facility] Cancer CenterAspartate Amino Transf (AST/SGOT) 2018-07-03 15:36:00* Test Item Value Reference Range Interpretation Comments Aspartate Amino Transf (AST/SGOT) (test code = Aspartate Amino Transf (AST/SGOT)) 19 5-34 [facility] CenterAlanine Aminotransferase (ALT/SGPT) 2018-07-03 15:36:00* Test Item Value Reference Range Interpretation Comments Alanine Aminotransferase (ALT/SGPT) (test code = 1742-6) 11 0-55 [facility] CenterTotal Rsjzinf2730-62-51 15:36:00* Test Item Value Reference Range Interpretation Comments Total Protein (test code = 2885-2) 7.2 6.5-8.1 [facility] CenterAlbumin2019-04-16 15:36:00* Test Item Value Reference Range Interpretation Comments Albumin (test code = 1751-7) 3.5 3.5-5.0 [facility] CenterGlobulin2019-04-16 15:36:00* Test Item Value Reference Range Interpretation Comments Globulin (test code = 46866-0) 3.7 2.3-3.5 H [facility] CenterAlbumin/Globulin Gqxym6673-83-93 15:36:00 * Test Item Value Reference Range Interpretation Comments Albumin/Globulin Ratio (test code = 1759-0) 0.9 0.8-2.0 [facility] CenterAlkaline Vkqgfgurcbs1267-58-44 15:36:00* Test Item Value Reference Range Interpretation Comments Alkaline Phosphatase (test code = 6768-6) 132 40-150 [facility] Cdpzj7980-01-19 15:36:00* Test Item Value Reference Range Interpretation Comments Sodium Level (test code = 2951-2) 136 136-145 [facility] CenterPotassium Kyaka8466-27-38 15:36:00* Test Item Value Reference Range Interpretation Comments Potassium Level (test code = 2823-3) 4.1 3.5-5.1 [facility] CenterChloride Hddwo8999-15-44 15:36:00* Test Item Value Reference Range Interpretation Comments Chloride Level (test code = 2075-0) 100 98-107 [facility] CenterCarbon Dioxide Yjloq5880-86-64 15:36:00* Test Item Value Reference Range Interpretation Comments Carbon Dioxide Level (test code = 2028-9) 24 22-29 [facility] CenterAnion Nmb5502-46-68 15:36:00* Test Item Value Reference Range Interpretation Comments Anion Gap (test code = 32527-1) 16.1 8-16 H [facility] CenterBlood Urea Izgypjjs5591-09-89 15:36:00* Test Item Value Reference Range Interpretation Comments Blood Urea Nitrogen (test code = 3094-0) 11 7-26 [facility] CenterCreatinine2019-04-16 15:36:00* Test Item Value Reference Range Interpretation Comments Creatinine (test code = 2160-0) 0.80 0.57-1.11 [facility] CenterBUN/Creatinine Fvvdh6673-45-59 15:36:00* Test Item Value Reference Range Interpretation Comments BUN/Creatinine Ratio (test code = 3097-3) 14 09-11 [facility] CenterEstimat Glomerular Filtration Rate 2018-07-03 15:36:00* Test Item Value Reference Range Interpretation Comments Estimat Glomerular Filtration Rate (test code = 633970407) > 60 >60 Ranges were taken from the National Kidney Disease Education Program and the [facility] system[facility] Kidney Foundation literature.Reference ranges:60 or greater: Xwxvhg48-30 ( for 3 consecutive months): Chronic kidney disease 15 or less: Kidney failureThe [facility] of [facility] Anderson Cancer CenterGlucose Xyrar0520-47-21 15:36:00* Test Item Value Reference Range Interpretation Comments Glucose Level (test code = GXY3263) 98 74-118 [facility] CenterCalcium Othua9136-31-14 15:36:00* Test Item Value Reference Range Interpretation Comments Calcium Level (test code = 39436-3) 9.5 8.4-10.2 [facility] CenterTotal Spxneydiy5102-15-73 15:36:00* Test Item Value Reference Range Interpretation Comments Total Bilirubin (test code = 1975-2) 0.8 0.2-1.2 [facility] CenterAspartate Amino Transf (AST/SGOT) 2018-07-03 15:36:00* Test Item Value Reference Range Interpretation Comments Aspartate Amino Transf (AST/SGOT) (test code = Aspartate Amino Transf (AST/SGOT)) 19 5-34 [facility] CenterAlanine Aminotransferase (ALT/SGPT) 2018-07-03 15:36:00* Test Item Value Reference Range Interpretation Comments Alanine Aminotransferase (ALT/SGPT) (test code = 1742-6) 11 0-55 [facility] CenterTotal Slsuzcd7152-24-92 15:36:00* Test Item Value Reference Range Interpretation Comments Total Protein (test code = 2885-2) 7.2 6.5-8.1 [facility] CenterAlbumin2019-04-16 15:36:00* Test Item Value Reference Range Interpretation Comments Albumin (test code = 1751-7) 3.5 3.5-5.0 [facility] CenterGlobulin2019-04-16 15:36:00* Test Item Value Reference Range Interpretation Comments Globulin (test code = 66838-7) 3.7 2.3-3.5 H [facility] CenterAlbumin/Globulin Smyxv0471-27-33 15:36:00 * Test Item Value Reference Range Interpretation Comments Albumin/Globulin Ratio (test code = 1759-0) 0.9 0.8-2.0 [facility] CenterAlkaline Ubsztyzslro4531-50-88 15:36:00* Test Item Value Reference Range Interpretation Comments Alkaline Phosphatase (test code = 6768-6) 132 40-150 [facility]odium Raquj3176-60-77 15:36:00* Test Item Value Reference Range Interpretation Comments Sodium Level (test code = 2951-2) 136 136-145 [facility] CenterPotassium Wlzch4980-38-16 15:36:00* Test Item Value Reference Range Interpretation Comments Potassium Level (test code = 2823-3) 4.1 3.5-5.1 [facility] CenterChloride Bzwdm0889-98-26 15:36:00* Test Item Value Reference Range Interpretation Comments Chloride Level (test code = 2075-0) 100 98-107 [facility] CenterCarbon Dioxide Mqrvd5930-63-94 15:36:00* Test Item Value Reference Range Interpretation Comments Carbon Dioxide Level (test code = 2028-9) 24 22-29 [facility] CenterAnion Vfk2636-10-33 15:36:00* Test Item Value Reference Range Interpretation Comments Anion Gap (test code = 61520-2) 16.1 8-16 H [facility] CenterBlood Urea Txyyxmtf9711-73-21 15:36:00* Test Item Value Reference Range Interpretation Comments Blood Urea Nitrogen (test code = 3094-0) 11 7-26 [facility] CenterCreatinine2019-04-16 15:36:00* Test Item Value Reference Range Interpretation Comments Creatinine (test code = 2160-0) 0.80 0.57-1.11 [facility] CenterBUN/Creatinine Spbik8898-71-10 15:36:00* Test Item Value Reference Range Interpretation Comments BUN/Creatinine Ratio (test code = 3097-3) 14 6- [facility] CenterEstimat Glomerular Filtration Rate 2018-07-03 15:36:00* Test Item Value Reference Range Interpretation Comments Estimat Glomerular Filtration Rate (test code = 118591003) > 60 >60 Ranges were taken from the National Kidney Disease Education Program and the [facility] Kidney Foundation literature.Reference ranges:60 or greater: Nrhfvp22-41 ( for 3 consecutive months): Chronic kidney disease 15 or less: Kidney failureThe [facility] of [facility] Anderson Cancer CenterGlucose Iyhvs2284-50-70 15:36:00* Test Item Value Reference Range Interpretation Comments Glucose Level (test code = CIS5810) 98 74-118 [facility] CenterCalcium Blvut8409-12-08 15:36:00* Test Item Value Reference Range Interpretation Comments Calcium Level (test code = 98248-3) 9.5 8.4-10.2 [facility] CenterTotal Kzxpbwybc9344-41-31 15:36:00* Test Item Value Reference Range Interpretation Comments Total Bilirubin (test code = 1975-2) 0.8 0.2-1.2 [facility] CenterAspartate Amino Transf (AST/SGOT) 2018-07-03 15:36:00* Test Item Value Reference Range Interpretation Comments Aspartate Amino Transf (AST/SGOT) (test code = Aspartate Amino Transf (AST/SGOT)) 19 5-34 [facility] CenterAlanine Aminotransferase (ALT/SGPT) 2018-07-03 15:36:00* Test Item Value Reference Range Interpretation Comments Alanine Aminotransferase (ALT/SGPT) (test code = 1742-6) 11 0-55 [facility] CenterTotal Ysbfjtd5213-97-93 15:36:00* Test Item Value Reference Range Interpretation Comments Total Protein (test code = 2885-2) 7.2 6.5-8.1 [facility] CenterAlbumin2019-04-16 15:36:00* Test Item Value Reference Range Interpretation Comments Albumin (test code = 1751-7) 3.5 3.5-5.0 [facility] CenterGlobulin2019-04-16 15:36:00* Test Item Value Reference Range Interpretation Comments Globulin (test code = 73383-8) 3.7 2.3-3.5 H [facility] CenterAlbumin/Globulin Jmbza2206-30-42 15:36:00 * Test Item Value Reference Range Interpretation Comments Albumin/Globulin Ratio (test code = 1759-0) 0.9 0.8-2.0 [facility] CenterAlkaline Zpqgsipfnvi8662-11-64 15:36:00* Test Item Value Reference Range Interpretation Comments Alkaline Phosphatase (test code = 6768-6) 132 40-150 [facility] CenterWhite Blood Qpmwr5114-66-74 15:14:00* Test Item Value Reference Range Interpretation Comments White Blood Count (test code = 6690-2) 7.39 4.8-10.8 [facility] CenterRed Blood Vxohu5784-08-79 15:14:00* Test Item Value Reference Range Interpretation Comments Red Blood Count (test code = 789-8) 3.77 3.6-5.1 [facility] CenterHemoglobin2019-04-16 15:14:00* Test Item Value Reference Range Interpretation Comments Hemoglobin (test code = 17275-4) 12.3 12.0-16.0 [facility] CenterHematocrit2019-04-16 15:14:00* Test Item Value Reference Range Interpretation Comments Hematocrit (test code = 4544-3) 36.5 34.2-44.1 [facility] CenterMean Corpuscular Vasxly5710-24-61 15:14:00* Test Item Value Reference Range Interpretation Comments Mean Corpuscular Volume (test code = 787-2) 96.8 81-99 [facility] CenterMean Corpuscular Tynsofexhu5469-87-30 15:14:00* Test Item Value Reference Range Interpretation Comments Mean Corpuscular Hemoglobin (test code = 785-6) 32.6 28-32 H [facility] CenterMean Corpuscular Hemoglobin Concent 2018-07-03 15:14:00* Test Item Value Reference Range Interpretation Comments Mean Corpuscular Hemoglobin Concent (test code = 786-4) 33.7 31-35 [facility] CenterRed Cell Distribution Gthym4425-38-74 15:14:00* Test Item Value Reference Range Interpretation Comments Red Cell Distribution Width (test code = 58550-2) 13.1 11.7 -14.4 [facility] CenterPlatelet Mfagv9900-35-04 15:14:00* Test Item Value Reference Range Interpretation Comments Platelet Count (test code = 777-3) 215 140-360 [facility] CenterNeutrophils (%) (Auto)2018-07-03 15:14:00 * Test Item Value Reference Range Interpretation Comments Neutrophils (%) (Auto) (test code = 73948-5) 74.2 38.7-80.0 [facility] CenterLymphocytes (%) (Auto)2018-07-03 15:14:00 * Test Item Value Reference Range Interpretation Comments Lymphocytes (%) (Auto) (test code = 736-9) 16.9 18.0-39.1 L [facility] CenterMonocytes (%) (Auto)2018-07-03 15:14:00* Test Item Value Reference Range Interpretation Comments Monocytes (%) (Auto) (test code = 5905-5) 6.9 4.4-11.3 [facility] CenterEosinophils (%) (Auto)2018-07-03 15:14:00 * Test Item Value Reference Range Interpretation Comments Eosinophils (%) (Auto) (test code = 713-8) 0.7 0.0-6.0 [facility] CenterBasophils (%) (Auto)2018-07-03 15:14:00* Test Item Value Reference Range Interpretation Comments Basophils (%) (Auto) (test code = 706-2) 0.4 0.0-1.0 [facility] CenterIM GRANULOCYTES %2018-07-03 15:14:00* Test Item Value Reference Range Interpretation Comments IM GRANULOCYTES % (test code = IM GRANULOCYTES %) 0.9 0.0- 1.0 [facility] CenterNeutrophils # (Auto)2018-07-03 15:14:00* Test Item Value Reference Range Interpretation Comments Neutrophils # (Auto) (test code = 751-8) 5.5 2.1-6.9 [facility] CenterLymphocytes # (Auto)2018-07-03 15:14:00* Test Item Value Reference Range Interpretation Comments Lymphocytes # (Auto) (test code = 07575-2) 1.3 1.0-3.2 [facility] CenterMonocytes # (Auto)2018-07-03 15:14:00* Test Item Value Reference Range Interpretation Comments Monocytes # (Auto) (test code = 742-7) 0.5 0.2-0.8 [facility] CenterEosinophils # (Auto)2018-07-03 15:14:00* Test Item Value Reference Range Interpretation Comments Eosinophils # (Auto) (test code = 711-2) 0.1 0.0-0.4 [facility] CenterBasophils # (Auto)2018-07-03 15:14:00* Test Item Value Reference Range Interpretation Comments Basophils # (Auto) (test code = 704-7) 0.0 0.0-0.1 [facility] CenterAbsolute Immature Granulocyte (auto 2018-07-03 15:14:00* Test Item Value Reference Range Interpretation Comments Absolute Immature Granulocyte (auto (jose t code = Absolute Immature Granulocyte (auto) 0.07 0-0.1 [facility] CenterWhite Blood Hoayp0409-01-58 15:14:00* Test Item Value Reference Range Interpretation Comments White Blood Count (test code = 6690-2) 7.39 4.8-10.8 [facility] CenterRed Blood Hpanj1764-73-29 15:14:00* Test Item Value Reference Range Interpretation Comments Red Blood Count (test code = 789-8) 3.77 3.6-5.1 [facility] CenterHemoglobin2019-04-16 15:14:00* Test Item Value Reference Range Interpretation Comments Hemoglobin (test code = 58381-3) 12.3 12.0-16.0 [facility] CenterHematocrit2019-04-16 15:14:00* Test Item Value Reference Range Interpretation Comments Hematocrit (test code = 4544-3) 36.5 34.2-44.1 [facility] CenterMean Corpuscular Orvzqd1744-00-29 15:14:00* Test Item Value Reference Range Interpretation Comments Mean Corpuscular Volume (test code = 787-2) 96.8 81-99 [facility] CenterMean Corpuscular Cocxcmkjeh4808-98-29 15:14:00* Test Item Value Reference Range Interpretation Comments Mean Corpuscular Hemoglobin (test code = 785-6) 32.6 28-32 H [facility] CenterMean Corpuscular Hemoglobin Concent 2018-07-03 15:14:00* Test Item Value Reference Range Interpretation Comments Mean Corpuscular Hemoglobin Concent (test code = 786-4) 33.7 31-35 [facility] CenterRed Cell Distribution Enjvo0770-50-67 15:14:00* Test Item Value Reference Range Interpretation Comments Red Cell Distribution Width (test code = 61456-0) 13.1 11.7 -14.4 [facility] CenterPlatelet Fmprq7643-41-49 15:14:00* Test Item Value Reference Range Interpretation Comments Platelet Count (test code = 777-3) 215 140-360 [facility] CenterNeutrophils (%) (Auto)2018-07-03 15:14:00 * Test Item Value Reference Range Interpretation Comments Neutrophils (%) (Auto) (test code = 62807-7) 74.2 38.7-80.0 [facility] CenterLymphocytes (%) (Auto)2018-07-03 15:14:00 * Test Item Value Reference Range Interpretation Comments Lymphocytes (%) (Auto) (test code = 736-9) 16.9 18.0-39.1 L [facility] CenterMonocytes (%) (Auto)2018-07-03 15:14:00* Test Item Value Reference Range Interpretation Comments Monocytes (%) (Auto) (test code = 5905-5) 6.9 4.4-11.3 [facility] CenterEosinophils (%) (Auto)2018-07-03 15:14:00 * Test Item Value Reference Range Interpretation Comments Eosinophils (%) (Auto) (test code = 713-8) 0.7 0.0-6.0 [facility] CenterBasophils (%) (Auto)2018-07-03 15:14:00* Test Item Value Reference Range Interpretation Comments Basophils (%) (Auto) (test code = 706-2) 0.4 0.0-1.0 [facility] CenterIM GRANULOCYTES %2018-07-03 15:14:00* Test Item Value Reference Range Interpretation Comments IM GRANULOCYTES % (test code = IM GRANULOCYTES %) 0.9 0.0- 1.0 [facility] CenterNeutrophils # (Auto)2018-07-03 15:14:00* Test Item Value Reference Range Interpretation Comments Neutrophils # (Auto) (test code = 751-8) 5.5 2.1-6.9 [facility] CenterLymphocytes # (Auto)2018-07-03 15:14:00* Test Item Value Reference Range Interpretation Comments Lymphocytes # (Auto) (test code = 51041-5) 1.3 1.0-3.2 [facility] CenterMonocytes # (Auto)2018-07-03 15:14:00* Test Item Value Reference Range Interpretation Comments Monocytes # (Auto) (test code = 742-7) 0.5 0.2-0.8 [facility] CenterEosinophils # (Auto)2018-07-03 15:14:00* Test Item Value Reference Range Interpretation Comments Eosinophils # (Auto) (test code = 711-2) 0.1 0.0-0.4 [facility] CenterBasophils # (Auto)2018-07-03 15:14:00* Test Item Value Reference Range Interpretation Comments Basophils # (Auto) (test code = 704-7) 0.0 0.0-0.1 [facility] CenterAbsolute Immature Granulocyte (auto 2018-07-03 15:14:00* Test Item Value Reference Range Interpretation Comments Absolute Immature Granulocyte (auto (jose t code = Absolute Immature Granulocyte (auto) 0.07 0-0.1 [facility] CenterWhite Blood Qvfou2607-44-71 15:14:00* Test Item Value Reference Range Interpretation Comments White Blood Count (test code = 6690-2) 7.39 4.8-10.8 [facility] CenterRed Blood Ghtez9193-02-36 15:14:00* Test Item Value Reference Range Interpretation Comments Red Blood Count (test code = 789-8) 3.77 3.6-5.1 [facility] CenterHemoglobin2019-04-16 15:14:00* Test Item Value Reference Range Interpretation Comments Hemoglobin (test code = 01168-5) 12.3 12.0-16.0 [facility] CenterHematocrit2019-04-16 15:14:00* Test Item Value Reference Range Interpretation Comments Hematocrit (test code = 4544-3) 36.5 34.2-44.1 [facility] CenterMean Corpuscular Hcxpmn4399-67-49 15:14:00* Test Item Value Reference Range Interpretation Comments Mean Corpuscular Volume (test code = 787-2) 96.8 81-99 [facility] CenterMean Corpuscular Kpugfnbcki9840-89-45 15:14:00* Test Item Value Reference Range Interpretation Comments Mean Corpuscular Hemoglobin (test code = 785-6) 32.6 28-32 H [facility] CenterMean Corpuscular Hemoglobin Concent 2018-07-03 15:14:00* Test Item Value Reference Range Interpretation Comments Mean Corpuscular Hemoglobin Concent (test code = 786-4) 33.7 31-35 [facility] CenterRed Cell Distribution Xhmue1765-65-67 15:14:00* Test Item Value Reference Range Interpretation Comments Red Cell Distribution Width (test code = 93311-1) 13.1 11.7 -14.4 [facility] CenterPlatelet Ueqxx1201-21-71 15:14:00* Test Item Value Reference Range Interpretation Comments Platelet Count (test code = 777-3) 215 140-360 [facility] CenterNeutrophils (%) (Auto)2018-07-03 15:14:00 * Test Item Value Reference Range Interpretation Comments Neutrophils (%) (Auto) (test code = 62643-2) 74.2 38.7-80.0 [facility] CenterLymphocytes (%) (Auto)2018-07-03 15:14:00 * Test Item Value Reference Range Interpretation Comments Lymphocytes (%) (Auto) (test code = 736-9) 16.9 18.0-39.1 L [facility] CenterMonocytes (%) (Auto)2018-07-03 15:14:00* Test Item Value Reference Range Interpretation Comments Monocytes (%) (Auto) (test code = 5905-5) 6.9 4.4-11.3 [facility] CenterEosinophils (%) (Auto)2018-07-03 15:14:00 * Test Item Value Reference Range Interpretation Comments Eosinophils (%) (Auto) (test code = 713-8) 0.7 0.0-6.0 [facility] CenterBasophils (%) (Auto)2018-07-03 15:14:00* Test Item Value Reference Range Interpretation Comments Basophils (%) (Auto) (test code = 706-2) 0.4 0.0-1.0 [facility] CenterIM GRANULOCYTES %2018-07-03 15:14:00* Test Item Value Reference Range Interpretation Comments IM GRANULOCYTES % (test code = IM GRANULOCYTES %) 0.9 0.0- 1.0 [facility] CenterNeutrophils # (Auto)2018-07-03 15:14:00* Test Item Value Reference Range Interpretation Comments Neutrophils # (Auto) (test code = 751-8) 5.5 2.1-6.9 [facility] CenterLymphocytes # (Auto)2018-07-03 15:14:00* Test Item Value Reference Range Interpretation Comments Lymphocytes # (Auto) (test code = 57842-4) 1.3 1.0-3.2 [facility] CenterMonocytes # (Auto)2018-07-03 15:14:00* Test Item Value Reference Range Interpretation Comments Monocytes # (Auto) (test code = 742-7) 0.5 0.2-0.8 [facility] CenterEosinophils # (Auto)2018-07-03 15:14:00* Test Item Value Reference Range Interpretation Comments Eosinophils # (Auto) (test code = 711-2) 0.1 0.0-0.4 [facility] CenterBasophils # (Auto)2018-07-03 15:14:00* Test Item Value Reference Range Interpretation Comments Basophils # (Auto) (test code = 704-7) 0.0 0.0-0.1 [facility] CenterAbsolute Immature Granulocyte (auto 2018-07-03 15:14:00* Test Item Value Reference Range Interpretation Comments Absolute Immature Granulocyte (auto (jose t code = Absolute Immature Granulocyte (auto) 0.07 0-0.1 [facility] CenterUrine QEY0924-97-07 14:47:00* Test Item Value Reference Range Interpretation Comments Urine WBC (test code = 5821-4) 6-10 0-5 H [facility] CenterUrine [id number] 14:47:00* Test Item Value Reference Range Interpretation Comments Urine RBC (test code = 57512-8) NONE 0-5 [facility] CenterUrine Kwyaqehg1767-44-26 14:47:00* Test Item Value Reference Range Interpretation Comments Urine Bacteria (test code = 84209-2) MANY NONE H [facility] CenterUrine Epithelial Nwuax8101-34-64 14:47:00 * Test Item Value Reference Range Interpretation Comments Urine Epithelial Cells (test code = 55874-5) MANY NONE [facility] CenterUrine Amorphous Fympagvt0350-52-23 14:47:00* Test Item Value Reference Range Interpretation Comments Urine Amorphous Sediment (test code = 8246-1) FEW FEW [facility] CenterUrine Hyaline Zqypr4843-09-37 14:47:00* Test Item Value Reference Range Interpretation Comments Urine Hyaline Casts (test code = 42843-9) 0-1 0-1 [facility] CenterUrine Coarse Granular Cnadh3939-72-27 14:47:00* Test Item Value Reference Range Interpretation Comments Urine Coarse Granular Casts (test code = 88807-4) 1-5 >0 H [facility] CenterUrine White Blood Cell Siftc1144-98-08 14:47:00* Test Item Value Reference Range Interpretation Comments Urine White Blood Cell Casts (test code = 25731-8) 1-5 >0 H [facility] CenterUrine [id number] 14:47:00* Test Item Value Reference Range Interpretation Comments Urine WBC (test code = 5821-4) 6-10 0-5 H [facility] CenterUrine [id number] 14:47:00* Test Item Value Reference Range Interpretation Comments Urine RBC (test code = 61814-7) NONE 0-5 [facility] CenterUrine Hefpvcqv0448-86-40 14:47:00* Test Item Value Reference Range Interpretation Comments Urine Bacteria (test code = 76645-8) MANY NONE H [facility] CenterUrine Epithelial Skgob3622-03-52 14:47:00 * Test Item Value Reference Range Interpretation Comments Urine Epithelial Cells (test code = 53008-5) MANY NONE [facility] CenterUrine Amorphous Hhxvyyjk6941-32-00 14:47:00* Test Item Value Reference Range Interpretation Comments Urine Amorphous Sediment (test code = 8246-1) FEW FEW [facility] CenterUrine Hyaline Cwklf5990-47-88 14:47:00* Test Item Value Reference Range Interpretation Comments Urine Hyaline Casts (test code = 56959-9) 0-1 0-1 [facility] CenterUrine Coarse Granular Lqiuh9854-47-88 14:47:00* Test Item Value Reference Range Interpretation Comments Urine Coarse Granular Casts (test code = 15424-1) 1-5 >0 H [facility] CenterUrine White Blood Cell Ysrrn1546-14-35 14:47:00* Test Item Value Reference Range Interpretation Comments Urine White Blood Cell Casts (test code = 03514-6) 1-5 >0 H [facility] CenterUrine [id number] 14:47:00* Test Item Value Reference Range Interpretation Comments Urine WBC (test code = 5821-4) 6-10 0-5 H [facility] CenterUrine [id number] 14:47:00* Test Item Value Reference Range Interpretation Comments Urine RBC (test code = 22716-0) NONE 0-5 [facility] CenterUrine Pcnoifmx0072-06-16 14:47:00* Test Item Value Reference Range Interpretation Comments Urine Bacteria (test code = 13645-8) MANY NONE H [facility] CenterUrine Epithelial Yrggd4692-51-64 14:47:00 * Test Item Value Reference Range Interpretation Comments Urine Epithelial Cells (test code = 99580-5) MANY NONE [facility] CenterUrine Amorphous Yukfjsba2490-36-62 14:47:00* Test Item Value Reference Range Interpretation Comments Urine Amorphous Sediment (test code = 8246-1) FEW FEW [facility] CenterUrine Hyaline Wqjga1123-96-94 14:47:00* Test Item Value Reference Range Interpretation Comments Urine Hyaline Casts (test code = 06417-0) 0-1 0-1 [facility] CenterUrine Coarse Granular Yxdae3953-00-59 14:47:00* Test Item Value Reference Range Interpretation Comments Urine Coarse Granular Casts (test code = 57185-6) 1-5 >0 H [facility] CenterUrine White Blood Cell Evodd1557-25-98 14:47:00* Test Item Value Reference Range Interpretation Comments Urine White Blood Cell Casts (test code = 24412-5) 1-5 >0 H [facility] CenterUrine Amorphous Zxkjhtzg6821-68-82 14:47:00* Test Item Value Reference Range Interpretation Comments Urine Amorphous Sediment (test code = 8246-1) FEW FEW [facility] CenterUrine Hyaline Nweya8232-44-68 14:47:00* Test Item Value Reference Range Interpretation Comments Urine Hyaline Casts (test code = 73833-7) 0-1 0-1 [facility] CenterUrine Coarse Granular Yxlyq5903-54-25 14:47:00* Test Item Value Reference Range Interpretation Comments Urine Coarse Granular Casts (test code = 55686-6) 1-5 >0 H [facility] CenterUrine White Blood Cell Fchrr4840-92-63 14:47:00* Test Item Value Reference Range Interpretation Comments Urine White Blood Cell Casts (test code = 31369-6) 1-5 >0 H [facility] CenterUrine Hyaline Ysilo2344-56-19 14:47:00* Test Item Value Reference Range Interpretation Comments Urine Hyaline Casts (test code = 08855-9) 0-1 0-1 [facility] CenterUrine Coarse Granular Ssdie4433-97-35 14:47:00* Test Item Value Reference Range Interpretation Comments Urine Coarse Granular Casts (test code = 55974-5) 1-5 >0 H [facility] CenterUrine White Blood Cell Wojnr5974-20-45 14:47:00* Test Item Value Reference Range Interpretation Comments Urine White Blood Cell Casts (test code = 83336-5) 1-5 >0 H [facility] CenterUrine Hyaline Ifozs8933-10-92 14:47:00* Test Item Value Reference Range Interpretation Comments Urine Hyaline Casts (test code = 17298-2) 0-1 0-1 [facility] CenterUrine Coarse Granular Nbfuw2983-26-53 14:47:00* Test Item Value Reference Range Interpretation Comments Urine Coarse Granular Casts (test code = 14438-0) 1-5 >0 H [facility] CenterUrine White Blood Cell Xfamc6035-21-81 14:47:00* Test Item Value Reference Range Interpretation Comments Urine White Blood Cell Casts (test code = 07087-7) 1-5 >0 H [facility] CenterUrine Hyaline Knffm8687-90-99 14:47:00* Test Item Value Reference Range Interpretation Comments Urine Hyaline Casts (test code = 51341-9) 0-1 0-1 [facility] CenterUrine Coarse Granular Lvlho2429-14-75 14:47:00* Test Item Value Reference Range Interpretation Comments Urine Coarse Granular Casts (test code = 93456-2) 1-5 >0 H [facility] CenterUrine White Blood Cell Tiumv7712-08-70 14:47:00* Test Item Value Reference Range Interpretation Comments Urine White Blood Cell Casts (test code = 13017-9) 1-5 >0 H [facility] CenterUrine Coarse Granular Dnudv2914-67-00 14:47:00* Test Item Value Reference Range Interpretation Comments Urine Coarse Granular Casts (test code = 98710-2) 1-5 >0 H [facility] CenterUrine White Blood Cell Marqm6135-36-82 14:47:00* Test Item Value Reference Range Interpretation Comments Urine White Blood Cell Casts (test code = 21834-9) 1-5 >0 H [facility] CenterUrine Bsegh8035-98-77 14:22:00* Test Item Value Reference Range Interpretation Comments Urine Color (test code = 5778-6) YELLOW YELLOW [facility] CenterUrine Caaclhh7064-13-74 14:22:00* Test Item Value Reference Range Interpretation Comments Urine Clarity (test code = 65121-2) CLEAR CLEAR [facility] CenterUrine Specific Uofnupg6218-47-04 14:22:00 * Test Item Value Reference Range Interpretation Comments Urine Specific [place] (test code = 5811-5) 1.015 1.010-1.02 5 [facility] CenterUrine [id number] 14:22:00* Test Item Value Reference Range Interpretation Comments Urine pH (test code = 02657-3) 6 5-7 [facility] CenterUrine Leukocyte Mjzazjwh6938-29-45 14:22:00* Test Item Value Reference Range Interpretation Comments Urine Leukocyte Esterase (test code = 5799-2) NEGATIVE NEGATIVE [facility] CenterUrine Rujlcgp2068-62-55 14:22:00* Test Item Value Reference Range Interpretation Comments Urine Nitrite (test code = 48124-1) NEGATIVE NEGATIVE [facility] CenterUrine Xrkcejd2053-22-37 14:22:00* Test Item Value Reference Range Interpretation Comments Urine Protein (test code = 5804-0) TRACE NEGATIVE H [facility] CenterUrine Glucose (UA)2018-07-03 14:22:00* Test Item Value Reference Range Interpretation Comments Urine Glucose (UA) (test code = 2349-9) NEGATIVE NEGATIVE [facility] CenterUrine Cafemis9296-92-14 14:22:00* Test Item Value Reference Range Interpretation Comments Urine Ketones (test code = 71510-3) NEGATIVE NEGATIVE [facility] Kbxkjeameouy6765-13-67 14:22:00* Test Item Value Reference Range Interpretation Comments Urine Urobilinogen (test code = 79988-0) 0.2 0.2-1 [facility] CenterU[facility] Mwyrvqhtq8478-71-33 14:22:00* Test Item Value Reference Range Interpretation Comments Urine Bilirubin (test code = 1978-6) NEGATIVE NEGATIVE [facility] Center[facility] Jnpck3000-27-21 14:22:00* Test Item Value Reference Range Interpretation Comments Urine Blood (test code = 11343-5) NEGATIVE NEGATIVE [facility] Prkbj9976-62-04 14:22:00* Test Item Value Reference Range Interpretation Comments Urine Color (test code = 5778-6) YELLOW YELLOW [facility] Avhfnvy2619-63-43 14:22:00* Test Item Value Reference Range Interpretation Comments Urine Clarity (test code = 77588-8) CLEAR CLEAR [facility] CenterU[facility] Specific Rrpppjo7419-28-49 14:22:00 * Test Item Value Reference Range Interpretation Comments Urine Specific [place] (test code = 5811-5) 1.015 1.010-1.02 5 [facility] CenterU[facility] uD4072-13-81 14:22:00* Test Item Value Reference Range Interpretation Comments Urine pH (test code = 47489-2) 6 5-7 [facility] Leukocyte Uhezwhyo6960-55-06 14:22:00* Test Item Value Reference Range Interpretation Comments Urine Leukocyte Esterase (test code = 5799-2) NEGATIVE NEGATIVE [facility] CenterU[facility] Cvqtrqh4077-36-87 14:22:00* Test Item Value Reference Range Interpretation Comments Urine Nitrite (test code = 00703-0) NEGATIVE NEGATIVE [facility] Yznuowp3405-59-27 14:22:00* Test Item Value Reference Range Interpretation Comments Urine Protein (test code = 5804-0) TRACE NEGATIVE H [facility] CenterUrine Glucose (UA)2018-07-03 14:22:00* Test Item Value Reference Range Interpretation Comments Urine Glucose (UA) (test code = 2349-9) NEGATIVE NEGATIVE [facility] Center[facility] Pxrqxff7958-19-38 14:22:00* Test Item Value Reference Range Interpretation Comments Urine Ketones (test code = 16530-9) NEGATIVE NEGATIVE [facility] Afwgmwyhaago3035-17-65 14:22:00* Test Item Value Reference Range Interpretation Comments Urine Urobilinogen (test code = 61204-5) 0.2 0.2-1 [facility] CenterU[facility] Exwdrtpak4932-97-85 14:22:00* Test Item Value Reference Range Interpretation Comments Urine Bilirubin (test code = 1978-6) NEGATIVE NEGATIVE [facility] Center[facility] Evaxu2331-51-58 14:22:00* Test Item Value Reference Range Interpretation Comments Urine Blood (test code = 03483-2) NEGATIVE NEGATIVE [facility] CenterU[facility] Gwazb0494-93-78 14:22:00* Test Item Value Reference Range Interpretation Comments Urine Color (test code = 5778-6) YELLOW YELLOW [facility] Ycyefuj9595-08-05 14:22:00* Test Item Value Reference Range Interpretation Comments Urine Clarity (test code = 11598-8) CLEAR CLEAR [facility] CenterU[facility] Specific Welnkpb1139-59-67 14:22:00 * Test Item Value Reference Range Interpretation Comments Urine Specific [place] (test code = 5811-5) 1.015 1.010-1.02 5 [facility] CenterU[facility] fF0029-58-51 14:22:00* Test Item Value Reference Range Interpretation Comments Urine pH (test code = 91224-9) 6 5-7 [facility] Center[facility] Leukocyte Jypksexc6547-84-76 14:22:00* Test Item Value Reference Range Interpretation Comments Urine Leukocyte Esterase (test code = 5799-2) NEGATIVE NEGATIVE [facility] Eeyfvbd2406-17-41 14:22:00* Test Item Value Reference Range Interpretation Comments Urine Nitrite (test code = 34544-0) NEGATIVE NEGATIVE [facility] Ypjzmcy3968-55-65 14:22:00* Test Item Value Reference Range Interpretation Comments Urine Protein (test code = 5804-0) TRACE NEGATIVE H [facility] CenterU[facility] Glucose (UA)2018-07-03 14:22:00* Test Item Value Reference Range Interpretation Comments Urine Glucose (UA) (test code = 2349-9) NEGATIVE NEGATIVE [facility] Fukxoab0578-85-84 14:22:00* Test Item Value Reference Range Interpretation Comments Urine Ketones (test code = 75038-3) NEGATIVE NEGATIVE [facility] Alceqyvihbai9064-96-42 14:22:00* Test Item Value Reference Range Interpretation Comments Urine Urobilinogen (test code = 98491-7) 0.2 0.2-1 [facility] Center[facility] Wysiojkrr3206-85-62 14:22:00* Test Item Value Reference Range Interpretation Comments Urine Bilirubin (test code = 1978-6) NEGATIVE NEGATIVE [facility] Center[facility] Gsnbw0006-95-80 14:22:00* Test Item Value Reference Range Interpretation Comments Urine Blood (test code = 69551-6) NEGATIVE NEGATIVE [facility] Opiates Gibajn7190-43-51 14:20:00* Test Item Value Reference Range Interpretation Comments Urine Opiates Screen (test code = 26676-0) POSITIVE NEGATIVE H ALL TESTS PERFORMED MANUALLY ON Skout TOX/SEE TEST This test provides only a sc reen. Positive results should be repeated by a confirmatory test.[facility] Barbiturates Tximjj3825-75-42 14:20:00* Test Item Value Reference Range Interpretation Comments Urine Barbiturates Screen (test code = 733119704) POSITIVE NEGA TIVE H This test provides only a screen. Positive results should be repeated by a confi rmatory test.[facility] CenterU[facility] Phencyclidine Screen 2018-07-03 14:20:00* Test Item Value Reference Range Interpretation Comments Urine Phencyclidine Screen (test code = 73665-4) NEGATIVE NEGAT CAROLEE [facility] CenterU[facility] Amphetamines Wtgskx0305-55-19 14:20:00* Test Item Value Reference Range Interpretation Comments Urine Amphetamines Screen (test code = 50405-2) NEGATIVE NEGATI VE [facility] CenterU[facility] Methamphetamines Klqcmm9829-32-59 14:20:00* Test Item Value Reference Range Interpretation Comments Urine Methamphetamines Screen (test code = Urine Metha mphetamines Screen) NEGATIVE NEGATIVE [facility] CenterU[facility] Benzodiazepines Grwxwt5160-23-41 14:20:00* Test Item Value Reference Range Interpretation Comments Urine Benzodiazepines Screen (test code = 96051-8) POSITIVE NEG ATIVE H This test provides only a screen. Positive results should be repeated by a confi rmatory test.[facility] CenterU[facility] Cocaine Screen 2018-07-03 14:20:00* Test Item Value Reference Range Interpretation Comments Urine Cocaine Screen (test code = 3398-5) NEGATIVE NEGATIVE [facility] CenterU[facility] Cannabinoids Yjqsfx4336-39-45 14:20:00* Test Item Value Reference Range Interpretation Comments Urine Cannabinoids Screen (test code = 02993-6) NEGATIVE NEGATI VE THESE RESULTS ARE FOR MEDICAL TREATMENT ONLYTHIS REPORT CONTAINS UNCONFIR MED SCREENING RESULTS*POSITIVE RESULTS WILL BE CONFIRMED BY REFERENCE LAB UPON R EQUEST CUT-OFFDRUG CLASS CONCENTRATION ng/mLAmphetamines 1000Methamphetamines 1000Cocaine 300Opiate 300Phencyc lidine 25Cannabinoid 50Barbiturates 300Benzodiazepine 300Methadone 300[facility]wood[facility] Meth[facility]one Urguxy2541-97-48 14:20:00* Test Item Value Reference Range Interpretation Comments Urine Methadone Screen (test code = 89452-2) NEGATIVE NEGATIVE THESE RESULTS ARE FOR MEDICAL TREATMENT ONLYTHIS REPORT CONTAINS UNCONFIR MED SCREENING RESULTS*POSITIVE RESULTS WILL BE CONFIRMED BY REFERENCE LAB UPON R EQUEST CUT-OFFDRUG CLASS CONCENTRATION ng/mLAmphetamines 1000Methamphetamines 1000Cocaine Metabolite 300Opiate 300Phencyc lidine 25Cannabinoid 50Barbiturates 300Benzodiazepine 300Methadone 300[facility] CenterUrine Opiates Xenwde2565-04-24 14:20:00* Test Item Value Reference Range Interpretation Comments Urine Opiates Screen (test code = 57619-5) POSITIVE NEGATIVE H ALL TESTS PERFORMED MANUALLY ON Skout TOX/SEE TEST This test provides only a sc reen. Positive results should be repeated by a confirmatory test.[facility] CenterU[facility] Barbiturates Mvvsut5470-08-70 14:20:00* Test Item Value Reference Range Interpretation Comments Urine Barbiturates Screen (test code = 810373872) POSITIVE NEGA TIVE H This test provides only a screen. Positive results should be repeated by a confi rmatory test.[facility] CenterU[facility] Phencyclidine Screen 2018-07-03 14:20:00* Test Item Value Reference Range Interpretation Comments Urine Phencyclidine Screen (test code = 59678-3) NEGATIVE NEGAT CAROLEE [facility] CenterU[facility] Amphetamines Cianhu4333-29-27 14:20:00* Test Item Value Reference Range Interpretation Comments Urine Amphetamines Screen (test code = 04445-6) NEGATIVE NEGATI VE [facility] CenterU[facility] Methamphetamines Tqxfxm4242-64-37 14:20:00* Test Item Value Reference Range Interpretation Comments Urine Methamphetamines Screen (test code = Urine Metha mphetamines Screen) NEGATIVE NEGATIVE [facility] CenterUrine Benzodiazepines Twnpbp4368-70-41 14:20:00* Test Item Value Reference Range Interpretation Comments Urine Benzodiazepines Screen (test code = 42489-4) POSITIVE NEG ATIVE H This test provides only a screen. Positive results should be repeated by a confi rmatory test.[facility] Center[facility] Cocaine Screen 2018-07-03 14:20:00* Test Item Value Reference Range Interpretation Comments Urine Cocaine Screen (test code = 3398-5) NEGATIVE NEGATIVE [facility] CenterU[facility] Cannabinoids Mjnogo5218-72-37 14:20:00* Test Item Value Reference Range Interpretation Comments Urine Cannabinoids Screen (test code = 88876-1) NEGATIVE NEGATI VE THESE RESULTS ARE FOR MEDICAL TREATMENT ONLYTHIS REPORT CONTAINS UNCONFIR MED SCREENING RESULTS*POSITIVE RESULTS WILL BE CONFIRMED BY REFERENCE LAB UPON R EQUEST CUT-OFFDRUG CLASS CONCENTRATION ng/mLAmphetamines 1000Methamphetamines 1000Cocaine 300Opiate 300Phencyc lidine 25Cannabinoid 50Barbiturates 300Benzodiazepine 300Methadone 300[facility] CenterUrine Methadone Tcwadc7486-45-46 14:20:00* Test Item Value Reference Range Interpretation Comments Urine Methadone Screen (test code = 05481-2) NEGATIVE NEGATIVE THESE RESULTS ARE FOR MEDICAL TREATMENT ONLYTHIS REPORT CONTAINS UNCONFIR MED SCREENING RESULTS*POSITIVE RESULTS WILL BE CONFIRMED BY REFERENCE LAB UPON R EQUEST CUT-OFFDRUG CLASS CONCENTRATION ng/mLAmphetamines 1000Methamphetamines 1000Cocaine Metabolite 300Opiate 300Phencyc lidine 25Cannabinoid 50Barbiturates 300Benzodiazepine 300Methadone 300[facility] CenterUrine Opiates Vkosbn8830-62-42 14:20:00* Test Item Value Reference Range Interpretation Comments Urine Opiates Screen (test code = 62340-2) POSITIVE NEGATIVE H ALL TESTS PERFORMED MANUALLY ON Skout TOX/SEE TEST This test provides only a sc reen. Positive results should be repeated by a confirmatory test.[facility] Center[facility] Barbiturates Edjjul2453-19-69 14:20:00* Test Item Value Reference Range Interpretation Comments Urine Barbiturates Screen (test code = 627443795) POSITIVE NEGA TIVE H This test provides only a screen. Positive results should be repeated by a confi rmatory test.[facility] CenterU[facility] Phencyclidine Screen 2018-07-03 14:20:00* Test Item Value Reference Range Interpretation Comments Urine Phencyclidine Screen (test code = 12548-2) NEGATIVE NEGAT CAROLEE [facility] CenterU[facility] Amphetamines Zwdhmr6877-82-81 14:20:00* Test Item Value Reference Range Interpretation Comments Urine Amphetamines Screen (test code = 91923-2) NEGATIVE NEGATI VE [facility] Methamphetamines Sgllwx6578-85-67 14:20:00* Test Item Value Reference Range Interpretation Comments Urine Methamphetamines Screen (test code = Urine Metha mphetamines Screen) NEGATIVE NEGATIVE [facility] CenterU[facility] Benzodiazepines Beqvii4133-28-99 14:20:00* Test Item Value Reference Range Interpretation Comments Urine Benzodiazepines Screen (test code = 40581-9) POSITIVE NEG ATIVE H This test provides only a screen. Positive results should be repeated by a confi rmatory test.[facility] CenterU[facility] Cocaine Screen 2018-07-03 14:20:00* Test Item Value Reference Range Interpretation Comments Urine Cocaine Screen (test code = 3398-5) NEGATIVE NEGATIVE [facility] CenterUrine Cannabinoids Rfnlpl8383-07-58 14:20:00* Test Item Value Reference Range Interpretation Comments Urine Cannabinoids Screen (test code = 59989-4) NEGATIVE NEGATI VE THESE RESULTS ARE FOR MEDICAL TREATMENT ONLYTHIS REPORT CONTAINS UNCONFIR MED SCREENING RESULTS*POSITIVE RESULTS WILL BE CONFIRMED BY REFERENCE LAB UPON R EQUEST CUT-OFFDRUG CLASS CONCENTRATION ng/mLAmphetamines 1000Methamphetamines 1000Cocaine 300Opiate 300Phencyc lidine 25Cannabinoid 50Barbiturates 300Benzodiazepine 300Methadone 300[facility] BrownwoodUrine Methadone Qgptox3766-30-34 14:20:00* Test Item Value Reference Range Interpretation Comments Urine Methadone Screen (test code = 01784-0) NEGATIVE NEGATIVE THESE RESULTS ARE FOR MEDICAL TREATMENT ONLYTHIS REPORT CONTAINS UNCONFIR MED SCREENING RESULTS*POSITIVE RESULTS WILL BE CONFIRMED BY REFERENCE LAB UPON R EQUEST CUT-OFFDRUG CLASS CONCENTRATION ng/mLAmphetamines 1000Methamphetamines 1000Cocaine Metabolite 300Opiate 300Phencyc lidine 25Cannabinoid 50Barbiturates 300Benzodiazepine 300Methadone 300[facility] BrownwoodCreatine Qazmww6815-72-71 03:35:00* Test Item Value Reference Range Interpretation Comments Creatine Kinase (test code = 2157-6) 55 29-168 [facility] CenterCreatine Kinase [id number] 03:35:00* Test Item Value Reference Range Interpretation Comments Creatine Kinase MB (test code = 03001-7) 1.00 0-5.0 [facility] CenterTropon Y5193-96-70 03:35:00* Test Item Value Reference Range Interpretation Comments Troponin I (test code = CWB8128) 0.003 0-0.300 [facility] CenterAmylase Srlou3237-24-84 03:35:00* Test Item Value Reference Range Interpretation Comments Amylase Level (test code = 1798-8) 67 25-125 [facility] CenterLipase2019-03-22 03:35:00* Test Item Value Reference Range Interpretation Comments Lipase (test code = 3040-3) 32 8-78 [facility] CenterCreatine Adkfbu9323-55-92 03:35:00* Test Item Value Reference Range Interpretation Comments Creatine Kinase (test code = 2157-6) 55 29-168 [facility] CenterCreatine Kinase IU2961-90-73 03:35:00* Test Item Value Reference Range Interpretation Comments Creatine Kinase MB (test code = 32756-8) 1.00 0-5.0 [facility] CenterTroponin K4041-44-53 03:35:00* Test Item Value Reference Range Interpretation Comments Troponin I (test code = HHY2409) 0.003 0-0.300 [facility] CenterAmylase Qdimo6786-82-08 03:35:00* Test Item Value Reference Range Interpretation Comments Amylase Level (test code = 1798-8) 67 [facility] CenterLipase2019-03-22 03:35:00* Test Item Value Reference Range Interpretation Comments Lipase (test code = 3040-3) 32 [facility] CenterCreatine Thxuqw2873-85-15 03:35:00* Test Item Value Reference Range Interpretation Comments Creatine Kinase (test code = 2157-6) 55 29-168 [facility] CenterCreatine Kinase GG5330-68-89 03:35:00* Test Item Value Reference Range Interpretation Comments Creatine Kinase MB (test code = 57586-7) 1.00 0-5.0 [facility] CenterTroponin C8974-21-27 03:35:00* Test Item Value Reference Range Interpretation Comments Troponin I (test code = QZK4678) 0.003 0-0.300 [facility] CenterAmylase Nynto6490-82-69 03:35:00* Test Item Value Reference Range Interpretation Comments Amylase Level (test code = 1798-8) 67 [facility] CenterLipase2019-03-22 03:35:00* Test Item Value Reference Range Interpretation Comments Lipase (test code = 3040-3) [facility] CenterAmylase Evgjp1239-01-40 03:35:00* Test Item Value Reference Range Interpretation Comments Amylase Level (test code = 1798-8) 67 [facility] CenterLipase2019-03-22 03:35:00* Test Item Value Reference Range Interpretation Comments Lipase (test code = 3040-3) [facility] CenterAmylase Zaknp6020-84-57 03:35:00* Test Item Value Reference Range Interpretation Comments Amylase Level (test code = 1798-8) 67 [facility] CenterAmylase Ejxkk1936-56-69 03:35:00* Test Item Value Reference Range Interpretation Comments Amylase Level (test code = 1798-8) 67 [facility] CenterAmylase Yxell7555-06-64 03:35:00* Test Item Value Reference Range Interpretation Comments Amylase Level (test code = 1798-8) 67 25-125 [facility] CenterWhite Blood Biokx5486-13-68 23:08:00* Test Item Value Reference Range Interpretation Comments White Blood Count (test code = 6690-2) 5.01 4.8-10.8 [facility] CenterRed Blood Jcxcd4920-58-48 23:08:00* Test Item Value Reference Range Interpretation Comments Red Blood Count (test code = 789-8) 3.79 3.6-5.1 [facility] CenterHemoglobin2019-03-21 23:08:00* Test Item Value Reference Range Interpretation Comments Hemoglobin (test code = 60327-2) 12.2 12.0-16.0 [facility] CenterHematocrit2019-03-21 23:08:00* Test Item Value Reference Range Interpretation Comments Hematocrit (test code = 4544-3) 37.1 34.2-44.1 [facility] CenterMean Corpuscular Dqgugr7424-51-84 23:08:00* Test Item Value Reference Range Interpretation Comments Mean Corpuscular Volume (test code = 787-2) 97.9 81-99 [facility] CenterMean Corpuscular Uvqoqphnhw0711-69-94 23:08:00* Test Item Value Reference Range Interpretation Comments Mean Corpuscular Hemoglobin (test code = 785-6) 32.2 28-32 H [facility] CenterMean Corpuscular Hemoglobin Concent 2018-06-07 23:08:00* Test Item Value Reference Range Interpretation Comments Mean Corpuscular Hemoglobin Concent (test code = 786-4) 32.9 31-35 [facility] CenterRed Cell Distribution Jsjym0558-47-76 23:08:00* Test Item Value Reference Range Interpretation Comments Red Cell Distribution Width (test code = 89192-6) 13.5 11.7 -14.4 [facility] CenterPlatelet Wccmv0406-92-13 23:08:00* Test Item Value Reference Range Interpretation Comments Platelet Count (test code = 777-3) 207 140-360 [facility] CenterNeutrophils (%) (Auto)2018-06-07 23:08:00 * Test Item Value Reference Range Interpretation Comments Neutrophils (%) (Auto) (test code = 92549-2) 56.1 38.7-80.0 [facility] CenterLymphocytes (%) (Auto)2018-06-07 23:08:00 * Test Item Value Reference Range Interpretation Comments Lymphocytes (%) (Auto) (test code = 736-9) 33.9 18.0-39.1 [facility] CenterMonocytes (%) (Auto)2018-06-07 23:08:00* Test Item Value Reference Range Interpretation Comments Monocytes (%) (Auto) (test code = 5905-5) 8.4 4.4-11.3 [facility] CenterEosinophils (%) (Auto)2018-06-07 23:08:00 * Test Item Value Reference Range Interpretation Comments Eosinophils (%) (Auto) (test code = 713-8) 0.8 0.0-6.0 [facility] CenterBasophils (%) (Auto)2018-06-07 23:08:00* Test Item Value Reference Range Interpretation Comments Basophils (%) (Auto) (test code = 706-2) 0.4 0.0-1.0 [facility] CenterIM GRANULOCYTES %2018-06-07 23:08:00* Test Item Value Reference Range Interpretation Comments IM GRANULOCYTES % (test code = IM GRANULOCYTES %) 0.4 0.0- 1.0 [facility] CenterNeutrophils # (Auto)2018-06-07 23:08:00* Test Item Value Reference Range Interpretation Comments Neutrophils # (Auto) (test code = 751-8) 2.8 2.1-6.9 [facility] CenterLymphocytes # (Auto)2018-06-07 23:08:00* Test Item Value Reference Range Interpretation Comments Lymphocytes # (Auto) (test code = 45506-8) 1.7 1.0-3.2 [facility] CenterMonocytes # (Auto)2018-06-07 23:08:00* Test Item Value Reference Range Interpretation Comments Monocytes # (Auto) (test code = 742-7) 0.4 0.2-0.8 [facility] CenterEosinophils # (Auto)2018-06-07 23:08:00* Test Item Value Reference Range Interpretation Comments Eosinophils # (Auto) (test code = 711-2) 0.0 0.0-0.4 [facility] CenterBasophils # (Auto)2018-06-07 23:08:00* Test Item Value Reference Range Interpretation Comments Basophils # (Auto) (test code = 704-7) 0.0 0.0-0.1 [facility] CenterAbsolute Immature Granulocyte (auto 2018-06-07 23:08:00* Test Item Value Reference Range Interpretation Comments Absolute Immature Granulocyte (auto (jose t code = Absolute Immature Granulocyte (auto) 0.02 0-0.1 [facility] Zgvpk2653-85-78 23:08:00* Test Item Value Reference Range Interpretation Comments Sodium Level (test code = 2951-2) 133 136-145 L [facility] CenterPotassium Ntjdn3706-91-54 23:08:00* Test Item Value Reference Range Interpretation Comments Potassium Level (test code = 2823-3) 4.2 3.5-5.1 [facility] CenterChloride Etujm7700-84-53 23:08:00* Test Item Value Reference Range Interpretation Comments Chloride Level (test code = 2075-0) 99 98-107 [facility] CenterCarbon Dioxide Vwydq0566-03-23 23:08:00* Test Item Value Reference Range Interpretation Comments Carbon Dioxide Level (test code = 2028-9) 23 22-29 [facility] CenterAnion Wcf9771-32-07 23:08:00* Test Item Value Reference Range Interpretation Comments Anion Gap (test code = 00456-9) 15.2 8-16 [facility] CenterBlood Urea Tqhlfglq9736-09-66 23:08:00* Test Item Value Reference Range Interpretation Comments Blood Urea Nitrogen (test code = 3094-0) 10 7-26 [facility] CenterCreatinine2019-03-21 23:08:00* Test Item Value Reference Range Interpretation Comments Creatinine (test code = 2160-0) 0.88 0.57-1.11 [facility] CenterBUN/Creatinine Awwen5884-78-52 23:08:00* Test Item Value Reference Range Interpretation Comments BUN/Creatinine Ratio (test code = 3097-3) 11 6-25 [facility] CenterEstimat Glomerular Filtration Rate 2018-06-07 23:08:00* Test Item Value Reference Range Interpretation Comments Estimat Glomerular Filtration Rate (test code = 342965962) > 60 >60 Ranges were taken from the National Kid[employer] Disease Education Program and the [facility] of the [facility] literature.Reference ranges:60 or greater: Hofswo50-24 ( for 3 consecutive months): Chronic kidney disease 15 or less: Kidney failureThe University of [facility] Cancer CenterGlucose Iymrh9625-81-70 23:08:00* Test Item Value Reference Range Interpretation Comments Glucose Level (test code = KAS7308) 110 74-118 [facility] CenterCalcium Tfvwg4034-42-73 23:08:00* Test Item Value Reference Range Interpretation Comments Calcium Level (test code = 48715-9) 9.6 8.4-10.2 [facility] CenterTotal Iwdhekezp8697-44-95 23:08:00* Test Item Value Reference Range Interpretation Comments Total Bilirubin (test code = 1975-2) 0.7 0.2-1.2 [facility] Cancer CenterAspartate Amino Transf (AST/SGOT) 2018-06-07 23:08:00* Test Item Value Reference Range Interpretation Comments Aspartate Amino Transf (AST/SGOT) (test code = Aspartate Amino Transf (AST/SGOT)) 26 5-34 [facility] CenterAlanine Aminotransferase (ALT/SGPT) 2018-06-07 23:08:00* Test Item Value Reference Range Interpretation Comments Alanine Aminotransferase (ALT/SGPT) (test code = 1742-6) 13 0-55 [facility] CenterTotal Alfnstk3271-62-57 23:08:00* Test Item Value Reference Range Interpretation Comments Total Protein (test code = 2885-2) 8.0 6.5-8.1 [facility] CenterAlbumin2019-03-21 23:08:00* Test Item Value Reference Range Interpretation Comments Albumin (test code = 1751-7) 4.0 3.5-5.0 [facility] CenterGlobulin2019-03-21 23:08:00* Test Item Value Reference Range Interpretation Comments Globulin (test code = 37036-4) 4.0 2.3-3.5 H [facility] CenterAlbumin/Globulin Jijlr4248-11-29 23:08:00 * Test Item Value Reference Range Interpretation Comments Albumin/Globulin Ratio (test code = 1759-0) 1.0 0.8-2.0 [facility] CenterAlkaline Wttxisteoaa8562-69-66 23:08:00* Test Item Value Reference Range Interpretation Comments Alkaline Phosphatase (test code = 6768-6) 99 40-150 [facility] CenterUrine Fwptj5753-59-79 21:44:00* Test Item Value Reference Range Interpretation Comments Urine Color (test code = 5778-6) YELLOW YELLOW [facility] CenterUrine Zjbbnso1569-80-32 21:44:00* Test Item Value Reference Range Interpretation Comments Urine Clarity (test code = 85640-3) HAZY CLEAR [facility] CenterUrine Specific Mejvgpj3917-23-03 21:44:00 * Test Item Value Reference Range Interpretation Comments Urine Specific [place] (test code = 5811-5) 1.020 1.010-1.02 5 [facility] CenterUrine qO7263-53-74 21:44:00* Test Item Value Reference Range Interpretation Comments Urine pH (test code = 80714-1) 6 5-7 [facility] CenterUrine Leukocyte Cuzsikkw3944-40-52 21:44:00* Test Item Value Reference Range Interpretation Comments Urine Leukocyte Esterase (test code = 5799-2) NEGATIVE NEGATIVE [facility] CenterUrine Qxoskvn4135-61-69 21:44:00* Test Item Value Reference Range Interpretation Comments Urine Nitrite (test code = 91128-3) NEGATIVE NEGATIVE [facility] CenterUrine Wrfjqjz7034-02-97 21:44:00* Test Item Value Reference Range Interpretation Comments Urine Protein (test code = 5804-0) NEGATIVE NEGATIVE [facility] CenterUrine Glucose (UA)2018-06-07 21:44:00* Test Item Value Reference Range Interpretation Comments Urine Glucose (UA) (test code = 2349-9) NEGATIVE NEGATIVE [facility] CenterUrine Ovkqlbk7351-56-36 21:44:00* Test Item Value Reference Range Interpretation Comments Urine Ketones (test code = 78802-1) NEGATIVE NEGATIVE [facility] Kmilldufwflk2932-29-94 21:44:00* Test Item Value Reference Range Interpretation Comments Urine Urobilinogen (test code = 00565-5) 0.2 0.2-1 [facility] Qorsnbojj7445-68-55 21:44:00* Test Item Value Reference Range Interpretation Comments Urine Bilirubin (test code = 1978-6) NEGATIVE NEGATIVE [facility] Pirkw3080-65-36 21:44:00* Test Item Value Reference Range Interpretation Comments Urine Blood (test code = 08199-0) NEGATIVE NEGATIVE [facility] CenterUrine YOM0025-94-10 21:44:00* Test Item Value Reference Range Interpretation Comments Urine WBC (test code = 5821-4) 0-5 0-5 [facility] CenterUrine MNA0945-14-88 21:44:00* Test Item Value Reference Range Interpretation Comments Urine RBC (test code = 10004-9) 0-5 0-5 [facility] CenterUrine Yhmyemgs2784-65-92 21:44:00* Test Item Value Reference Range Interpretation Comments Urine Bacteria (test code = 75947-5) FEW NONE [facility] CenterUrine Epithelial Rtxjc4063-45-25 21:44:00 * Test Item Value Reference Range Interpretation Comments Urine Epithelial Cells (test code = 15854-5) FEW NONE [facility] CenterCHEMISTRY2013-07-02 08:45:0012.0[facility] KohzglwSKAJEDIWT3360-20-75 08:45:0016[facility] SaoqshzSBBUIKXRW2114-22-73 08:45:001.1[facility] VoroeyoVAHRMWJHL5875-49-00 08:45:002.5[facility] [place] FJXGSPURX0437-81-45 08:45:0028[facility] QgzkbirBUUBBVPZG0583-80-54 08:45:07454 [facility] WdlnjlrRMEWITGBW8887-32-04 08:45:002.7[facility] HermannCHEMISTRY 2012-09-18 08:45:008.0[facility] UhrddldUXTEAFNQW6508-12-10 08:45:0065[facility] AhimdduZQTBOXOBO0172-62-37 08:45:001.0[facility] HzewmscXUUJMBBRD6730-35-86 08:45:68504Fdlkgbic PrkutbuKHGFPCMZK3442-76-26 08:45:004.0[facility] GPCURBMOO1745-97-16 08:45:32385Xerlzouu QshjgpzKHIOHOXHI6057-67-42 08:45:0016 [facility] CprekjwRQGUKCAMY3618-43-43 08:45:000.6[facility] HermannCHEMISTRY 2012-09-18 08:45:0022[facility] BfiwtydXXWBUYFOD3013-08-26 08:45:0071[facility] HpzkkciLMRGGZYPH1434-32-04 08:45:0019[facility] HompbozBTBYSQTYW7409-94-49 08:45:005.2[facility] NesopwhHNFDLIEVQJ1961-20-03 08:45:008.4[facility] Jem MOIESSAJFF8457-02-80 08:45:0013.0[facility] FpoehduKZMJNIOVCL2973-90-28 08:45:00 95.8[facility] WnhebrvISJISSSVAK8153-26-03 08:45:00* Test Item Value Reference Range Interpretation Comments MCH (test code = MCH) 31.8 pg 27.0-31.0 H [facility] JlbepgzGRHBJCLPVV7724-20-04 08:45:0010.7[facility] HermannHEMATOLOGY 2012-09-18 08:45:0032.4[facility] UqumzajIJIJWDKEOR3207-69-26 08:45:0010.3[facility] EhopscvDHLAASDLYN5189-41-56 08:45:003.38[facility] ZltknojYALQPKQTUG0165-80-72 08:45:79915Axlzoxrj QczrxixIYRHMHJYTA3583-63-21 08:45:0033.1[facility] [place] WLVSITPTIK6313-68-67 08:45:001.0[facility] ZfsogkwOOERCCOUCO0304-50-03 08:45:001.5 [facility] DpwfcqoOVZEXURTTR2976-74-18 08:45:001+ *ABN*(09/18/2012 03:45:00) [facility] OzmfkfnUATQQRQFJA5057-38-19 08:45:000.1[facility] HermannHEMATOLOGY 2012-09-18 08:45:000.0[facility] DilxqioOBMSWBHHDW2567-08-53 08:45:0014.9[facility] BlmjdqwFDOZJXUHJT7765-57-98 08:45:0074.7[facility] YtdjjyrQXPYUEZYXD9779-67-04 08:45:007.7[facility] RoeffziJKVKPZASVP5652-28-98 08:45:009.6[facility] Jem TVGAJJCECX2349-99-01 08:45:000.3[facility] ImbyvhnPJZSJVPHWT3581-64-11 08:45:000.5 [facility] UpnlyegYHPOYVZORZ4260-45-03 21:43:0013.2[facility] HermannHEMATOLOGY 2012-09-10 21:43:0039.2[facility] FtimcejILXPMKNEA2736-59-50 08:49:0010.8[facility] CevhaonKAMYPBHJR5213-94-89 08:49:003.8[facility] YbqexaiYTDXEUWHP7035-79-15 08:49:41609Hamajlnj QnjjmdfYGMNGGUPJ7831-49-89 08:49:86692Mfowaxmv [place] JOMGKDUHO0920-26-93 08:49:000.7[facility] WfwdtpvRQWEBYXZO4011-74-56 08:49:0024 [facility] WkgfoqoKRPJEGNIF7050-84-18 08:49:008.0[facility] HermannCHEMISTRY 2011-09-11 08:49:39052Rwarfmnz FobtsrqRDOISIXXA5118-73-54 08:49:007[facility] AyyedraPFSKKLCSNJ4217-58-85 08:49:0034.4[facility] BncgxgtBMYVVVACVG2281-22-15 08:49:0013.1[facility] FiwxvjaIHXCBJDVQH0862-25-71 08:49:08793Tfnbdgid Jem FVAEWPJROP9305-29-71 08:49:007.6[facility] DfltnomBKRDXNBFPL0753-77-47 08:49:006.7 [facility] OzoxxadEJRMKHVORT3075-93-57 08:49:00* Test Item Value Reference Range Interpretation Comments MCH (test code = MCH) 32.8 pg 27.0-31.0 H [facility] VsxtkixDMDTGPVZOJ4959-03-72 08:49:0026.0[facility] HermannHEMATOLOGY 2011-09-11 08:49:002.72[facility] LbbrazpDNYXUHJGMX7033-98-26 08:49:008.9[facility] HlzzcvlVYULXOZXCX6126-21-40 08:49:0095.5[facility] EeyhtdcNUYGFEQUIF6712-52-31 08:49:0047.7[facility] UolfxsoEYVMMVOVHP4061-05-95 08:49:000.3[facility] ZJGSLQDJUY8241-02-49 08:49:003.2[facility] PwdqxqnUITZQGZGOP4376-69-91 08:49:003.2 [facility] DxnowrcUXLOYCKRJL6928-70-73 08:49:000.2[facility]annHEMATOLOGY 2011-09-11 08:49:000.0[facility] HprcdzkUUFCHPIBMQ2658-84-43 08:49:0010.7[facility] JhlftcvHOEJNATNAA5433-46-98 08:49:0038.1[facility] IrfuceoFGZFQCGAOA9183-47-75 08:49:000.7[facility] MntewuwJJALVFYKIT4981-72-79 08:49:002.5[facility] [place] BBTLIFTHA4019-55-01 08:45:0016.6[facility] JqsutqxIDCQIYWRC0490-20-78 08:45:0010 [facility] UzlupzaOXRVYLHVZ2229-83-59 08:45:0022[facility] HermannCHEMISTRY 2011-09-10 08:45:83158Zkiklywg DyntchyMCVZNPPFF8739-81-29 08:45:008.1[facility] WezodvtIOBHRJLNQ0993-01-31 08:45:000.8[facility] RkirnhzHETKEGDHM2069-06-72 08:45:78996Znznomcp McqxmpvTBOOMOWXI0164-36-92 08:45:54306Ichrcgvn [place] MBIUKCTPB1066-83-06 08:45:003.6[facility] VvxjvuqAFIWMBUOZF5790-94-27 08:45:0068.1 [facility] PwymnkaPZZLPJNCWG0174-95-69 08:45:0021.0[facility] HermannHEMATOLOGY 2011-09-10 08:45:0010.7[facility] IysgrotFZTBVSSHZX4344-22-73 08:45:000.1[facility] GrrpqijNOMUVVHURR4888-10-62 08:45:006.1[facility] JxftqzpJPLBQRRRBI5636-64-90 08:45:000.1[facility] PtxekbxWSKFUFXKYH3137-36-50 08:45:000.0[facility] CXKPTYCMIG8348-10-20 08:45:001.0[facility] HkavkbuDZALYHARVF5949-59-06 08:45:000.0 [facility] ZpdqudpTAPYKQVWSE0613-24-82 08:45:001.9[facility]annHEMATOLOGY 2011-09-10 08:45:008.9[facility] QhmiiteHTZDGNZHUA1188-85-23 08:45:002.90[facility] RrwsxcmYYSYILSTOA1426-12-84 08:45:007.6[facility] PufzlkzHBSGZDSUBR7462-12-81 08:45:0033.8[facility] LzkulfqWMGOVWJGVO8092-64-35 08:45:24046Kdmwccox Jem MZGCAJVLQK1742-06-97 08:45:0013.3[facility] NaojlrvSIAVXFFWPX4018-54-18 08:45:00 9.4[facility] EkyjmttEJKCDMLBXK7260-80-59 08:45:0096.1[facility] HermannHEMATOLOGY 2011-09-10 08:45:0027.9[facility] OuyoxicFJGUXNQZLC3958-75-65 08:45:00* Test Item Value Reference Range Interpretation Comments MCH (test code = MCH) 32.5 pg 27.0-31.0 H [facility] TanvsauMYHSCTHTUS9906-36-82 19:00:0040[facility] HermannURINALYSIS 2011-09-09 19:00:00Occasional /HPF *NA*(09/09/2011 14:00:00) [facility] [place] BTLCKTVQPB1979-25-30 19:00:00Few /LPF *NA*(09/09/2011 14:00:00) [facility] VuawuwyHSYRNJFCDJ9214-03-66 19:00:19801Hnqtlwpy SarbbvnMXHZECQXCC2684-32-48 19:00:00Negative (09/09/2011 14:00:00) [facility] VslpbfiANPAZWANMH2088-11-23 19:00:00Large *ABN*(09/09/2011 14:00:00) [facility] VciwqebXIWFSOWCZX2295-64-86 19:00:00Occasional /LPF *NA*(09/09/2011 14:00:00) [facility]annURINALYSIS 2011-09-09 19:00:00Trace *ABN*(09/09/2011 14:00:00) [facility]annURINALYSIS 2011-09-09 19:00:00Marked *ABN*(09/09/2011 14:00:00) [facility]annURINALYSIS 2011-09-09 19:00:006.0[facility] JklumncNUNWSDFQFH3098-03-97 19:00:00Negative *NA*(09/09/2011 14:00:00) [facility] JxvjzrgFWRYDFWYAJ9946-36-29 19:00:001.019 [facility] ZzxbfzrSBTNGWEFTT7822-95-69 19:00:00Negative mg/dL *NA*(09/09/2011 14:00:00) [facility] FboyruvYQCVOOINHW8979-71-83 19:00:0020 mg/dL *ABN*(09/09/2011 14:00:00) [facility] XlbnbwnCHLSHXZSHZ8813-27-12 19:00:24912 mg/dL *ABN*(09/09/2011 14:00:00) [facility] RdfcyudYCTQBMMNQY1617-96-93 19:00:00 Yellow *NA*(09/09/2011 14:00:00) [facility] PgzyuaqFAQJGWTSE6986-87-27 17:00:00 120[facility] GgyxikwCBIFKVRGF5975-08-20 17:00:001.0[facility] HermannCHEMISTRY 2011-09-09 17:00:0016.4[facility] VkaofjuVHFLKRLFB9976-21-75 17:00:0015[facility] QjmmqxpJPEAUOWFG0616-60-07 17:00:003.6[facility] FriwmrsPNOJCSLQQ7816-71-21 17:00:0017[facility] MtksypuSTJDWJOZW4001-12-25 17:00:008.8[facility] [place] SPICFQOEL8396-99-01 17:00:000.8[facility] AuyydhrLDRWXJJSU3999-20-20 17:00:007.2 [facility] YfapndlQFYMRCEGZ5803-17-25 17:00:003.6[facility] HermannCHEMISTRY 2011-09-09 17:00:0021[facility] NrjkoewTQWHLEJCV8597-81-04 17:00:0077[facility] YfmemonRYHZVGAZX7479-65-17 17:00:28011Ezuxmuqu WlyaawlHIYOLKGLI7027-70-18 17:00:0012[facility] RtqndopKVDRTUMMV4896-58-22 17:00:000.8[facility] SHLKNVZCV1027-90-79 17:00:0024[facility] YfiogqbTKZHMQFLV9207-33-81 17:00:97655 [facility] GmxvxvvXTWQABWKL2300-19-65 17:00:02292Khgxeiws HermannCHEMISTRY 2011-09-09 17:00:003.4[facility] JwpfehjZDCMGXGHQZ9990-15-74 17:00:000.0[facility] ApcajmzNLETWNEVZJ3457-25-29 17:00:000.6[facility] DazlyumDDNGFKZAIS3543-07-87 17:00:000.0[facility] TqlcexpYHEJRWACMH1496-05-64 17:00:007.3[facility] [place] VSCFLBLKEF9534-98-63 17:00:001.0[facility] DzglxiyRUGJFIILSJ6014-29-71 17:00:000.3 [facility] IstjgpmUWNTJLWXUI4515-75-09 17:00:000.0[facility]annHEMATOLOGY 2011-09-09 17:00:0011.5[facility] CqflqapGHLSHTTKUY5035-16-07 17:00:006.5[facility] LmshdziJRJQIEZSNX0570-96-08 17:00:0081.7[facility] LippvdhKMQOVXSHTP0300-41-65 17:00:0029.2[facility] MgvbwmuAFLARYKQMN3078-53-39 17:00:00* Test Item Value Reference Range Interpretation Comments MCH (test code = MCH) 32.6 pg 27.0-31.0 H [facility] MsbzpvsKKDQZZUXMW1821-94-55 17:00:0034.0[facility]annHEMATOLOGY 2011-09-09 17:00:0096.0[facility] JlvzbopNGCQMFXTYN7555-05-68 17:00:0013.4[facility] OatmujjMYQJQTPIQC5536-15-62 17:00:73583Zudopcyi PjzxamuZFSWFPFDBR5420-39-22 17:00:007.4[facility] QznzkjvDMHMKHUYON8983-92-52 17:00:008.9[facility] [place] NDYGPTYZNV0560-18-92 17:00:003.04[facility] XnceibtNTZBNZUJGW5565-71-79 17:00:00 9.9[facility] NyedianVVYBDBCBV2081-97-80 16:10:009.2[facility] HermannCHEMISTRY 2011-06-17 16:10:0028[facility] JpheemfKZQJUXWZM1874-41-14 16:10:76732Vcxwpsvs UoauyrsRQTFORVUE1674-92-91 16:10:004.7[facility] FxvwsyzIPRHGQWEH2778-13-10 16:10:35221Esjrgisf QpmnrgvINVLUYORN6363-34-71 16:10:000.9[facility] [place] JQYIOATUH9755-76-41 16:10:0012[facility] IvkzimnSYTBSYJLN1210-47-40 16:10:28242 [facility] JpxnrebUMWBCVSXJ9498-53-60 16:10:0011.7[facility] HermannHEMATOLOGY 2011-06-17 16:10:00* Test Item Value Reference Range Interpretation Comments PTT (test code = PTT) 27.5 s 22.9-35.8 N [facility] XrvilrdJHCMOKNCWF4085-28-47 16:10:00* Test Item Value Reference Range Interpretation Comments PT (test code = PT) 15.2 s 12.0-14.7 H [facility] VbnlpneHEIUPQAOGI3982-81-85 16:10:001.20[facility]annHEMATOLOGY 2011-06-17 16:10:007.1[facility] OcmkknxDZQDZBRUVN0000-53-12 16:10:003.62[facility] ZkgpgtiBHFCXOOLMG4124-48-01 16:10:0093.emorial LnibonfIHRJMCQAYM0486-24-19 16:10:0011.emorial CudodxjDUJAQMBWQT7163-37-03 16:10:0033.9[facility] [place] KNZWGOPOLE8686-45-43 16:10:0033.3[facility] PdnkjydWJGYNBIMCG9380-92-21 16:10:00* Test Item Value Reference Range Interpretation Comments MCH (test code = MCH) 31.2 pg 27.0-31.0 H [facility] SiqpgfqUFOJCBGUOA4888-15-06 16:10:81586Njdspgiz HermannHEMATOLOGY 2011-06-17 16:10:0013.5[facility] YefqkxtADCIGTRGYU4114-52-42 16:10:007.6[facility] JfjgysdUWPHRPCSNL7342-03-18 16:10:0025.5[facility] KlxfxkjBJTSGZDLZW9852-30-88 16:10:0059.1[facility] NjwjfzcNOVTALIIPR7029-86-94 16:10:008.7[facility] [place] GDGOIRGHQL7273-96-17 16:10:006.4[facility] XhrjgzjWHKLSJVVVH8645-55-03 16:10:004.2 [facility] TzsytfiQPMGNHLXAM2211-54-64 16:10:000.3[facility] HermannHEMATOLOGY 2011-06-17 16:10:000.5[facility] ZleauohJWDFFUFNHR9490-03-45 16:10:000.6[facility] OdzlkzoNGWHINHFCW9586-48-97 16:10:000.0[facility] HpubufeCMDRCJLRLG1172-48-52 16:10:001.8[facility] HhxdkuiRQWUQVUGQH3191-85-01 16:10:00Occasional /HPF (06/17/2011 11:10:00) [facility] HehpoitAZTQCYDGVC0141-72-71 16:10:006-10 /HPF *ABN*(06/17/2011 11:10:00) [facility] XthpsmzRXGNRQZFFZ2996-83-89 16:10:0011-20 /HPF *ABN*(06/17/2011 11:10:00) [facility] JvfbqwpOEYGUQWZDM9535-69-23 16:10:00 Occasional /LPF (06/17/2011 11:10:00) [facility] OkctwcqKFFGYUSEOH5179-09-38 16:10:00Performed (06/17/2011 11:10:00) [facility] CljqlvrSUBRRCCLJM8221-66-56 16:10:00Moderate *ABN*(06/17/2011 11:10:00) [facility]annURINALYSIS 2011-06-17 16:10:00* Test Item Value Reference Range Interpretation Comments UA Spec Grav (test code = UA Spec Grav) 1.025 1 N [facility] UkhgysmIIZLJUCYZI0938-54-86 16:10:00Slight Cloudy (06/17/2011 11:10:00) [facility] UiyjeaeWTOCEODFNM8417-64-43 16:10:00Large *ABN*(06/17/2011 11:10:00) [facility] BvfkzjgFCGKEBMTLL1765-61-87 16:10:00Negative (06/17/2011 11:10:00) [facility] VkxeglvMHQJCFUVBQ3520-01-89 16:10:000.2[facility] HermannURINALYSIS 2011-06-17 16:10:00Negative 1(06/17/2011 11:10:00) [facility]annURINALYSIS 2011-06-17 16:10:0015 mg/dL *ABN*(06/17/2011 11:10:00) [facility] RWCPCGFRRN5957-66-95 16:10:00Negative (06/17/2011 11:10:00) [facility] WAWTPGIZHV1587-46-81 16:10:00>=300 mg/dL *ABN*(06/17/2011 11:10:00) [facility] CenterFfhsiywJOZGXWNCCU9561-70-06 16:10:00* Test Item Value Reference Range Interpretation Comments UA pH (test code = UA pH) 6.0 1 5.0-8.0 N [facility] CenterOunxthsCZCMLCNUZH6995-47-04 16:10:00Yellow *NA*(06/17/2011 11:10:00) [facility]
--- NOTE | 2020-02-12 19:53 | Diagnostic Imaging Report ---
EXAMINATION: Head CT without contrast. HISTORY:Status post fall. COMPARISON:CT brain from 08/30/2018. TECHNIQUE: Multidetector axial images were obtained from the foramen magnum to the vertex without contrast. The images were reconstructed using brain and bone algorithms. Thin section brain images were reformatted into coronal and sagittal planes. Dose modulation, iterative reconstruction, and/or weight based adjustment of the mA/kV was utilized to reduce the radiation dose to as low as reasonably achievable. Intravenous contrast: None IMAGE QUALITY: Suboptimal evaluation at the level of skull base and posterior fossa due to streak artifacts. FINDINGS: Skull/scalp: No lytic or blastic. lesions. No surgical changes. Parenchyma: Nonspecific few, scattered supratentorial white matter hypodensity are likely related to small vessel ischemic changes. No acute hemorrhage, mass or acute major vascular territorial infarct. Arteries: No density suggestive of thrombosis. Dural sinuses: No abnormal density suggestive of thrombosis. Ventricles: No hydrocephalus or displacement. Extra-axial spaces: No abnormal density. Brain volume: Mild generalized cerebral volume loss. Craniocervical junction: No mass, Chiari malformation, or basilar invagination. Sella: No mass. Paranasal/mastoid sinuses: Imaged portions unremarkable. IMPRESSION: No acute intracranial abnormality. Mild generalized cerebral volume loss. Mild supratentorial white matter microvascular ischemic changes. Signed by: Dr. Sheron Sanchez M.D. on 02/12/2020 7:50 PM
--- NOTE | 2020-02-12 20:09 | Diagnostic Imaging Report ---
Right hip 3 - views HISTORY: Pain status post fall. There is mucosal dictating COMPARISON: None FINDINGS: No displaced fracture. 1.7 cm lobulated sclerotic lesion projected on the right ilium, which may represent soft tissue calcification versus an osseous lesion. Osseous alignment is within normal limits. Degenerative changes of the bilateral hip and SI joints. Multiple phleboliths. IMPRESSION: No acute displaced fracture. Signed by: Dr. Ai Cabello M.D. on 02/12/2020 8:05 PM
--- NOTE | 2020-02-12 20:09 | Diagnostic Imaging Report ---
Thoracic Spine - 3 view(s) HISTORY: Pain status post fall. COMPARISON: None FINDINGS: Superimposed structures and attenuation partially limit bone detail. The alignment is normal. No displaced fracture or compression deformity is identified. The disc spaces are well-maintained. IMPRESSION: No acute osseous abnormality. Signed by: Dr. Ai Cabello M.D. on 02/12/2020 8:06 PM
--- NOTE | 2020-02-12 20:11 | Diagnostic Imaging Report ---
Lumbar Spine Radiographs: 3 views HISTORY: Pain status post fall. COMPARISON: None available. DISCUSSION: There are five non-rib bearing lumbar vertebral bodies. The alignment of the spine is within normal limits. No displaced fracture or compression deformity is identified. Multilevel degenerative changes of the lower thoracic and multiple levels of the lumbar spine particularly L5-S1. IMPRESSION: No acute osseous abnormality. Signed by: Dr. Ai Cabello M.D. on 02/12/2020 8:07 PM
--- NOTE | 2020-02-12 20:11 | Diagnostic Imaging Report ---
ELBOW RIGHT COMPLETE - . views HISTORY: Pain COMPARISON: None available. FINDINGS: Bones: No acute displaced fracture. Osseous alignment is within normal limits. Joints: The joint spaces are well-maintained. Soft tissues: The soft tissues appear unremarkable. IMPRESSION: No acute osseous abnormality. Signed by: Dr. Ai Cabello M.D. on 02/12/2020 8:08 PM
--- NOTE | 2020-02-12 20:16 | Emergency Department Note ---
History of Present Illnes History of Present Illness Chief Complaint: General Medicine Complaints History of Present Illness This is a 59 year old female IN FROM HOME WITH COMPLAINTS OF FALL FROM CHAIR; C/O BACK PAIN AND RIGHT ARM PAIN. PATIENT WITH SMALL ABRASION NOTED TO RIGHT FOREARM. PATIENT DENIES LOC..BUT DID HIT HER HEAD, REPORTS HAVING A "BRAIN BLEED" IN THE PAST. 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 Any updates have been documented here. Past Medical History Recent Fever: No Clinical Suspicion of Infectio: No New/Unexplained Change in Ment: No Past Medical History: Hypertension, CVA, Kidney Stones, UTI's, Liver Disease, Anemia, GERD, Chronic Back Pain Other Medical History: Dementia Cirrhosis hypokalemia COLITIS Past Surgical History: Cholecysctectomy, Appendectomy, Hysterectomy, Back Surgery, Bariatric Surgery Other Surgery: Klever hand and knee surgery Gastric Bypass Social History Smoking Cessation: Never Smoker Alcohol Use: Occasional Any Illegal Drug Use: No Physically hurt or threatened: No Other Last Tetanus: UTD Review of Systems Review of Systems Constitutional: Reports no symptoms EENTM: Reports no symptoms Cardiovascular: Reports no symptoms Respiratory: Reports no symptoms Gastrointestinal: Reports no symptoms Genitourinary: Reports no symptoms Musculoskeletal: Reports as per HPI Integumentary: Reports no symptoms Neurological: Reports no symptoms Psychological: Reports no symptoms Endocrine: Reports no symptoms Hematological/Lymphatic: Reports no symptoms Physical Exam Related Data Allergies: Coded Allergies: Sulfa (Sulfonamide Antibiotics) (Verified Allergy, Unknown, 02/12/20) * aspirin (Verified Allergy, Unknown, 02/12/20) codeine (Verified Allergy, Unknown, 02/12/20) meperidine (Verified Allergy, Unknown, 02/12/20) propoxyphene (Verified Allergy, Unknown, 02/12/20) Uncoded Allergies: ELIZABETH (Allergy, Unknown, 09/14/18) Triage Vital Signs Vital Signs Date Time Temp Pulse Resp B/P (MAP) Pulse Ox O2 Delivery O2 Flow Rate FiO2 02/12/20 18:40 98.8 82 20 139/86 94 Room Air Vital signs reviewed: Yes Physical Exam CONSTITUTIONAL Constitutional: Present well-developed, Present well-nourished, Present distressed (MILD) HENT HENT: Present normocephalic, Present atraumatic, Present oropharynx clear/moist, Present nose normal HENT L/R: Present left ext ear normal, Present right ext ear normal EYES Eyes: Reports PERRL, Reports conjunctivae normal NECK Neck: Present ROM normal, Present other (MILD TENDERNESS C7, NO STEP OFF, NO DEFORMITY NOTED) PULMONARY Pulmonary: Present effort normal, Present breath sounds normal CARDIOVASCULAR Cardiovascular: Present regular rhythm, Present heart sounds normal, Present capillary refill normal, Present normal rate GASTROINTESTINAL Abdominal: Present soft, Present nontender, Present bowel sounds normal GENITOURINARY Genitourinary: Present exam deferred SKIN Skin: Present warm, Present dry MUSCULOSKELETAL PAIN WITH ROM OF RIGHT ELBOW AND RIGHT HIP, NO DEFORMITY NOTED PT WITH MIDLINE TENDERNESS TO MID/LOWER BACK, NO VERTEBRAL STEP OFFS NOTED, N/N INTACT NEUROLOGICAL Neurological: Present alert, Present oriented x 3, Present no gross motor or sensory deficits PSYCHOLOGICAL Psychological: Present mood/affect normal, Present judgement normal Results Imaging Imaging results reviewed: Yes Impressions Procedure: [id number] DX/THORACIC SPINE 2VW Exam Date: 02/12/20 Exam Time: 1930 REPORT STATUS: Signed Thoracic Spine - 3 view(s) HISTORY: Pain status post fall. COMPARISON: None FINDINGS: Superimposed structures and attenuation partially limit bone detail. The alignment is normal. No displaced fracture or compression deformity is identified. The disc spaces are well-maintained. IMPRESSION: No acute osseous abnormality. Signed by: Dr. Ai Walker M.D. on 02/12/2020 8:06 PM Dictated By: JUNE WALKER MD, MD 05 Transcribed By: AILYN on 02/12/202005 COPY TO: RONI LARA MD~ Procedure: [id number] DX/LUMBAR 3 VIEW Exam Date: 02/12/20 Exam Time: 1929 REPORT STATUS: Signed Lumbar Spine Radiographs: 3 views HISTORY: Pain status post fall. COMPARISON: None available. DISCUSSION: There are five non-rib bearing lumbar vertebral bodies. The alignment of the spine is within normal limits. No displaced fracture or compression deformity is identified. Multilevel degenerative changes of the lower thoracic and multiple levels of the lumbar spine particularly L5-S1. IMPRESSION: No acute osseous abnormality. Signed by: Dr. Ai Walker M.D. on 02/12/2020 8:07 PM Dictated By: JUNE WALKER MD, MD 06 Transcribed By: AILYN on 02/12/202006 COPY TO: RONI LARA MD~ rocedure: [id number] DX/HIP RIGHT 2-3 VW (+/- PELVIS) Exam Date: Exam Time: REPORT STATUS: Signed Right hip 3 - views HISTORY: Pain status post fall. There is mucosal dictating COMPARISON: None FINDINGS: No displaced fracture. 1.7 cm lobulated sclerotic lesion projected on the right ilium, which may represent soft tissue calcification versus an osseous lesion. Osseous alignment is within normal limits. Degenerative changes of the bilateral hip and SI joints. Multiple phleboliths. IMPRESSION: No acute displaced fracture. Signed by: Dr. Ai Walker M.D. on 02/12/2020 8:05 PM Dictated By: JUNE WALKER MD, MD 04 Transcribed By: AILYN on 02/12/202004 COPY TO: RONI LARA MD~ Procedure: [id number] DX/ELBOW RIGHT COMPLETE Exam Date: 02/12/20 Exam Time: 1929 REPORT STATUS: Signed ELBOW RIGHT COMPLETE - . views HISTORY: Pain COMPARISON: None available. FINDINGS: Bones: No acute displaced fracture. Osseous alignment is within normal limits. Joints: The joint spaces are well-maintained. Soft tissues: The soft tissues appear unremarkable. IMPRESSION: No acute osseous abnormality. Signed by: Dr. Ai Walker M.D. on 02/12/2020 8:08 PM Dictated By: JUNE WALKER MD, MD 07 Transcribed By: AILYN on 02/12/202007 COPY TO: RONI LARA MD~ Procedure: [id number] CT/CT CERVICAL SPINE WO Exam Date: 02/12/20 Exam Time: 1912 REPORT STATUS: Signed History: Status post fall. Comparison studies: CT cervical spine from 08/30/2018. Technique: Axial images were obtained through the cervical region.. Coronal and sagittal images reconstructed from the axial data. Dose modulation, iterative reconstruction, and/or weight based adjustment of the mA/kV was utilized to reduce the radiation dose to as low as reasonably achievable. Intravenous contrast: None Findings: Fractures: None. Soft tissue injuries: None. Atlantoaxial articulation: Intact. Alignment: Loss of normal cervical lordosis is either positional or due to muscle spasm. No scoliosis. No subluxation. Cervicomedullary junction: No abnormalities. The foramen magnum is patent. Soft tissues: No abnormalities. Vertebrae: No fractures, infection or neoplasm. Degenerative changes: Mild degenerative changes in the anterior atlantodental joint. No significant canal or foraminal stenosis.. IMPRESSION: 1. No acute cervical spine fracture or dislocation. Loss of normal cervical lordosis is either positional or due to muscle spasm. 2. Ligament, spinal cord and or vascular abnormalities cannot be excluded on the basis of this examination. Signed by: Dr. Sheron Sanchez M.D. on 02/12/2020 8:13 PM Dictated By: SHERON SANCHEZ MD 12 Transcribed By: AILYN on 02/12/202012 COPY TO: RONI LARA MD~ Procedure: [id number] CT/CT BRAIN WO Exam Date: Exam Time: REPORT STATUS: Signed EXAMINATION: Head CT without contrast. HISTORY:Status post fall. COMPARISON:CT brain from 08/30/2018. TECHNIQUE: Multidetector axial images were obtained from the foramen magnum to the vertex without contrast. The images were reconstructed using brain and bone algorithms. Thin section brain images were reformatted into coronal and sagittal planes. Dose modulation, iterative reconstruction, and/or weight based adjustment of the mA/kV was utilized to reduce the radiation dose to as low as reasonably achievable. Intravenous contrast: None IMAGE QUALITY: Suboptimal evaluation at the level of skull base and posterior fossa due to streak artifacts. FINDINGS: Skull/scalp: No lytic or blastic. lesions. No surgical changes. Parenchyma: Nonspecific few, scattered supratentorial white matter hypodensity are likely related to small vessel ischemic changes. No acute hemorrhage, mass or acute major vascular territorial infarct. Arteries: No density suggestive of thrombosis. Dural sinuses: No abnormal density suggestive of thrombosis. Ventricles: No hydrocephalus or displacement. Extra-axial spaces: No abnormal density. Brain volume: Mild generalized cerebral volume loss. Craniocervical junction: No mass, Chiari malformation, or basilar invagination. Sella: No mass. Paranasal/mastoid sinuses: Imaged portions unremarkable. IMPRESSION: No acute intracranial abnormality. Mild generalized cerebral volume loss. Mild supratentorial white matter microvascular ischemic changes. Signed by: Dr. Sheron Sanchez M.D. on 02/12/2020 7:50 PM Dictated By: SHERON SANCHEZ MD 49 Transcribed By: AILYN on 02/12/201949 COPY TO: RONI LARA MD~ Assessment & Plan Medical Decision Making MDM PT S/P FALL CT BRAIN, CT C SPINE, XRAYS T SPINE, L SPINE, RIGHT ELBOW AND RIGHT HIP ORDERED TO EVAL FOR FRACTURE Assessment & Plan Final Impression: (1) Fall (2) Abrasion of left arm (3) Cervical strain (4) Lumbar strain (5) Strain of thoracic back region (6) Hip pain Depart Disposition: HOME, SELF-CARE Last Vital Signs Date Time Temp Pulse Resp B/P (MAP) Pulse Ox O2 Delivery O2 Flow Rate FiO2 02/12/20 20:10 76 18 142/86 99 Room Air 02/12/20 18:40 98.8 Home Meds Active Scripts Ondansetron Hcl* (ZOFRAN*) 4 Mg Tablet, 4 MG SL Q6H PRN for NAUSEA, #14 MG 0 Refills Prov:GRACIA OSBORN [employer]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 07/03/18 Reported Medications Chlordiazepoxide/Clidinium Br (LIBRAX CAPSULE) 1 Each Capsule, 1 CAP PO AC, CAP 11/19/19 Ropinirole Hcl (ROPINIROLE HCL) 0.25 Mg Tablet, 0.5 MG PO HS, #90 TAB 10/31/19 Sucralfate (CARAFATE) 1 Gm/10 Ml Oral.susp, 1 GM PO QID, ML 10/31/19 Pantoprazole Sodium (PROTONIX) 20 Mg Tablet.dr, 40 MG PO DAILY, #30 TAB 10/31/19 [Iron] No Conflict Check, 1 TAB PO DAILY 09/14/18 [Fiorcet With Codeine] No Conflict Check, 1 TAB PO PRN 09/14/18 Medications in the ED Acetaminophen/ Hydrocodone Bitart 1 ea ONCE ONCE PO Last administered on 02/12/20at 19:11; Admin Dose 1 EA; Start 02/12/20 at 19:00; Stop 02/12/20 at 19:06; Status DC RONI LARA MD Feb 12, 2020 20:15
[2020-02-12 20:33] VITALS: BP 129/75
== END 2020-02-12 20:50 | disposition home or self-care (01) ==
LOC: ER 18:45
DX: S13.4XXA Sprain of ligaments of cervical spine, initial encounter (principal); S00.83XA Contusion of other part of head, initial encounter; S23.3XXA Sprain of ligaments of thoracic spine, initial encounter; S33.5XXA Sprain of ligaments of lumbar spine, initial encounter; M25.551 Pain in right hip; S50.311A Abrasion of right elbow, initial encounter; W07.XXXA Fall from chair, initial encounter; Y92.008 Other place in unspecified non-institutional (private) residence as the place of occurrence of the external cause; I10 Essential (primary) hypertension; K21.9 Gastro-esophageal reflux disease without esophagitis; F03.90 Unspecified dementia, unspecified severity, without behavioral disturbance, psychotic disturbance, mood disturbance, and anxiety; Z86.73 Personal history of transient ischemic attack (TIA), and cerebral infarction without residual deficits; Z98.84 Bariatric surgery status
CPT/HCPCS: 70450; 72070; 72100; 72125; 99283

== ENCOUNTER 2020-09-08 12:48 | Emergency (ER) | payer MEDICARE, OTHER | END 2020-09-08 16:08 | disposition home or self-care (01) | LOC: ER 13:27 | DX: G89.18 Other acute postprocedural pain (principal); M54.12 Radiculopathy, cervical region | CPT/HCPCS: 72125; 99283 ==

== ENCOUNTER → 2024-05-08 | Day surgery (SDC) | payer MEDICARE ==
[~2024-05-08] MED LIST changes: +BARIATRIC MULTI PO; +CARAFATE1 GM PO; +CYMBALTA30 MG PO; +DEXILANT60 MG PO; +ESMOLOL HCL 100MG/10ML 10 MG/ML VIAL ONE; +FENTANYL CITRATE/PF 100MCG/2 ML INJ ONE; +HYDROCODON-ACE1 EA11 PO; +HYOSCYAMINE SULFATE 0.5 MG/ML INJ ONE; +LIDOCAINE HCL 2% LOCAL INJ 5 ML SDV VIAL INJ ONE; +MAGNESIUM OXIDE PO; +METOCLOPRAMIDE HCL 10 MG/2ML VIAL ONE; +ONDANSETRON HCL INJ 2MG/ML 2ML 2 MG/ML VIAL ONE; +PEPCID20 MG PO; +PROPOFOL IV EMULSION 50 ML IV ONE; +REGLAN5 MG PO; +TAMIFLU6 MG/1 ML PO; +VITAMIN B121000 MCG PO; +VITAMIN D3125 MCG PO; +VITAMIN IM
[2024-05-08 09:14] VITALS: TEMP 98
[2024-05-08 09:25] VITALS: BP 100/66; PULSE 66; RESP 18; O2SAT 98
[2024-05-08] MEDS: LACTATED RINGER'S 1,000 ML ONE (09:52)
== END | disposition home or self-care (01) ==
LOC: ENDO 06:22
PROVIDERS: ATTEND Internal Medicine Gastroenterology
DX: K22.2 Esophageal obstruction (principal); K29.50 Unspecified chronic gastritis without bleeding; K25.9 Gastric ulcer, unspecified as acute or chronic, without hemorrhage or perforation; Z98.84 Bariatric surgery status; K76.0 Fatty (change of) liver, not elsewhere classified; M54.9 Dorsalgia, unspecified; N20.0 Calculus of kidney; Z79.899 Other long term (current) drug therapy; Z86.73 Personal history of transient ischemic attack (TIA), and cerebral infarction without residual deficits
CPT/HCPCS: 43239; 43450; 93005; J2003; J2405; J2470; J2704; J2765; J3010; J7121; J1980